=== PATIENT | male | born 1945 ===

== ENCOUNTER 2020-06-30 11:56 | Emergency (ER) | payer MEDICARE, OTHER, SELFPAY ==
--- NOTE | ~2020-06-30 | XR_ITS ---
EXAMINATION: XR CHEST CLINICAL INFORMATION: SOB and chest pain. COMPARISON: None TECHNIQUE: 2 views of the chest were obtained. FINDINGS: The lungs are hyperinflated but clear of acute process. The heart size and pulmonary vascularity is normal. There is mild spondylosis dorsal spine. No lytic process. XR/XR chest 2V IMPRESSION: Hyperinflated lungs without acute process.
--- NOTE | 2020-06-30 10:37 | CA_ITS ---
Transthoracic Echocardiogram Patient (Last, First, Middle): Lou Kruse, Gender: Male Date of : 1945 Age: 75 Procedure Date: 06/30/2020 Procedure Type: Transthoracic Echocardiogram Location: OP Height: 175.26 cm Weight: 70.31 kg BSA: 1.85 m2 Heart Rate: bpm BP: 150 / 72 mmHg Senior Net Software Developer: [place] MD: Jeffrey Johansen MD Certified Dietary Manager: Jimy Willson MD Symptoms: SOB Study Quality: Good ECG Rhythm: Atrial Fibrillation Conclusions: - 1. Normal LV systolic function 2. Moderate biatrial enlargement 3. Moderately enlarged right ventricle with low normal RV systolic pressure next 4. Mild aortic and mitral regurgitation 5. Normal RV systolic pressure 6. No pericardial effusion Findings Left Ventricle Normal left ventricular size, thickness, and systolic function. The visually estimated ejection fraction is between 55-60%. Diastolic function is indeterminate on the basis of available data. Right Ventricle Moderately increased right ventricular cavity size. There is low normal right ventricular systolic function. Atria Moderate biatrial enlargement. Interatrial shunt cannot be excluded. Aortic Valve Normal aortic valve structure and function. There is no aortic valve stenosis. There is mild aortic valve regurgitation. Mitral Valve There is mild anterior and posterior mitral leaflet thickening. There is mild mitral valve regurgitation. There is no mitral valve stenosis. Pulmonic Valve The pulmonic valve is likely normal. There is trace pulmonic valve regurgitation. Tricuspid Valve Likely normal tricuspid valve structure and function. There is mild tricuspid valve regurgitation. The right ventricular systolic pressure is normal. The right ventricular systolic pressure is 29 mmHg. Normal right atrial pressure. There is no evidence of pulmonary hypertension. Great Vessels All visible segments of the aorta are normal in size. The pulmonary artery was not well visualized. Venous The inferior vena cava is normal in size and collapses greater than 50% with inspiration. Pericardium/Pleural There is no evidence of pericardial effusion. Prior Study Comparison No prior study available for comparison. Measurements 2D Linear Measurements RVIDd: 2.82 RVIDd Index: 1.52 IVSd: 0.99 0.6-0.9/0.6-1.0 cm LVIDd: 4.34 3.9-5.3/4.2-5.9 cm LVIDd Index: 2.35 2.4-3.2/2.2-3.1 cm/m2 LVIDs: 3.17 2.0-3.6 cm LVPWd: 1.17 0.7-1.1 cm Ao Root: 3.40 2.1-3.5 cm LA Diam: 4.40 2.7-3.8/3.0-4.0 cm LAIDs Index: 2.38 1.5-2.3 cm/m2 LV Mass: 201.12 67-162/88-224 g LV Mass Index: 108.71 43-95/49-115 g/m2 LVOT Diam: 2.20 3.0+(-)1.3 cm 2D Systolic Function EF 4C: 62.80 >55% EF 2C: 54.30 >55% Aortic Valve AoV Pk Victor Manuel: 1.18 AoV Mn Victor Manuel: 0.90 AoV VTI: 0.26 AoV Pk Grad: 6.00 Aov Mn Grad: 4.00 DIAN Cont.VTI: 2.35 LVOT LVOT Pk Victor Manuel: 0.67 LVOT Mn Victor Manuel: 0.51 LVOT VTI: 0.16 LVOT Pk Grad: 2.00 LVOT Mn Grad: 1.00 LVOT Diam: 2.20 LVOT Area: 3.80 Tricuspid Valve TR Pk Victor Manuel: 2.56 TR Pk Grad: 26.00 RA Press: 3.00 RVSP: 29.00 Great Vessels Aorta Ao Root-2D: 3.40 2.0-3.7 cm Ao Asc: 3.30 2.1-3.4 cm Ao Arch: 2.90 Updated in Other Vendor System with Status of Final Jimy Willson MD electronically signed on 06/30/2020 12:20:20 PM with status of Final
--- NOTE | 2020-06-30 12:26 | PC.NURSE ---
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
[2020-06-30 12:31] VITALS: BP 163/103; PULSE 45; RESP 15; TEMP 36.1; O2SAT 99
[2020-06-30 12:40] VITALS: BP 163/103; PULSE 45; RESP 15; TEMP 36.1; O2SAT 99
--- NOTE | 2020-06-30 12:49 | ECG_ITS ---
Test Reason : CP Blood Pressure : / mmHG Vent. Rate : 056 BPM Atrial Rate : 326 BPM P-R Int : 000 ms QRS Dur : 092 ms QT Int : 454 ms P-R-T Axes : 000 -18 020 degrees QTc Int : 438 ms Atrial fibrillation with slow ventricular response Abnormal ECG No previous ECGs available Referred By: Isadora Pate Electronically Signed By:JANNET STROUD MD
--- NOTE | 2020-06-30 13:12 | ED_ITS ---
HPI - Arrhythmia/Palpitations General Chief Complaint: Arrhythmia/Palpitations Stated Complaint: Abnormal EKG Time Seen by Provider: 06/30/20 12:33 Source: patient and family Mode of arrival: ambulatory Limitations: no limitations History of Present Illness HPI narrative: 75-year-old male with a past medical history of hypertension and hyperlipidemia here with complaints of abnormal EKG and echocardiogram. The pa edgard tells me that he has had shortness of breath, chest discomfort, dizziness with going up the stairs for approximately 2-3 months. When he is at rest he feels well. No associated leg pain, leg swelling, cough, fevers or chills. Patient was seen by his primary care doctor yesterday and an outpatient echo, EKG and chest x-ray were ordered. Patient had a echocardiogram today which showed normal LV systolic function with EF 55-60%, moderate biatrial enlargement, moderately enlarged right ventricle with low-normal RV systolic pressure, mild aortic and mitral regurgitation, normal RV systolic pressure, no pericardial effusion. Noted to be in AFib with no history so sent over to the emergency department. Related Data Allergies Allergy/AdvReac Type Severity Reaction Status Date / Time aspirin Allergy Unknown nausea and Verified 03/24/18 00:00 vomiting Review of Systems 2 Review of Systems: Yes all other systems are reviewed and are negative Constitutional: Constitutional: Reports no additional constitutional complaints, Denies body ache(s), Denies chills, Denies fever(s), Denies headache(s) and Denies weakness Eyes: Eyes: Reports no additional eye complaints and Denies change in vision ENT: Reports system reviewed and no additional complaints, except as doc umented, Reports dizziness, Denies headache(s), Denies nasal congestion, Denies nasal discharge and Denies neck pain Cardiovascular: Cardiovascular: Reports no additional cardiovascular complaints, Reports chest pain with activity, Denies leg edema and Reports dyspnea Respiratory: Respiratory: Reports no additional respiratory complaints, Denies cough and Reports dyspnea Gastrointestinal: Gastrointestinal: Reports no additional gastrointestinal complaints, Denies abdominal pain, Denies diarrhea, Denies nausea and Denies vomiting Genitourinary: Genitourinary: Denies urinary incontinence Musculoskeletal: Musculoskeletal: Reports no additional musculoskeletal complaints, Denies back pain, Denies arthralgias, Denies joint swelling, Denies neck pain, Denies numbness and Denies tingling Integumentary/Breasts: Skin/Breast: Reports system reviewed and no additional complaints, except as docu and Denies rash Neurologic: Reports system reviewed and no additional complaints, except as documented, Denies Abnormal speech present, Reports dizziness, Denies headache(s), Denies numbness, Denies tingling and Denies weakness PMFSH Past Medical History Attestation statement: The following information was validated with the patient. Source: old records reviewed and nursing notes reviewed Medical History High cholesterol HTN (hypertension) Social History Social History (Updated 06/30/20 @ 13:16 by Isadora Pate NP) Alcohol intake: current Alcohol intake frequency: 0-2 drinks per day Alcohol type: wine and hard liquor Smoking Status: Never smoker Use of substances other than those prescribed or required for medical reasons: No Physical Exam Vital Signs: Vital Signs: Last Vital Signs Temp 97 F 06/30/20 12:40 Pulse 58 06/30/20 14:54 Resp 15 06/30/20 12:40 BP 149/87 H 06/30/20 14:54 Pulse Ox 99 06/30/20 12:40 Body Mass Index 8.1 Const: General: cooperative, healthy appearing, comfortable and no acute distress Orientation/consciousness: patient oriented x3 Limitations: no limitations HENMT: Head: Yes normal to inspection Ears: hearing grossly normal bilaterally General nose exam: Normal external nose present Face and sinus: Yes normal facial exam Mouth: Normal oral and palatal mucosa present Throat: Yes posterior oropharynx normal Eyes: General: appearance normal, both eyes and all related structures Pupils: Equal, round and reactive pupils present Neck: Neck: Yes normal visual inspection Chest: Chest palpation & inspection: normal inspection of the chest Resp: Effort & Inspection: normal respiratory effort Auscultation: clear to auscultation bilaterally Cardio: Rate: regular rate Rhythm: abnormal rhythm (Irregularly irregular) Peripheral pulses: Peripheral pulses 2+ throughout GI: Inspection: Yes normal to inspection Palpation (GI): Soft to palpation and nontender Auscultation: normal bowel sounds Back/Spine/Pelvis: Thoracic/Lumbar Spine: thoracic and lumbar spine normal to inspection Skin: General skin exam: no rashes or lesions noted Neuro: General: patient oriented x3, no focal motor deficits and normal sensation to monofilament Cranial nerves: Yes Equal, round and reactive pupils present Cognition (Neuro): normal cognition Speech: No Abnormal speech present Gait exam (Neuro): Normal gait present Motor exam (neuro): 5/5 motor strength present throughout Extrem: General: Yes normal to inspection, Yes no pedal edema and Yes no calf tenderness Course Course Course Narrative: 75-year-old male with a past medical history of hypertension, hyperlipidemia sent over from the echo department for an echo which showed moderate biatrial enlargement, moderately enlarged right ventricle with low normal RV systolic pressure next, and mild aortic and mitral regurgitation. Also noted to be in AFib with a rate of 50 with no history of same. Patient has a history of shortness of breath with associated dizziness and chest pain with exertion ONLY for 2-3 months. No symptoms at rest. Will need EKG here, CXR, labs. 1420-EKG shows AFib with rate of 56. Patient is AFib on the quality assurance monitor final with rates from 32 to 50s. Chest x-ray shows no acute finding. Labs are unremarkable with mild elevation of potassium at 5.2. BNP 268 but no clinical findings for fluid overload. CHADS score 1. Call out to Cardiology did discuss. 1440-spoke to Dr. Willson from Cardiology. He feels the patient can be discharged home and follow up with Cardiology outpatient. Repeat blood pressure on discharge 149/87. Reviewed the findings with the patient and his son. Recommended f/u with cardiology. Return for dizziness, SOB, CP, near syncope or any other progressive symptoms. MDM - Arrhythmia/Palpitations MDM Narrative Medical decision making narrative: ACS, afib, PE Less likely ACS with negative troponin and EKG which shows no ischemic changes. Less likely PE with negative D-dimer and no clinical signs or symptoms of DVT. Medical Records Attestation: I reviewed the patient's medical records. Lab Data Attestation: I reviewed the patient's lab results. Result diagrams: 06/30/20 13:13 06/30/20 13:13 Labs: Lab Results 06/30/20 06/30/20 06/30/20 Range/Units 13:13 13:13 13:13 WBC 5.7 (4.8-10.8) X10*3/uL RBC 4.57 L (4.60-5.80) X10*6/uL Hgb 13.9 L (14.0-18.0) g/dl Hct 41.8 L (42-52) % MCV 91.5 (80-98) fL MCH 30.4 (27.0-33.0) pg MCHC 33.3 (31.0-36.0) g/dl RDW 12.6 (11.0-16.0) % Plt Count 198 (160-400) X10*3/uL MPV 10.1 (9.4-12.4) fL Immature Gran % (Auto) 0.2 (0.0-0.4) % Neut % (Auto) 54.6 (45-73) % Lymph % (Auto) 34.4 (20-40) % [place] % (Auto) 8.9 (2-11) % Eos % (Auto) 1.2 (0-4) % Baso % (Auto) 0.7 (0-2) % Lymph # (Auto) 2.0 (1.2-4.9) X10*3/uL [place] # (Auto) 0.5 (0.1-1.2) X10*3/uL Eos # (Auto) 0.1 (0.0-0.4) X10*3/uL Baso # (Auto) 0.0 (0.0-0.2) X10*3/uL Abs Immat Gran (auto) 0.01 (0.00-0.03) X10*3/uL Absolute Neuts (auto) 3.1 (2.0-8.3) X10*3/uL Absolute Nucleated RBC 0.000 (0.0-0.012) X10*3/uL Nucleated RBC % (auto) 0.0 (0.0-0.2) /100WBC PT (10.8-13.0) SEC INR (0.9-1.1) D-Dimer NG/ML Sodium 140 (135-145) mmol/L Potassium 5.2 H (3.3-5.1) mmol/L Chloride 106 (96-108) mmol/L Carbon Dioxide 23 (22-29) mmol/L Anion Gap 16 (12-20) BUN 20 H (9-16) mg/dL Creatinine 0.78 (0.5-1.4) mg/dL Estim Creat Clear Calc 29.3 Estimated GFR > 60 Random Glucose 98 (60-115) mg/dL Calcium 9.5 (8.4-10.2) mg/dL Magnesium 2.2 (1.6-2.6) mg/dL Total Bilirubin 1.8 H (0.0-1.0) mg/dL Direct Bilirubin 0.5 (0.0-0.5) mg/dL AST 27 (5-37) U/L ALT 18 (0-40) U/L Alkaline Phosphatase 74 (39-117) U/L Troponin I High Sens < 3.5 (<3.5-35.0) ng/L B-Natriuretic Peptide 268 H (<100) pg/mL Total Protein 7.4 (6.5-8.0) g/dL Albumin 4.3 (3.5-5.0) g/dL 06/30/20 Range/Units 13:13 WBC (4.8-10.8) X10*3/uL RBC (4.60-5.80) X10*6/uL Hgb (14.0-18.0) g/dl Hct (42-52) % MCV (80-98) fL MCH (27.0-33.0) pg MCHC (31.0-36.0) g/dl RDW (11.0-16.0) % Plt Count (160-400) X10*3/uL MPV (9.4-12.4) fL Immature Gran % (Auto) (0.0-0.4) % Neut % (Auto) (45-73) % Lymph % (Auto) (20-40) % [place] % (Auto) (2-11) % Eos % (Auto) (0-4) % Baso % (Auto) (0-2) % Lymph # (Auto) (1.2-4.9) X10*3/uL [place] # (Auto) (0.1-1.2) X10*3/uL Eos # (Auto) (0.0-0.4) X10*3/uL Baso # (Auto) (0.0-0.2) X10*3/uL Abs Immat Gran (auto) (0.00-0.03) X10*3/uL Absolute Neuts (auto) (2.0-8.3) X10*3/uL Absolute Nucleated RBC (0.0-0.012) X10*3/uL Nucleated RBC % (auto) (0.0-0.2) /100WBC PT 13.1 H (10.8-13.0) SEC INR 1.1 (0.9-1.1) D-Dimer 206 NG/ML Sodium (135-145) mmol/L Potassium (3.3-5.1) mmol/L Chloride (96-108) mmol/L Carbon Dioxide (22-29) mmol/L Anion Gap (12-20) BUN (9-16) mg/dL Creatinine (0.5-1.4) mg/dL Estim Creat Clear Calc Estimated GFR Random Glucose (60-115) mg/dL Calcium (8.4-10.2) mg/dL Magnesium (1.6-2.6) mg/dL Total Bilirubin (0.0-1.0) mg/dL Direct Bilirubin (0.0-0.5) mg/dL AST (5-37) U/L ALT (0-40) U/L Alkaline Phosphatase (39-117) U/L Troponin I High Sens (<3.5-35.0) ng/L B-Natriuretic Peptide (<100) pg/mL Total Protein (6.5-8.0) g/dL Albumin (3.5-5.0) g/dL Imaging Data Chest x-ray: Attestation: I personally reviewed and interpreted this imaging study as follows: Radiologist's impression: EXAMINATION: XR CHEST CLINICAL INFORMATION: SOB and chest pain. COMPARISON: None TECHNIQUE: 2 views of the chest were obtained. FINDINGS: The lungs are hyperinflated but clear of acute process. The heart size and pulmonary vascularity is normal. There is mild spondylosis dorsal spine. No lytic process. XR/XR chest 2V IMPRESSION: Hyperinflated lungs without acute process. ECG Data Attestation: I personally reviewed and interpreted this ECG as follows: ECG interpretation date: 06/30/20 ECG interpretation time: 12:12 Interpretation: AFib with a rate of 56, normal QRS, QTC 438 Discharge Plan Discharge Clinical Impression: Atrial fibrillation Qualifiers: Atrial fibrillation type: unspecified Qualified Code(s): I48.91 - Unspecified atrial fibrillation Patient Disposition: Home, Self-Care Instructions: A-fib (Atrial Fibrillation) (ED) Additional Instructions: Check your blood pressure and pulse every morning and write it down Return for worsening lightheadedness, dizziness, feeling like her going to pass out, severe chest pain Tomorrow call the director of retail marketing for a follow-up appointment Referrals: Jimy Willson MD [Physician] - 2 days Interventions: ED Discharge Assessment Last Done: 06/30/20 15:05 Discharge Date/Time: 06/30/20 15:06
[2020-06-30 13:18] LABS: MANUAL DIFF FLAG NO
[2020-06-30 13:20] LABS: Basophils Percent Auto 0.7 % (0-2); Eosinophils Absolute Auto 0.1 X10*3/uL (0.0-0.4); Eosinophils Percent Auto 1.2 % (0-4); Hematocrit 41.8 % (42-52); Hemoglobin 13.9 g/dl (14.0-18.0); Imm Gran Abs Auto 0.01 X10*3/uL (0.00-0.03); Imm Gran Pct Auto 0.2 % (0.0-0.4); Lymphocytes Percent Auto 34.4 % (20-40); Mean Corpuscular HGB Conc 33.3 g/dl (31.0-36.0); Mean Corpuscular Hemoglobin 30.4 pg (27.0-33.0); Mean Corpuscular Volume 91.5 fL (80-98); Mean Platelet Volume 10.1 fL (9.4-12.4); Monocytes Absolute Auto 0.5 X10*3/uL (0.1-1.2); Monocytes Percent Auto 8.9 % (2-11); Neutrophils Absolute Auto 3.1 X10*3/uL (2.0-8.3); Neutrophils Percent Auto 54.6 % (45-73); Platelet Count 198 X10*3/uL (160-400); Red Blood Count 4.57 X10*6/uL (4.60-5.80); Red Cell Distribution Width 12.6 % (11.0-16.0); White Blood Count 5.7 X10*3/uL (4.8-10.8)
[2020-06-30 13:26] LABS: INTERNATIONAL NORM RATIO 1.1 (0.9-1.1); Prothrombin Time 13.1 SEC (10.8-13.0)
[2020-06-30 13:29] LABS: D Dimer 206 NG/ML
[2020-06-30 13:57] LABS: Alanine Aminotransferase 18 U/L (0-40); Albumin Level 4.3 g/dL (3.5-5.0); Alkaline Phosphatase 74 U/L (39-117); Anion Gap 16 (12-20); Aspartate Amino Transferase 27 U/L (5-37); Bilirubin Direct 0.5 mg/dL (0.0-0.5); Bilirubin Total 1.8 mg/dL (0.0-1.0); Blood Urea Nitrogen 20 mg/dL (9-16); Calcium 9.5 mg/dL (8.4-10.2); Carbon Dioxide 23 mmol/L (22-29); Chloride 106 mmol/L (96-108); Creatinine Clr Calc Pharmacy 29.3; Estimated Glomerular Filt Rate > 60; Glucose Random 98 mg/dL (60-115); Magnesium 2.2 mg/dL (1.6-2.6); Potassium 5.2 mmol/L (3.3-5.1); Sodium 140 mmol/L (135-145); Total Protein 7.4 g/dL (6.5-8.0)
[2020-06-30 13:58] LABS: Troponin-I High Sensitivity < 3.5 ng/L (<3.5-35.0)
[2020-06-30 14:23] LABS: B Type Natriuretic Peptide 268 pg/mL (<100)
[2020-06-30 14:54] VITALS: BP 149/87; PULSE 58
== END 2020-06-30 15:06 | disposition home or self-care (01) ==
LOC: HO.ED 11:56
PROVIDERS: Nurse Practitioner Family; Emergency Provider Emergency Medicine Emergency Medical Services; PCP Internal Medicine; Visit Provider Internal Medicine
DX: I48.91 Unspecified atrial fibrillation (principal); I10 Essential (primary) hypertension; E78.5 Hyperlipidemia, unspecified
CPT/HCPCS: 36415; 71046; 80048; 80076; 83735; 83880; 84484; 85025; 85379; 85610; 93005; 93306; 99285

== ENCOUNTER → 2020-07-14 14:54 | Outpatient (BNVA) | payer MEDICARE, OTHER, SELFPAY | PROVIDERS: PCP Internal Medicine; Visit Provider Internal Medicine Cardiovascular Disease | DX: I48.19 Other persistent atrial fibrillation (principal); R79.89 Other specified abnormal findings of blood chemistry; I10 Essential (primary) hypertension; R06.02 Shortness of breath; R53.83 Other fatigue; E78.00 Pure hypercholesterolemia, unspecified; I08.0 Rheumatic disorders of both mitral and aortic valves; Z88.6 Allergy status to analgesic agent; Z79.899 Other long term (current) drug therapy | CPT/HCPCS: 99202 ==

== ENCOUNTER → 2020-08-08 12:54 | Outpatient (REF) | payer MEDICARE, OTHER, SELFPAY ==
--- NOTE | 2020-08-08 13:05 | ECG_ITS ---
Hook-up date: 2020-08-08 13:11:00 Duration: 25:33:00 Test Indications: PERSISTENT AFIB Medications: 68326 QRS complexes 18 Ventricular ectopics which represent <1 % of total QRS comp. * Supraventricular ectopics which represent % of total QRS comp. * Paced QRS complexs which represent % of total QRS comp. VENTRICULAR ECTOPY 16 Isolated 0 Bigeminal Cycles 1 Couplets 0 Runs 0 Beats in Runs * Beats LONGEST at * BPM at :: -- * Beats FASTEST at * BPM at :: -- SUPRAVENTRICULAR ECTOPY * Isolated * Couplets * Runs * Beats in Runs * Beats LONGEST at * BPM at :: -- * Beats FASTEST at * BPM at :: -- HEART RATES 33 MIN at 05:31:49 2020-08-09 61 AVG 126 MAX at 20:09:58 2020-08-08 LONGEST RR 3.2400 secs at 05:00:25 2020-08-09 S-T LEVELS Channel 1 - 128 mm at 13:11:00 2020-08-08 - 128 mm at 13:11:00 2020-08-08 Channel 2 - 128 mm at 13:11:00 2020-08-08 - 128 mm at 13:11:00 2020-08-08 Channel 3 - 128 mm at 03:23:01 -- - 128 mm at 03:23:01 Basic rhythm Atrial fibrillation No significant pauses Frequent slow VR to AF with average HR of 61 bpm, 47% of time HR < 60 bpm Rare Premature ventricular complexes Patient did not report any symptoms in the diary Referred By: Jimy Willson Overread By: JIMY WILLSON MD
== END ==
LOC: HO.CARD 12:54
PROVIDERS: Visit Provider Internal Medicine Cardiovascular Disease
DX: I48.19 Other persistent atrial fibrillation (principal)
CPT/HCPCS: 93225; 93226

== ENCOUNTER 2020-08-10 09:01 | Day surgery (SDC) | payer MEDICARE, OTHER, SELFPAY ==
[2020-08-05 14:44] VITALS: BMI 23.1
--- NOTE | 2020-08-09 12:33 | P.CONAN_ITS ---
Documented by User: Marilu Levine 08/09/20 12:36 HPI - Anesthesia Eval Consult details Narrative: 75yo M for Cardioversion Xarelto for afib PMFSH Active Problems Active Problems: All Active Problems (Updated 07/14/20 @ 16:15 by Jimy Willson MD) Hypersomnolence (Acute) HTN (hypertension) (Acute) SOB (shortness of breath) on exertion (Acute) Elevated brain natriuretic peptide (BNP) level (Acute) Persistent atrial fibrillation (Acute) Past Medical History Medical History High cholesterol HTN (hypertension) Persistent atrial fibrillation Family History Family History Father Stroke Mother No problems noted. Surgical History Surgical History Hx of colonoscopy Social History Social History Alcohol intake: current Alcohol intake frequency: 0-2 drinks per day Alcohol type: wine and hard liquor Patient Tobacco Use Status: Tobacco use Unknown Use of substances other than those prescribed or required for medical reasons: No Are you DNR?: No Advance Directives: No Advance Directives Information Provided: No Advance Directives on File: No Meds Allergies Allergy/AdvReac Type Severity Reaction Status Date / Time aspirin Allergy Unknown nausea and Verified 08/10/20 09:11 vomiting, GI upset Home Medications Medication Instructions Recorded Confirmed Last Taken Type atorvastatin 40 mg tablet 40 mg PO DAILY 07/14/20 08/05/20 Unknown History lisinopril 30 mg tablet 30 mg PO DAILY 07/14/20 08/05/20 Unknown History terbinafine HCl 250 mg tablet 250 mg PO DAILY 07/14/20 08/05/20 Unknown History Exam Exam Date and Time: August 09, 2020 1233 Height,Weight and Vital Signs: Height 5 ft 9 in Weight 71.214 kg Narrative Narrative: ECHO 06/2020 Conclusions: 1. Normal LV systolic function 2. Moderate biatrial enlargement 3. Moderately enlarged right ventricle with low normal RV systolic pressure next 4. Mild aortic and mitral regurgitation 5. Normal RV systolic pressure 6. No pericardial effusion EKG 06/2020 Vent. Rate : 056 BPM Atrial Rate : 326 BPM P-R Int : 000 ms QRS Dur : 092 ms QT Int : 454 ms P-R-T Axes : 000 -18 020 degrees QTc Int : 438 ms Atrial fibrillation with slow ventricular response Abnormal ECG No previous ECGs available Assessment and Plan Assessment Anesthesia Assessment: Chart Reviewed Documented by User: Aracelis Starks 08/10/20 10:09 [facility] Past Medical History Medical History High cholesterol HTN (hypertension) Persistent atrial fibrillation Family History Family History Father Stroke Mother No problems noted. Surgical History Surgical History Hx of colonoscopy Social History Social History Alcohol intake: current Alcohol intake frequency: 0-2 drinks per day Alcohol type: wine and hard liquor Patient Tobacco Use Status: Tobacco use Unknown Use of substances other than those prescribed or required for medical reasons: No Are you DNR?: No Advance Directives: No Advance Directives Information Provided: No Advance Directives on File: No Meds Allergies Allergy/AdvReac Type Severity Reaction Status Date / Time aspirin Allergy Unknown nausea and Verified 08/10/20 09:11 vomiting, GI upset Home Medications Medication Instructions Recorded Confirmed Last Taken Type atorvastatin 40 mg tablet 40 mg PO DAILY 07/14/20 08/05/20 Unknown History lisinopril 30 mg tablet 30 mg PO DAILY 07/14/20 08/05/20 Unknown History terbinafine HCl 250 mg tablet 250 mg PO DAILY 07/14/20 08/05/20 Unknown History Exam Airway Mallampati Class: II TM Dist: >3cm Neck ROM: Full Assessment and Plan Assessment Anesthesia Assessment: Anesthesia Plan Discussed and Chart Reviewed Final Anesthetic Review NPO: Yes Final Preanesthetic Review: No Changes in Pt Med Stat, Meds/Allgs Chart Reviewed, Consent Obtained/Reviewed and Anes Risks/Benef Reviewed Patient Risk: Intermediate Procedure Risk: Low Assessment/Block/Sedation in SS: Assess/Block/Sedation-SS Anesthetic Plan Anesthetic Plan: GA Disposition: Standard PACU
--- NOTE | 2020-08-10 08:43 | MHC.SHP ---
Pre-Procedural Eval Section A Date of Service: 08/10/20 The patient is an INPATIENT: No Changes since office visit: Yes Changes in Medication and Yes Patient answered all questions; No Cold of Flu in the past 2 weeks and No New Medical Problems Section B Chief Complaint: afib Allergies: Allergies Allergy/AdvReac Type Severity Reaction Status Date / Time aspirin Allergy Unknown nausea and Verified 08/05/20 14:43 vomiting, GI upset Plan I have reviewed the history and physical and performed a pertinent physical examination on my patient. No changes have occurred unless specified.
[2020-08-10 09:22] VITALS: BP 137/83; PULSE 67; RESP 16; TEMP 36.5; O2SAT 98
[2020-08-10] MEDS: Lactated Ringers 1,000 ML 50 ML IVCONT (10:03)
[2020-08-10 10:55] VITALS: BP 134/83; PULSE 52; RESP 16; TEMP 36.6; O2SAT 97
[2020-08-10 11:00] VITALS: BP 120/57; PULSE 50; RESP 15; O2SAT 97
--- NOTE | 2020-08-10 11:00 | P.PNCAR_ITS ---
Cardioversion Procedure Note Cardioversion Date of Procedure: today Ordering Provider: myself Performing Provider: myself Indication for Procedure: symptomatic persistent atrial fibrillation Pre-Op Diagnosis: same Post-Op Diagnosis: sinus rhythm with PACs Performed with Transesophageal Echo: No History: see history and physical for details Consent: Verbal and Written consent was obtained from the patient with the help of a certified cemetery vault installer over the phonebefore starting the procedure and confirming that he was taking his Multaq and Xarelto.. The patient was made aware of the risk of The procedures including benefits, alternatives and 2nd opinion. Procedure: After consent obtained, - - cardioversion pads were attached in anteroposterior configurationand the patient was sedated by the anesthesia team. Once adequate sedation achieved, patient was delivered 200 joules of biphasic synchronized energy in anteroposterior configuration Complications: none Impression: converted to sinus rhythm with intermittent burst of PACs and short runs of AFib. Recommendations: 1. continue Multaq 400 mg b.i.d.. 2. Twelve lead EKG 3. Continue Xarelto uninterrupted 4. Holter monitor in 1 weeks time and follow up in the clinic in 2 weeks time.
--- NOTE | 2020-08-10 11:00 | ECG_ITS ---
Test Reason : S/P CARDIOVERSION Blood Pressure : / mmHG Vent. Rate : 047 BPM Atrial Rate : 047 BPM P-R Int : 256 ms QRS Dur : 110 ms QT Int : 484 ms P-R-T Axes : 069 -25 021 degrees QTc Int : 428 ms Sinus bradycardia with 1st degree A-V block with Premature atrial complexes Otherwise normal ECG When compared with ECG of 30-JUN-2020 12:12, Sinus rhythm has replaced Atrial fibrillation Referred By: Jimy Willson Electronically Signed By:JIMY WILLSON MD
[2020-08-10 11:06] VITALS: BP 112/64; PULSE 49; RESP 15; O2SAT 97
[2020-08-10 11:11] VITALS: BP 103/62; PULSE 48; RESP 17; O2SAT 97
[2020-08-10 11:25] VITALS: BP 119/75; PULSE 50; RESP 14; O2SAT 97
== END 2020-08-10 11:55 ==
LOC: HO.SSS 09:02
PROVIDERS: PCP Internal Medicine; Visit Provider Internal Medicine Cardiovascular Disease
PROC: 5A2204Z Restoration of Cardiac Rhythm, Single (ICD-10-PCS; principal; 2020-08-10 10:30)
DX: I48.19 Other persistent atrial fibrillation (principal); Z79.01 Long term (current) use of anticoagulants; I10 Essential (primary) hypertension; R79.89 Other specified abnormal findings of blood chemistry; E78.00 Pure hypercholesterolemia, unspecified; Z79.899 Other long term (current) drug therapy
CPT/HCPCS: 92960; 93005

== ENCOUNTER 2020-08-16 13:39 | Outpatient (REF) | payer MEDICARE, OTHER, SELFPAY ==
[2020-08-16 14:43] LABS: Anion Gap 13 (12-20); Blood Urea Nitrogen 21 mg/dL (9-16); Calcium 10.1 mg/dL (8.4-10.2); Carbon Dioxide 27 mmol/L (22-29); Chloride 104 mmol/L (96-108); Estimated Glomerular Filt Rate > 60; Glucose Random 88 mg/dL (60-115); Potassium 5.1 mmol/L (3.3-5.1); Sodium 139 mmol/L (135-145)
[2020-08-16 14:55] LABS: B Type Natriuretic Peptide 230 pg/mL (<100)
== END 2020-08-16 13:40 | disposition home or self-care (01) ==
LOC: HO.LAB 13:39
PROVIDERS: PCP Internal Medicine; Visit Provider Internal Medicine Cardiovascular Disease
DX: R79.89 Other specified abnormal findings of blood chemistry (principal)
CPT/HCPCS: 36415; 80048; 83880

== ENCOUNTER → 2020-08-18 09:36 | Outpatient (REF) | payer MEDICARE, OTHER, SELFPAY ==
--- NOTE | 2020-08-18 14:30 | ECG_ITS ---
Hook-up date: 2020-08-18 09:43:00 Duration: 27:45:00 Test Indications: I48.19 - Other persistent atria Medications: 07410 QRS complexes 11 Ventricular ectopics which represent <1 % of total QRS comp. 36 Supraventricular ectopics which represent <1 % of total QRS comp. * Paced QRS complexs which represent % of total QRS comp. VENTRICULAR ECTOPY 11 Isolated 0 Bigeminal Cycles 0 Couplets 0 Runs 0 Beats in Runs * Beats LONGEST at * BPM at :: -- * Beats FASTEST at * BPM at :: -- SUPRAVENTRICULAR ECTOPY 32 Isolated 2 Couplets 0 Runs 0 Beats in Runs * Beats LONGEST at * BPM at :: -- * Beats FASTEST at * BPM at :: -- HEART RATES 36 MIN at 07:27:53 2020-08-19 56 AVG 94 MAX at 13:14:24 2020-08-18 LONGEST RR 2.7360 secs at 03:46:34 2020-08-19 S-T LEVELS Channel 1 - 128 mm at 09:43:00 2020-08-18 - 128 mm at 09:43:00 2020-08-18 Channel 2 - 128 mm at 09:43:00 2020-08-18 - 128 mm at 09:43:00 2020-08-18 Channel 3 - 128 mm at 02:90:21 -- - 128 mm at 02:90:21 Underlying rhythm is sinus bradycardia; Average rate 56/min; range 36-94/min; About 70% of the time, rate <60/min; Longest pause 2.7sec during sleep hours; other shorter pauses during sleep hours; some blocked PACs; Rare PACs/PVCs, isolated; Patient did not report any symptoms in the diary Referred By: Jimy Willson Overread By: JOHNY HO
== END ==
LOC: HO.CARD 09:36
PROVIDERS: PCP Internal Medicine; Referring Provider Internal Medicine; Visit Provider Internal Medicine Cardiovascular Disease
DX: I48.19 Other persistent atrial fibrillation (principal)
CPT/HCPCS: 93226

== ENCOUNTER → 2020-08-30 14:02 | Outpatient (BNVA) | payer MEDICARE, OTHER, SELFPAY | PROVIDERS: PCP Internal Medicine; Referring Provider Internal Medicine; Visit Provider Internal Medicine Cardiovascular Disease | DX: I48.19 Other persistent atrial fibrillation (principal); R79.89 Other specified abnormal findings of blood chemistry | CPT/HCPCS: 93005; 99212 ==

== ENCOUNTER 2020-09-09 17:03 | Outpatient (REF) | payer MEDICARE, OTHER, SELFPAY ==
--- NOTE | ~2020-09-09 | XR_ITS ---
EXAMINATION: XR KNEE, RIGHT CLINICAL INFORMATION: Pain COMPARISON: None TECHNIQUE: Four views of the right knee. FINDINGS: Bone alignment is normal. No fracture or dislocation is seen. There are degenerative changes at the patellofemoral joint. There is an osteophyte at the quadriceps tendon insertion to the patella. There is a large joint effusion. XR/XR knee RT 4V IMPRESSION: Degenerative changes. Joint effusion.
[2020-09-09 18:24] LABS: Anion Gap 15 (12-20); Blood Urea Nitrogen 24 mg/dL (9-16); Calcium 10.4 mg/dL (8.4-10.2); Carbon Dioxide 30 mmol/L (22-29); Chloride 106 mmol/L (96-108); Estimated Glomerular Filt Rate > 60; Glucose Random 98 mg/dL (60-115); Potassium 4.6 mmol/L (3.3-5.1); Sodium 146 mmol/L (135-145)
[2020-09-09 18:32] LABS: B Type Natriuretic Peptide 360 pg/mL (<100)
== END 2020-09-09 17:04 | disposition home or self-care (01) ==
LOC: HO.XRAY 17:03
PROVIDERS: PCP Internal Medicine; Referring Provider Internal Medicine; Visit Provider Internal Medicine Cardiovascular Disease
DX: M25.561 Pain in right knee (principal); R06.02 Shortness of breath
CPT/HCPCS: 36415; 73564; 80048; 83880

== ENCOUNTER → 2020-10-05 11:00 | Day surgery (SDC) | payer MEDICARE, OTHER, SELFPAY ==
[2020-09-28 14:58] VITALS: BMI 21.5
--- NOTE | 2020-10-04 10:40 | HO.ANESPROP2 ---
HPI - Anesthesia Eval Consult details Narrative: 75yo M for Cardioversion Xarelto for afib s/p Cardioversion 07/2020 with TIVA PMFSH Active Problems Active Problems: All Active Problems (Updated 09/28/20 @ 14:51 by Candace Ramirez, RN) Elevated brain natriuretic peptide (BNP) level (Acute) SOB (shortness of breath) on exertion (Acute) Hypersomnolence (Acute) HTN (hypertension) (Acute) Persistent atrial fibrillation (Acute) Past Medical History Medical History (Updated 09/28/20 @ 14:51 by Candace Ramirez, RN) High cholesterol History of cardioversion HTN (hypertension) Persistent atrial fibrillation Family History Family History Father Stroke Mother No problems noted. Surgical History Surgical History Hx of colonoscopy Social History Social History Are you a primary student career development specialist to a significant other at home: No Do you presently have visiting nurse or other home services: No Alcohol intake: current Alcohol intake frequency: 0-2 drinks per day Alcohol type: wine and hard liquor Patient Tobacco Use Status: Former Tobacco user Quit Date: 36 yrs ago Tobacco use type: Cigarette Meds Allergies Allergy/AdvReac Type Severity Reaction Status Date / Time aspirin Allergy Unknown nausea and Verified 09/28/20 14:45 vomiting, GI upset furosemide [From Lasix] Allergy rash Verified 09/28/20 14:45 dronedarone [From Multaq] AdvReac leg Verified 09/28/20 14:45 swelling Home Medications Medication Instructions Recorded Confirmed Last Taken Type atorvastatin 40 mg tablet 40 mg PO DAILY 07/14/20 09/28/20 Unknown History lisinopril 30 mg tablet 30 mg PO DAILY 07/14/20 09/28/20 Unknown History terbinafine HCl 250 mg tablet 250 mg PO DAILY 07/14/20 09/28/20 Unknown History Exam Exam Date and Time: October 04, 2020 1040 Height,Weight and Vital Signs: Height 5 ft 9 in Weight 66.224 kg Narrative Narrative: ECHO 06/2020 Conclusions: 1. Normal LV systolic function? 2. Moderate biatrial enlargement? 3. Moderately enlarged right ventricle with low normal RV ? ? ? systolic pressure next 4. Mild aortic and mitral regurgitation? 5. Normal RV systolic pressure? 6. No pericardial effusion? ? EKG 06/2020 Vent. Rate : 056 BPM ? ? Atrial Rate : 326 BPM ?? P-R Int : 000 ms? QRS Dur : 092 ms ? ? QT Int : 454 ms ? ? ? P-R-T Axes : 000 -18 020 degrees ?? QTc Int : 438 ms ? Atrial fibrillation with slow ventricular response Abnormal ECG No previous ECGs available Assessment and Plan Assessment Anesthesia Assessment: Chart Reviewed
--- NOTE | 2020-10-05 11:19 | ECG_ITS ---
Test Reason : RHYTHM CHECK Blood Pressure : / mmHG Vent. Rate : 049 BPM Atrial Rate : 049 BPM P-R Int : 236 ms QRS Dur : 096 ms QT Int : 478 ms P-R-T Axes : 059 -22 029 degrees QTc Int : 431 ms Sinus bradycardia with 1st degree A-V block Otherwise normal ECG When compared with ECG of 10-AUG-2020 11:10, Premature atrial complexes are no longer Present Referred By: Jimy Willson Electronically Signed By:RENAE PATEL
--- NOTE | 2020-10-05 11:42 | PC.NURSE ---
Patient presented to [facility]. Sinus tong on monitor. Dr. Willson notified. 12 Lead EKG obtained, picture sent to Dr. Willson. Dr. Dr. Willson at bedside to speak with patient. patient in normal sinus rhythm, procedure is no longer needed at this time.
[2020-10-05 13:22] LABS: B Type Natriuretic Peptide 152 pg/mL (<100)
[2020-10-05 13:28] LABS: Anion Gap 13 (12-20); Blood Urea Nitrogen 16 mg/dL (9-16); Calcium 10.1 mg/dL (8.4-10.2); Carbon Dioxide 30 mmol/L (22-29); Chloride 102 mmol/L (96-108); Creatinine Clr Calc Pharmacy 65.9; Estimated Glomerular Filt Rate > 60; Glucose Random 102 mg/dL (60-115); Potassium 4.9 mmol/L (3.3-5.1); Sodium 140 mmol/L (135-145)
== END ==
PROVIDERS: PCP Internal Medicine; Visit Provider Internal Medicine Cardiovascular Disease
DX: I48.19 Other persistent atrial fibrillation (principal); Z53.8 Procedure and treatment not carried out for other reasons
CPT/HCPCS: 36415; 80048; 83880; 93005

== ENCOUNTER → 2020-10-24 10:46 | Outpatient (REF) | payer MEDICARE, OTHER, SELFPAY ==
--- NOTE | 2020-10-24 10:51 | HM_ITS ---
Total monitoring time 2 days and 23 hours. Underlying rhythm is sinus. Average heart rate of 52/min. Minimum 34/Min. Maximum 121/Min. No evidence of atrial fibrillation or flutter. Pauses noted; longest 2.6 seconds at 08:24am. Rare supraventricular ectopy. Very rare premature ventricular ectopy. No patient events. MTDD
== END ==
LOC: HO.CARD 10:46
PROVIDERS: PCP Internal Medicine; Visit Provider Internal Medicine Cardiovascular Disease
DX: I48.19 Other persistent atrial fibrillation (principal)
CPT/HCPCS: 93242

== ENCOUNTER → 2020-11-01 13:06 | Outpatient (BNVA) | payer MEDICARE, OTHER, SELFPAY | PROVIDERS: PCP Internal Medicine; Referring Provider Internal Medicine; Visit Provider Nurse Practitioner Family | DX: I48.19 Other persistent atrial fibrillation (principal); I10 Essential (primary) hypertension; R00.1 Bradycardia, unspecified | CPT/HCPCS: 93005; 99212 ==

== ENCOUNTER → 2020-11-10 09:31 | Outpatient (BNVA) | payer MEDICARE, OTHER, SELFPAY | PROVIDERS: PCP Internal Medicine; Referring Provider Internal Medicine; Visit Provider Internal Medicine Cardiovascular Disease | DX: Z01.810 Encounter for preprocedural cardiovascular examination (principal); I48.0 Paroxysmal atrial fibrillation; I10 Essential (primary) hypertension; R00.1 Bradycardia, unspecified; R79.89 Other specified abnormal findings of blood chemistry | CPT/HCPCS: 93005; 99212 ==

== ENCOUNTER → 2021-01-12 07:17 | Outpatient (REF) | payer MEDICARE, OTHER, SELFPAY ==
--- NOTE | 2021-01-12 08:00 | HM_ITS ---
Conclusion: 1. Patient was monitored for total period of 4 days and 2 hours 2. Baseline was normal sinus rhythm with average heart rate of 51 beats per minute 3. Frequent sinus bradycardia with no pauses greater than 3 seconds noted 4. No sustained atrial fibrillation noted 5. Total of 388 PACs accounting for 0.13% of total burden accounting for occasional PACs 6. No patient reported events MTDD
== END ==
LOC: HO.CARD 07:17
PROVIDERS: PCP Internal Medicine; Visit Provider Nurse Practitioner Family
DX: I48.0 Paroxysmal atrial fibrillation (principal)
CPT/HCPCS: 93242

== ENCOUNTER → 2021-01-18 10:01 | Outpatient (BNVA) | payer MEDICARE, OTHER, SELFPAY | PROVIDERS: PCP Internal Medicine; Referring Provider Internal Medicine; Visit Provider Internal Medicine Cardiovascular Disease | DX: Z79.82 Long term (current) use of aspirin (principal); Z79.899 Other long term (current) drug therapy | CPT/HCPCS: 93005 ==

== ENCOUNTER → 2021-02-22 15:10 | Outpatient (BNVA) | payer MEDICARE, OTHER, SELFPAY | PROVIDERS: PCP Internal Medicine; Referring Provider Internal Medicine; Visit Provider Internal Medicine Cardiovascular Disease | DX: I48.0 Paroxysmal atrial fibrillation (principal); R06.02 Shortness of breath; R79.89 Other specified abnormal findings of blood chemistry | CPT/HCPCS: 93005; 99212 ==

== ENCOUNTER → 2021-05-03 07:34 | Outpatient (REF) | payer MEDICARE, OTHER, SELFPAY ==
--- NOTE | 2021-05-03 08:25 | HM_ITS ---
* Total monitoring time 5 days and 5 hours. * Underlying rhythm is sinus. Average rate 57/Min. Range 39 to 99/Min. * No atrial fibrillation or flutter or AV blocks or pauses. * Rare supraventricular ectopy with minimal burden. * Rate ventricular ectopy with minimal burden. * No patient events. MTDD
== END ==
LOC: HO.CARD 07:34
PROVIDERS: PCP Internal Medicine; Visit Provider Internal Medicine Cardiovascular Disease
DX: I48.0 Paroxysmal atrial fibrillation (principal)
CPT/HCPCS: 93242

== ENCOUNTER → 2021-06-12 10:15 | Outpatient (REF) | payer MEDICARE, OTHER, SELFPAY ==
--- NOTE | 2021-06-12 10:20 | CA_ITS ---
Transthoracic Echocardiogram Patient (Last, First, Middle): Lou Kruse, Gender: Male Date of : 1945 Age: 76 Procedure Date: 06/12/2021 Procedure Type: Transthoracic Echocardiogram Location: OP Height: 177.8 cm Weight: 65.32 kg BSA: 1.82 m2 Heart Rate: bpm BP: 134 / 86 mmHg Arm Maker: FATIMAH Referring MD: Jimy Willson MD Symptoms: R79.89 - Other specified abnormal findings of blood chemi... Study Quality: Fair ECG Rhythm: Sinus Conclusions: - The left ventricular systolic function is normal. The calculated ejection fraction is 57% by biplane method. - Evidence suggests grade II (moderate) diastolic dysfunction. - Moderately increased right ventricular cavity size. - The left atrium is moderately dilated. - There is mild mitral valve regurgitation. - There is mild tricuspid valve regurgitation. - Mild pulmonary hypertension is present. Findings Left Ventricle Normal left ventricular cavity size. The left ventricular systolic function is normal. The calculated ejection fraction is 57% by biplane method. There is no evidence of regional wall motion abnormalities. E/E prime ratio is between 8 and 15 consistent with indeterminate filling pressures. Evidence suggests grade II (moderate) diastolic dysfunction. There is mild septal and mild basal asymmetric hypertrophy. Right Ventricle Moderately increased right ventricular cavity size. There is normal right ventricular systolic function. Atria The left atrium is moderately dilated. The right atrium is normal in size. Aortic Valve There is a normal trileaflet aortic valve. There is no aortic valve stenosis. There is trace (trivial) aortic valve regurgitation. Mitral Valve The mitral valve appears normal. There is mild mitral valve regurgitation. There is no mitral valve stenosis. Pulmonic Valve The pulmonic valve was not well visualized. There is trace pulmonic valve regurgitation. Tricuspid Valve Normal tricuspid valve structure. There is mild tricuspid valve regurgitation. The right ventricular systolic pressure is 38 mmHg. Mild pulmonary hypertension is present. Great Vessels The aortic annulus, sinuses of valsalva, and asc aorta are normal in size. Venous The inferior vena cava is normal in size and collapses greater than 50% with inspiration. Pericardium/Pleural There is no evidence of pericardial effusion. Prior Study Comparison Changes noted compared to prior study dated: 06/30/2020. RVSP increased. Measurements 2D Linear Measurements IVSd: 1.05 0.6-0.9/0.6-1.0 cm LVIDd: 4.69 3.9-5.3/4.2-5.9 cm LVIDd Index: 2.58 2.4-3.2/2.2-3.1 cm/m2 LVIDs: 2.50 2.0-3.6 cm LVPWd: 1.09 0.7-1.1 cm LA Diam: 4.40 2.7-3.8/3.0-4.0 cm LAIDs Index: 2.42 1.5-2.3 cm/m2 LV Mass: 224.07 67-162/88-224 g LV Mass Index: 123.11 43-95/49-115 g/m2 LVOT Diam: 2.40 3.0+(-)1.3 cm 2D Systolic Function EF 4C: 55.50 >55% EF 2C: 59.40 >55% EF BiP: 56.70 >55% Mitral Valve MV Pk E: 0.91 MV PK A: 0.53 MV Decel Time: 278.00 E/A: 1.70 E'Lateral: 10.30 E'Medial: 6.20 E/E' Med: 14.70 E/E' Lat: 8.90 PHT: 81.00 MVA PHT: 2.72 Decel [place]: 3.28 Aortic Valve AoV Pk Victor Manuel: 1.58 AoV Mn Victor Manuel: 1.01 AoV VTI: 0.36 AoV Pk Grad: 10.00 Aov Mn Grad: 5.00 DIAN Cont.VTI: 2.51 AI Pk Victor Manuel: 4.10 AI [place]: 1.55 LVOT LVOT Pk Victor Manuel: 0.83 LVOT Mn Victor Manuel: 0.54 LVOT VTI: 0.20 LVOT Pk Grad: 3.00 LVOT Mn Grad: 1.00 LVOT Diam: 2.40 LVOT Area: 4.52 Diastolic Function MV Pk E: 0.91 MV Pk A: 0.53 E/A: 1.70 E'Medial: 6.20 E/E' Med: 14.70 E' Laterial: 10.30 E/E' Lat: 8.90 Right Ventricle TAPSE (mm): 23.20 TVS' Victor Manuel: 11.60 Tricuspid Valve TR Pk Victor Manuel: 2.95 TR Pk Grad: 35.00 RA Press: 3.00 RVSP: 38.00 Great Vessels Aorta Sinus of Valsalva: 3.68 2.0-3.[address] [place]: 3.02 1.7-3.4 cm Ao Asc: 3.50 2.1-3.4 cm Ao Arch: 2.40 Updated in Other Vendor System with Status of Final Chaitanya Giraldo MD electronically signed on 06/13/2021 12:11:39 PM with status of Final
== END ==
LOC: HO.CARD 10:15
PROVIDERS: PCP Internal Medicine; Visit Provider Internal Medicine Cardiovascular Disease
DX: I48.0 Paroxysmal atrial fibrillation (principal); R00.1 Bradycardia, unspecified; R79.89 Other specified abnormal findings of blood chemistry
CPT/HCPCS: 93306

== ENCOUNTER 2021-08-07 09:43 | Outpatient (REF) | payer MEDICARE, OTHER, SELFPAY ==
--- NOTE | ~2021-08-07 | XR_ITS ---
EXAMINATION: XR CHEST CLINICAL INFORMATION: Paroxysmal atrial fibrillation COMPARISON: Previous chest x-ray June [address] August 2015 TECHNIQUE: 2 views of the chest were obtained. FINDINGS: The cardiac and mediastinal contours are stable. The lungs are clear. There is right lateral pleural thickening that is unchanged. There is no pleural effusion or pneumothorax. There are degenerative changes of the spine. XR/XR chest 2V IMPRESSION: No evidence for acute disease in the chest. Right lateral pleural thickening similar to previous exams.
[2021-08-07 11:06] LABS: Hematocrit 40.6 % (42.0-52.0); Hemoglobin 13.2 g/dl (14.0-18.0); Mean Corpuscular HGB Conc 32.5 g/dl (31.0-36.0); Mean Corpuscular Hemoglobin 29.9 pg (27.0-33.0); Mean Corpuscular Volume 91.9 fL (80.0-98.0); Mean Platelet Volume 10.7 fL (9.4-12.4); Platelet Count 220 X10*3/uL (160-400); Red Blood Count 4.42 X10*6/uL (4.60-5.80); Red Cell Distribution Width 12.8 % (11.0-16.0)
[2021-08-07 11:23] LABS: B Type Natriuretic Peptide 119 pg/mL (<100)
[2021-08-07 11:43] LABS: TSH reflex Free T4 1.34 uIU/mL (0.32-4.0)
[2021-08-07 12:04] LABS: Alanine Aminotransferase 21 U/L (0-40); Albumin Level 4.2 g/dL (3.5-5.0); Alkaline Phosphatase 95 U/L (39-117); Anion Gap 12 (12-20); Aspartate Amino Transferase 23 U/L (5-37); Bilirubin Direct 0.5 mg/dL (0.0-0.5); Bilirubin Total 1.3 mg/dL (0.0-1.0); Blood Urea Nitrogen 18 mg/dL (9-16); Calcium 9.1 mg/dL (8.4-10.2); Carbon Dioxide 29 mmol/L (22-29); Chloride 104 mmol/L (96-108); Estimated Glomerular Filt Rate > 60; Glucose Random 90 mg/dL (60-115); Potassium 4.9 mmol/L (3.3-5.1); Sodium 140 mmol/L (135-145); Total Protein 6.6 g/dL (6.5-8.0)
== END 2021-08-07 09:44 | disposition home or self-care (01) ==
LOC: HO.LAB 09:43
PROVIDERS: PCP Internal Medicine; Visit Provider Internal Medicine Cardiovascular Disease
DX: I48.0 Paroxysmal atrial fibrillation (principal); R00.1 Bradycardia, unspecified; R79.89 Other specified abnormal findings of blood chemistry; I50.9 Heart failure, unspecified
CPT/HCPCS: 36415; 71046; 80048; 80076; 83880; 84443; 85027; 93005; 99212

== ENCOUNTER → 2021-12-06 11:15 | Outpatient (REF) | payer MEDICARE, OTHER, SELFPAY ==
--- NOTE | 2021-12-06 11:19 | HM_ITS ---
Conclusion: 1. Patient was monitored for total period of 3 days 2. Baseline was normal sinus rhythm with average heart of 56 beats per minute with lower start of 38 beats per minute during sleep hours 3. Frequent sinus bradycardia with 68% of time heart rate below 60 beats per minute 4. No significant pauses noted 5. 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 Occasional PACs noted 7. No sustained atrial fibrillation noted 8. Patient reported 1 event which correlated with sinus bradycardia MTDD
== END ==
LOC: HO.CARD 11:15
PROVIDERS: PCP Internal Medicine; Visit Provider Internal Medicine Cardiovascular Disease
DX: R00.1 Bradycardia, unspecified (principal); I48.0 Paroxysmal atrial fibrillation
CPT/HCPCS: 93242

== ENCOUNTER → 2022-02-02 10:39 | Outpatient (BNVA) | payer MEDICARE, SELFPAY | PROVIDERS: PCP Internal Medicine; Visit Provider Internal Medicine Cardiovascular Disease | DX: R07.9 Chest pain, unspecified (principal); I48.0 Paroxysmal atrial fibrillation; R00.1 Bradycardia, unspecified; I44.0 Atrioventricular block, first degree; I10 Essential (primary) hypertension; E78.00 Pure hypercholesterolemia, unspecified; Z98.890 Other specified postprocedural states | CPT/HCPCS: 93005; 99212 ==

== ENCOUNTER → 2022-02-27 08:36 | Outpatient (REF) | payer MEDICARE, OTHER, SELFPAY ==
--- NOTE | 2022-02-27 08:46 | CA_ITS ---
Acquisition Time: 2022-02-27 08:58:55 Total Exercise Time: 00:06:00 Test Indications: CHEST PAIN Medications: AMIODARONE AMLODIPINE ATORVASTATIN Protocol: ANIL Max HR: 133 BPM 91% of Pred: 145 BPM Max BP: 160/080 mmHG Max Work Load: 7.0 METS Exercise stress test with exercise 6 min of Anil protocol, achieving 92% MPHR, wih mild sob, no CP, with isolated PACs and PVCs, with normal chronotropic and normotensive response to exercise, without EKG changes meeting criteria for ischemia. Test reviewed with Dr Willson Note: test originally ordered as an exercise nuclear stress test. Pt reports singificant claustraphobia and will not be able to go under camera for nuclear images. He states even with premedication, would not be able to do. Dr Willson notified and test changed to an exercise stress test. Referred By: Jimy Willson Overread By: LILLIAM GRAHAM
== END ==
LOC: HO.CARD 08:36
PROVIDERS: PCP Internal Medicine; Visit Provider Internal Medicine Cardiovascular Disease
DX: R07.9 Chest pain, unspecified (principal)
CPT/HCPCS: 93017

== ENCOUNTER → 2022-03-16 09:30 | Outpatient (BNVA) | payer MEDICARE, SELFPAY | PROVIDERS: PCP Internal Medicine; Referring Provider Internal Medicine; Visit Provider Internal Medicine Cardiovascular Disease | DX: R07.9 Chest pain, unspecified (principal); I48.0 Paroxysmal atrial fibrillation; R00.1 Bradycardia, unspecified; R79.89 Other specified abnormal findings of blood chemistry; Z79.01 Long term (current) use of anticoagulants | CPT/HCPCS: 99212 ==

== ENCOUNTER → 2022-05-10 08:45 | Outpatient (BNVA) | payer MEDICARE, SELFPAY | PROVIDERS: PCP Internal Medicine; Visit Provider Internal Medicine Rheumatology | DX: M25.511 Pain in right shoulder (principal); M25.512 Pain in left shoulder; M54.50 Low back pain, unspecified; M25.551 Pain in right hip; M79.641 Pain in right hand; M79.642 Pain in left hand; R20.0 Anesthesia of skin; G89.29 Other chronic pain | CPT/HCPCS: 99202 ==

== ENCOUNTER 2022-05-11 08:03 | Outpatient (REF) | payer MEDICARE, OTHER, SELFPAY ==
--- NOTE | ~2022-05-11 | XR_ITS ---
EXAMINATION: XR hand LT min 3V, XR hand RT min 3V CLINICAL INFORMATION: Pain everywhere COMPARISON: None. TECHNIQUE: 3 views, 4 images of the right hand. 3 views of the left hand. FINDINGS: Right hand: No fracture or dislocation. Alignment is anatomic. Joint spaces are narrowed throughout, most prominently at the third metacarpophalangeal joint. There are diffuse osteophytes throughout the metacarpophalangeal joints and interphalangeal joints. No osseous erosions. Mild soft tissue swelling throughout the hand. Left hand: No fracture or dislocation. Prominent osteophytes throughout the interphalangeal joints, greatest at the third digit proximal interphalangeal joint. Mild joint space narrowing along the metacarpophalangeal joints. Mild degenerative change of the first carpal metacarpal joint with osteophytes. The soft tissues are unremarkable. No osseous erosions. XR/XR hand LT min 3V IMPRESSION: Moderate arthritic changes throughout both hands. No osseous erosions. Mild soft tissue swelling.
--- NOTE | ~2022-05-11 | XR_ITS ---
EXAMINATION: XR HIP, RIGHT CLINICAL INFORMATION: Pain COMPARISON: None available. TECHNIQUE: Two views of the right hip. FINDINGS: Bone alignment is normal. No fracture or dislocation. There is severe osteoarthritis with large osteophytes and joint space narrowing. Soft tissues are unremarkable. XR/XR hip RT min 2V IMPRESSION: Severe right hip osteoarthritis.
--- NOTE | ~2022-05-11 | XR_ITS ---
EXAMINATION: XR hand LT min 3V, XR hand RT min 3V CLINICAL INFORMATION: Pain everywhere COMPARISON: None. TECHNIQUE: 3 views, 4 images of the right hand. 3 views of the left hand. FINDINGS: Right hand: No fracture or dislocation. Alignment is anatomic. Joint spaces are narrowed throughout, most prominently at the third metacarpophalangeal joint. There are diffuse osteophytes throughout the metacarpophalangeal joints and interphalangeal joints. No osseous erosions. Mild soft tissue swelling throughout the hand. Left hand: No fracture or dislocation. Prominent osteophytes throughout the interphalangeal joints, greatest at the third digit proximal interphalangeal joint. Mild joint space narrowing along the metacarpophalangeal joints. Mild degenerative change of the first carpal metacarpal joint with osteophytes. The soft tissues are unremarkable. No osseous erosions. XR/XR hand RT min 3V IMPRESSION: Moderate arthritic changes throughout both hands. No osseous erosions. Mild soft tissue swelling.
--- NOTE | ~2022-05-11 | XR_ITS ---
EXAMINATION: XR SHOULDER, LEFT CLINICAL INFORMATION: Left shoulder pain COMPARISON: None available. TECHNIQUE: 5 views of the left shoulder. FINDINGS: No fracture or dislocation. The glenohumeral joint is well aligned. Small osteophytes are present. The acromioclavicular joint is intact with mild hypertrophic degenerative change. The visualized lung is clear. The visualized ribs are intact. XR/XR shoulder LT min 2V IMPRESSION: Mild degenerative changes at the left shoulder.
== END 2022-05-11 08:04 | disposition home or self-care (01) ==
LOC: HO.XRAY 08:03
PROVIDERS: PCP Internal Medicine; Visit Provider Internal Medicine Rheumatology
DX: M79.641 Pain in right hand (principal); M79.642 Pain in left hand; M25.512 Pain in left shoulder; M25.551 Pain in right hip
CPT/HCPCS: 73030; 73130; 73502

== ENCOUNTER 2022-09-17 10:19 | Outpatient (AMB) | payer MEDICARE, SELFPAY ==
--- NOTE | 2022-09-17 10:26 | A.OFFVIS_ITS ---
Intake Vital Signs 09/17/22 10:28 Height 5 ft 9 in Weight 143 lb 4.807 oz BMI 21.2 BP 120/80 Blood Pressure Location Lt brachial Position Sitting Pulse 49 L Intake Visit Reasons: 6 mth follow up Intake Note: 6 month follow-up with ekg feeling good Freight Brake Operator Required: Yes Freight Brake Operator Name: cyracom Allergies aspirin Allergy (Unknown, Verified 05/10/22 08:55) nausea and vomiting, GI upset furosemide [From Lasix] Allergy (Verified 05/10/22 08:55) rash dronedarone [From Multaq] Adverse Reaction (Verified 05/10/22 08:55) leg swelling Medication List - Last Reconciled 09/17/22 by Jimy Willson MD acetaminophen (Tylenol Extra Strength) 1,000 mg orally two times a day. PRN; amiodarone 100 mg (1/2 x 200 mg) PO DAILY 90 days amlodipine 2.5 mg PO DAILY atorvastatin 40 mg PO DAILY capsaicin 0.075% 1 appl topical TID lisinopril 30 mg PO DAILY rivaroxaban (Xarelto) 20 mg PO DAILY HPI HPI Comments History of Present Illness Details Lou comes for follow-up. He is accompanied by son. He said last night around 02:00 or so he had retrosternal chest discomfort is described as squeezing sensation. Lasted for few minutes. He had subsided on its own. He has not had any recurrent discomfort since then. He has not had exertional chest discomfort in the recent time. However complains of exertional shortness of breath fatigue. Comes for follow-up and noted to be in atrial fibrillation with slow ventricular response. He is taking all his medications including his oral anticoagulation therapy. He has not had any bleeding issues or neurologic events. He gets lightheaded when he gets up from a stooping posture. [facility] Medical History Adenomatous colon polyp History of cardioversion HTN (hypertension) Hyperplastic polyp of large intestine Internal hemorrhoid Paroxysmal atrial fibrillation Persistent atrial fibrillation Surgical History Hx of colonoscopy Family History Father Stroke Mother No problems noted. Social History Are you a primary progressive care manager to a significant other at home: No Do you presently have visiting nurse or other home services: No Alcohol intake: current Alcohol intake frequency: 0-2 drinks per day Alcohol type: wine and hard liquor Patient Tobacco Use Status: Former Tobacco user Quit Date: 36 yrs ago Tobacco use type: Cigarette Review of Systems Const Denies chills, Denies fatigue, Denies fever(s), Denies frequent falls, Denies weakness, Denies weight gain and Denies weight loss ENT Denies dizziness Card Denies chest pain, Denies leg edema, Denies lightheadedness, Denies palpitations, Denies dyspnea, Denies dyspnea on exertion, Denies orthopnea and Denies other (loss of consciousness) Resp Denies cough, Denies dyspnea and Denies dyspnea on exertion GI Denies hematochezia and Denies change in stool character Musc Denies abnormal gait, Denies muscle weakness, Denies numbness, Denies radiating pain into limb and Denies tingling Neuro Denies abnormal gait, Denies dizziness, Denies frequent falls, Denies numbness, Denies tingling and Denies weakness Endo Denies fatigue and Denies palpitations Physical Exam Vital Signs: Last Vital Signs Pulse 49 L 09/17/22 10:28 BP 120/80 09/17/22 10:28 BMI result Body Mass Index 21.2 Const General: cooperative, comfortable and no acute distress Orientation/consciousness: patient oriented x3 HEENT Head: Yes normal to inspection Neck Neck: Yes normal visual inspection and Yes no JVD Carotids: normal carotid upstroke Resp Effort & Inspection: normal respiratory effort Auscultation: clear to auscultation bilaterally, no crackles, no rales, no rhonchi and no wheezes Cardio Jugular venous distension: no JVD Rate: regular rate and bradycardic Rhythm: regular rhythm Heart sounds: S1 normal heart sound present, S2 normal heart sound present, no gallops, no murmurs and no rubs Peripheral pulses: Peripheral pulses 2+ throughout GI Inspection: Yes normal to inspection Neuro General: patient oriented x3 Extrem General: Yes normal to inspection, No no pedal edema and No calf tenderness Office Procedures EKG Details: EKG shows atrial fibrillation slow ventricular response with no acute ST T wave changes [id number], Complete Assessment & Plan Assessment & Plan (1) Atypical chest pain: Code(s): R07.89 - Other chest pain Plan: Patient episode of chest discomfort last night while resting. No recent exertional symptoms. Myocardial ischemia needs to be ruled out. Will suggest a vasodilating myocardial perfusion imaging given his atrial fibrillation as well as slow ventricular response in near future. If this is negative consider workup from GI perspective. (2) Persistent atrial fibrillation: Comment: Status post cardioversion with amiodarone. Had failed Multaq therapy. Code(s): I48.19 - Other persistent atrial fibrillation Plan: Recurrent and persistent atrial fibrillation slow ventricular response. This is possible due to reduction is amiodarone therapy and need for higher amiodarone therapy. He does have symptoms of recent onset exertional fatigue. May have happened over the last few months. His heart rate has remained controlled. It could also represent resistant atrial fibrillation not am unable to rhythm control approach. However will at this point time pursue rhythm control approach again as he has done well in the past with the same. He has slow ventricular response the past could not tolerate higher dose of amiodarone or other rate lowering medication due to slow ventricular response. At this point time will load him again with 400 mg b.i.d. of amiodarone for 2 weeks followed by synchronized cardioversion to see if he will maintain rhythm and improved symptoms. Possibilities include significant sinus bradycardia which will require pacing therapy. All of these possibilities were discussed with him. Long-term maintenance to 200 mg daily after the loading is completed. Need for synchronized cardioversion including risk, benefits, alternatives were discussed with him. Continue full oral anticoagulation with Xarelto. Continue current blood pressure control which is well optimized. Orthostatic lightheadedness most likely due to poor fluid intake. Advised to increase fluid intake. Follow up in the clinic in 4 weeks time, sooner p.r.n.. Thank you for allowing me to partake in his care Orders: Orders CA lexiscan stress w lyly Today R07.89 - Other chest pain Cardioversion 2 Weeks I48.19 - Other persistent atrial fibrillation Medications: New amiodarone 400 mg PO BID 30 tabs 0RF Discontinued amiodarone Discontinued Reason: Doctor's Order 100 mg (1/2 x 200 mg) PO DAILY 90 days 45 tabs 3RF Coding Level of Care Code Est Pt Level 4 (15472) Diagnoses Atypical chest pain R07.89 Persistent atrial fibrillation I48.19 CPT Codes EKG - CPT: 16506-[id number], Complete ([id number])
[2022-09-17 10:28] VITALS: BP 120/80; PULSE 49; BMI 21.2
== END 2022-09-17 11:07 | disposition home or self-care (01) ==
PROVIDERS: Visit Provider Internal Medicine Cardiovascular Disease
DX: R07.89 Other chest pain (principal); I48.19 Other persistent atrial fibrillation
CPT/HCPCS: 93010; 99214

== ENCOUNTER → 2022-09-17 10:19 | Outpatient (BNVA) | payer MEDICARE, SELFPAY | PROVIDERS: Visit Provider Internal Medicine Cardiovascular Disease | DX: R07.89 Other chest pain (principal); I48.19 Other persistent atrial fibrillation; Z98.890 Other specified postprocedural states | CPT/HCPCS: 93005; 99212 ==

== ENCOUNTER → 2022-09-28 07:56 | Outpatient (REF) | payer MEDICARE, OTHER, SELFPAY ==
--- NOTE | ~2022-09-28 | NM_ITS ---
Myocardial perfusion study Indication: Chest pain to evaluate for myocardial ischemia Technique: The patient was brought in for a Lexiscan perfusion study on 09/28/2022. Patient performed low-level exercise and was injected 0.4 mg of Lexiscan intravenously. Within a minute of injection, 25 mCi of sestamibi was given intravenously. Images were obtained using the SPECT gamma camera interlaced with the gating device. Images were obtained in supine position. Resting perfusion study was performed on 10/01/2022. Patient was administered 25 mCi of sestamibi intravenously at rest. Images were then obtained in supine position. Images obtained with and without CT attenuation. Total DLP 72 mGy-cm. Images were processed with the software and compared side to side in short axis, horizontal long axis and vertical long axis views. Findings: The stress perfusion study showed non attenuated images show mildly to moderately reduced uptake in the inferior inferoseptal wall of the LV myocardium. Remainder of the LV myocardium is normally perfused. Attenuation corrected images show mildly reduced uptake in the apex of the LV myocardium. The gated study shows normal LV systolic function with calculated LVEF of 71%. LV cavity is normal in size. The gated study shows normal systolic wall thickening and contraction of segments. Resting study shows no significant change in perfusion pattern compared to stress perfusion study. Gating at rest reveals normal systolic wall motion with ejection fraction at 62%. The findings are consistent with normal myocardial perfusion. NM/NM cardiolite stress test Impression: 1. Myocardial perfusion imaging study shows normal myocardial perfusion 2. Gated LVEF is 71% 3. Transient ischemic dilatation not present EKG is nondiagnostic for ischemia
--- NOTE | 2022-09-28 08:00 | CA_ITS ---
Acquisition Time: 2022-09-28 08:06:32 Total Exercise Time: 00:02:00 Test Indications: Chest Pain Medications: AMIODORONE AMLODIPINE ATORVASTATIN LISINOPRIL XARELTO Protocol: LEXISCAN Max HR: 090 BPM 62% of Pred: 144 BPM Max BP: 162/070 mmHG Max Work Load: 1.6 METS Pharmacolgocial stress test with Lexiscan injection while walking slowly on the treadmill due to bradycardia, without anginal symptoms, with isolated PVCs, with normtoensive response to injection, with nondiagnostic EKGs. Nuclear images pending. Test reviewed with Dr. Willson Referred By: Jimy Willson Overread By: JIMY WILLSON MD
== END ==
LOC: HO.CARD 07:56
PROVIDERS: PCP Internal Medicine; Visit Provider Internal Medicine Cardiovascular Disease
DX: R07.89 Other chest pain (principal)
CPT/HCPCS: 78452; 93017; A9500; J0280; J2785

== ENCOUNTER → 2022-09-28 08:00 | Outpatient (BNV) | payer MEDICARE, SELFPAY | PROVIDERS: PCP Internal Medicine; Visit Provider Internal Medicine Cardiovascular Disease | DX: R07.9 Chest pain, unspecified (principal) | CPT/HCPCS: 78452; 93016; 93018 ==

== ENCOUNTER 2022-10-03 11:08 | Day surgery (SDC) | payer MEDICARE, OTHER, SELFPAY ==
[2022-10-01 14:21] VITALS: BMI 21.1
--- NOTE | 2022-10-02 08:43 | HO.ANESPROP2 ---
Documented by User: Marilu Levine NP 10/02/22 08:44 HPI - Anesthesia Eval Consult details Narrative: 77yo M for Cardioversion Xarelto for afib s/p Cardioversion with TIVA 2020 [facility] Active Problems Active Problems: All Active Problems (Updated 09/17/22 @ 11:01 by Jimy Willson MD) Atypical chest pain (Acute) Persistent atrial fibrillation (Acute) Shoulder pain, left (Acute) Shoulder pain, right (Acute) Bilateral hand pain (Acute) Hip pain, right (Acute) Right leg numbness (Acute) Chronic lower back pain (Acute) Shoulder pain, bilateral (Acute) JOSE positive (Acute) Persistent insomnia (Acute) Chronic gastritis (Acute) Chronic headache disorder (Acute) Peyronie disease (Acute) High cholesterol (Acute) GERD (gastroesophageal reflux disease) (Acute) Paroxysmal atrial fibrillation (Acute) Sinus bradycardia (Acute) Elevated brain natriuretic peptide (BNP) level (Acute) SOB (shortness of breath) on exertion (Acute) Hypersomnolence (Acute) HTN (hypertension) (Acute) Past Medical History Medical History Adenomatous colon polyp History of cardioversion HTN (hypertension) Hyperplastic polyp of large intestine Internal hemorrhoid Paroxysmal atrial fibrillation Persistent atrial fibrillation Family History Family History Father Stroke Mother No problems noted. Surgical History Surgical History Hx of colonoscopy Social History Social History Are you a primary child care counselor to a significant other at home: No Do you presently have visiting nurse or other home services: No Alcohol intake: current Alcohol intake frequency: 0-2 drinks per day Alcohol type: wine and hard liquor Patient Tobacco Use Status: Former Tobacco user Quit Date: 36 yrs ago Tobacco use type: Cigarette Advance Directives: No Advance Directives Information Provided: Yes Meds Allergies Allergy/AdvReac Type Severity Reaction Status Date / Time aspirin Allergy Unknown nausea and Verified 05/10/22 08:55 vomiting, GI upset furosemide [From Lasix] Allergy rash Verified 05/10/22 08:55 dronedarone [From Multaq] AdvReac leg Verified 05/10/22 08:55 swelling Home Medications Medication Instructions Recorded Confirmed Last Taken Type acetaminophen 500 mg tablet 1,000 mg PO .COMPLEX PRN 05/04/22 09/17/22 Unknown History (Tylenol Extra Strength) atorvastatin 40 mg tablet 40 mg PO DAILY 05/04/22 09/17/22 Unknown History capsaicin 0.075 % topical cream 1 appl topical TID 05/04/22 09/17/22 Unknown History lisinopril 30 mg tablet 30 mg PO DAILY 05/04/22 09/17/22 Unknown History rivaroxaban 20 mg tablet (Xarelto) 20 mg PO DAILY 05/04/22 09/17/22 Unknown History amlodipine 2.5 mg tablet 2.5 mg PO DAILY 09/17/22 09/17/22 Unknown History Exam Exam Date and Time: October 02, 2022 0843 Height,Weight and Vital Signs: Height 5 ft 9 in Weight 64.864 kg Narrative Narrative: [place] cardiolite stress test 09/2022 Impression: ? 1.? Myocardial perfusion imaging study shows normal myocardial perfusion 2.? Gated LVEF is 71% 3. Transient ischemic dilatation not present ? EKG is nondiagnostic for ischemia Assessment and Plan Assessment Anesthesia Assessment: Chart Reviewed Documented by User: Gisela Berry MD 10/03/22 12:07 [facility] Past Medical History Medical History Adenomatous colon polyp History of cardioversion HTN (hypertension) Hyperplastic polyp of large intestine Internal hemorrhoid Paroxysmal atrial fibrillation Persistent atrial fibrillation Family History Family History Father Stroke Mother No problems noted. Family history of problems with anesthesia: No Surgical History Surgical History Hx of colonoscopy History of Problems with Anesthesia: No Social History Social History Are you a primary child care counselor to a significant other at home: No Do you presently have visiting nurse or other home services: No Alcohol intake: current Alcohol intake frequency: 0-2 drinks per day Alcohol type: wine and hard liquor Patient Tobacco Use Status: Former Tobacco user Quit Date: 36 yrs ago Tobacco use type: Cigarette Advance Directives: No Advance Directives Information Provided: Yes Meds Allergies Allergy/AdvReac Type Severity Reaction Status Date / Time aspirin Allergy Unknown nausea and Verified 05/10/22 08:55 vomiting, GI upset furosemide [From Lasix] Allergy rash Verified 05/10/22 08:55 dronedarone [From Multaq] AdvReac leg Verified 05/10/22 08:55 swelling Home Medications Medication Instructions Recorded Confirmed Last Taken Type acetaminophen 500 mg tablet 1,000 mg PO .COMPLEX PRN 05/04/22 09/17/22 Unknown History (Tylenol Extra Strength) atorvastatin 40 mg tablet 40 mg PO DAILY 05/04/22 09/17/22 Unknown History capsaicin 0.075 % topical cream 1 appl topical TID 05/04/22 09/17/22 Unknown History lisinopril 30 mg tablet 30 mg PO DAILY 05/04/22 09/17/22 Unknown History rivaroxaban 20 mg tablet (Xarelto) 20 mg PO DAILY 05/04/22 09/17/22 Unknown History amlodipine 2.5 mg tablet 2.5 mg PO DAILY 09/17/22 09/17/22 Unknown History Exam Airway Mallampati Class: II (crown laterally) TM Dist: >3cm Neck ROM: Full Heart: rrr Lungs: cta Assessment and Plan Assessment Anesthesia Assessment: Anesthesia Plan Discussed Final Anesthetic Review Family History of Problems with Anesthesia: No History of Problems with Anesthesia: No NPO: Yes ASA Class: III Final Preanesthetic Review: No Changes in Pt Med Stat, Meds/Allgs Chart Reviewed and Consent Obtained/Reviewed Patient Risk: Intermediate Procedure Risk: Intermediate Anesthetic Plan Anesthetic Plan: GA Disposition: Standard PACU
[2022-10-03] VITALS (8 sets, daily range): BP systolic 131–166; BP diastolic 61–78; PULSE 41–58; RESP 16–18; TEMP 36.6–36.9; O2SAT 97–98; BMI 21.3
--- NOTE | 2022-10-03 11:57 | MHC.SHP ---
Pre-Procedural Eval Section A Date of Service: 10/03/22 The patient is an INPATIENT: No Changes since office visit: Yes Patient answered all questions; No Cold of Flu in the past 2 weeks, No New Medical Problems and No Changes in Medication The History & Physical has been completed within 30 days and I have reviewed it.: Yes Section B Chief Complaint: afib Allergies: Allergies Allergy/AdvReac Type Severity Reaction Status Date / Time aspirin Allergy Unknown nausea and Verified 05/10/22 08:55 vomiting, GI upset furosemide [From Lasix] Allergy rash Verified 05/10/22 08:55 dronedarone [From Multaq] AdvReac leg Verified 05/10/22 08:55 swelling Plan I have reviewed the history and physical and performed a pertinent physical examination on my patient. No changes have occurred unless specified. Time Spent With Patient Time: Total time managing care of this patient today ____ minutes.
[2022-10-03] MEDS: Lactated Ringers 1,000 ML 50 ML IVCONT (12:04)
--- NOTE | 2022-10-03 12:48 | HO.CARDIVERS ---
Cardioversion Procedure Note Cardioversion Date of Procedure: Today Ordering Provider: Myself Performing Provider: Myself Indication for Procedure: Persistent atrial fibrillation with symptoms Pre-Op Diagnosis: Same Post-Op Diagnosis: Sinus rhythm Performed with Transesophageal Echo: No History: See my office note Consent: Verbal and Written consent was obtained from the patient before starting and after confirming oral anticoagulation and amiodarone use. The patient was made aware of the risk of synchronized cardioversion including benefits and alternatives Procedure: After consent obtained, cardioversion pads were attached in anteroposterior configuration and the patient was sedated by the anesthesia team. Once adequate sedation achieved, patient was delivered 200 joules of biphasic synchronized energy in anteroposterior configuration Complications: None Impression: Successful conversion to sinus rhythm Recommendations: 1. 12 lead EKG 2. Switch to 200 mg of amiodarone 3. Continue full oral anticoagulation 4. Follow up in the office after Holter monitor in 4 weeks
--- NOTE | 2022-10-03 13:22 | ECG_ITS ---
Test Reason : Post Cardioversion Blood Pressure : / mmHG Vent. Rate : 041 BPM Atrial Rate : 041 BPM P-R Int : 272 ms QRS Dur : 104 ms QT Int : 522 ms P-R-T Axes : 070 -25 016 degrees QTc Int : 430 ms Marked sinus bradycardia with 1st degree A-V block Minimal voltage criteria for LVH, may be normal variant ( Steve product ) Abnormal ECG When compared with ECG of 05-OCT-2020 11:27, No significant change was found Referred By: Jimy Willson Electronically Signed By:RENAE PATEL
== END 2022-10-03 14:07 | disposition home or self-care (01) ==
PROVIDERS: PCP Internal Medicine; Visit Provider Internal Medicine Cardiovascular Disease
PROC: 5A2204Z Restoration of Cardiac Rhythm, Single (ICD-10-PCS; principal; 2022-10-03 12:00)
DX: I48.19 Other persistent atrial fibrillation (principal); I10 Essential (primary) hypertension; Z79.01 Long term (current) use of anticoagulants; Z79.899 Other long term (current) drug therapy; Z88.8 Allergy status to other drugs, medicaments and biological substances
CPT/HCPCS: 92960; 93005

== ENCOUNTER → 2022-10-03 11:08 | Outpatient (BNV) | payer MEDICARE, SELFPAY | PROVIDERS: PCP Internal Medicine; Visit Provider Internal Medicine Cardiovascular Disease | DX: I48.19 Other persistent atrial fibrillation (principal) | CPT/HCPCS: 92960 ==

== ENCOUNTER 2022-10-23 08:30 | Outpatient (AMB) | payer MEDICARE, SELFPAY ==
[2022-10-23 08:42] VITALS: BP 160/72; PULSE 47; BMI 21.0
--- NOTE | 2022-10-23 08:42 | A.OFFVIS_ITS ---
Intake Vital Signs 10/23/22 08:42 Height 5 ft 9 in Weight 141 lb 15.643 oz BMI 21.0 BP 160/72 H Blood Pressure Location Rt brachial Position Sitting Pulse 47 L Intake Visit Reasons: 6 wk fu after cardioversion and ray mibi Intake Note: 6 wk f/u cardioversion and ray mibi Crop Nutrition Scientist Required: No Electromedical Equipment Technician: Electromedical Equipment Technician Present Accompanied by: Son Allergies aspirin Allergy (Unknown, Verified 10/23/22 08:53) nausea and vomiting, GI upset furosemide [From Lasix] Allergy (Verified 10/23/22 08:53) rash dronedarone [From Multaq] Adverse Reaction (Verified 10/23/22 08:53) leg swelling Medication List - Last Reconciled 10/23/22 by JOSE RAUL RomeroC acetaminophen (Tylenol Extra Strength) 1,000 mg orally two times a day. PRN; amiodarone 200 mg PO .daily amlodipine 2.5 mg PO DAILY atorvastatin 40 mg PO DAILY capsaicin 0.075% 1 appl topical TID lisinopril 30 mg PO DAILY rivaroxaban (Xarelto) 20 mg PO DAILY HPI 6 wk fu after cardioversion and ray mibi HPI Details Jg is a 77-year-old male past medical history of hypertension, hyperlipidemia, atrial fibrillation status post cardioversion on 10/03/22 who presents for follow-up. Today he reports he has been doing well since his cardioversion. He has not felt any heart palpitations that are concerning for atrial fibrillation. He denies any concerning chest discomfort at rest or with activity. His prior discomfort has not occurred recently. No shortness of breath, dizziness, presyncope, syncope, PND, orthopnea or edema. 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 He does not do heavy lifting. No bleeding issues reported with his Xarelto use. Son is present and assists with Panamanian translation at their request. Permit signed. [facility] Medical History Hyperplastic polyp of large intestine Adenomatous colon polyp Internal hemorrhoid Paroxysmal atrial fibrillation History of cardioversion Persistent atrial fibrillation HTN (hypertension) Surgical History Hx of colonoscopy Family History Father Stroke Mother No problems noted. Social History Are you a primary child care assistant to a significant other at home: No Do you presently have visiting nurse or other home services: No Alcohol intake: current Alcohol intake frequency: 0-2 drinks per day Alcohol type: wine and hard liquor Patient Tobacco Use Status: Former Tobacco user Quit Date: quit 40 yr ago Tobacco use type: Cigarette Review of Systems Const Details: Headaches All systems reviewed & are unremarkable except as noted in HPI and below ENT Denies dizziness Card Denies chest pain, Denies chest pain at rest, Denies chest pain with activity, Denies rapid heart rate, Denies pedal edema, Denies edema, Denies leg edema, Denies lightheadedness, Denies palpitations, Denies dyspnea, Denies dyspnea on exertion and Denies orthopnea Resp Denies cough, Denies dyspnea and Denies dyspnea on exertion GI Denies hematochezia and Denies change in stool character Musc Denies abnormal gait, Denies limited range of motion, Denies muscle cramps, Denies muscle weakness, Denies numbness, Denies radiating pain into limb, Denies stiffness and Denies tingling Neuro Denies abnormal gait, Denies dizziness, Denies numbness and Denies tingling Endo Denies palpitations Physical Exam Vital Signs: Last Vital Signs Pulse 47 L 10/23/22 08:42 BP 160/72 H 10/23/22 08:42 BMI result Body Mass Index 21.0 Const General: cooperative, healthy appearing, comfortable and no acute distress Orientation/consciousness: patient oriented x3 Neck Neck: Yes normal visual inspection Resp Effort & Inspection: normal respiratory effort Auscultation: clear to auscultation bilaterally, no crackles, no rales, no rhonchi and no wheezes Cardio Jugular venous distension: no JVD Rate: bradycardic Rhythm: regular rhythm Heart sounds: S1 normal heart sound present, S2 normal heart sound present, no murmurs and no rubs Neuro General: patient oriented x3 Extrem General: Yes normal to inspection and No no pedal edema Psych Appearance: grossly normal Mental Status: mental status grossly normal Speech and movement: Normal speech and movement present Office Procedures EKG Details: Today, read by me, sinus bradycardia, first-degree AV block, rate 47, QTC 428 milliseconds [id number], Complete Assessment & Plan Assessment & Plan (1) Persistent atrial fibrillation: Comment: Status post cardioversion with amiodarone. Had failed Multaq therapy. Code(s): I48.19 - Other persistent atrial fibrillation Plan: History of atrial fibrillation with cardioversion in 2020. He had been on amiodarone low dose 100 mg daily. More recently found to have recurrent atrial fibrillation. He was re-loaded with amiodarone then put on the maintenance dose of 200 mg daily. He underwent a cardioversion on 10/03/2022. His EKG done today is showing sinus bradycardia with first-degree AV block, rate 47. He is not on any other rate slowing agents. He denies any concerning symptoms at this time. Holter monitor previously ordered however not completed as of yet. Will make arrangements for Holter monitor to assess for significant bradycardia, pauses. Plan to call him with results. He is on Xarelto for anticoagulation. No blee ding issues reported. Continue current treatment. Will check labs prior to next visit including CMP and TSH. Cardiology office visit in about 4 months, sooner if needed. Instructed to call if he notices any recurrent AFib. Emergency care if needed for symptoms. (2) Sinus bradycardia: Code(s): R00.1 - Bradycardia, unspecified Plan: Asymptomatic sinus bradycardia as above. Continue on amiodarone 200 mg daily. Obtaining Holter monitor (3) Atypical chest pain: Code(s): R07.89 - Other chest pain Plan: Prior reported chest discomfort. It may have been related to his AFib. Nuclear stress test done 10/01/2022 showing normal myocardial perfusion imaging. Last echocardiogram done 06/12/2021 showing EF 57%, grade 2 diastolic dysfunction, moderate increase in the RV size, left atrium moderately dilated, mild MR, mild TR, mild pulmonary hypertension. At present denies anginal sounding symptoms. (4) HTN (hypertension): Code(s): I10 - Essential (primary) hypertension Qualifiers: Hypertension type: primary hypertension Qualified Code(s): I10 - Essential (primary) hypertension Plan: Blood pressure elevated initially, some improvement on recheck at 148/68. Prior blood pressures reviewed and seem variable with systolic ranging 120-160. He is currently on amlodipine, lisinopril for blood pressure control. Amlodipine can be further titrated if needed. Will forward this note to his PCP Orders: Orders Comprehensive Met. Panel 2 Months I48.19 - Other persistent atrial fibrillation TSH reflex Free T4 2 Months I48.19 - Other persistent atrial fibrillation Coding Level of Care Code Est Pt Level 4 (77017) Diagnoses Persistent atrial fibrillation I48.19 Sinus bradycardia R00.1 Atypical chest pain R07.89 Primary hypertension I10 Hypertension type: primary hypertension CPT Codes EKG - CPT: [id number], Complete ([id number]) Time Spent (min) 28
== END 2022-10-23 09:13 | disposition home or self-care (01) ==
PROVIDERS: PCP Internal Medicine; Referring Provider Internal Medicine; Visit Provider Nurse Practitioner Family
DX: I48.19 Other persistent atrial fibrillation (principal); R00.1 Bradycardia, unspecified; R07.89 Other chest pain; I10 Essential (primary) hypertension
CPT/HCPCS: 93010; 99214

== ENCOUNTER → 2022-10-23 08:30 | Outpatient (BNVA) | payer MEDICARE, SELFPAY | PROVIDERS: PCP Internal Medicine; Referring Provider Internal Medicine; Visit Provider Nurse Practitioner Family | DX: I48.19 Other persistent atrial fibrillation (principal); R00.1 Bradycardia, unspecified; R07.89 Other chest pain; I10 Essential (primary) hypertension; Z79.01 Long term (current) use of anticoagulants; Z79.899 Other long term (current) drug therapy | CPT/HCPCS: 93005; 99212 ==

== ENCOUNTER → 2022-10-26 09:26 | Outpatient (REF) | payer MEDICARE, SELFPAY ==
--- NOTE | 2022-10-26 09:31 | HM_ITS ---
* Total monitoring time 3 days. * Underlying rhythm is sinus. Average ventricular rate 51/Min. Range 35- 94/Min. * Rare supraventricular and ventricular ectopy. * No definitive atrial fibrillation. * No significant pauses or AV blocks. * No patient markers or events in diary. MTDD
== END ==
LOC: HO.CARD 09:26
PROVIDERS: Visit Provider Internal Medicine Cardiovascular Disease
DX: I48.0 Paroxysmal atrial fibrillation (principal)
CPT/HCPCS: 93242

== ENCOUNTER → 2022-10-26 09:31 | Outpatient (BNV) | payer MEDICARE, SELFPAY | PROVIDERS: Visit Provider Internal Medicine | DX: I47.1 Supraventricular tachycardia (principal) | CPT/HCPCS: 93244 ==

== ENCOUNTER 2023-02-28 09:49 | Outpatient (REF) | payer MEDICARE, SELFPAY ==
[2023-02-28 11:01] LABS: Hematocrit 42.3 % (42.0-52.0); Mean Corpuscular HGB Conc 33.1 g/dl (31.0-36.0); Mean Corpuscular Hemoglobin 30.3 pg (27.0-33.0); Mean Corpuscular Volume 91.6 fL (80.0-98.0); Mean Platelet Volume 10.3 fL (9.4-12.4); Platelet Count 247 X10*3/uL (160-400); Red Blood Count 4.62 X10*6/uL (4.60-5.80); Red Cell Distribution Width 13.2 % (11.0-16.0); White Blood Count 6.8 X10*3/uL (4.8-10.8)
[2023-02-28 11:27] LABS: B Type Natriuretic Peptide 78 pg/mL (<100)
[2023-02-28 11:28] LABS: Anion Gap 10 (12-20); Blood Urea Nitrogen 21 mg/dL (9-16); Calcium 9.7 mg/dL (8.4-10.2); Carbon Dioxide 30 mmol/L (22-29); Chloride 104 mmol/L (96-108); Estimated Glomerular Filt Rate > 60; Glucose Random 97 mg/dL (60-115); Potassium 4.3 mmol/L (3.3-5.1); Sodium 140 mmol/L (135-145)
== END 2023-02-28 09:50 | disposition home or self-care (01) ==
LOC: HO.LAB 09:49
PROVIDERS: PCP Internal Medicine; Visit Provider Internal Medicine Cardiovascular Disease
DX: I48.0 Paroxysmal atrial fibrillation (principal); R00.1 Bradycardia, unspecified; I10 Essential (primary) hypertension; R79.89 Other specified abnormal findings of blood chemistry; Z79.899 Other long term (current) drug therapy
CPT/HCPCS: 36415; 80048; 83880; 85027; 93005; 99212

== ENCOUNTER 2023-02-28 09:49 | Outpatient (AMB) | payer MEDICARE, SELFPAY ==
[2023-02-28 10:02] VITALS: BP 124/70; PULSE 49; BMI 21.2
--- NOTE | 2023-02-28 10:02 | A.OFFVIS_ITS ---
Intake Vital Signs 02/28/23 10:02 Height 5 ft 9 in Weight 143 lb 4.807 oz BMI 21.2 BP 124/70 Blood Pressure Location Lt brachial Position Sitting Pulse 49 L Intake Visit Reasons: 4 mth f/up Intake Note: 4 month follow-up with ekg feeling good Allergies aspirin Allergy (Unknown, Verified 10/23/22 08:53) nausea and vomiting, GI upset furosemide [From Lasix] Allergy (Verified 10/23/22 08:53) rash dronedarone [From Multaq] Adverse Reaction (Verified 10/23/22 08:53) leg swelling Medication List - Last Reviewed 02/28/23 by KENROY Lamar acetaminophen (Tylenol Extra Strength) 1,000 mg orally two times a day. PRN; amiodarone 200 mg PO .daily amlodipine 2.5 mg PO DAILY atorvastatin 20 mg PO DAILY capsaicin 0.075% 1 appl topical TID lisinopril 30 mg PO DAILY rivaroxaban (Xarelto) 20 mg PO DAILY HPI HPI Comments History of Present Illness Details Lou comes for follow-up. He is accompanied by son who acted as group tester. Declined a certified group tester. Overall he has been doing well. Participating in strenuous exertional activity without any symptoms. Denies any orthopnea, PND, leg edema. Blood pressures been generally well control in the 130 range systolic. Denies any exertional chest pain. He complains of point chest pain which last for couple of seconds without any clear exertional pattern. No bleeding issues or neurologic events. No prolonged palpitation irregular heartbeat. [facility] Medical History (Updated 02/28/23 @ 10:48 by Jimy Willson MD) Persistent atrial fibrillation Hyperplastic polyp of large intestine Adenomatous colon polyp Internal hemorrhoid Paroxysmal atrial fibrillation History of cardioversion HTN (hypertension) Surgical History Hx of colonoscopy Family History Father Stroke Mother No problems noted. Social History Are you a primary child day care teacher to a significant other at home: No Do you presently have visiting nurse or other home services: No Alcohol intake: current Alcohol intake frequency: 0-2 drinks per day Alcohol type: wine and hard liquor Patient Tobacco Use Status: Former Tobacco user Quit Date: quit 40 yr ago Tobacco use type: Cigarette Review of Systems Const Denies chills, Denies fatigue, Denies fever(s), Denies frequent falls, Denies weakness, Denies weight gain and Denies weight loss ENT Denies dizziness Card Denies chest pain, Denies leg edema, Denies lightheadedness, Denies palpitations, Denies dyspnea, Denies dyspnea on exertion, Denies orthopnea and Denies other (loss of consciousness) Resp Denies cough, Denies dyspnea and Denies dyspnea on exertion GI Denies hematochezia and Denies change in stool character Musc Denies abnormal gait, Denies muscle weakness, Denies numbness, Denies radiating pain into limb and Denies tingling Neuro Denies abnormal gait, Denies dizziness, Denies frequent falls, Denies numbness, Denies tingling and Denies weakness Endo Denies fatigue and Denies palpitations Physical Exam Vital Signs: Last Vital Signs Pulse 49 L 02/28/23 10:02 BP 124/70 02/28/23 10:02 BMI result Body Mass Index 21.2 Const General: cooperative, healthy appearing, comfortable and no acute distress Orientation/consciousness: patient oriented x3 Neck Neck: Yes normal visual inspection Resp Effort & Inspection: normal respiratory effort Auscultation: clear to auscultation bilaterally, no crackles, no rales, no rhonchi and no wheezes Cardio Jugular venous distension: no JVD Rate: bradycardic Rhythm: regular rhythm Heart sounds: S1 normal heart sound present, S2 normal heart sound present, no murmurs and no rubs Neuro General: patient oriented x3 Extrem General: Yes normal to inspection and No no pedal edema Psych Appearance: grossly normal Mental Status: mental status grossly normal Speech and movement: Normal speech and movement present Office Procedures EKG Details: EKG shows sinus bradycardia with first-degree AV block at 49 beats per minute with mildly prolonged QT interval at 482 milliseconds [id number], Complete Assessment & Plan Assessment & Plan (1) Paroxysmal atrial fibrillation: Code(s): I48.0 - Paroxysmal atrial fibrillation Plan: Paroxysmal atrial fibrillation, difficult control. However has done very well with rhythm control approach with normal functional capacity while in normal rhythm. Continue pursue rhythm control approach. Has tolerated amiodarone therapy. Need to check for amiodarone toxicity annually. Continue full oral anticoagulation, currently on Xarelto 20 mg daily. Semi annual renal function test should be pursued. Avoidance of stimulants was discussed. Advised to call me with new symptoms. Continue aggressive blood pressure control. Will check BMP and BNP today. Echocardiogram in 6 months time. He does complain of poor sleep pattern and daytime hypersomnolence, likelihood of underlying sleep apnea. Will order home sleep study (2) Sinus bradycardia: Code(s): R00.1 - Bradycardia, unspecified Plan: Sinus bradycardia which is chronic in suggestive sinoatrial uriel dysfunction. Exacerbated by medical therapy. However he is done well with medical therapy. No indication for pacing. Avoidance of other rate lowering medication was discussed. (3) Elevated brain natriuretic peptide (BNP) level: Code(s): R79.89 - Other specified abnormal findings of blood chemistry Plan: Elevated BNP especially in the setting of persistent atrial fibrillation. Clinically no signs or symptoms of congestive heart failure. No indication for diuretic therapy at this point time. He is at high risk for development future heart failure. This was discussed with him. Follow-up echocardiogram in 6 months and follow-up BNP today. (4) HTN (hypertension): Code(s): I10 - Essential (primary) hypertension Qualifiers: Hypertension type: primary hypertension Qualified Code(s): I10 - Essential (primary) hypertension Plan: Hypertension which is currently well optimized advised to monitor blood pressure at home maintain a log. Goal blood pressure less than 130/84. Advised low-salt diet. Workup for sleep apnea as above. Continue maintain activity level as tolerated. Follow up in the clinic in 6 months time, sooner p.r.n.. Thank you for allowing me to partake in his care Orders: Orders Basic Metabolic Panel Today I48.0 - Paroxysmal atrial fibrillation CA echo transthoracic complete 6 Months I48.0 - Paroxysmal atrial fibrillation RT home sleep study Today I48.0 - Paroxysmal atrial fibrillation, R40.0 - Somnolence Complete Blood Count no Diff Today I48.0 - Paroxysmal atrial fibrillation B Type Natriuretic Peptide Today I48.0 - Paroxysmal atrial fibrillation Coding Level of Care Code Est Pt Level 4 (53055) Diagnoses Paroxysmal atrial fibrillation I48.0 Sinus bradycardia R00.1 Elevated brain natriuretic peptide (BNP) level R79.89 Primary hypertension I10 Hypertension type: primary hypertension CPT Codes EKG - CPT: 89478-[id number], Complete ([id number])
== END 2023-02-28 10:32 | disposition home or self-care (01) ==
PROVIDERS: PCP Internal Medicine; Visit Provider Internal Medicine Cardiovascular Disease
DX: I48.0 Paroxysmal atrial fibrillation (principal); R00.1 Bradycardia, unspecified; R79.89 Other specified abnormal findings of blood chemistry; I10 Essential (primary) hypertension
CPT/HCPCS: 93010; 99214

== ENCOUNTER → 2023-08-14 13:25 | Outpatient (REF) | payer MEDICARE, SELFPAY ==
--- NOTE | 2023-08-14 13:30 | HM_ITS ---
Conclusion: 1. Patient was monitored for total period of 2 days and 23 hours 2. Baseline was normal sinus rhythm with average heart of 52 beats per minute 3. 1 pause of 2.71 seconds noted at 06:30 with frequent sinus bradycardia, 84% of time heart rate below 60 beats per minute 4. No episodes of atrial fibrillation 5. No patient reported events MTDD
== END ==
LOC: HO.CARD 13:25
PROVIDERS: PCP Internal Medicine; Visit Provider Internal Medicine Cardiovascular Disease
DX: R07.89 Other chest pain (principal); I48.0 Paroxysmal atrial fibrillation
CPT/HCPCS: 93242

== ENCOUNTER → 2023-08-14 13:30 | Outpatient (BNV) | payer MEDICARE, SELFPAY | PROVIDERS: PCP Internal Medicine; Visit Provider Internal Medicine Cardiovascular Disease | DX: R00.1 Bradycardia, unspecified (principal) | CPT/HCPCS: 93244 ==

== ENCOUNTER → 2023-08-21 13:49 | Outpatient (REF) | payer MEDICARE, SELFPAY ==
--- NOTE | 2023-08-21 13:51 | CA_ITS ---
Transthoracic Echocardiogram Patient (Last, First, Middle): Lou Kruse, Gender: Male Date of : 1945 Age: 78 Procedure Date: 08/21/2023 Procedure Type: Transthoracic Echocardiogram Location: OP Height: 175.26 cm Weight: 64.86 kg BSA: 1.79 m2 Heart Rate: 49 bpm BP: 124 / 70 mmHg Tooth Cutter Spur: COLT Referring MD: Jimy Willson MD Heating Element Builder: Jimy Willson MD Symptoms: I48.0 - Paroxysmal atrial fibrillation Study Quality: Adequate ECG Rhythm: Bradycardia Conclusions: - 1. Normal LV ejection fraction 55-60% with pseudonormal filling pattern 2. Mildly dilated right ventricle with normal systolic function 3. Moderate biatrial enlargement 4. Mild aortic regurgitation 5. Normal RV systolic pressure 6. Upper limits of normal ascending aortic size 7. No gross pericardial effusion Findings Left Ventricle Normal left ventricular size, thickness, and systolic function. The visually estimated ejection fraction is between 55-60%. Spectral Doppler is indicative of a pseudonormal filling pattern. E/E prime ratio is between 8 and 15 consistent with indeterminate filling pressures. Right Ventricle Mildly increased right ventricular cavity size. There is normal right ventricular systolic function. Atria Moderate biatrial enlargement. There is no evidence of interatrial shunt. Aortic Valve There is mild calcification of the aortic valve. There is mild thickening of the aortic valve. There is no aortic valve stenosis. There is mild aortic valve regurgitation. Mitral Valve There is mild anterior and posterior mitral leaflet thickening. There is trace mitral valve regurgitation. There is no mitral valve stenosis. Pulmonic Valve The pulmonic valve is likely normal. Tricuspid Valve Normal tricuspid valve structure. There is mild tricuspid valve regurgitation. The right ventricular systolic pressure is normal. The right ventricular systolic pressure is 30 mmHg. Normal right atrial pressure. There is no evidence of pulmonary hypertension. Great Vessels The pulmonary artery was not well visualized. Small plaque is seen in the sino tubular ridge. Venous The inferior vena cava is normal in size and collapses greater than 50% with inspiration. The hepatic vein does not collapse with inspiration. Pericardium/Pleural There is no evidence of pericardial effusion. Prior Study Comparison Changes noted compared to prior study dated: 06/12/2021. RV systolic pressure is normal Measurements 2D Linear Measurements IVSd: 0.92 0.6-0.9/0.6-1.0 cm LVIDd: 4.88 3.9-5.3/4.2-5.9 cm LVIDd Index: 2.73 2.4-3.2/2.2-3.1 cm/m2 LVIDs: 3.28 2.0-3.6 cm LVPWd: 0.65 0.7-1.1 cm LA Diam: 4.10 2.7-3.8/3.0-4.0 cm LAIDs Index: 2.29 1.5-2.3 cm/m2 LV Mass: 158.73 67-162/88-224 g LV Mass Index: 88.67 43-95/49-115 g/m2 LVOT Diam: 2.30 3.0+(-)1.3 cm 2D Systolic Function EF 4C: 56.10 >55% EF 2C: 63.60 >55% EF BiP: 59.30 >55% Mitral Valve MV Pk E: 0.73 MV PK A: 0.57 MV Decel Time: 269.00 E/A: 1.30 E'Lateral: 7.80 E'Medial: 4.88 E/E' Med: 15.00 E/E' Lat: 9.40 PHT: 79.00 MVA PHT: 2.78 Decel Henry: 2.72 Aortic Valve AoV Pk Victor Manuel: 1.53 AoV Mn Victor Manuel: 1.08 AoV VTI: 0.36 AoV Pk Grad: 9.00 Aov Mn Grad: 6.00 DIAN Cont.VTI: 2.36 AI Pk Victor Manuel: 4.14 AI Henry: 1.66 LVOT LVOT Pk Victor Manuel: 0.80 LVOT Mn Victor Manuel: 0.55 LVOT VTI: 0.20 LVOT Pk Grad: 3.00 LVOT Mn Grad: 1.00 LVOT Diam: 2.30 LVOT Area: 4.15 Diastolic Function MV Pk E: 0.73 MV Pk A: 0.57 E/A: 1.30 E'Medial: 4.88 E/E' Med: 15.00 E' Laterial: 7.80 E/E' Lat: 9.40 Right Ventricle TAPSE (mm): 29.10 TVS' Victor Manuel: 14.70 Tricuspid Valve TR Pk Victor Manuel: 2.59 TR Pk Grad: 27.00 RA Press: 3.00 RVSP: 30.00 Great Vessels Aorta Sinus of Valsalva: 3.60 2.0-3.5 cm Ao Asc: 3.50 2.1-3.4 cm Pulmonary Veins Pulm Vein S/D 1.00 Pulmonary Valve PV Pk Victor Manuel: 1.04 Peak PV Grad: 4.00 LA Pk Victor Manuel: 1.71 Updated in Other Vendor System with Status of Final Jimy Willson MD electronically signed on 08/21/2023 3:20:42 PM with status of Final
== END ==
LOC: HO.CARD 13:49
PROVIDERS: PCP Internal Medicine; Visit Provider Internal Medicine Cardiovascular Disease
DX: R07.89 Other chest pain (principal); I48.0 Paroxysmal atrial fibrillation
CPT/HCPCS: 93306

== ENCOUNTER → 2023-08-21 13:51 | Outpatient (BNV) | payer MEDICARE, SELFPAY | PROVIDERS: PCP Internal Medicine; Visit Provider Internal Medicine Cardiovascular Disease | DX: I35.1 Nonrheumatic aortic (valve) insufficiency (principal); I36.1 Nonrheumatic tricuspid (valve) insufficiency | CPT/HCPCS: 93306 ==

== ENCOUNTER 2023-08-22 14:47 | Outpatient (AMB) | payer MEDICARE, SELFPAY ==
--- NOTE | 2023-08-22 14:48 | MHC.OFFVIS ---
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 PRN; amiodarone 100 mg PO DAILY amlodipine 2.5 mg PO DAILY atorvastatin 20 mg PO DAILY capsaicin 0.075% 1 appl topical TID lisinopril 30 mg PO DAILY rivaroxaban (Xarelto) 20 mg PO DAILY HPI Comments Details: Cleopatra comes for follow-up. He is accompanied by son who acts as automatic coil machine operator. They declined a certified automatic coil machine operator. Patient twice to the hospital with feeling dizzy and tired. No arrhythmias detected. No orthostatic blood pressure changes detected. He was noted to have sinus bradycardia. He comes here says continues to have exertional fatigue and tiredness. Also complains of lightheadedness when he 1st gets up and tries to walk but has had no syncopal episodes. He denies any irregular heartbeat. Takes all his medications. Orthostatic vitals done today shows no change in his blood pressure. He denies any heart failure symptoms. No bleeding issues or neurologic events. Recent Holter monitor preliminary shows frequent sinus bradycardia 83% of time with heart rate as low as 34 beats per minute. One sinus pause in tank house operator helper hours during most likely sleep hours. [facility] Medical History Persistent atrial fibrillation Hyperplastic polyp of large intestine Adenomatous colon polyp Internal hemorrhoid Paroxysmal atrial fibrillation History of cardioversion HTN (hypertension) Surgical History Hx of colonoscopy Family History Father Stroke Mother No problems noted. Social History Are you a primary lead caregiver to a significant other at home: No Do you presently have visiting nurse or other home services: No Alcohol intake: current Alcohol intake frequency: 0-2 drinks per day Alcohol type: wine and hard liquor Patient Tobacco Use Status: Former Tobacco user Tobacco use type: Cigarette Review of Systems Const Denies chills, Denies fatigue, Denies fever(s), Denies frequent falls, Denies weakness, Denies weight gain and Denies weight loss ENT Denies dizziness Card Denies chest pain, Denies leg edema, Denies lightheadedness, Denies palpitations, Denies dyspnea, Denies dyspnea on exertion, Denies orthopnea and Denies other (loss of consciousness) Resp Denies cough, Denies dyspnea and Denies dyspnea on exertion GI Denies hematochezia and Denies change in stool character Musc Denies abnormal gait, Denies muscle weakness, Denies numbness, Denies radiating pain into limb and Denies tingling Neuro Denies abnormal gait, Denies dizziness, Denies frequent falls, Denies numbness, Denies tingling and Denies weakness Endo Denies fatigue and Denies palpitations Physical Exam Vital Signs: Last Vital Signs Pulse 48 L 08/22/23 14:49 BP 116/74 08/22/23 14:49 BMI result Body Mass Index 20.8 Const General: cooperative, healthy appearing, comfortable and no acute distress Orientation/consciousness: patient oriented x3 Neck Neck: Yes normal visual inspection Resp Effort & Inspection: normal respiratory effort Auscultation: clear to auscultation bilaterally, no crackles, no rales, no rhonchi and no wheezes Cardio Jugular venous distension: no JVD Rate: bradycardic Rhythm: regular rhythm Heart sounds: S1 normal heart sound present, S2 normal heart sound present, no murmurs and no rubs Neuro General: patient oriented x3 Extrem General: Yes normal to inspection and No no pedal edema Psych Appearance: grossly normal Mental Status: mental status grossly normal Speech and movement: Normal speech and movement present Office Procedures EKG Details: EKG shows sinus bradycardia with first-degree AV block at 48 beats per minute [id number], Complete Assessment & Plan Assessment & Plan (1) Sick sinus syndrome: Code(s): I49.5 - Sick sinus syndrome Category: Medical Plan: Patient with symptomatic sinus bradycardia suggestive sinoatrial uriel dysfunction exacerbated by medical therapy which she needs to maintain rhythm which has helped him significantly clinically. At this point time we discussed about potential use of pacemaker to improve his symptoms. Some of his symptoms of orthostatic lightheadedness I am not sure will improve with pacing although symptoms of fatigue and tiredness and exertional shortness of breath should improve. We discussed the risks, benefits, alternatives to dual-chamber pacemaker placement. Motor functioning was discussed. Will schedule that for in near future with Dr. Hubbard as outpatient. Potential risks were discussed with him. (2) Paroxysmal atrial fibrillation: Code(s): I48.0 - Paroxysmal atrial fibrillation Category: Medical Plan: Paroxysmal atrial fibrillation which is suppressed on low-dose amiodarone therapy. Has derived significant clinical benefit in terms of symptoms with management of rhythm. Continue amiodarone therapy. Continue full oral anticoagulation, currently on Xarelto 20 mg daily. Semi annual renal function test should be pursued. Continue aggressive blood pressure control which appears to be well optimized at this point in time. (3) Elevated brain natriuretic peptide (BNP) level: Code(s): R79.89 - Other specified abnormal findings of blood chemistry Category: Medical Plan: Prior history of elevated BNP with heart failure symptoms but BNP is normalized since maintaining normal sinus rhythm in the long run. LV systolic function is still normal with pseudonormal filling pattern with moderate biatrial enlargement. No signs or symptoms of heart failure. Continue aggressive blood pressure control continue pursue rhythm control approach. Signs and symptoms of heart failure were discussed. Will follow up in the clinic in 2 weeks for wound check and 6 weeks after pacer placement for pacer check. Medications: Changed From amiodarone 200 mg PO DAILY 30 tabs 8RF To amiodarone 100 mg PO DAILY Coding Level of Care Code Est Pt Level 4 (40392) Diagnoses Sick sinus syndrome I49.5 Paroxysmal atrial fibrillation I48.0 Elevated brain natriuretic peptide (BNP) level R79.89 CPT Codes EKG - CPT: [id number], Complete ([id number])
[2023-08-22 14:49] VITALS: BP 116/74; PULSE 48; BMI 20.8
== END 2023-08-22 15:36 | disposition home or self-care (01) ==
PROVIDERS: PCP Internal Medicine; Visit Provider Internal Medicine Cardiovascular Disease
DX: I49.5 Sick sinus syndrome (principal); I48.0 Paroxysmal atrial fibrillation; R79.89 Other specified abnormal findings of blood chemistry
CPT/HCPCS: 93010; 99214

== ENCOUNTER → 2023-08-22 14:47 | Outpatient (BNVA) | payer MEDICARE, SELFPAY | PROVIDERS: PCP Internal Medicine; Visit Provider Internal Medicine Cardiovascular Disease | DX: I49.5 Sick sinus syndrome (principal); I48.0 Paroxysmal atrial fibrillation; R79.89 Other specified abnormal findings of blood chemistry | CPT/HCPCS: 93005; 99212 ==

== ENCOUNTER 2023-09-11 06:50 | Day surgery (SDC) | payer MEDICARE, SELFPAY ==
--- NOTE | 2023-09-10 09:19 | HO.ANESPROP2 ---
Documented by User: Marilu Levine NP 09/10/23 09:25 HPI - Anesthesia Eval Consult details Narrative: 78yo M for Pacemaker Insertion, Dual Xarelto for afib [place] [facility] [place] sinus bradycardia suggestive sinoatrial uriel dysfunction exacerbated by medical therapy [facility] Active Problems Active Problems: All Active Problems Sick sinus syndrome (Acute) Atypical chest pain (Acute) Shoulder pain, left (Acute) Shoulder pain, right (Acute) Bilateral hand pain (Acute) Hip pain, right (Acute) Right leg numbness (Acute) Chronic lower back pain (Acute) Shoulder pain, bilateral (Acute) JOSE positive (Acute) Persistent insomnia (Acute) Chronic gastritis (Acute) Chronic headache disorder (Acute) Peyronie disease (Acute) High cholesterol (Acute) GERD (gastroesophageal reflux disease) (Acute) Paroxysmal atrial fibrillation (Acute) Sinus bradycardia (Acute) Elevated brain natriuretic peptide (BNP) level (Acute) SOB (shortness of breath) on exertion (Acute) Hypersomnolence (Acute) HTN (hypertension) (Acute) Past Medical History Medical History Persistent atrial fibrillation Hyperplastic polyp of large intestine Adenomatous colon polyp Internal hemorrhoid Paroxysmal atrial fibrillation History of cardioversion HTN (hypertension) Family History Family History Father Stroke Mother No problems noted. Family history of problems with anesthesia: No Surgical History Surgical History Hx of colonoscopy History of Problems with Anesthesia: No Social History Social History Are you a primary rn complex care to a significant other at home: No Do you presently have visiting nurse or other home services: No Alcohol intake: current Alcohol intake frequency: 0-2 drinks per day Alcohol type: wine and hard liquor Patient Tobacco Use Status: Former Tobacco user Tobacco use type: Cigarette Use of substances other than those prescribed or required for medical reasons: No Are you DNR?: No Advance Directives: No Advance Directives Information Provided: Yes Meds Allergies Allergy/AdvReac Type Severity Reaction Status Date / Time aspirin Allergy Unknown nausea and Verified 09/11/23 07:15 vomiting, GI upset furosemide [From Lasix] Allergy rash Verified 09/11/23 07:15 dronedarone [From Multaq] AdvReac leg Verified 09/11/23 07:15 swelling Home Medications ?Medication ?Instructions ?Recorded ?Confirmed ?Last Taken ?Type acetaminophen 500 mg tablet 1,000 mg PO .COMPLEX PRN 05/04/22 08/22/23 Unknown History (Tylenol Extra Strength) capsaicin 0.075 % topical cream 1 appl topical TID 05/04/22 09/11/23 Unknown History lisinopril 30 mg tablet 30 mg PO DAILY 05/04/22 09/11/23 09/11/23 History rivaroxaban 20 mg tablet (Xarelto) 20 mg PO DAILY 05/04/22 09/11/23 09/10/23 History atorvastatin 40 mg tablet 20 mg PO DAILY 02/28/23 09/11/23 09/11/23 History amiodarone 200 mg tablet 100 mg PO DAILY 08/22/23 09/11/23 09/11/23 History Exam Pertinent Lab Results Pertinent Lab Results: Laboratory Tests 02/28/23 10:41 WBC 6.8 Hgb 14.0 Hct 42.3 Plt Count 247 Sodium 140 Potassium 4.3 Chloride 104 Carbon Dioxide 30 H BUN 21 H Creatinine 1.06 Narrative Narrative: EKG 08/2023 sinus bradycardia with first-degree AV block at 48 beats per minute ECHO 08/2023 Conclusions: - 1. Normal LV ejection fraction 55-60% with pseudonormal filling pattern 2. Mildly dilated right ventricle with normal systolic function 3. Moderate biatrial enlargement 4. Mild aortic regurgitation 5. Normal RV systolic pressure 6. Upper limits of normal ascending aortic size 7. No gross pericardial effusion Holter 08/2023 1. Patient was monitored for total period of 2 days and 23 hours 2. Baseline was normal sinus rhythm with average heart of 52 beats per minute 3. 1 pause of 2.71 seconds noted at 06:30 with frequent sinus bradycardia, 84% of time heart rate below 60 beats per minute 4. No episodes of atrial fibrillation 5. No patient reported events Assessment and Plan Assessment Anesthesia Assessment: Chart Reviewed Final Anesthetic Review Family History of Problems with Anesthesia: No History of Problems with Anesthesia: No Documented by User: Paul Rodriguez MD 09/11/23 10:26 [facility] Past Medical History Medical History Persistent atrial fibrillation Hyperplastic polyp of large intestine Adenomatous colon polyp Internal hemorrhoid Paroxysmal atrial fibrillation History of cardioversion HTN (hypertension) Family History Family History Father Stroke Mother No problems noted. Surgical History Surgical History (Reviewed 08/23/23 @ 09: by Jimy Willson MD) Hx of colonoscopy Social History Social History (Reviewed 08/23/23 @ 09: by Jimy Willson MD) Are you a primary rn complex care to a significant other at home: No Do you presently have visiting nurse or other home services: No Alcohol intake: current Alcohol intake frequency: 0-2 drinks per day Alcohol type: wine and hard liquor Patient Tobacco Use Status: Former Tobacco user Tobacco use type: Cigarette Use of substances other than those prescribed or required for medical reasons: No Are you DNR?: No Advance Directives: No Advance Directives Information Provided: Yes Meds Allergies Allergy/AdvReac Type Severity Reaction Status Date / Time aspirin Allergy Unknown nausea and Verified 09/11/23 07:15 vomiting, GI upset furosemide [From Lasix] Allergy rash Verified 09/11/23 07:15 dronedarone [From Multaq] AdvReac leg Verified 09/11/23 07:15 swelling Home Medications ?Medication ?Instructions ?Recorded ?Confirmed ?Last Taken ?Type acetaminophen 500 mg tablet 1,000 mg PO .COMPLEX PRN 05/04/22 08/22/23 Unknown History (Tylenol Extra Strength) capsaicin 0.075 % topical cream 1 appl topical TID 05/04/22 09/11/23 Unknown History lisinopril 30 mg tablet 30 mg PO DAILY 05/04/22 09/11/23 09/11/23 History rivaroxaban 20 mg tablet (Xarelto) 20 mg PO DAILY 05/04/22 09/11/23 09/10/23 History atorvastatin 40 mg tablet 20 mg PO DAILY 02/28/23 09/11/23 09/11/23 History amiodarone 200 mg tablet 100 mg PO DAILY 08/22/23 09/11/23 09/11/23 History Exam Airway Mallampati Class: I TM Dist: >3cm Neck ROM: Full Loose/Missing/Broken Teeth: No Heart: ok. see above. Lungs: ok Assessment and Plan Assessment Anesthesia Assessment: Anesthesia Plan Discussed Final Anesthetic Review NPO: Yes ASA Class: IV Final Preanesthetic Review: No Changes in Pt Med Stat, Meds/Allgs Chart Reviewed, Consent Obtained/Reviewed and Anes Risks/Benef Reviewed Patient Risk: Intermediate Procedure Risk: Intermediate Anesthetic Plan Anesthetic Plan: MAC: and Agree w/ Assess. and Plan Disposition: Standard PACU
[2023-09-11] VITALS (14 sets, daily range): BP systolic 154–182; BP diastolic 70–98; PULSE 41–63; RESP 16–18; TEMP 36.3–36.9; O2SAT 96–99; BMI 21.1
--- NOTE | ~2023-09-11 | XR_ITS ---
EXAMINATION: XR CHEST CLINICAL INFORMATION: Pacemaker. COMPARISON: 09/11/2023 fluoroscopic guidance in OR, 08/07/2021 and 06/30/2020 x-ray chest. TECHNIQUE: Frontal view of the chest was obtained. FINDINGS: There is no gross pneumothorax. Left subclavian approach pacer with leads overlying expected locations right atrium and right ventricle. Enlarged cardiac silhouette. Levoscoliosis of the thoracic spine with multilevel degenerative changes. No gross pleural effusion. Low lung volumes. Mild bibasilar streaky opacities may represent atelectasis, although an infectious/inflammatory process should also be considered in the appropriate clinical setting. Redemonstration of opacity along the lateral aspect of the right hemithorax previously felt to represent lateral pleural thickening. XR/XR chest 1V IMPRESSION: 1. Left subclavian approach pacer with leads overlying expected locations of right atrium and right ventricle. 2. Enlarged cardiac silhouette. 3. Mild bibasilar streaky opacities, left greater than right, may represent atelectasis, although an infectious/inflammatory process should also be considered in the appropriate clinical setting. No significant pleural effusion.
--- NOTE | ~2023-09-11 | FL_ITS ---
EXAMINATION: XR FLUOROSCOPY WITH IMAGES CLINICAL INFORMATION: Dual lead pacemaker placement COMPARISON: None available. TECHNIQUE: Fluoroscopy provided to: Dr. Hubbard Fluoroscopy time: 5.4 minutes DAP: 12.6 Gycm2 Images: 1 FINDINGS: Solitary coned-down image of the heart demonstrates pacemaker leads within the right atrium and right ventricular region. FL/FL guidance in OR IMPRESSION: Fluoroscopic guidance. Please refer to the full operative report for details. Electronically signed by: Vinicius Sin MD 11/07/2023 09:11 AM EDT
[2023-09-11] MEDS: Lactated Ringers 1,000 ML 100 ML IVCONT (07:35)
--- NOTE | 2023-09-11 11:08 | P.OP_ITS ---
Operative Note Operative Note Date of Service: 09/11/23 Narrative: NAME OF PROCEDURE: ? 1.???Dual chamber?pacemaker?with Seymour 2.???Left upper extremity venogram ? INDICATION FOR PROCEDURE:??Sick sinus syndrome Description of Procedure:?Patient was identified brought to the electrophys iology laboratory in a postabsorptive state.??The left pectoral region was prepped and draped in usual sterile fashion. Incision was made over the left pectoral region and pectoral subcutaneous pocket was made. Afterwards left axillary venous access was obtained using micropuncture needle and fluoroscopic guidance, a 6-Gambian sheath was placed.??Right ventricular lead was placed in the right ventricular septum ?with good sensing and pacing thresholds.??The sheath was split and the lead was then anchored to the pectoral fascia with Ethibond suture.?? ? Afterwards left axillary venous access was obtained using micropuncture needle and fluoroscopic guidance, a 6-Gambian sheath was placed.??Right atrial pacing lead was advanced and placed in the base of the right atrial appendage with good sensing and pacing thresholds.??The sheath was split and the lead was then anchored to the pectoral fascia with Ethibond suture.?? ? The subcutaneous pocket was made and the wound was irrigated with antibiotic solution.??The??leads were then connected to a?pacemaker?generator and placed in the pocket.??The wound was closed with 3 layers of absorbable sutures.?? Patient tolerated procedure well.??There were no complications. ? IMPRESSION:?? Successful?implantation?of Dual chamber?pacemaker? ? PLAN: ? 1.?Routine postprocedure monitoring. 2.?CXR today? 3.?Post operative Abx? 4. ???EKG today? 5. ???Interrogation of device Post-op instructions. Do not shower 3 days Keep bandage on 5 days Please do not remove steristrips. Let them fall by themselves. Restriction of left arm for 4-6 weeks.?
[2023-09-11] MEDS: Acetaminophen 325 MG TABLET 650 MG PO (12:00)
[2023-09-11] MEDS: ceFAZolin Sodium/Dextrose,Iso 2 GM/50 ML PIGGYBACK IV (14:58)
== END 2023-09-11 16:10 | disposition home or self-care (01) ==
PROVIDERS: PCP Internal Medicine; Visit Provider Internal Medicine Cardiovascular Disease
DX: I49.5 Sick sinus syndrome (principal); I48.0 Paroxysmal atrial fibrillation; I48.19 Other persistent atrial fibrillation; I44.0 Atrioventricular block, first degree; R00.1 Bradycardia, unspecified; I10 Essential (primary) hypertension; R79.89 Other specified abnormal findings of blood chemistry; R53.83 Other fatigue; R42 Dizziness and giddiness; Z79.01 Long term (current) use of anticoagulants; Z79.899 Other long term (current) drug therapy; Z88.6 Allergy status to analgesic agent; Z88.8 Allergy status to other drugs, medicaments and biological substances; Z87.891 Personal history of nicotine dependence
CPT/HCPCS: 33208; 71045; A4364; C1785; C1892; C1894; C1898; J0690; J2250; J2704; J2795; J3010; J3370

== ENCOUNTER 2023-09-26 14:20 | Outpatient (AMB) | payer MEDICARE, SELFPAY ==
--- NOTE | 2023-09-26 14:27 | MHC.OFFVIS ---
Vital Signs 09/26/23 14:28 Height 5 ft 9 in Weight 141 lb 1.533 oz BMI 20.8 BP 122/60 Blood Pressure Location Lt brachial Position Sitting Pulse 60 Pulse Source Monitor Intake Visit Reasons: f/u wound ck Associate Professor Of Theology Required: Yes Associate Professor Of Theology Name: Son Allergies aspirin Allergy (Unknown, Verified 09/11/23 07:15) nausea and vomiting, GI upset furosemide [From Lasix] Allergy (Verified 09/11/23 07:15) rash dronedarone [From Multaq] Adverse Reaction (Verified 09/11/23 07:15) leg swelling Medication List - Last Reconciled 09/26/23 by Ekaterina Sin NP acetaminophen (Tylenol Extra Strength) 1,000 mg orally two times a day. PRN; amiodarone 100 mg PO DAILY amlodipine 2.5 mg PO DAILY atorvastatin 20 mg PO DAILY capsaicin 0.075% 1 appl topical TID lisinopril 30 mg PO DAILY rivaroxaban (Xarelto) 20 mg PO DAILY HPI Comments Details: 78-year-old male presents today for a follow-up after dual-chamber pacemaker placed. He had a dual-chamber Saint Del pacemaker placed on 09/11/[address] Hubbard. He reports he has been feeling much better since placement. No issues with the surgical site. Denies any fever, chills, pain, odor, or drainage. He states his balance has improved, headaches have improved but not completely resolved, and his fatigue has improved. He presents with his son who is translating for him. Appropriate form signed. [facility] Medical History (Updated 09/30/23 @ 13:53 by Ekaterina Sin NP) Pacemaker Persistent atrial fibrillation Hyperplastic polyp of large intestine Adenomatous colon polyp Internal hemorrhoid Paroxysmal atrial fibrillation History of cardioversion HTN (hypertension) Surgical History Hx of colonoscopy Family History Father Stroke Mother No problems noted. Social History Are you a primary career guidance counselor to a significant other at home: No Do you presently have visiting nurse or other home services: No Alcohol intake: current Alcohol intake frequency: 0-2 drinks per day Alcohol type: wine and hard liquor Patient Tobacco Use Status: Former Tobacco user Tobacco use type: Cigarette Review of Systems Const Denies weakness ENT Denies dizziness Card Denies chest pain, Denies chest pain with activity, Denies syncope, Denies rapid heart rate, Denies pedal edema, Denies edema, Denies leg edema, Denies lightheadedness, Denies palpitations, Denies dyspnea, Denies dyspnea on exertion and Denies orthopnea Resp Denies cough, Denies dyspnea and Denies dyspnea on exertion GI Denies hematochezia and Denies change in stool character Musc Denies abnormal gait, Denies muscle cramps, Denies muscle weakness, Denies numbness, Denies radiating pain into limb and Denies tingling Neuro Denies abnormal gait, Denies dizziness, Denies syncope, Denies numbness, Denies tingling and Denies weakness Endo Denies palpitations Physical Exam Vital Signs: Last Vital Signs Pulse 60 09/26/23 14:28 BP 122/60 09/26/23 14:28 BMI result Body Mass Index 20.8 Const General: healthy appearing and no acute distress Orientation/consciousness: patient oriented x3 HEENT Head: Yes normal to inspection Eyes General: appearance normal, both eyes and all related structures Neck Neck: Yes normal visual inspection Chest Other: Left pectoral region: Surgical site dry and intact. Surgical glue intact. No erythema, swelling, tenderness, odor, or drainage noted. Well approximated. Chest palpation & inspection: normal inspection of the chest Resp Effort & Inspection: normal respiratory effort Auscultation: clear to auscultation bilaterally Cardio Jugular venous distension: no JVD Palpation: normal PMI Rate: regular rate Rhythm: regular rhythm Heart sounds: S1 normal heart sound present, S2 normal heart sound present, no click, no gallops, no murmurs and no rubs GI Inspection: Yes normal to inspection Palpation (GI): Soft to palpation Skin General skin exam: no rashes or lesions noted Neuro General: patient oriented x3 Extrem General: Yes normal to inspection Psych Appearance: grossly normal Office Procedures EKG Details: EKG today. AV dual paced rhythm. Rate 60 beats per minute. QRS 172 MS. QTC 490 MS. MO 192 [place]. [id number], Complete Assessment & Plan Assessment & Plan (1) Pacemaker: Comment: Dual-chamber Saint Del pacemaker placed 09/11/[address] Hubbard. Code(s): Z95.0 - Presence of cardiac pacemaker Category: Medical Plan Site is healing appropriately. Connected to remote. We will follow remotely every 3 months. Continue to be gentle with the site. Discussed how remote monitoring works. In-office interrogation next. Coding Level of Care Code Est Pt Level 3 (16007) Diagnoses Pacemaker Z95.0 CPT Codes EKG - CPT: 98317-[id number], Complete ([id number])
[2023-09-26 14:28] VITALS: BP 122/60; PULSE 60; BMI 20.8
== END 2023-09-26 16:05 | disposition home or self-care (01) ==
PROVIDERS: PCP Internal Medicine; Visit Provider Nurse Practitioner
DX: I48.91 Unspecified atrial fibrillation (principal); R94.31 Abnormal electrocardiogram [ECG] [EKG]; Z95.0 Presence of cardiac pacemaker
CPT/HCPCS: 93010; 99213

== ENCOUNTER → 2023-09-26 14:20 | Outpatient (BNVA) | payer MEDICARE, SELFPAY | PROVIDERS: PCP Internal Medicine; Visit Provider Nurse Practitioner | DX: Z95.0 Presence of cardiac pacemaker (principal) | CPT/HCPCS: 93005; 99212 ==

== ENCOUNTER → 2023-10-12 23:59 | Outpatient (BNV) | payer MEDICARE, SELFPAY ==
--- NOTE | 2023-10-21 17:21 | A.OFFVIS_ITS ---
Intake Visit Reasons: Remote device check- St Del Allergies aspirin Allergy (Unknown, Verified 10/15/23 14:14) nausea and vomiting, GI upset furosemide [From Lasix] Allergy (Verified 10/15/23 14:14) rash dronedarone [From Multaq] Adverse Reaction (Verified 10/15/23 14:14) leg swelling PFSH Medical History Pacemaker Persistent atrial fibrillation Hyperplastic polyp of large intestine Adenomatous colon polyp Internal hemorrhoid Paroxysmal atrial fibrillation History of cardioversion HTN (hypertension) Surgical History Hx of colonoscopy Family History Father Stroke Mother No problems noted. Social History Are you a primary residential care facility manager to a significant other at home: No Do you presently have visiting nurse or other home services: No Alcohol intake: current Alcohol intake frequency: 0-2 drinks per day Alcohol type: wine and hard liquor Patient Tobacco Use Status: Former Tobacco user Tobacco use type: Cigarette Office Procedures Cardiac Device Check Cardiac Device Check Details: Remote pacemaker report generated 10/12/2023. Total burden of atrial fibrillation at about 30%. Atrial pacing remaining % of the time. Pacemaker function is otherwise adequate [id number] Cardiac Device Interrogation, pacemaker Procedure code (CPT) selection complete Assessment & Plan Assessment & Plan (1) Pacemaker: Comment: Dual-chamber Saint Del pacemaker placed 09/11/[address] Hubbard. Code(s): Z95.0 - Presence of cardiac pacemaker Category: Medical Plan: See above Coding Level of Care Code Procedure Only Diagnoses Pacemaker Z95.0 CPT Codes Cardiac Device Check - Cardiac Device 12: [id number] Cardiac Device Interrogation, pacemaker ([id number])
== END ==
PROVIDERS: PCP Internal Medicine; Visit Provider Internal Medicine Cardiovascular Disease
DX: I48.91 Unspecified atrial fibrillation (principal); Z95.0 Presence of cardiac pacemaker
CPT/HCPCS: 93294

== ENCOUNTER 2023-10-15 13:49 | Outpatient (AMB) | payer MEDICARE, SELFPAY ==
[2023-10-15 14:12] VITALS: BP 124/62; PULSE 60
--- NOTE | 2023-10-15 14:12 | MHC.OFFVIS ---
Vital Signs 10/15/23 14:12 Weight 143 lb 4.807 oz BP 124/62 Blood Pressure Location Lt brachial Position Sitting Pulse 60 Pulse Source Monitor Intake Visit Reasons: 6wk follow up w device ck Internal Communications Intern Required: Yes Internal Communications Intern Name: amanda [id number] Allergies aspirin Allergy (Unknown, Verified 10/15/23 14:14) nausea and vomiting, GI upset furosemide [From Lasix] Allergy (Verified 10/15/23 14:14) rash dronedarone [From Multaq] Adverse Reaction (Verified 10/15/23 14:14) leg swelling Medication List - Last Reconciled 10/15/23 by Italia Abbasi NP-C acetaminophen (Tylenol Extra Strength) 1,000 mg orally two times a day. PRN; amiodarone 100 mg PO DAILY amlodipine 2.5 mg PO DAILY atorvastatin 20 mg PO DAILY lisinopril 30 mg PO DAILY rivaroxaban (Xarelto) 20 mg PO DAILY HPI HPI 6wk follow up w device ck: Details: Lou is a 78-year-old male with past medical history of hypertension, hyperlipidemia, paroxysmal atrial fibrillation, sick sinus syndrome status post dual-chamber pacemaker placement who presents for follow-up. Today he reports he has been feeling better since the pacemaker was placed. He has been more steady on his feet and not having dizziness like previously described. He has very minor soreness at the pacemaker site at times. No other chest discomfort at rest or with activity. No shortness of breath, PND, orthopnea or edema. No presyncope, syncope, falls. Taking meds as directed. Significant other present. Certified [place] head of partner development used. [facility] Medical History Pacemaker Persistent atrial fibrillation Hyperplastic polyp of large intestine Adenomatous colon polyp Internal hemorrhoid Paroxysmal atrial fibrillation History of cardioversion HTN (hypertension) Surgical History Hx of colonoscopy Family History Father Stroke Mother No problems noted. Social History Are you a primary regular senior care provider to a significant other at home: No Do you presently have visiting nurse or other home services: No Alcohol intake: current Alcohol intake frequency: 0-2 drinks per day Alcohol type: wine and hard liquor Patient Tobacco Use Status: Former Tobacco user Tobacco use type: Cigarette Review of Systems Const All systems reviewed & are unremarkable except as noted in HPI and below ENT Denies dizziness Card Denies chest pain, Denies chest pain at rest, Denies chest pain with activity, Denies rapid heart rate, Denies pedal edema, Denies edema, Denies leg edema, Denies lightheadedness, Denies palpitations, Denies dyspnea, Denies dyspnea on exertion and Denies orthopnea Resp Denies cough, Denies dyspnea and Denies dyspnea on exertion GI Denies hematochezia and Denies change in stool character Musc Denies abnormal gait, Denies limited range of motion, Denies muscle cramps, Denies muscle weakness, Denies numbness, Denies radiating pain into limb, Denies stiffness and Denies tingling Neuro Denies abnormal gait, Denies dizziness, Denies numbness and Denies tingling Endo Denies palpitations Physical Exam Vital Signs: Last Vital Signs Pulse 60 10/15/23 14:12 BP 124/62 10/15/23 14:12 Const General: cooperative, healthy appearing, comfortable and no acute distress Orientation/consciousness: patient oriented x3 Neck Neck: Yes normal visual inspection and Yes no JVD Resp Effort & Inspection: normal respiratory effort Auscultation: clear to auscultation bilaterally, no crackles, no rales, no rhonchi and no wheezes Cardio Jugular venous distension: no JVD Rate: regular rate Rhythm: regular rhythm Heart sounds: S1 normal heart sound present, S2 normal heart sound present, no murmurs and no rubs Neuro General: patient oriented x3 Extrem General: Yes normal to inspection and No no pedal edema Psych Appearance: grossly normal Mental Status: mental status grossly normal Speech and movement: Normal speech and movement present Office Procedures Cardiac Device Check Cardiac Device Check Details: [employer] Del dual-chamber pacemaker interrogation today, DDDR mode, battery 9.5-10.2 years, right atrial threshold 0.875 volts at 0.5 milliseconds, RV threshold 0.75 volts at 0.5 milliseconds, auto capture turned on, shortened PVARP due to inappropriate mode switching 80 AF 1.4%, V paced greater than 99% [id number] Cardiac Device Check, pacemaker dual lead Procedure code (CPT) selection complete EKG Details: today, read by me, A/ V paced rhythm, rate 60, left axis, QTc 500ms [id number], Complete Assessment & Plan Assessment & Plan (1) Sick sinus syndrome: Code(s): I49.5 - Sick sinus syndrome Category: Medical Plan: Recent reports of dizziness and fatigue. A Holter monitor was done on 08/14/2023 for 3 days showing sinus rhythm with average heart rates 52 beats per minute, one 2.71 2nd pause noted, frequent sinus bradycardia, 84% of the time heart rate less than 60. He then underwent a dual-chamber pacemaker placement on 09/11/2023. Today he reports improvement in his dizziness, balance and energy levels. Overall he tells me he is feeling well. Pacemaker site is well healed. Interrogation today shows it is functioning normally. Remote monitoring in use. Next office interrogation due in 6 months. Cardiology follow-up 6 months, sooner if needed. (2) Pacemaker: Comment: Dual-chamber Saint Del pacemaker placed 09/11/[address] Hubbard. Code(s): Z95.0 - Presence of cardiac pacemaker Category: Medical Plan: As above (3) Paroxysmal atrial fibrillation: Code(s): I48.0 - Paroxysmal atrial fibrillation Category: Medical Plan: History of paroxysmal atrial fibrillation. He is on low dose amiodarone. Device interrogation today shows he is having episodes of paroxysmal atrial fibrillation. According to [employer] Del rep he is having inappropriate mode switching as well. It is unclear to me at present what his actual AF burden is. Will continue to follow on remote monitoring. He denies any heart palpitations. He continues on amiodarone for rhythm control, Xarelto for anticoagulation. No bleeding issues reported. If he is having increased AFib as suspected then may need to increase his amiodarone dose. (4) HTN (hypertension): Code(s): I10 - Essential (primary) hypertension Category: Medical Qualifiers: Hypertension type: primary hypertension Qualified Code(s): I10 - Essential (primary) hypertension Plan: Well controlled at this time. Continue amlodipine, lisinopril for blood pressure control. Plan Time spent on chart review, documentation, interview and assessment Coding Level of Care Code Est Pt Level 4 (19107) Diagnoses Sick sinus syndrome I49.5 Pacemaker Z95.0 Paroxysmal atrial fibrillation I48.0 Primary hypertension I10 Hypertension type: primary hypertension CPT Codes Cardiac Device Check - Cardiac Device 2: [id number] Cardiac Device Check, pacemaker dual lead ([id number]) EKG - CPT: 84229-[id number], Complete ([id number]) Time Spent (min) 30
== END 2023-10-15 14:41 | disposition home or self-care (01) ==
PROVIDERS: PCP Internal Medicine; Visit Provider Nurse Practitioner Family
DX: I49.5 Sick sinus syndrome (principal); Z95.0 Presence of cardiac pacemaker; I48.0 Paroxysmal atrial fibrillation; I10 Essential (primary) hypertension
CPT/HCPCS: 93010; 93280; 99214

== ENCOUNTER → 2023-10-15 13:49 | Outpatient (BNVA) | payer MEDICARE, SELFPAY | PROVIDERS: PCP Internal Medicine; Visit Provider Nurse Practitioner Family | DX: Z45.018 Encounter for adjustment and management of other part of cardiac pacemaker (principal); I49.5 Sick sinus syndrome; I48.0 Paroxysmal atrial fibrillation; I10 Essential (primary) hypertension | CPT/HCPCS: 93005; 93280; 99212 ==

== ENCOUNTER 2024-02-07 12:51 | Outpatient (AMB) | payer MEDICARE, SELFPAY ==
[2024-02-07 13:07] VITALS: BP 140/72; PULSE 60; BMI 21.9
--- NOTE | 2024-02-07 13:07 | MHC.OFFVIS ---
Vital Signs 02/07/24 13:07 Height 5 ft 9 in Weight 148 lb 2.41 oz BMI 21.9 BP 140/72 H Blood Pressure Location Lt brachial Position Sitting Pulse 60 Pulse Source Monitor Intake Visit Reasons: f/up-afib Resident Service Coordinator Required: No Resident Service Coordinator Services: Resident Service Coordinator Present Resident Service Coordinator Name: elizabeth Long Automatic I Threading Machine Feeder: Automatic I Threading Machine Feeder Present Allergies aspirin Allergy (Unknown, Verified 02/07/24 13:10) nausea and vomiting, GI upset furosemide [From Lasix] Allergy (Verified 02/07/24 13:10) rash dronedarone [From Multaq] Adverse Reaction (Verified 02/07/24 13:10) leg swelling Medication List - Last Reconciled 02/07/24 by Italia Abbasi NP-C acetaminophen (Tylenol Extra Strength) 1,000 mg orally two times a day. PRN; amiodarone 200 mg PO DAILY amlodipine 2.5 mg PO DAILY atorvastatin 20 mg PO DAILY lisinopril 30 mg PO DAILY rivaroxaban (Xarelto) 20 mg PO DAILY HPI HPI f/up-afib: Details: Lou is a 78-year-old male with past medical history of hypertension, hyperlipidemia, paroxysmal atrial fibrillation, sick sinus syndrome status post dual-chamber pacemaker placement who has recently had episodes of PAF on remote monitoring and his amiodarone dose was increased last week. He now presents for follow-up. Today he reports he has been doing well since his last visit in October. He did experience a in his family and had to travel to [place] in November/December. This created a very high amount of stress. He did notice some heart palpitations in that time period. He has not had any issues with fatigue, lightheadedness, unsteadiness. He has an occasional twinge of pain around his pacemaker site. No other chest discomfort at rest or with activity. No shortness of breath, PND, orthopnea or edema. No presyncope, syncope, falls. 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 Taking meds as directed. No bleeding issues reported. Son is present and assisting with Sami translation. [facility] Medical History Pacemaker Persistent atrial fibrillation Hyperplastic polyp of large intestine Adenomatous colon polyp Internal hemorrhoid Paroxysmal atrial fibrillation History of cardioversion HTN (hypertension) Surgical History Hx of colonoscopy Family History Father Stroke Mother No problems noted. Social History Are you a primary manager respiratory care to a significant other at home: No Do you presently have visiting nurse or other home services: No Alcohol intake: current Alcohol intake frequency: 0-2 drinks per day Alcohol type: wine and hard liquor Patient Tobacco Use Status: Former Tobacco user Tobacco use type: Cigarette Review of Systems Const All systems reviewed & are unremarkable except as noted in HPI and below ENT Denies dizziness Card Denies chest pain, Denies chest pain at rest, Denies chest pain with activity, Denies rapid heart rate, Denies pedal edema, Denies edema, Denies leg edema, Denies lightheadedness, Denies palpitations, Denies dyspnea, Denies dyspnea on exertion and Denies orthopnea Resp Denies cough, Denies dyspnea and Denies dyspnea on exertion GI Denies hematochezia and Denies change in stool character Musc Denies abnormal gait, Denies limited range of motion, Denies muscle cramps, Denies muscle weakness, Denies numbness, Denies radiating pain into limb, Denies stiffness and Denies tingling Neuro Denies abnormal gait, Denies dizziness, Denies numbness and Denies tingling Endo Denies palpitations Physical Exam Vital Signs: Last Vital Signs Pulse 60 02/07/24 13:07 BP 140/72 H 02/07/24 13:07 BMI result Body Mass Index 21.9 Const General: cooperative, healthy appearing, comfortable and no acute distress Orientation/consciousness: patient oriented x3 Neck Neck: Yes normal visual inspection and Yes no JVD Resp Effort & Inspection: normal respiratory effort Auscultation: clear to auscultation bilaterally, no crackles, no rales, no rhonchi and no wheezes Cardio Jugular venous distension: no JVD Rate: regular rate Rhythm: regular rhythm Heart sounds: S1 normal heart sound present, S2 normal heart sound present, no murmurs and no rubs Neuro General: patient oriented x3 Extrem General: Yes normal to inspection and No no pedal edema Psych Appearance: grossly normal Mental Status: mental status grossly normal Speech and movement: Normal speech and movement present Office Procedures EKG Details: Today, read by me, atrial paced, ventricular paced rhythm, QTC 500 milliseconds, rate 60, JT index 98.8 [id number], Complete Assessment & Plan Assessment & Plan (1) Paroxysmal atrial fibrillation: Code(s): I48.0 - Paroxysmal atrial fibrillation Category: Medical Plan: History of paroxysmal atrial fibrillation. His condition was stable on amiodarone and several months ago he was reduced to 100 mg daily to reduce the risk of toxicity. Since then he has had episodes of paroxysmal AFib, longest close to 9 hours occurring on 01/20/2024. He does report that he was having very high stress levels in November and December which he feels may have contributed. His last episode occurred on 01/25/2024 which lasted 9 minutes. Last week he was instructed to increase his amiodarone back to 200 mg daily. An EKG done today is showing atrial and ventricular paced rhythm, rate 60. He is on Xarelto for anticoagulation. No bleeding issues reported. Last labs done 08/19/2023 showed hematocrit 44, creatinine 0.9, AST 22, TSH 3.81. Will check a chest x-ray and lab work prior to his next visit. Cardiology follow-up in 3 months, sooner if needed. (2) Sick sinus syndrome: Code(s): I49.5 - Sick sinus syndrome Category: Medical Plan: History of symptomatic bradycardia with dizziness and fatigue. He underwent a dual-chamber pacemaker placement on 09/11/2023. On follow-up visits he reported improvement in his dizziness, balance and energy levels. Device interrogation last visit showed it was functioning normally. Office interrogation due next visit. Remote monitoring in use. (3) Pacemaker: Comment: Dual-chamber [employer] pacemaker placed 09/11/[address] Hubbard. Code(s): Z95.0 - Presence of cardiac pacemaker Category: Medical Plan: As above (4) HTN (hypertension): Code(s): I10 - Essential (primary) hypertension Category: Medical Qualifiers: Hypertension type: primary hypertension Qualified Code(s): I10 - Essential (primary) hypertension Plan: Mild elevation today. Will plan recheck at next visit. Continue amlodipine, lisinopril for blood pressure control. (5) On amiodarone therapy: Code(s): Z79.899 - Other residential (current) drug therapy Category: Medical Plan Time spent on chart review, documentation, interview and assessment Orders: Orders XR chest 2V 6 Weeks Z79.899 - Other residential (current) drug therapy Comprehensive Met. Panel 6 Weeks I48.0 - Paroxysmal atrial fibrillation TSH reflex Free T4 6 Weeks I48.0 - Paroxysmal atrial fibrillation Coding Level of Care Code Est Pt Level 4 (66939) Complex EM visit Add On G2211 Diagnoses Paroxysmal atrial fibrillation I48.0 Sick sinus syndrome I49.5 Pacemaker Z95.0 Primary hypertension I10 Hypertension type: primary hypertension On amiodarone therapy Z79.899 CPT Codes EKG - CPT: 73301-[id number], Complete ([id number]) Time Spent (min) 30
== END 2024-02-07 13:50 | disposition home or self-care (01) ==
PROVIDERS: PCP Internal Medicine; Visit Provider Nurse Practitioner Family
DX: I48.0 Paroxysmal atrial fibrillation (principal); I49.5 Sick sinus syndrome; Z95.0 Presence of cardiac pacemaker; I10 Essential (primary) hypertension; Z79.899 Other long term (current) drug therapy
CPT/HCPCS: 93010; 99214; G2211

== ENCOUNTER → 2024-02-07 12:51 | Outpatient (BNVA) | payer MEDICARE, SELFPAY | PROVIDERS: PCP Internal Medicine; Visit Provider Nurse Practitioner Family | DX: I48.0 Paroxysmal atrial fibrillation (principal); I10 Essential (primary) hypertension; I49.5 Sick sinus syndrome; E78.5 Hyperlipidemia, unspecified; Z95.0 Presence of cardiac pacemaker; Z79.899 Other long term (current) drug therapy | CPT/HCPCS: 93005; 99212 ==

== ENCOUNTER 2024-04-06 10:22 | Outpatient (REF) | payer MEDICAID, SELFPAY ==
--- NOTE | ~2024-04-06 | XR_ITS ---
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 TECHNIQUE: 2 views of the chest were obtained. FINDINGS: Pulmonary reticular pattern. Haziness in the periphery of the right hemithorax probable secondary to superimposition/summation of the soft tissues and the right scapula. No gross consolidation, pleural effusion or pneumothorax. Cardia mediastinal silhouette size is normal. 2 intact electrode leads in the right heart chambers and a metallic reservoir in the left upper hemithorax. Multilevel thoracolumbar spondylosis. S-shaped curvature of the thoracolumbar spine. XR/XR chest 2V IMPRESSION: Chronic interstitial lung disease. No acute airspace disease. 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 Scoliosis, thoracolumbar spine. Electronically signed by: Salbador Ryan MD 04/07/2024 12:22 PM MARY BETH
--- OUTSIDE RECORDS SUMMARY | 2024-04-06 11:39 | XMS_ITS | Encounter Summary ---
Author Organization [employer] Address [address] [facility] [address] [place] [address] Care Team Providers Care Seam Press Operator Name Role Phone Jeffrey Johansen MD Primary Care Provider [phone]- [phone] Encounter Details Date Type Department Care Team (Late Contact Info) Description 10/12/2022 Orders Only [facility] [address] [place], [place] [phone] Jeffrey Johansen MD [address] [place], [place] [phone] Social History Tobacco Use Types Packs/Day Years Used Date Smoking Tobacco: Never Smokeless Tobacco: Never Sex and Gender Information Value Date Recorded Sex Assigned at Male 12/11/2021 10:27 AM EDT Legal Sex Male 10:27 AM EDT Gender Identity Male 12/11/2021 10:27 AM EDT Sexual Orientation Straight 12/11/2021 10 :27 AM EDT documented as of this encounter Plan of Treatment Upcoming Encounters Date Type Department Care Team (Late st Contact Info) Description 04/09/2024 2:30 PM EST Office Visit [facility] ADULT [facility] [address] [place] [address] Melida Shah, DDS [address] [place], [place] [phone] documented as of this encounter Procedures Procedure Name Priority Date/Time Associated Diagnosis Comments CBC Routine 02/28/2023 10:41 AM EST B TYPE NATRIURETIC PEPTIDE (BNP) Routine 02/28/2023 10:41 AM EST BASIC METABOLIC PANEL Routine 02/28/2023 10:41 AM EST documented in this encounter Results * (ABNORMAL) Basic Metabolic Panel (02/28/2023 10:41 AM EST) Sodium 140 135 - 145 mmol/L [facility] Potassium 4.3 3.3 - 5.1 mmol/L [facility] Chloride 104 96 - 108 mmol/L [facility] Carbon Dioxide 30(H) 22 - 29 mmol/L [facility] Anion Gap 10(L) 12 - 20 [facility] Urea Nitrogen (BUN) 21(H) 9 - 16 mg/dL [facility] Creatinine, Serum 1.06 0.5 - 1.4 mg/dL [facility] Estimated Glomerular Filt Rate >60 [facility] Comment:NOTE: For -Am erican individuals, multiply the result by 1.210.Chronic Kidney Disease: Estimated GFR < 60 mL/min/1.68r3Oocdce Kidney Disease: Estimated GFR < 15 mL/min/1.73m2 Glucose 97 60 - 115 mg/dL [facility] Calcium 9.7 8.4 - 10.2 mg/dL [facility] 02/28/2023 10:4 1 AM EST 02/28/2023 10:41 AM EST us Generic External Data Provider LAB BLOOD ORDERAB LES Final Result [facility] [address] [place] [phone] * B Type Natriuretic Peptide (BNP) (02/28/2023 10:41 AM EST) B Type Natriuretic Peptide 78 <100 pg/mL [facility] Comment:For those patients w ho are being treated with Natrecor(nesiritide, recombinant BNP), BNP testing should beperformed at least two hours post treatment in order toensure that only endogenous levels of BNP are detected. 02/28/2023 10:4 1 AM EST 02/28/2023 10:41 AM EST us Generic External Data Provider LAB BLOOD ORDERAB LES Final Result Performing Organization Address [facility]/ZIP Co de Phone Number [facility] [address] [place] [address] [phone] * CBC (02/28/2023 10:41 AM EST) White Blood Count 6.8 4.8 - 10.8 X10*3/uL [facility] Red Blood Count 4.62 4.60 - 5.80 X10*6/uL [facility] Hemoglobin 14.0 14.0 - 18.0 g/dl [facility] Hematocrit 42.3 42.0 - 52.0 % [facility] Mean Corpuscular Volume 91.6 80.0 - 98.0 fL [facility] Mean Corpuscular Hemoglobin 30.3 27.0 - 33.0 pg [facility] Mean Corpuscular HGB Conc 33.1 31.0 - 36.0 g/dl [facility] Red Cell Distribution Width 13.2 11.0 - 16.0 % [facility] Platelet Count 247 160 - 400 X10*3/uL [facility] Mean Platelet Volume 10.3 9.4 - 12.4 fL [facility] NRBC Pct Auto 0.0 0.0 - 0.2 /100WBC [facility] NRBC Abs Auto 0.000 0.0 - 0.012 X10*3/uL [facility] 02/28/2023 10:4 1 AM EST 02/28/2023 10:41 AM EST us Generic External Data Provider LAB BLOOD ORDERAB LES Final Result Performing Organization Address [facility] Co de Phone Number [facility] [address] [place] [phone] [phone] documented in this encounter Visit Diagnoses Not on filedocumented in this encounter Care Teams Seam Press Operator Relationship Specialty Start Date End Date Jeffrey Johansen MD [address] [place] [phone] PCP - General Internal Medicine 03/26/17 documented as of this encounter
--- OUTSIDE RECORDS SUMMARY | 2024-04-06 11:39 | XMS_ITS | Encounter Summary ---
Author Organization [employer] Address [address] [facility] [address] [place] [address] Care Team Providers Care Mental Health Director Name Role Phone Jeffrey Johansen MD Primary Care Provider [phone]- [phone] Encounter Details Date Type Department Care Team (Latest Contact Info) Description 10/27/2018 Abstract [facility] CON[facility]S Dental, Provider, DDS Social History Tobacco Use Types Packs/Day Years Used Date Smoking Tobacco: Never Assessed Sex and Gender Information Value Date Recorded Sex Assigned at Male 12/11/2021 10:27 AM EDT Legal Sex Male 10:27 AM EDT Gender Identity Male 12/11/2021 10:27 AM EDT Sexual Orientation Straight 12/11/2021 10 :27 AM EDT documented as of this encounter Plan of Treatment Upcoming Encounters Date Type Department Care Team (Late st Contact Info) Description 04/09/2024 2:30 PM EST Office Visit [facility] [address] [place], [place] [phone] Melida Shah, DDS [address] [place] [address] documented as of this encounter Visit Diagnoses Not on filedocumented in this encounter Care Teams Mental Health Director Relationship Specialty Start Date End Date Jeffrey Johansen MD [address] [place], [place] [phone] PCP - General Internal Medicine 03/26/17 documented as of this encounter
--- OUTSIDE RECORDS SUMMARY | 2024-04-06 11:39 | XMS_ITS | Encounter Summary ---
Author Organization [employer] Address [address] [facility] 7[address] [place] [address] Care Team Providers Care Physical Therapy Manager Name Role Phone Jeffrey Johansen MD Primary Care Provider [phone]- [phone] Reason for Visit * Reason Onset Date Comments HDF appt 03/11/2024 Encounter Details Date Type Department Care Team (Late Contact Info) Description 03/11/2024 Telephone [facility] [address] [place] [address] Jeffrey Johansen MD [address] [place] [phone] HDF appt Social History Tobacco Use Types Packs/Day Years Used Date Smoking Tobacco: Never Passive Smoke Exposure: Never Smokeless Tobacco: Never Alcohol Use Standard Drinks/Week Comments Defer 0 (1 standard drink = 0.6 oz pur e alcohol) Sex and Gender Information Value Date Recorded Sex Assigned at Male 12/11/2021 10:27 AM EDT Legal Sex Male 10:27 AM EDT Gender Identity Male 12/11/2021 10:27 AM EDT Sexual Orientation Straight 12/11/2021 10 :27 AM EDT documented as of this encounter Miscellaneous Notes * Telephone Encounter - Sheridan Tripp RN - 03/11/2024 9:13 AM EST TC to boith numbers on file, no answer at either number, ,messages left requesting call back. documented in this encounter Plan of Treatment Upcoming Encounters Date Type Department Care Team (Late Contact Info) Description 04/09/2024 2:30 PM EST Office Visit [facility] ADULT D[facility]AL [address] [place] [address] Melida Shah, JAREKS [address] [place] [address] documented as of this encounter Visit Diagnoses Not on filedocumented in this encounter Care Teams Physical Therapy Manager Relationship Specialty Start Date End Date Jeffrey Johansen MD [address] [place] [phone] PCP - General Internal Medicine 03/26/17 documented as of this encounter
--- OUTSIDE RECORDS SUMMARY | 2024-04-06 11:39 | XMS_ITS | Encounter Summary ---
Author Organization [employer] Address [address] [facility] [address] [place] [address] Care Team Providers Care Wine Maker Name Role Phone Jeffrey Johansen MD Primary Care Provider [phone]- [phone] Encounter Details Date Type Department Care Team ([facility] Contact Info) Description 02/19/2024 Orders Only [facility] [address] [place], [place] [phone] Jeffrey Johansen MD [address] [place] [address] Social History Tobacco Use Types Packs/Day Years [...] Description 04/09/2024 2:30 PM EST Office Visit [facility] ADULT D[facility] [address] [place] [address] Melida Shah DDS [address] [place] [address] documented as of this encounter Visit Diagnoses Not on filedocumented in this encounter Care Teams Wine Maker Relationship Specialty Start Date End Date Jeffrey Johansen MD [address] [place], [place] [address] [address] PCP - General Internal Medicine 03/26/17 documented as of this encounter
--- OUTSIDE RECORDS SUMMARY | 2024-04-06 11:39 | XMS_ITS | Clinical Summary ---
Author Organization [employer] Address [address] [facility] 7t [place] [address] Care Team Providers Care Security Strategist Name Role Phone Jeffrey Johansen MD Primary Care Provider [phone]- [phone] Allergies Active Allergy Reactions Criticality Noted Date Comments Aspirin Diarrhea,Headache 06/29/2014 Dronedarone 02/02/2022 Furosemide Hives 07/18/2022 Meloxicam 02/02/2022 Medications amLODIPine (Norvasc) 2.5 MG tablet Take 2.5 mg by mouth at bedtime. 2 Active amiodarone (Pacerone) 200 MG tablet Take 1 tablet by mouth at bed time. 2 Active Ketotifen Fumarate (Zaditor) 0.035 % solutionIndicat ions:Itchy eyes Administer 1 drop into affected eye(s) 2 times daily. 5 mL 4 Active Additional Information Patient not taking.Reported on 02/11/2024 Xarelto 20 MG tablet TAKE ONE TABLET EVERY EVENING WITH A MEAL 90 tablet 2 4 Active atorvastatin (Lipitor) 40 MG tablet TAKE ONE TABLET AT BEDTIME 30 tablet 6 4 Active lisinopril 30 MG tablet TAKE ONE TABLET EVERY MORNING 30 tablet 3 4 Active amoxicillin (Amoxil) 500 MG capsule Take 1 capsule (500 mg) by mouth every 8 (eight) hours for 7 days. 21 capsule 5 04/01/19 25 acetaminophen (Tylenol) 500 MG tablet Take 1 tablet (500 mg) by mouth every 6 (six) hours if needed for mild pain for up to 10 days. 30 tablet 5 04/04/19 25 Active Problems Problem Noted Date Diagnosed Date Adenomatous polyp of colon 07/26/2023 JOSE positive 07/26/2023 Atypical chest pain 07/26/2023 Bilateral hand pain 07/26/2023 Chronic lower back pain 07/26/2023 Chronic headache disorder 07/26/2023 Depression 07/26/2023 Elevated brain natriuretic peptide (BNP) level 0 07/26/2023 H. pylori infection 07/26/2023 Gastritis due to Helicobacter species 07/26/2023 Hip pain, right 07/26/2023 Hyperplastic polyp of large intestine 07/26/2023 Hypersomnolence 07/26/2023 Induratio penis plastica 07/26/2023 Peyronie disease 07/26/2023 PTSD (post-traumatic stress disorder) 07/26/2023 Pulmonary nodule 07/26/2023 Overview (07/26/2023): 5mm with multiple densities seen by Pulmonology Right leg numbness 07/26/2023 Shoulder pain, left 07/26/2023 Shoulder pain, right 07/26/2023 Sinus bradycardia 07/26/2023 SOB (shortness of breath) on exertion 07/26/2023 High cholesterol 07/26/2023 Persistent atrial fibrillation 07/26/2023 Hyperlipemia 09/17/2022 Paroxysmal atrial fibrillation 09/17/2022 GERD (gastroesophageal reflux disease) 2 Persistent insomnia 04/04/2020 Hypercholesterolemia 03/28/2017 Sessile colonic polyp 01/01/2014 Overview (07/26/2023): Multiple sessile polyps of benign appearance ranging in size from 3-8mm on 12/24/13 colonoscopy along with small non-bleeding internal hemorrhoids. Internal hemorrhoid 01/01/2014 Overview (07/26/2023): Multiple sessile polyps of benign appearance ranging in size from 3-8mm on 12/24/13 colonoscopy along with small non-bleeding internal hemorrhoids. Chronic gastritis 11/13/2013 Overview (09/17/2022): Chronic gastritis h.pylor posi on 01/21/13 upper endoscopy with intestinal metaplasia on bx. Heart palpitations 11/13/2013 BPH (benign prostatic hyperplasia) 10/23/2013 HTN (hypertension) 10/23/2013 Encounters Date Type Department Care Team Description 03/25/2024 1:00 PM EST Office Visit [facility] ADULT [facility] [address] [place] [address] Melida Shah DDS 03/11/2024 Telephone [facility] [address] [place], [place] [phone] Jeffrey Johansen MD HDF appt 02/19/2024 Orders Only [facility] [address] [place] [address] Jeffrey Johansen MD 02/11/2024 12:00 PM EST Office Visit [facility] ADULT [facility] [address] [place] [address] Davina Duenas Dental calculus (Primary Dx) 01/07/2024 Refill [facility] [address] [place] [address] Jeffrey Johansen MD from Last 3 Months Immunizations Name Administration Dates Next Due Influenza High-dose Quadriva lent Preservative Free 12/13/2022,12/18/2021,11/13/2019 Influenza Injectable Quadriv alant Preservative Free IIV4 MDCK 02/23/2021 Influenza injectable quadriv alent IIV4 with preservative 12/29/2018,11/04/2017 Influenza injectable quadriv alent preservative free 12/12/2016 Influenza, IIV3, injectable 12/31/2014 Influenza, trivalent, adjuvanted 12/31/2014 Pneumococcal Conjugate PCV 13 12/29/2018, 017 Pneumococcal Polysaccharide PPSV23 05/21/2016 Tdap 05/21/2016 Social History Tobacco Use Types Packs/Day Years Used Date Smoking Tobacco: Never Passive Smoke Exposure: Never Smokeless Tobacco: Never Tobacco Cessation:Counseling Given: Not Answered Alcohol Use Standard Drinks/Week Comments Defer 0 (1 standard drink = 0.6 oz pur e alcohol) Sex and Gender Information Value Date Recorded Sex Assigned at Male 12/11/2021 10:27 AM EDT Legal Sex Male 10:27 AM EDT Gender Identity Male 12/11/2021 10:27 AM EDT Sexual Orientation Straight 12/11/2021 10 :27 AM EDT Last Filed Vital Signs Vital Sign Reading Time Taken Comments Blood Pressure 132/78 03/25/2024 1:04 PM EST Pulse 50 08/05/2023 10:17 AM EDT Temperature 36.2 ??C (97.2 ??F) 08/05/2023 10:17 AM E DT Respiratory Rate 16 08/05/2023 10:17 AM EDT Oxygen Saturation 99% 08/05/2023 10:17 AM EDT Inhaled Oxygen Concentration - - Weight 64.9 kg (143 lb) 08/05/2023 10:17 AM EDT Height 170.2 cm (5' 7 ) 08/05/2023 10:17 AM EDT Body Mass Index 22.4 08/05/2023 10:17 AM EDT Plan of Treatment Upcoming Encounters Date Type Department Care Team (Late st Contact Info) Description 04/09/2024 2:30 PM EST Office Visit [facility] [address] [place] [address] Melida Shah, DDS [address] [place] [address] Health Maintenance Due Date Last Done Comments CT Colonography 1945 Depression Screening 1945 FIT DNA/Cologuard 1945 FIT 1945 FOBT 1945 SDOH Screening 1945 Sigmoidoscopy 1945 Alcohol/Substance Use Screening 1958 Hepatitis C Screening 1964 Zoster Vaccines (1 of 2) 1996 RSV Patients and Patients Aged 60 years or older (1 - 1-dose 75+ series) 2021 COVID-19 Vaccine ( season) 2023 12/18/2021, 05/14/2020, 04/23/2020 Dental Oral Exam 08/11/2024 02/11/2024, 03/07/2023 Dental Prophylaxis 08/11/2024 02/11/2024, 03/07/2023 Dental X-Ray: Bitewings 02/11/2025 02/11/20 24, 03/07/2023, 07/20/2022, Additional history exists Tobacco Screening 03/25/2025 03/25/2024 Lipid Panel 06/09/2025 06/09/2020 Dental X-Ray: Full Mouth 03/08/2026 03/07/2023 Colonoscopy 05/07/2026 05/08/2023 Colorectal Cancer Screening 05/07/2026 DTaP/Tdap/Td Vaccines (2 - Td or Tdap) 05/21/2026 05/21/2016 Pneumococcal Vaccine: 50+ Years Completed 12/29/2018, 05/21/2016, 05/21/2016 Influenza Vaccine Completed 03/01/2024, , 12/13/2022, Additional history exists HIB Vaccines Aged Out No longer eligi ble based on patient's age to complete this topic HPV Vaccines Aged Out No longer eligi ble based on patient's age to complete this topic Hepatitis A Vaccines Aged Out No long er eligible based on patient's age to complete this topic Hepatitis B Vaccines Aged Out No long er eligible based on patient's age to complete this topic IPV Vaccines Aged Out No longer eligi ble based on patient's age to complete this topic Meningococcal Vaccine Aged Out No jolie karissa eligible based on patient's age to complete this topic RSV under 20 months Aged Out No longe r eligible based on patient's age to complete this topic Rotavirus Vaccines Aged Out No longer eligible based on patient's age to complete this topic Procedures Procedure Name Priority Date/Time Associated Diagnosis Comments 19 EXTRACTION, ERUPTED TOOTH OR EXPOSED ROOT (ELEVATION/FORCEPS REMOVAL) Routine 03/25/2024 1:00 PM EST COMPREHENSIVE PERIODONTAL EVALUATION - NEW OR ESTABLISHED PATIENT Routine 02/11/2024 12:00 PM EST PERIODIC ORAL EVALUATION - ESTABLISHED PATIENT Routine 02/11/2024 12:00 PM EST ORAL HYGIENE INSTRUCTIONS Routine 02/11/2024 12:00 PM EST INTRAORAL - PERIAPICAL EACH ADDITIONAL RADIOGRAPHIC IMAGE Routine 02/11/2024 12:00 PM EST INTRAORAL - PERIAPICAL FIRST RADIOGRAPHIC IMAGE Routine 02/11/2024 12:00 PM EST BITEWINGS - 4 RADIOGRAPHIC IMAGES Routine 02/11/2024 12:00 PM EST PROPHYLAXIS - ADULT Routine 02/11/2024 1 2:00 PM EST HM COLONOSCOPY Routine 05/08/2023 4:09 PM EDT INTRAORAL - COMPLETE SERIES OF RADIOGRAPHIC IMAGES Routine 03/07/2023 3:00 PM EST LIPID PANEL, STANDARD Routine 06/09/2020 9:08 AM EDT from Last 3 Months or Most Recently Relevant to Health Maintenance Results * (ABNORMAL) LIPID PANEL, STANDARD (06/09/2020 9:08 AM EDT) Chol/HDLC Ratio 4.1 <5.0 (calc) [facility] Cholesterol, Total 230(H) <200 mg/dL [facility] HDL Cholesterol 56 > OR = 40 mg/dL [facility] LDL Cholesterol 151(H) mg/dL (calc) [facility] Comment: Reference range: <100 ?? Desirable range <100 mg/dL for primary prevention; ?? <70 mg/dL for patients with CHD or diabetic patients ?? with > or = 2 CHD risk factors. ?? LDL-C is now calculated using the Vijaya ?? calculation, which is a validated novel method providing ?? better accuracy than the Friedewald equation in the ?? estimation of LDL-C. ?? Branden MCINTOSH et al. ARNULFO. 2013;310(19): 6419-5793 ?? (http://education.[employer]/faq/RRL089) Non-HDL Cholesterol 174(H) <130 mg/dL (calc) [facility] Comment: For patients with diabetes plus 1 major ASCVD risk ?? factor, treating to a non-HDL-C goal of <100 mg/dL ?? (LDL-C of <70 mg/dL) is considered a therapeutic ?? option. Triglycerides 109 <150 mg/dL [facility] 06/09/2020 9:08 AM EDT us Jeffrey Johansen MD LAB BLOOD ORDERABLES Final Result [facility] [address] [place] [address], from Last 3 Months or Most Recently Relevant to Health Maintenance Insurance [facility] MEDICARE ADVANTAGE HMO DENTAL [facility] DENTAL - HSN FULL (MEDICAID) Care Teams Security Strategist Relationship Specialty Start Date End Date Jeffrey Johansen MD [address] [place] [id number] PCP - General Internal Medicine 03/26/17
--- OUTSIDE RECORDS SUMMARY | 2024-04-06 11:39 | XMS_ITS | Encounter Summary ---
Author Organization [employer] Address [address] [facility] 7t [place] [address] Care Team Providers Care Rn Cvor Name Role Phone Jeffrey Johansen MD Primary Care Provider +1 [phone] Reason for Visit * Reason Comments Extraction Encounter Details Date Type Department Care Team ([facility] st Contact Info) Description 03/25/2024 1:00 PM EST Office Visit [facility] AD[facility] [address] [place], [place] [phone] Melida Shah DDS [address] [place] [address] Social History Tobacco Use Types Packs/Day Years [...] AM EDT documented as of this encounter Last Filed Vital Signs Vital Sign Reading Time Taken Comments Blood Pressure 132/78 03/25/2024 1:04 PM EST Pulse - - Temperature - - Respiratory Rate - - Oxygen Saturation - - Inhaled Oxygen Concentration - - Weight - - Height - - Body Mass Index - - documented in this encounter Progress Notes * Melida Shah DDS - 03/25/2024 1:00 PM EST Dental procedures in this visit [id number] - EXTRACTION, ERUPTED TOOTH OR EXPOSED ROOT (ELEVATION AND/OR FORCEPS REMOVAL) 19 (Completed) Service provider: Melida Shah DDS Billing provider: Abner Chaney DMD Patient ID: Lou Kruse is a 79 y.o. male. Time Out: Date: 03/25/2024 Location: [facility] Tooth: #19 Procedure: Extraction Verified the above with patient, economist research assistant, and provider. Confirmed via patient's chart, intraorally and by radiographs. Script Developer: not applicable Simple Extraction of # [address] done [address] [place] by Dr. Melida Shah DDS Risk, benefits, and alternatives discussed with the patient. CONSENT FORM INITIALED & SIGNED BY THE PATIENT AND COUNTERSIGNED BY Dr. Melida Shah DDS Medical history: Reviewed in EHR Vitals: Blood pressure 132/78. Allergies: Reviewed in EHR Medications: Reviewed in EHR - LA: 20% topical benzocaine; MATT block with 1/2 carpule 4% septocaine/articaine 1:100,000 epinephrine / local infiltration with 1 carpule 4% septocaine/articaine 1:100,000 epinephrine - Gingival fibers using periosteal elevator. - Tooth luxated using straight elevator. - Tooth extracted using: cow horn - Curettage done. - Area checked for sharp bony edges / filing of sharp bony edges done. - Irrigation done using Periogard. - Gel foam placed - Hemostasis achieved before dismissal. Patient comfortable to walk. - Gauze pack placed. - post op instructions (written + verbal), extra pack of gauze given. Sage #18 fell off during visit; PT was informed; crown was temporary cemented with temp jalloh. Pt was informed to come back to permanently cement crown #18. PT agreed & understood. - Rx: Tylenol 500mg x10day Amoxicillin 500mg x7day TID Patient satisfied, left in stable condition NV: follow up Provider: Dr. Melida Shah DDS Cpr Ambulance Driver: Garrett Weiss Supervising Dentist: Dr. Chaney * Abner Chaney DMD - 03/25/2024 1:00 PM EST I saw and evaluated the patient, participating in the antony portions of the service. I reviewed the resident???s note. I agree with the resident???s findings and plan. Abner Chaney DMD documented in this encounter Plan of Treatment Upcoming Encounters Date Type Department Care Team (Late st Contact Info) Description 04/09/2024 2:30 PM EST Office Visit [facility] AD[facility] [address] [place], [place] [phone] Melida hSah DDS [address] [place] [address] Scheduled Orders Name Type Priority Associated Diagnoses Orde r Schedule DIAGNOSTIC - CLINICAL ORAL EVALUATIONS - RE-EVALUATION - POST-OPERATIVE OFFICE VISIT Dental Routine [address] arting 03/25/2024 DENTURE IMPRESSION Dental Routine 1 Occu rrences starting 03/25/2024 DENTURE IMPRESSION Dental Routine 1 Occu rrences starting 03/25/2024 BITE REGISTRATION Dental Routine 1 Occur rences starting 03/25/2024 WAX TRY IN Dental Routine 1 Occurrences starting 03/25/2024 DENTURE FOLLOWUP Dental Routine 1 Occurr ences starting 03/25/2024 documented as of this encounter Procedures Procedure Name Priority Date/Time Associated Diagnosis Comments 19 EXTRACTION, ERUPTED TOOTH OR EXPOSED ROOT (ELEVATION/FORCEPS REMOVAL) Routine 03/25/2024 1:00 PM EST documented in this encounter Visit Diagnoses Not on filedocumented in this encounter Care Teams Rn Cvor Relationship Specialty Start Date End Date Jeffrey Johansen MD [address] [place] [address] PCP - General Internal Medicine 03/26/17 documented as of this encounter
--- OUTSIDE RECORDS SUMMARY | 2024-04-06 11:39 | XMS_ITS | Encounter Summary ---
Author Organization [employer] Address [address] [facility] 7t [place] [address] Care Team Providers Care Sterile Proc Tech Name Role Phone Jeffrey Johansen MD Primary Care Provider [phone]- [phone] Encounter Details Date Type Department Care Team (Late st Contact Info) Description 08/16/2022 Telephone [facility] [address] [place] [address] Chaitanya Correia DDS [address] [place] [address] Social History Tobacco Use Types Packs/Day Years Used Date Smoking Tobacco: Never Smokeless Tobacco: Never Sex and Gender Information Value Date Recorded Sex Assigned at Male 12/11/2021 10:27 AM EDT Legal Sex Male 10:27 AM EDT Gender Identity Male 12/11/2021 10:27 AM EDT Sexual Orientation Straight 12/11/2021 10 :27 AM EDT COVID-19 Exposure Response Date Recorded In the last 10 days, have yo u been in contact with someone who was confirmed or suspected to have Coronavirus/COVID-19? No / Unsure 08/10/2022 8:54 AM EDT documented as of this encounter Miscellaneous Notes * Telephone Encounter - Sabina Avila - 08/28/2022 9:48 AM EDT Martha Kruse 1945 lab wanted to confirm shade color please advise * Telephone Encounter - Sabina Avila - 08/16/2022 8:21 AM EDT Martha Kruse 1945 lab wanted to confirm shade color please advise documented in this encounter Plan of Treatment Upcoming Encounters Date Type Department Care Team (Late st Contact Info) Description 04/09/2024 2:30 PM EST Office Visit [facility] AD[facility] [address] [place], [place] [phone] Melida Shah, JAREKS [address] [place] [address] documented as of this encounter Visit Diagnoses Not on filedocumented in this encounter Care Teams Sterile Proc Tech Relationship Specialty Start Date End Date Jeffrey Johansen MD [address] [place], [place] [phone] PCP - General Internal Medicine 03/26/17 documented as of this encounter
--- OUTSIDE RECORDS SUMMARY | 2024-04-06 11:39 | XMS_ITS | Encounter Summary ---
Author Organization [employer] Address 75 [facility] 7t [place] [address] Care Team Providers Care Deli Cutter Slicer Name Role Phone Jeffrey Johansen MD Primary Care Provider [phone]- [phone] Encounter Details Date Type Department Care Team (Late st Contact Info) Description 06/06/2023 Orders Only [facility] [address] [place] [address] Provider, Historical, Social History Tobacco Use Types Packs/Day Years [...] Description 04/09/2024 2:30 PM EST Office Visit [facility] ADULT [facility] [address] [place] [address] Melida Shah, DDS [address] [place] [address] documented as of this encounter Procedures Procedure Name Priority Date/Time Associated Diagnosis Comments SURGICAL PATHOLOGY Routine 05/08/2023 9:52 AM EDT documented in this encounter Results * (ABNORMAL) Surgical Pathology (05/08/2023 9:52 AM EDT) us Historical Provider LAB PATHOLOGY ORDERABLES Edited Result - Final documented in this encounter Visit Diagnoses Not on filedocumented in this encounter Care Teams Deli Cutter Slicer Relationship Specialty Start Date End Date Jeffrey Johansen MD [address] [place] [id number] PCP - General Internal Medicine 03/26/17 documented as of this encounter
--- OUTSIDE RECORDS SUMMARY | 2024-04-06 11:39 | XMS_ITS | Encounter Summary ---
Author Organization [employer] Address 75 [facility] [address] [place] [address] Care Team Providers Care Medical Transcriptionist Name Role Phone Jeffrey Johansen MD Primary Care Provider [phone]- [phone] Reason for Visit * Reason Onset Date Comments ER Follow-up 07/18/2023 Encounter Details Date Type Department Care Team ([facility] st Contact Info) Description 07/18/2023 Telephone [facility] [address] [place], [place] [phone] Jeffrey Johansen MD [address] [place] [address] ER Follow-up Social History Tobacco Use Types Packs/Day Years Used Date Smoking Tobacco: Never Smokeless Tobacco: Never Sex and Gender Information Value Date Recorded Sex Assigned at Male 12/11/2021 10:27 AM EDT Legal Sex Male 10:27 AM EDT Gender Identity Male 12/11/2021 10:27 AM EDT Sexual Orientation Straight 12/11/2021 10 :27 AM EDT documented as of this encounter Miscellaneous Notes * Telephone Encounter - Gertrudis Story RN - 07/23/2023 2:57 PM EDT Returned call to pt son regarding message below. Son states pt discharged from [facility] on 07/18/23 for dizziness and JAMISON. Pt had a full workup including imaging and was told everything returned WNL. Pt's pulse kept dipping into the 40's and at one point went down into the 30's. Pt son states [facility] informed him that it may be the amiodarone that is causing his pulse to dip and causing the pt's dizziness. [facility] informed son to contact clinical nurse specialist for f/u. Son states he is still waiting on a return call from their office. HDF scheduled with PCP on 08/05/23. Informed son that if pt symptoms return or worsen, to return to the hospital and if son does not hear back from Cardio, to let us know to reach out to them as well. Notes scanned into chart. Son agrees with plan. * Telephone Encounter - Nicol Dove - 07/18/2023 12:01 PM EDT Tc from Patient Son calling to report ED visit on : Date: 07/17/23 Discharged 07/18/23 Hospital: [facility] Seen for: dizziness and headache Patient advised will forward to team nurse for follow up documented in this encounter Plan of Treatment Upcoming Encounters Date Type Department Care Team (Late st Contact Info) Description 04/09/2024 2:30 PM EST Office Visit [facility] [address] [place], [place] [phone] Melida Shah, TENZIN [address] [place] [address] documented as of this encounter Visit Diagnoses Not on filedocumented in this encounter Care Teams Medical Transcriptionist Relationship Specialty Start Date End Date Jeffrey Johansen MD [address] [place], [place] [phone] PCP - General Internal Medicine 03/26/17 documented as of this encounter
--- OUTSIDE RECORDS SUMMARY | 2024-04-06 11:39 | XMS_ITS | Encounter Summary ---
Author Organization [employer] Address 75 [facility] 7t [place] [address] Care Team Providers Care Policy Checker Name Role Phone Jeffrey Johansen MD Primary Care Provider [phone]- [phone] Encounter Details Date Type Department Care Team (Latest Contact Info) Description 07/15/2020 Abstract [facility] CONVERSIONS Dental, Provider, DDS Social History Tobacco [...] Description 04/09/2024 2:30 PM EST Office Visit [facility]ULT [facility] [address] [place], [place] [phone] Melida Shah, DDS [address] [place] [address] documented as of this encounter Visit Diagnoses Not on filedocumented in this encounter Care Teams Policy Checker Relationship Specialty Start Date End Date Jeffrey Johansen MD [address] [place], [place] [phone] PCP - General Internal Medicine 03/26/17 documented as of this encounter
--- OUTSIDE RECORDS SUMMARY | 2024-04-06 11:39 | XMS_ITS | Clinical Summary ---
Author Organization [facility] Address [address] [place] [address] Care Team Providers Care Manager Social Responsibility Name Role Phone Gonzalez Wilkerson Primary Care Provider [phone] Source Comments PLEASE NOTE, if this patient is a minor, it may be UNLAWFUL to discuss sensitive information that is contained in these records (such as FAMILY PLANNING, MENTAL HEALTH or SUBSTANCE ABUSE) with the minor patient's parent or other person without the patient's specific authorization.[facility] Allergies Active Allergy Reactions Criticality Noted Date Comments Aspirin, Buffered Other (See Comments) High 10/24/19 14 He get Headaches Medications saliva substitute combo no.9 (BIOTENE PBF) mwshIndications:Dr elaine mouth 1 Dose by mucous membrane route 1 to 2 (one to two) times daily. 1 Bottle 2 01/01/20 15 Active carboxymethylcellu lose (REFRESH TEARS) 0.5 % ophthalmic solutionIndication s:Dry eyes, bilateral Place 1 Drop into both eyes 4 (four) times daily. 15 mL 3 02/22/19 16 Active triamcinolone (NASACORT AQ) 55 mcg nasal inhalerIndications :Nasal congestion Place 2 Sprays into the nostril(s) once daily. 16 g 2 04/04/19 16 Active diclofenac (VOLTAREN) 1 % gelIndications:Lef t medial knee pain Apply topically 2 (two) times daily. Apply to most painful area. 100 g 2 07/13/19 16 Active pantoprazole (PROTONIX) 40 mg EC tabletIndications: Chronic gastritis without bleeding, unspecified gastritis type Take 1 Tab by mouth once daily. 90 Tab 1 08/12/19 16 Active cetirizine (ZYRTEC) 10 mg tabletIndications: Environmental and seasonal allergies Take 1 Tab by mouth once daily. 30 Tab 2 11/29/19 16 Active amLODIPine (NORVASC) 10 mg tabletIndications: Essential hypertension Take 1 Tab by mouth once daily 90 Tab 0 02/01/20 16 Active Miscellaneous Medical Supply miscIndications:Es sential hypertension by miscellaneous route once daily Dx: HTN. Digital portable blood pressure monitor machine, disp#1, no refills. 1 Each 0 02/01/20 16 Active triamcinolone (KENALOG) 0.5 % ointmentIndication s:Other eczema Apply topically 2 (two) times daily as needed for rash 15 g 2 07/06/19 17 Active lisinopril (PRINIVIL,ZESTRIL) 10 mg tabletIndications: Essential hypertension TAKE (1) TABLET DAILY. 90 Tab 1 12/25/19 17 Active metoprolol succinate (TOPROL-XL) 25 mg 24 hr tabletIndications: Essential hypertension Take 1 Tab by mouth 2 (two) times daily 180 Tab 1 02/26/19 18 Active naproxen sodium (ANAPROX) 550 mg tabletIndications: Left hip pain Take 1 Tab by mouth 2 (two) times daily with a meal 60 Tab 2 02/26/19 18 Active atorvastatin (LIPITOR) 40 mg tabletIndications: Mixed hyperlipidemia Take 1 Tab by mouth once daily 90 Tab 1 02/26/19 18 Active tamsulosin (FLOMAX) 0.4 mg 24 hr capsuleIndications :Benign prostatic hyperplasia with lower urinary tract symptoms, symptom details unspecified Take 1 Cap by mouth once daily Take 30 minutes following the same meal each day. Swallow whole. Do not open, crush, or chew. 30 Cap 5 06/28/19 18 Active metoprolol succinate (TOPROL-XL) 25 mg 24 hr tabletIndications: Essential hypertension TAKE ONE TABLET BY MOUTH TWICE DAILY 90 Tab 03/27/19 19 Active Active Problems Problem Noted Date Diagnosed Date Sessile colonic polyp 01/01/2014 Overview (01/01/2014): Multiple sessile polyps of benign appearance ranging in size from 3-8mm on 12/24/13 colonoscopy along with small non-bleeding internal hemorrhoids. Internal hemorrhoid 01/01/2014 Overview (01/01/2014): Multiple sessile polyps of benign appearance ranging in size from 3-8mm on 12/24/13 colonoscopy along with small non-bleeding internal hemorrhoids. H/O colonoscopy 01/01/2014 Overview (04/04/2015): Multiple sessile polyps of benign appearance ranging in size from 3-8mm on 12/24/13 colonoscopy along with small non-bleeding internal hemorrhoids on 2013 colonoscopy. Advised repeat in 3 years. Multiple adenomatous & hyperplastic polyps on 2010 colonoscopy. Heart palpitations 11/13/2013 Chronic gastritis 11/13/2013 Overview (11/13/2013): Chronic gastritis h.pylor posi on 01/21/13 upper endoscopy with intestinal metaplasia on bx. BPH (benign prostatic hyperplasia) 10/23/2013 HTN (hypertension) 10/23/2013 Chronic headaches Pulmonary nodule Overview (11/16/2013): 5mm with multiple densities seen by Pulmonology H. pylori infection Hyperlipemia PTSD (post-traumatic stress disorder) Past use of tobacco Depression Resolved Problems Problem Noted Date Diagnosed Date Resolved Date HLD (hyperlipidemia) 10/23/2013 015 History of colon polyps 10/23/201307/13 Knee pain 08/05/2014 Immunizations Name Administration Dates Next Due Flu, Preservative Free 12/12/2016 INFLUENZA, SEASONAL, INJECTABLE 12/31/2014 PNEUMOCOCCAL CONJUGATE PCV 13 05/21/2016 TDAP 05/21/2016 Family History Medical History Relation Name Comments Heart Problems Brother Arthritis Father VIOLET KRUSE Depression Father VIOLET KRUSE HTN High Cholesterol Father VIOLET KRUSE Hypertension Father VIOLET KRUSE Kidney disease Father IVOLET KRUSE Stroke Father VIOLET KRUSE DISEASE Vision Problems Father VIOLET KRUSE due to diab etes Cancer Mother SALVADOR PUENTE Instenial can cer disease AT 67 YR Diabetes Mother SALVADOR PUENTE DISEASE Alcohol/Drug Abuse Neg Allergies Neg Asthma Neg Bleeding/Blood Disorder Neg COPD Neg Gastrointestinal Problems Neg Genetic Diseases/ Defects Neg Genitourinary Problems Neg Headache Neg Mental illness Neg Musculoskeletal Disorders Neg Nervous System Disorders Neg Obesity Neg Osteoporosis Neg Sickle Cell Anemia Neg Thyroid Disease Neg Tuberculosis Neg Relation Name Status Comments Brother Alive Daughter Alive Father VIOLET KRUSE Mother SALVADOR PUENTE Son 1 Alive Son 2 Alive Social History Tobacco Use Types Packs/Day Years Used Date Smoking Tobacco: Former Smokeless Tobacco: Never Alcohol Use Standard Drinks/Week Comments Yes 0 (1 standard drink = 0.6 oz pure alcohol) 2 glass of wine per day/when eating his food. Social Connections Answer Date Recorded Social Connections and Isolation 0 10/05/2018 Financial Resource Strain Answer Date R ecorded Financial Resource Strain 0 2018 Stress Answer Date Recorded Stress 0 10/05/2018 Physical Activity Answer Date Recorded Physical Activity 0 10/05/2018 Food Insecurity Answer Date Recorded Food 0 10/05/2018 Transportation Needs Answer Date Record ed Transportation 0 10/05/2018 Housing Stability Answer Date Recorded Housing 0 10/05/2018 Safety and Environment Answer Date Julián rded Safety 0 10/05/2018 Utilities Answer Date Recorded Utilities 0 10/05/2018 Employment Answer Date Recorded Employment 0 10/05/2018 Sex and Gender Information Value Date Recorded Sex Assigned at Male 12/16/2016 5:20 PM PST Legal Sex Male 11:03 AM PDT Gender Identity Male 12/16/2016 5:20 PM PST Sexual Orientation Straight 12/16/2016 5: 20 PM PST Last Filed Vital Signs Vital Sign Reading Time Taken Comments Blood Pressure 160/90 12/24/2016 8:45 AM EST Pulse 76 12/24/2016 8:45 AM EST Temperature 36 ??C (96.8 ??F) 12/24/2016 8:45 AM EST Respiratory Rate 18 12/24/2016 8:45 AM EST Oxygen Saturation 96% 12/19/2016 8:49 AM EST Inhaled Oxygen Concentration - - Weight 71.7 kg (158 lb) 12/24/2016 8:45 AM EST Height 175.3 cm (5' 9 ) 12/24/2016 8:45 AM EST Body Mass Index 23.33 12/24/2016 8:45 AM EST Plan of Treatment Health Maintenance Due Date Last Done Comments Depression Monitoring 1945 Hepatitis C Screening [address] Colonography 1991 FIT/gFOBT 1991 Fecal DNA 1991 Flexible Sigmoidoscopy 1991 Imm-Zoster, Recombinant (1 of 2) 1996 Falls Prevention 2011 Imm-Pneumococcal 65+ (2 of 2 - PPSV23) 05/21/2017 05/21/2016 Medicare Annual Wellness Visit 05/21/2017 05/21/2016 [id number] ( season) 2023 Imm-Influenza (#1) 2023 12/12/2016, 12/31/2014 Colonoscopy 12/25/2023 12/24/2013 (Brisa ged by Outside Provider) Colorectal Cancer Screening 12/25/2023 Alcohol and Drug Screen 02/12/2024 05/22/19 17, 05/21/2016, 02/22/2015 Imm-DTaP/Tdap/Td (2 - Td or Tdap) 05/21/2026 017 Insurance MEDICARE - [place] [facility] SAF[facility] NET Care Teams Manager Social Responsibility Relationship Specialty Start Date End Date Gonzalez Wilkerson PA [address] [place] [id number] PCP - General Internal Medicine 08/06/16
[2024-04-06 12:09] LABS: TSH reflex Free T4 4.67 uIU/mL (0.32-4.0)
[2024-04-06 12:28] LABS: Anion Gap 11 (12-20)
[2024-04-06 12:32] LABS: Alanine Aminotransferase 40 U/L (0-40); Albumin Level 4.1 g/dL (3.5-5.0); Alkaline Phosphatase 101 U/L (39-117); Aspartate Amino Transferase 33 U/L (5-37); Bilirubin Total 1.3 mg/dL (0.0-1.0); Blood Urea Nitrogen 14 mg/dL (9-16); Calcium 9.5 mg/dL (8.4-10.2); Carbon Dioxide 30 mmol/L (22-29); Chloride 107 mmol/L (96-108); Estimated Glomerular Filt Rate > 60; Glucose Random 108 mg/dL (60-115); Potassium 4.5 mmol/L (3.3-5.1); Sodium 143 mmol/L (135-145); Total Protein 7.3 g/dL (6.5-8.0)
[2024-04-06 12:41] LABS: Free T4 (Free Thyroxine) 0.94 ng/dL (0.71-1.85)
== END 2024-04-06 10:23 | disposition home or self-care (01) ==
LOC: HO.XRAY 10:22
PROVIDERS: PCP Internal Medicine; Visit Provider Nurse Practitioner Family
DX: I48.0 Paroxysmal atrial fibrillation (principal); Z79.899 Other long term (current) drug therapy
CPT/HCPCS: 36415; 71046; 80053; 84439; 84443

== ENCOUNTER → 2024-04-06 10:48 | Outpatient (BNV) | payer MEDICAID, SELFPAY | PROVIDERS: PCP Internal Medicine; Visit Provider Radiology Diagnostic Radiology | DX: J84.9 Interstitial pulmonary disease, unspecified (principal) | CPT/HCPCS: 71046 ==

== ENCOUNTER → 2024-04-11 23:59 | Outpatient (BNV) | payer MEDICARE, SELFPAY ==
--- NOTE | 2024-04-15 17:47 | A.OFFVIS_ITS ---
Intake Visit Reasons: Remote device check- St Del Allergies aspirin Allergy (Unknown, Verified 02/07/24 13:10) nausea and vomiting, GI upset furosemide [From Lasix] Allergy (Verified 02/07/24 13:10) rash dronedarone [From Multaq] Adverse Reaction (Verified 02/07/24 13:10) leg swelling PFSH Medical History Pacemaker Persistent atrial fibrillation Hyperplastic polyp of large intestine Adenomatous colon polyp Internal hemorrhoid Paroxysmal atrial fibrillation History of cardioversion HTN (hypertension) Surgical History Hx of colonoscopy Family History Father Stroke Mother No problems noted. Social History Are you a primary resident care spec to a significant other at home: No Do you presently have visiting nurse or other home services: No Alcohol intake: current Alcohol intake frequency: 0-2 drinks per day Alcohol type: wine and hard liquor Patient Tobacco Use Status: Former Tobacco user Tobacco use type: Cigarette Office Procedures Cardiac Device Check Cardiac Device Check Details: Remote pacemaker report generated 04/14/2024. Pacemaker function is adequate. Patient pacer dependent both in atrium and ventricle. Episodes of atrial fibrillation noted but small burden [id number] Cardiac Device Interrogation, pacemaker Procedure code (CPT) selection complete Assessment & Plan Assessment & Plan (1) Pacemaker: Comment: Dual-chamber [place] pacemaker placed 09/11/[address] Hubbard. Code(s): Z95.0 - Presence of cardiac pacemaker Category: Medical Plan: See above Coding Level of Care Code Procedure Only Diagnoses Pacemaker Z95.0 CPT Codes Cardiac Device Check - Cardiac Device 12: [id number] Cardiac Device Interrogation, pacemaker ([id number])
== END ==
PROVIDERS: PCP Internal Medicine; Visit Provider Internal Medicine Cardiovascular Disease
DX: I48.91 Unspecified atrial fibrillation (principal); Z95.0 Presence of cardiac pacemaker
CPT/HCPCS: 93294

== ENCOUNTER 2024-04-13 13:32 | Outpatient (AMB) | payer MEDICARE, SELFPAY ==
[2024-04-13 14:28] VITALS: BP 148/62; BMI 21.3
--- NOTE | 2024-04-13 14:28 | MHC.OFFVIS ---
Vital Signs 04/13/24 14:28 Height 5 ft 9 in Weight 144 lb 2.917 oz BMI 21.3 BP 148/62 H Blood Pressure Location Rt brachial Position Sitting Intake Visit Reasons: 3m follow up w/device ck Contact Lens Blocker And Cutter Required: Yes Contact Lens Blocker And Cutter Services: Contact Lens Blocker And Cutter Offered & Declined Contact Lens Blocker And Cutter Name: Son will interpret Accompanied by: Son Allergies aspirin Allergy (Unknown, Verified 02/07/24 13:10) nausea and vomiting, GI upset furosemide [From Lasix] Allergy (Verified 02/07/24 13:10) rash dronedarone [From Multaq] Adverse Reaction (Verified 02/07/24 13:10) leg swelling Medication List - Last Reconciled 04/13/24 by Italia Abbasi NP-C acetaminophen (Tylenol Extra Strength) 1,000 mg orally two times a day. PRN; amiodarone 200 mg PO DAILY amlodipine 2.5 mg PO DAILY atorvastatin 20 mg PO DAILY lisinopril 30 mg PO DAILY rivaroxaban (Xarelto) 20 mg PO DAILY HPI HPI 3m follow up w/device ck: Details: Lou is a 79-year-old male with past medical history of hypertension, hyperlipidemia, paroxysmal atrial fibrillation, sick sinus syndrome status post dual-chamber pacemaker placement who has recently had episodes of PAF on remote monitoring and his amiodarone dose was increased. He was referred to electrophysiology and now presents for follow-up. Today he reports he has been doing well since his last visit in January. He has not had any heart palpitations. No chest discomfort at rest or with activity. No shortness of breath, PND, orthopnea or edema. No presyncope, syncope, falls. 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 Taking meds as directed. No bleeding issues reported. Son is present and assisting with Guamanian translation. They saw the crib pad maker Dr. Jackson on 03/30/2024 and are awaiting a date for an AFib ablation. [facility] Medical History Pacemaker Persistent atrial fibrillation Hyperplastic polyp of large intestine Adenomatous colon polyp Internal hemorrhoid Paroxysmal atrial fibrillation History of cardioversion HTN (hypertension) Surgical History Hx of colonoscopy Family History Father Stroke Mother No problems noted. Social History Are you a primary ambulatory care coordinator to a significant other at home: No Do you presently have visiting nurse or other home services: No Alcohol intake: current Alcohol intake frequency: 0-2 drinks per day Alcohol type: wine and hard liquor Patient Tobacco Use Status: Former Tobacco user Tobacco use type: Cigarette Review of Systems Const Denies chills, Denies fatigue, Denies fever(s), Denies weight gain and Denies weight loss ENT Denies dizziness Card Denies chest pain, Denies leg edema, Denies lightheadedness, Denies palpitations, Denies dyspnea on exertion, Denies orthopnea and Denies other Resp Denies cough and Denies dyspnea on exertion GI Denies hematochezia and Denies change in stool character Musc Denies abnormal gait, Denies muscle weakness, Denies numbness, Denies radiating pain into limb and Denies tingling Neuro Denies abnormal gait, Denies dizziness, Denies numbness and Denies tingling Endo Denies fatigue and Denies palpitations Physical Exam Vital Signs: Last Vital Signs BP 148/62 H 04/13/24 14:28 BMI result Body Mass Index 21.3 Const General: cooperative, healthy appearing, comfortable and no acute distress Orientation/consciousness: patient oriented x3 Neck Neck: Yes normal visual inspection Resp Effort & Inspection: normal respiratory effort Auscultation: clear to auscultation bilaterally, no rales, no rhonchi and no wheezes Cardio Rate: regular rate Rhythm: regular rhythm Heart sounds: S1 normal heart sound present, S2 normal heart sound present, no gallops, no murmurs and no rubs Neuro General: patient oriented x3 Extrem General: Yes normal to inspection, No no pedal edema and No calf tenderness Psych Appearance: grossly normal Mental Status: mental status grossly normal Speech and movement: Normal speech and movement present Office Procedures Cardiac Device Check Cardiac Device Check Details: [employer] dual-chamber pacemaker interrogation today, battery 8.5-9.4 years, DDD R mode, low rate 60, atrial threshold 1 volt at 0.5 milliseconds, ventricular threshold 0.625 volts at 0.5 milliseconds a paced 95%, V paced greater than 99%, 0% 80 AF since 04/11/2024 [id number] Cardiac Device Check, pacemaker dual lead Procedure code (CPT) selection complete EKG Details: Today, read by me, atrial paced, ventricular paced rhythm, rate 60, QTC 488 millisecond [id number], Complete Assessment & Plan Assessment & Plan (1) Paroxysmal atrial fibrillation: Code(s): I48.0 - Paroxysmal atrial fibrillation Category: Medical Plan: History of paroxysmal atrial fibrillation. His condition was stable on amiodarone and several months ago he was reduced to 100 mg daily to reduce the risk of toxicity. He then had recurrent PAF, with longest episode 9 hours. His amiodarone dose was increased to 200 mg daily following brief load. Device interrogation today is showing no recent atrial fibrillation. He was referred to the crib pad maker and saw Dr. Jackson on 03/30/2024. Plan is for an atrial fibrillation ablation. They are waiting for a call phone call with the date. He says he was instructed to stop amiodarone 1 week prior to his ablation. Labs done 04/06/2024 showed AST 33, TSH 4.67. CXR done on 04/06/24 is reported to show chronic interstitial lung disease. CXR from last year does not state this. Will check a CT scan of chest to further evaluate - plan to call him with results. At present, continue Amiodarone. Continue xarelto. Cardiology follow-up in 3 months, sooner if needed. (2) Sick sinus syndrome: Code(s): I49.5 - Sick sinus syndrome Category: Medical Plan: History of symptomatic bradycardia with dizziness and fatigue. He underwent a dual-chamber pacemaker placement on 09/11/2023 and symptoms improved. Device interrogation today shows it is functioning normally. Next office interrogation in 6 mo. Remote monitoring in use. (3) Pacemaker: Comment: Dual-chamber [employer] pacemaker placed 09/11/[address] Hubbard. Code(s): Z95.0 - Presence of cardiac pacemaker Category: Medical Plan: As above (4) HTN (hypertension): Code(s): I10 - Essential (primary) hypertension Category: Medical Qualifiers: Hypertension type: primary hypertension Qualified Code(s): I10 - Essential (primary) hypertension Plan: Mild elevation today. Will plan recheck at next visit. Continue amlodipine, lisinopril for blood pressure control. 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
--- OUTSIDE RECORDS SUMMARY | 2024-04-13 15:57 | XMS_ITS | Clinical Summary ---
Author Organization [employer] Address [address] [facility] 7t [place] [address] Care Team Providers Care Security Screener Name Role Phone Jeffrey Johansen MD Primary Care Provider +1- [phone] Allergies Active Allergy Reactions Criticality Noted Date [...] Encounters Date Type Department Care Team Description 04/09/2024 2:30 PM EST Office Visit [facility] ADULT DENTAL [address] [place] [address] Melida Shah DDMame 04/06/2024 Orders Only GENERIC EXTERNAL DATA DEPARTMENT Provider, Generic External Data 03/25/2024 1:00 PM EST Office Visit [facility] ADULT DENTAL [address] [place] [address] Melida Shah DDS 03/11/2024 Telephone [facility] [address] [place], [place] [phone] Jeffrey Johansen MD HDF appt 02/19/2024 Orders Only [facility] [address] [place] [address] Jeffrey Johansen MD 02/11/2024 12:00 PM EST Office Visit [facility] ADULT DENTAL [address] [place] [address] Davina Duenas Dental calculus (Primary Dx) from Last 3 Months Immunizations Name Administration [...] Care Team (Late st Contact Info) Description 04/30/2024 1:30 PM EDT Office Visit [facility] [address] [place] [address] Melida Shah, DDS [address] [place] [address] Health Maintenance Due Date Last Done Comments [...] 03/07/2023, 07/20/2022, Additional history exists Tobacco Screening 04/09/2025 04/09/2024 Lipid Panel 06/09/2025 06/09/2020 Dental X-Ray: Full [...] Procedure Name Priority Date/Time Associated Diagnosis Comments INTRAORAL - PERIAPICAL FIRST RADIOGRAPHIC IMAGE Routine 04/09/2024 2:30 PM EST CASE PRESENTATION, DETAILED AND EXTENSIVE TREATMENT PLANNING Routine 04/09/2024 2:30 PM EST LIMITED ORAL EVALUATION - PROBLEM FOCUSED Routine 04/09/2024 2:30 PM EST XR CHEST 2 VIEWS Routine 04/06/2024 10:5 5 AM EST T4, FREE Routine 04/06/2024 10:43 AM EST COMPREHENSIVE METABOLIC PANEL Routine 04/06/2024 10:43 AM EST TSH W/REFLEX TO FT4 Routine 04/06/2024 1 0:43 AM EST 19 EXTRACTION, ERUPTED TOOTH OR EXPOSED ROOT [...] Recently Relevant to Health Maintenance Results * XR Chest 2 Views (04/06/2024 10:55 AM EST) Anatomical Region Laterality Modality Chest Radiographic Alissa ging 04/06/2024 10:5 5 AM EST Narrative 04/07/2024 12:25 PM EST ? [facility] ?[address] ?[place] [address] ?XRay Report ? Signed ? Patient: Uriah,Ilidio ?MR#: [id number] ?? 3 ? : 1945 ?Acct:[id number] ? Age/Sex: 79 / M ?ADM Date: 02/24/25 ? Loc: HO.XRAY ? Attending Dr: Italia MCCORMICK ? Ordering Physician: Italia Abbasi ?? Date of Service: 04/06/24 ?? Procedure(s): XR chest 2V ?? Accession Number(s): [id number] ? cc: Jeffrey Johansen MD; Italia Abbasi ? EXAMINATION: ?? XR CHEST ? CLINICAL INFORMATION: ?? Z79.899 - Other long term care phlebotomist (current) drug therapy ? COMPARISON: ?? September 11, 2023. ? TECHNIQUE: ?? 2 views of the chest were obtained. ? FINDINGS: ?? Pulmonary reticular pattern. ?? Haziness in the periphery of the right hemithorax probable secondary to ?? superimposition/summation of the soft tissues and the right scapula. ?? No gross consolidation, pleural effusion or pneumothorax. ?? Cardia mediastinal silhouette size is normal. 2 intact electrode leads ?? in the right heart chambers and a metallic reservoir in the left upper ?? hemithorax. ?? Multilevel thoracolumbar spondylosis. S-shaped curvature of the ?? thoracolumbar spine. ? XR/XR chest 2V ?? IMPRESSION: ?? Chronic interstitial lung disease. ?? No acute airspace disease. ?? 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 ?? Scoliosis, thoracolumbar spine. ? Electronically signed by: ??Salbador Ryan MD ??04/07/2024 12:22 PM ?? EST ? Dictated By: ?Salbador Osborne MD ? Signed By: ?<Electronically signed by Salbador Dominguez MD in OV> ? 04/07/24 1222 ? DD/ 1055 ? TD/TT: 04/06/24 1055 ? Social Problems Specialist: ? Procedure Note Gerry, Image - 04/07/[address] [address] Ciera Report Signed Patient: Radhika Kruse#: [id number] 3 : 7Acct:[id number] Age/Sex: 79 / MADM Date: 04/06/24 Loc: LOAN Attending Dr: Italia Abbasi DOOR CAPTAIN-C Ordering Physician: Elroy,Italia M DOOR CAPTAIN-C Date of Service: 04/06/24 Procedure(s): XR chest 2V Accession Number(s): [id number] cc: Jeffrey Johansen MD; Italia Abbasi EXAMINATION: XR CHEST CLINICAL INFORMATION: Z79.899 - Other long term care phlebotomist (current) drug therapy COMPARISON: September 11, 2023. TECHNIQUE: 2 views of the chest were obtained. FINDINGS: Pulmonary reticular pattern. Haziness in the periphery of the right hemithorax probable secondary to superimposition/summation of the soft tissues and the right scapula. No gross consolidation, pleural effusion or pneumothorax. Cardia mediastinal silhouette size is normal. 2 intact electrode leads in the right heart chambers and a metallic reservoir in the left upper hemithorax. Multilevel thoracolumbar spondylosis. S-shaped curvature of the thoracolumbar spine. XR/XR chest 2V IMPRESSION: Chronic interstitial lung disease. No acute airspace disease. 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 Scoliosis, thoracolumbar spine. Electronically signed by: Salbador Ryan MD 04/07/2024 12:22 PM EST Dictated By: Salbador Osborne MD Signed By: <Electronically signed by Salbador Dominguez MDin OV> 04/07/24 1222 DD/ 1055 TD/TT: 04/06/24 1055 Social Problems Specialist: us [facility] External Provider IMG XR PROCEDURES Final Result * (ABNORMAL) TSH with Reflex to Free T4 (04/06/2024 10:43 AM EST) TSH reflex Free T4 4.67(H) 0.32 - 4.0 uIU/mL [facility] 04/06/2024 10:4 3 AM EST 04/06/2024 10:43 AM EST Generic External Data Provider LAB BLOOD ORDERAB LES Final Result [facility] [address] [place] [phone] * T4, Free (04/06/2024 10:43 AM EST) Free T4 (Free Thyroxine) 0.94 0.71 - 1.85 ng/dL [facility] 04/06/2024 10:4 3 AM EST 04/06/2024 10:43 AM EST us Generic External Data Provider LAB BLOOD ORDERAB LES Final Result [facility] [address] [place] [address] [phone] * (ABNORMAL) Comprehensive Metabolic Panel (04/06/2024 10:43 AM EST) Sodium 143 135 - 145 mmol/L [facility] Potassium 4.5 3.3 - 5.1 mmol/L [facility] Chloride 107 96 - 108 mmol/L [facility] Carbon Dioxide 30(H) 22 - 29 mmol/L [facility] Anion Gap 11(L) 12 - 20 [facility] Urea Nitrogen (BUN) 14 9 - 16 mg/dL [facility] Creatinine, Serum 0.93 0.5 - 1.4 mg/dL [facility] Estimated Glomerular Filt Rate >60 [facility] Comment:Chronic Kidney Disea se: Estimated GFR < 60 mL/min/1.36a2Lknsly Kidney Disease: Estimated GFR < 15 mL/min/1.73m2 Glucose 108 60 - 115 mg/dL [facility] Calcium 9.5 8.4 - 10.2 mg/dL [facility] Bilirubin, Total 1.3(H) 0.0 - 1.0 mg/dL [facility] Aspartate Amino Transferase 33 5 - 37 U/L [facility] Alanine Aminotransferase 40 0 - 40 U/L [facility] Total Protein 7.3 6.5 - 8.0 g/dL [facility] Albumin Level 4.1 3.5 - 5.0 g/dL [facility] Alkaline Phosphatase 101 39 - 117 U/L [facility] 04/06/2024 10:4 3 AM EST 04/06/2024 10:43 AM EST us Generic External Data Provider LAB BLOOD ORDERAB LES Final Result [facility] [address] [place] [address] [phone] * (ABNORMAL) LIPID PANEL, STANDARD (06/09/2020 9:08 [...] ?? Branden MCINTOSH et al. ARNULFO. 2013;310(19): 3432-3312 ?? (http://education.Zang.Cloudstaff/faq/KFE924) Non-HDL Cholesterol 174(H) <130 mg/dL (calc) [facility] Comment: For patients with diabetes plus 1 major ASCVD risk ?? factor, treating to a non-HDL-C goal of <100 mg/dL ?? (LDL-C of <70 mg/dL) is considered a therapeutic ?? option. Triglycerides 109 <150 mg/dL [facility] 06/09/2020 9:08 AM EDT us Jeffrey Johansen MD LAB BLOOD ORDERABLES Final Result [facility] [address] from Last 3 Months or Most Recently Relevant to Health Maintenance Insurance [facility] MEDICARE ADVANTAGE HMO DENTAL - HSN FULL (MEDICAID) Care Teams Security Screener Relationship Specialty Start Date End Date Jeffrey Johansen MD [address] [place] [phone] PCP - General Internal Medicine 03/26/17
--- OUTSIDE RECORDS SUMMARY | 2024-04-13 15:57 | XMS_ITS | Encounter Summary ---
Author Organization [employer] Address [address] [facility] 7t [place] [address] Care Team Providers Care Powder Shoveler Name Role Phone Jeffrey Johansen MD Primary Care Provider +1 [phone] Reason for Visit * Reason Comments Extraction Encounter Details Date Type Department Care Team ([facility] st Contact Info) Description 03/25/2024 1:00 PM EST Office Visit [facility] ADULT DENTAL [address] [place], [place] [phone] Mleida Shah DDS [address] [place] [address] Social History Tobacco Use Types Packs/Day Years [...] y.o. male. Time Out: Date: 03/25/2024 Location: [facility] Tooth: #19 Procedure: Extraction Verified the above with patient, public aid eligibility assistant, and provider. Confirmed via patient's chart, intraorally and by radiographs. Transportation Sales Consultant: not applicable Simple Extraction of # 19 [...] + verbal), extra pack of gauze given. Napavine #18 fell off during visit; PT was informed; crown was temporary cemented with temp jalloh. Pt was informed to come back to permanently cement crown #18. PT agreed & understood. - Rx: Tylenol 500mg x10day Amoxicillin 500mg x7day TID Patient satisfied, left in stable condition NV: follow up Provider: Dr. Melida Shah DDS Operations Support Manager: Garrett Weiss Supervising Dentist: Dr. Chaney * [...] Description 04/30/2024 1:30 PM EDT Office Visit [facility] ADULT DENTAL [address] [place], [place] [phone] Melida Shah DDS [address] [place] [address] Scheduled Orders Name Type Priority Associated Diagnoses Orde r Schedule DENTURE IMPRESSION Dental Routine 1 Occu rrences [...] on filedocumented in this encounter Care Teams Powder Shoveler Relationship Specialty Start Date End Date Jeffrey Johansen MD [address] [place] [address] PCP - General Internal Medicine 03/26/17 documented as of this encounter
--- OUTSIDE RECORDS SUMMARY | 2024-04-13 15:57 | XMS_ITS | Encounter Summary ---
Author Organization [employer] Address 75 [facility] 7t [place] [address] Care Team Providers Care Janitorial Assistant Name Role Phone Jeffrey Johansen MD Primary Care Provider +1- [phone] Reason for Visit * Reason Comments Post op Encounter Details Date Type Department Care Team (Late st Contact Info) Description 04/09/2024 2:30 PM EST Office Visit [facility] ADULT DENTAL [address] [place] [address] Melida Shah DDS [address] [place] [address] Social History Tobacco Use Types Packs/Day Years [...] AM EDT documented as of this encounter Progress Notes * Melida Shah DDS - 04/09/2024 2:30 PM EST Dental procedures in this visit D0140 - LIMITED ORAL EVALUATION - PROBLEM FOCUSED (Completed) Service provider: Melida Shah DDS Billing provider: Chaitanya Correia DDS [id number] - CASE PRESENTATION, DETAILED AND EXTENSIVE TREATMENT PLANNING (Completed) Service provider: Melida Shah DDS Billing provider: Chaitanya Correia DDS [id number] - INTRAORAL - PERIAPICAL FIRST RADIOGRAPHIC IMAGE (Completed) Service provider: Melida Shah DDS Billing provider: Chaitanya Correia DDS Patient ID: Lou Kruse is a 79 y.o. male. Time Out: Date: 04/09/2024 Location: [facility] Tooth: #18 Procedure: Exam Verified the above with patient, starch treating assistant, and provider. Confirmed via patient's chart, intraorally and by radiographs. Business Controller: not applicable 79 y.o. y/o male presents for limited exam with Dr. Melida Shah DDS Medical history: Reviewed in EHR Vitals: There were no vitals taken for this visit. Allergies: Reviewed in EHR Medications: Reviewed in EHR Radiographs taken: PA CHIEF COMPLAINT: My lower left tooth the one the that crown came off during the extraction its hurting me everytime I chew on it Discussion: During visit clinical & radiograph examination was done. Upon evaluation it was noted tooth #18 crown temporary cemented with a ashley occlusal contact present. During visit Occlusion was adjusted and crown was permanently cemented with rely-x. PT was informed that since tooth #19 was extracted, his occlusion its not stable and all the occlusion forces has been redirected to tooth #18; therefore Lower partial will be advised to stabilized the occlusion & avoid future teeth supra erupting. Pt agreed & understood. NV: follow up Provider: Dr. Melida Shah DDS Dental Bale Coverer: Garrett Weiss Attending: Dr. Correia documented in this encounter Plan of Treatment Upcoming Encounters Date Type Department Care Team (Late st Contact Info) Description 04/30/2024 1:30 PM EDT Office Visit [facility] ADULT DENTAL [address] [place] [address] Melida Shah DDS [address] [place] [address] documented as of this encounter Procedures Procedure Name Priority Date/Time Associated Diagnosis Comments LIMITED ORAL EVALUATION - PROBLEM FOCUSED Routine 04/09/2024 2:30 PM EST INTRAORAL - PERIAPICAL FIRST RADIOGRAPHIC IMAGE Routine 04/09/2024 2:30 PM EST CASE PRESENTATION, DETAILED AND EXTENSIVE TREATMENT PLANNING Routine 04/09/2024 2:30 PM EST documented in this encounter Visit Diagnoses Not on filedocumented in this encounter Care Teams Janitorial Assistant Relationship Specialty Start Date End Date Jeffrey Johansen MD [address] [place] [phone] PCP - General Internal Medicine 03/26/17 documented as of this encounter
--- OUTSIDE RECORDS SUMMARY | 2024-04-13 15:57 | XMS_ITS | Encounter Summary ---
Author Organization [employer] Address 75 [facility] 7t [place] [address] Care Team Providers Care Quality Process Auditor Name Role Phone Jeffrey Johansen MD Primary Care Provider +1- [phone] Encounter Details Date Type Department Care Team (Latest Contact Info) Description 10/27/2018 Abstract [facility] CONVERSIONS Dental, Provider, DDS Social History [...] Description 04/30/2024 1:30 PM EDT Office Visit [facility] ADULT DENTAL [address] [place], [place] [phone] Melida Shah, DDS [address] [place] [address] documented as of this encounter Visit Diagnoses Not on filedocumented in this encounter Care Teams Quality Process Auditor Relationship Specialty Start Date End Date Jeffrey Johansen MD [address] [place], [place] [phone] PCP - General Internal Medicine 03/26/17 documented as of this encounter
--- OUTSIDE RECORDS SUMMARY | 2024-04-13 15:57 | XMS_ITS | Encounter Summary ---
Author Organization [employer] [facility] [employer] Address 75 [facility] 7t [place] [address] Care Team Providers Care Repairer Kiln Car Name Role Phone Jeffrey Johansen MD Primary Care Provider +1- [phone] Encounter Details Date Type Department Care Team (Late st Contact Info) Description 06/06/[address] [facility] [address] [place], [place] [phone] Provider, Historical, Social History Tobacco Use Types [...] Description 04/30/2024 1:30 PM EDT Office Visit [facility] ADULT DENTAL [address] [place] [address] Melida Shah, DDS [address] [facility] [place] [address] documented as of this encounter Procedures Procedure Name Priority Date/Time Associated Diagnosis Comments SURGICAL PATHOLOGY Routine 05/08/2023 9:52 AM EDT documented in this encounter Results * (ABNORMAL) Surgical Pathology (05/08/2023 9:52 AM EDT) us Historical Provider LAB PATHOLOGY ORDERABLES Edited Result - Final documented in this encounter Visit Diagnoses Not on filedocumented in this encounter Care Teams Repairer Kiln Car Relationship Specialty Start Date End Date Jeffrey Johansen MD [address] [place] [phone] PCP - General Internal Medicine 03/26/17 documented as of this encounter
--- OUTSIDE RECORDS SUMMARY | 2024-04-13 15:57 | XMS_ITS | Encounter Summary ---
Author Organization [employer] Address 75 [facility] 7t [place] [address] Care Team Providers Care Pension Fund Manager Name Role Phone Jeffrey Johansen MD Primary Care Provider +1- [phone] Encounter Details Date Type Department Care Team (Latest Contact Info) Description 07/15/2020 Abstract [facility] CONVERSIONS Dental, Provider, DDS Social [...] Description 04/30/2024 1:30 PM EDT Office Visit [facility] ADULT DENTAL [address] [place], [place] [phone] Melida Shah, DDS [address] [place] [address] documented as of this encounter Visit Diagnoses Not on filedocumented in this encounter Care Teams Pension Fund Manager Relationship Specialty Start Date End Date Jeffrey Johansen MD [address] [place], [place] [phone] PCP - General Internal Medicine 03/26/17 documented as of this encounter
--- OUTSIDE RECORDS SUMMARY | 2024-04-13 15:57 | XMS_ITS | Encounter Summary ---
Author Organization [employer] Address [address] [facility] 7t [place] [address] Care Team Providers Care Typesetters Printer Name Role Phone Jeffrey Johansen MD Primary Care Provider +1- [phone] Encounter Details Date Type Department Care Team (Late Contact Info) Description 10/12/2022 Orders Only [facility] MED & PEDS [address] [place], [place] [phone] Jeffrey Johansen MD [address] [place], [place] [phone] Social History Tobacco Use Types Packs/Day Years [...] Description 04/30/2024 1:30 PM EDT Office Visit [facility] ADULT DENTAL [address] [place] [address] Melida Shah, DDS [address] [place], [place] [phone] documented as of this encounter Procedures Procedure Name Priority Date/Time Associated Diagnosis Comments CBC Routine 02/28/2023 10:41 AM EST B TYPE NATRIURETIC PEPTIDE (BNP) Routine 02/28/2023 10:41 AM EST BASIC METABOLIC PANEL Routine 02/28/2023 10:41 AM EST documented in this encounter Results * (ABNORMAL) Basic Metabolic Panel (02/28/2023 10:41 AM EST) Sodium 140 135 - 145 mmol/L [facility] Potassium 4.3 3.3 - 5.1 mmol/L [facility] Chloride 104 96 - 108 mmol/L [facility] Carbon Dioxide 30(H) 22 - 29 mmol/L [facility] Anion Gap 10(L) 12 - 20 [facility] Urea Nitrogen (BUN) 21(H) 9 - 16 mg/dL [facility] Creatinine, Serum 1.06 0.5 - 1.4 mg/dL [facility] Estimated Glomerular Filt Rate >60 [facility] Comment:NOTE: For -Am erican individuals, multiply the result by 1.210.Chronic Kidney Disease: Estimated GFR < 60 mL/min/1.59a6Zyeclq Kidney Disease: Estimated GFR < 15 mL/min/1.73m2 Glucose 97 60 - 115 mg/dL [facility] Calcium 9.7 8.4 - 10.2 mg/dL [facility] 02/28/2023 10:4 1 AM EST 02/28/2023 10:41 AM EST us Generic External Data Provider LAB BLOOD ORDERAB LES Final Result [facility] [address] [place] [phone] * B Type Natriuretic Peptide (BNP) (02/28/2023 10:41 AM EST) B Type Natriuretic Peptide 78 <100 pg/mL [facility] Comment:For those patients w ho are being treated with Natrecor(nesiritide, recombinant BNP), BNP testing should beperformed at least two hours post treatment in order toensure that only endogenous levels of BNP are detected. 02/28/2023 10:4 1 AM EST 02/28/2023 10:41 AM EST us Generic External Data Provider LAB BLOOD ORDERAB LES Final Result Performing Organization Address [facility]/ZIP Co de Phone Number [facility] [address] [place] [phone] [phone] * CBC (02/28/2023 10:41 AM EST) White Blood Count 6.8 4.8 - 10.8 X10*3/uL [facility] Red Blood Count 4.62 4.60 - 5.80 X10*6/uL [facility] Hemoglobin 14.0 14.0 - 18.0 g/dl [facility] Hematocrit 42.3 42.0 - 52.0 % [facility] Mean Corpuscular Volume 91.6 80.0 - 98.0 fL [facility] Mean Corpuscular Hemoglobin 30.3 27.0 - 33.0 pg [facility] Mean Corpuscular HGB Conc 33.1 31.0 - 36.0 g/dl [facility] Red Cell Distribution Width 13.2 11.0 - 16.0 % [facility] Platelet Count 247 160 - 400 X10*3/uL [facility] Mean Platelet Volume 10.3 9.4 - 12.4 fL [facility] NRBC Pct Auto 0.0 0.0 - 0.2 /100WBC [facility] NRBC Abs Auto 0.000 0.0 - 0.012 X10*3/uL [facility] 02/28/2023 10:4 1 AM EST 02/28/2023 10:41 AM EST us Generic External Data Provider LAB BLOOD ORDERAB LES Final Result Performing Organization Address [facility] Co de Phone Number [facility] [address] [place] [address] [phone] documented in this encounter Visit Diagnoses Not on filedocumented in this encounter Care Teams Typesetters Printer Relationship Specialty Start Date End Date Jeffrey Johansen MD [address] [place] [phone] PCP - General Internal Medicine 03/26/17 documented as of this encounter
--- OUTSIDE RECORDS SUMMARY | 2024-04-13 15:57 | XMS_ITS | Encounter Summary ---
Author Organization [employer] Address [address] [facility] 7t [place] [address] Care Team Providers Care Supermarket Manager Name Role Phone Jeffrey Johansen MD Primary Care Provider +1- [phone] Encounter Details Date Type Department Care Team ([facility] Contact Info) Description 02/19/2024 Orders Only [facility] MED & PEDS [address] [place], [place] [phone] Jeffrey Johansen MD [address] [place] [address] Social History Tobacco Use Types Packs/Day Years [...] Description 04/30/2024 1:30 PM EDT Office Visit [facility] ADULT DENTAL [address] [place] [address] Melida Shah DDS [address] [place] [address] documented as of this encounter Visit Diagnoses Not on filedocumented in this encounter Care Teams Supermarket Manager Relationship Specialty Start Date End Date Jeffrey Johansen MD [address] [place] [phone] PCP - General Internal Medicine 03/26/17 documented as of this encounter
--- OUTSIDE RECORDS SUMMARY | 2024-04-13 15:57 | XMS_ITS | Encounter Summary ---
Author Organization [employer] Address 75 [facility] 7 [place] [address] Care Team Providers Care Ballistics Teacher Name Role Phone Jeffrey Johansen MD Primary Care Provider [phone]- [phone] Reason for Visit * Reason Onset Date Comments ER Follow-up 07/18/2023 Encounter Details Date Type Department Care Team ([facility] st Contact Info) Description 07/18/2023 Telephone [facility] CHC MED & PEDS [address] [place], [place] [phone] Jeffrey Johansen MD [address] [place] [address] ER Follow-up Social History Tobacco Use Types [...] message below. Son states pt discharged from [facility] on 07/18/23 for dizziness and JAMISON. Pt had a full workup including imaging and was told everything returned WNL. Pt's pulse kept dipping into the 40's and at one point went down into the 30's. Pt son states [facility] informed him that it may be the amiodarone that is causing his pulse to dip and causing the pt's dizziness. [facility] informed son to contact stamp machine servicer for f/u. Son states he is still [...] on : Date: 07/17/23 Discharged 07/18/23 Hospital: [facility] Seen for: dizziness and headache Patient advised will forward to team nurse for follow up documented in this encounter Plan of Treatment Upcoming Encounters Date Type Department Care Team (Late st Contact Info) Description 04/30/2024 1:30 PM EDT Office Visit [facility] ADULT DENTAL [address] [place], [place] [phone] Melida Shah DDS [address] [place] [address] documented as of this encounter Visit Diagnoses Not on filedocumented in this encounter Care Teams Ballistics Teacher Relationship Specialty Start Date End Date Jeffrey Johansen MD [address] [place], [place] [phone] PCP - General Internal Medicine 03/26/17 documented as of this encounter
--- OUTSIDE RECORDS SUMMARY | 2024-04-13 15:57 | XMS_ITS | Encounter Summary ---
Author Organization [employer] Address [address] [facility] [address] 7t [place] [address] Care Team Providers Care Tank Builder Name Role Phone Jeffrey Johansen MD Primary Care Provider [phone]- [phone] Encounter Details Date Type Department Care Team (Late st Contact Info) Description 08/16/2022 Telephone [facility] ADULT DENTAL [address] [place] [address] Chaitanya Correia DDS [address] [place] [address] Social History Tobacco Use Types Packs/Day Years [...] Description 04/30/2024 1:30 PM EDT Office Visit [facility] ADULT DENTAL [address] [place], [place] [phone] Melida Shah, JAREKS [address] [facility] [place] [address] documented as of this encounter Visit Diagnoses Not on filedocumented in this encounter Care Teams Tank Builder Relationship Specialty Start Date End Date Jeffrey Johansen MD [address] [place] [address] PCP - General Internal Medicine 03/26/17 documented as of this encounter
--- OUTSIDE RECORDS SUMMARY | 2024-04-13 15:57 | XMS_ITS | Encounter Summary ---
Author Organization [employer] Address [address] [facility] 7t [place] [address] Care Team Providers Care It Technician Name Role Phone Jeffrey Johansen MD Primary Care Provider [phone]- [phone] Encounter Details Date Type Department Care Team (Late Contact Info) Description 04/06/2024 Orders Only GENERIC EXTERNAL DATA DEPARTMENT Provider, Generic External Data Social History Tobacco Use Types Packs/Day Years [...] Description 04/30/2024 1:30 PM EDT Office Visit [facility] ADULT DENTAL [address] [place] [address] Melida Shah, DDS [address] [place] [address] documented as of this encounter Procedures Procedure Name Priority Date/Time Associated Diagnosis Comments XR CHEST 2 VIEWS Routine 04/06/2024 10:5 5 AM EST TSH W/REFLEX TO FT4 Routine 04/06/2024 1 0:43 AM EST T4, FREE Routine 04/06/2024 10:43 AM EST COMPREHENSIVE METABOLIC PANEL Routine 04/06/2024 10:43 AM EST documented in this encounter Results * XR Chest 2 Views (04/06/2024 10:55 AM EST) Anatomical Region Laterality Modality Chest Radiographic Alissa ging 04/06/2024 10:5 5 AM EST Narrative 04/07/2024 12:25 PM EST ? [facility] ?[address] ?[place] [address] ?XRay Report ? Signed ? Patient: Uriah,Ilicrystalo ?MR#: [id number] ?? 3 ? : 1945 ?Acct:[id number] ? Age/Sex: 79 / M ?ADM Date: 04/06/24 ? Loc: HO.XRAY ? Attending Dr: Italia MCCORMICK ? Ordering Physician: Italia Abbasi ?? Date of Service: 04/06/24 ?? Procedure(s): XR chest 2V ?? Accession Number(s): [id number] ? cc: Jeffrey Johansen MD; Italia Abbasi ? EXAMINATION: ?? XR CHEST ? CLINICAL INFORMATION: ?? Z79.899 - Other jail (current) drug therapy ? COMPARISON: ?? September [...] Ryan MD ??04/07/2024 12:22 PM ?? EST RP ? Dictated By: ?Salbador Osborne MD ? Signed By: ?<Electronically signed by Salbador Dominguez MD in OV> ? 04/07/24 1222 ? DD/ 1055 ? TD/TT: 04/06/24 1055 ? Help Desk Supervisor: ? 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 [...] by: Salbador Ryan MD 04/07/2024 12:22 PM [facility] [place] [place] Dictated By: Salbador Osborne MD Signed By: <Electronically signed by Salbador Dominguez MDin OV> 04/07/24 1222 DD/ 1055 TD/TT: 04/06/24 1055 Help Desk Supervisor: us [facility] External Provider IMG XR PROCEDURES Final Result * T4, Free (04/06/2024 10:43 AM EST) Free T4 (Free Thyroxine) 0.94 0.71 - 1.85 ng/dL [facility] 04/06/2024 10:4 3 AM EST 04/06/2024 10:43 AM EST Generic External Data Provider LAB BLOOD ORDERAB LES Final Result Performing Organization Address City/State/[facility] Co de Phone Number [facility] [address] [place] [phone] * (ABNORMAL) Comprehensive Metabolic Panel (04/06/2024 10:43 AM EST) Pathologist [facility] [place] Sodium 143 135 - 145 mmol/L [facility] Potassium 4.5 3.3 - 5.1 mmol/L [facility] Chloride 107 96 - 108 mmol/L [facility] Carbon Dioxide 30(H) 22 - 29 mmol/L [facility] Anion Gap 11(L) 12 - 20 [facility] Urea Nitrogen (BUN) 14 9 - 16 mg/dL [facility] Creatinine, Serum 0.93 0.5 - 1.4 mg/dL [facility] Estimated Glomerular Filt Rate >60 [facility] Comment:Chronic Kidney Disea se: Estimated GFR < 60 mL/min/[id number] Kidney Disease: Estimated GFR < 15 mL/min/1.73m2 Glucose 108 60 - 115 mg/dL [facility] Calcium 9.5 8.4 - 10.2 mg/dL [facility] Bilirubin, Total 1.3(H) 0.0 - 1.0 mg/dL [facility] Aspartate Amino Transferase 33 5 - 37 U/L [facility] Alanine Aminotransferase 40 0 - 40 U/L [facility] Total Protein 7.3 6.5 - 8.0 g/dL [facility] Albumin Level 4.1 3.5 - 5.0 g/dL [facility] Alkaline Phosphatase 101 39 - 117 U/L [facility] 04/06/2024 10:4 3 AM EST 04/06/2024 10:43 AM EST us Generic External Data Provider LAB BLOOD ORDERAB LES Final Result Performing Organization Address City/[facility]/ZIP Co de Phone Number [facility] [address] [place] [address] [phone] * (ABNORMAL) TSH with Reflex to Free T4 (04/06/2024 10:43 AM EST) TSH reflex Free T4 4.67(H) 0.32 - 4.0 uIU/mL [facility] 04/06/2024 10:4 3 AM EST 04/06/2024 10:43 AM EST us Generic External Data Provider LAB BLOOD ORDERAB LES Final Result Performing Organization Address [facility] Co de Phone Number [facility] [address] [place] [address] [phone] documented in this encounter Visit Diagnoses Not on filedocumented in this encounter Care Teams It Technician Relationship Specialty Start Date End Date Jeffrey Johansen MD [address] [place] [address] PCP - General Internal Medicine 03/26/17 documented as of this encounter
== END 2024-04-13 15:07 | disposition home or self-care (01) ==
PROVIDERS: PCP Internal Medicine; Visit Provider Nurse Practitioner Family
DX: I48.0 Paroxysmal atrial fibrillation (principal); I49.5 Sick sinus syndrome; Z95.0 Presence of cardiac pacemaker; I10 Essential (primary) hypertension; Z79.899 Other long term (current) drug therapy; R93.89 Abnormal findings on diagnostic imaging of other specified body structures
CPT/HCPCS: 93010; 93280; 99214; G2211

== ENCOUNTER → 2024-04-13 13:32 | Outpatient (BNVA) | payer MEDICAID, SELFPAY | PROVIDERS: PCP Internal Medicine; Visit Provider Nurse Practitioner Family | DX: I49.8 Other specified cardiac arrhythmias (principal); I48.0 Paroxysmal atrial fibrillation; I49.5 Sick sinus syndrome; I10 Essential (primary) hypertension; R93.89 Abnormal findings on diagnostic imaging of other specified body structures; Z87.891 Personal history of nicotine dependence; Z45.018 Encounter for adjustment and management of other part of cardiac pacemaker; Z79.899 Other long term (current) drug therapy | CPT/HCPCS: 93005; 93280; 99212 ==

== ENCOUNTER 2024-07-02 12:03 | Outpatient (REF) | payer MEDICARE, SELFPAY ==
--- OUTSIDE RECORDS SUMMARY | 2024-07-02 12:26 | XMS_ITS | Encounter Summary ---
Author Organization [employer] Address 75 [facility] 7 [place] [address] Care Team Providers Care Cafeteria Cook Name Role Phone Jeffrey Johansen MD Primary Care Provider [phone]- [phone] Encounter Details Date Type Department Care Team ([facility] st Contact Info) Description 02/19/2024 Orders Only [facility] CHC MED & PEDS [address] [place] [address] Jeffrey Johansen MD [address] [place] [address] Social History Tobacco Use Types Packs/Day Years [...] as of this encounter Plan of Treatment Not on file documented as of this encounter Visit Diagnoses Not on filedocumented in this encounter Care Teams Cafeteria Cook Relationship Specialty Start Date End Date Jeffrey Johansen MD [address] [place] [address] PCP - General Internal Medicine 03/26/17 documented as of this encounter
--- OUTSIDE RECORDS SUMMARY | 2024-07-02 12:26 | XMS_ITS | Encounter Summary ---
Author Organization [employer] Address 75 [facility] 7 [place] [address] Care Team Providers Care Regulatory And Compliance Technician Name Role Phone Jeffrey Johansen MD Primary Care Provider [phone] Reason for Visit * Reason Comments Annual Exam Encounter Details Date Type Department Care Team ([facility] st Contact Info) Description 07/02/2024 10:45 AM EDT Office Visit [facility] MED & PEDS [address] [place], [place] [phone] Jeffrey Johansen MD [address] [place] [address] Vitamin D deficiency (Primary Dx); Anxiety; Mixed hyperlipidemia; Primary hypertension Social History Tobacco Use Types Packs/Day Years Used Date Smoking Tobacco: Never Passive Smoke Exposure: Never Smokeless Tobacco: Never Alcohol Use Standard Drinks/Week Comments Defer 0 (1 standard drink = 0.6 oz pur e alcohol) Housing Stability Answer Date Recorded What is your housing situation today? Not on nel e 07/02/[address] you li ve. Do you have problems with any of the following? None of the above 07/02/2024 Food Insecurity Answer Date Recorded Within the past 12 months, y ou worried that your food would run out before you got money to buy more: Never True 07/02/2024 Within the past 12 months,th e food you bought just didn't last and you didn't have enough money to get more: Never True Transportation Answer Date Recorded In the past 12 months, has l ack of transportation kept you from medical appts, meetings, work or from getting things needed for daily living? No 07/02/2024 Utilities Answer Date Recorded In the past 12 months, has t he electric, gas, oil or water company threatened to shut off services in your home? No 07/02/2024 Internet Access Answer Date Recorded Internet Access Q1 Yes 07/02/2024 Internet Access Q2 Not on file 07/02/2024 Sex and Gender Information Value Date Recorded Sex Assigned at Male 12/11/2021 10:27 AM EDT Legal Sex Male 10:27 AM EDT Gender Identity Male 12/11/2021 10:27 AM EDT Sexual Orientation Straight 12/11/2021 10 :27 AM EDT documented as of this encounter Last Filed Vital Signs Vital Sign Reading Time Taken Comments Blood Pressure 152/75 07/02/2024 11:02 AM EDT Pulse 60 07/02/2024 11:02 AM EDT Temperature 36.7 ??C (98.1 ??F) 07/02/2024 11:02 AM E DT Respiratory Rate 20 07/02/2024 11:02 AM EDT Oxygen Saturation 96% 07/02/2024 11:02 AM EDT Inhaled Oxygen Concentration - - Weight 64.4 kg (142 lb) 07/02/2024 11:02 AM EDT Height 170.2 cm (5' 7 ) 07/02/2024 11:02 AM EDT Body Mass Index 22.24 07/02/2024 11:02 AM EDT documented in this encounter Plan of Treatment Scheduled Orders Name Type Priority Associated Diagnoses Orde r Schedule CBC auto differential Lab Routine Vitamin D deficiency Expected: 07/02/2024 (Approximate), Expires: 07/02/2025 Magnesium Lab Routine Vitamin D deficiency Expected: 07/02/2024, Expires: 07/02/2025 TSH W/Reflex to FT4 Lab Routine Vitamin D deficiency Expected: 07/02/2024 (Approximate), Expires: 07/02/2025 Lipid Panel, Standard Lab Routine Vitamin D deficiency Expected: 07/02/2024 (Approximate), Expires: 07/02/2025 Vitamin D, 25-Hydroxy, Total, Immunoassay Lab Routine Vitamin D deficiency Expected: 07/02/2024 (Approximate), Expires: 07/02/2025 documented as of this encounter Visit Diagnoses Diagnosis Vitamin D deficiency- Primary Anxiety Anxiety state, unspecified Mixed hyperlipidemia Primary hypertension Unspecified essential hypertension documented in this encounter Care Teams Regulatory And Compliance Technician Relationship Specialty Start Date End Date Jeffrey Johansen MD [address] [place] [address] PCP - General Internal Medicine 03/26/17 documented as of this encounter
--- OUTSIDE RECORDS SUMMARY | 2024-07-02 12:26 | XMS_ITS | Encounter Summary ---
Author Organization [employer] Address 75 [facility] 7t [place] [address] Care Team Providers Care Crimper Operator Name Role Phone Jeffrey Johansen MD Primary Care Provider [phone] Encounter Details Date Type Department Care Team (Latest Contact Info) Description 07/02/2024 Travel Social History Tobacco Use Types Packs/Day Years [...] on filedocumented in this encounter Care Teams Crimper Operator Relationship Specialty Start Date End Date Jeffrey Johansen MD [address] [place] [address] PCP - General Internal Medicine 03/26/17 documented as of this encounter
--- OUTSIDE RECORDS SUMMARY | 2024-07-02 12:26 | XMS_ITS | Encounter Summary ---
Author Organization [employer] Address 75 [facility] 7t [place] [address] Care Team Providers Care Merchandise Adjustment Clerk Name Role Phone Jeffrey Johansen MD Primary Care Provider [phone]- [phone] Reason for Visit * Reason Onset Date Comments Dr. Shah referral faxed out 05/22/2024 Encounter Details Date Type Department Care Team ([facility] st Contact Info) Description 05/22/2024 Telephone [facility] ADULT DENTAL [address] [place] [address] Melida Shah DDS [address] [place], [place] [phone] Dr. Shah referral faxed out Social History Tobacco Use Types Packs/Day Years [...] encounter Miscellaneous Notes * Telephone Encounter - Blanca Krauses - 05/22/2024 10:04 AM EDT Message for Dr. Shah and front desk coordinator Son of patient called in looking for the phone number for [facility]. Patient was referred back in april, and he didn't have referral on file to reach out to the office. Phone number provided to the patients son for both [facility] offices, fax has also been faxed out to [place] office. However, fax number for [place] was not available. Patient son has been informed that the fax has been sent out. documented in this encounter Plan of Treatment Not on file documented as of this encounter Visit Diagnoses Not on filedocumented in this encounter Care Teams Merchandise Adjustment Clerk Relationship Specialty Start Date End Date Jeffrey Johansen MD [address] [place] [address] PCP - General Internal Medicine 03/26/17 documented as of this encounter
--- OUTSIDE RECORDS SUMMARY | 2024-07-02 12:26 | XMS_ITS | Clinical Summary ---
Author Organization [facility] Address [address] [place] [address] Care Team Providers Care Shrimp Peeler Name Role Phone Gonzalez Wilkerson Primary Care Provider [phone] Source Comments PLEASE NOTE, if this patient [...] colon polyps 10/23/201307/13 Knee pain 08/05/2014 Immunizations Immunization Administration Dates Next Due Flu, Preservative Free 12/12/2016 INFLUENZA, SEASONAL, INJECTABLE 12/31/2014 PNEUMOCOCCAL CONJUGATE PCV 13 05/21/2016 TDAP 05/21/2016 Family History Medical History Relation Name Comments Heart Problems Brother Arthritis Father VIOLET KRUSE Depression Father VIOLET KRUSE HTN High Cholesterol Father VIOLET KRUSE Hypertension Father VIOLET KRUSE Kidney disease Father VIOLET KRUSE Stroke Father VIOLET KRUSE DISEASE Vision [...] Hepatitis C Screening 1945 Tobacco Screening 1945 Medicare Annual Wellness Visit 1964 CT Colonography 1991 FIT/gFOBT 1991 Fecal DNA 1991 Flexible Sigmoidoscopy 1991 Imm-Zoster, Recombinant (1 of 2) 1996 Falls Prevention 2011 Imm-Pneumococcal 65+ (2 of 2 - PPSV23) 05/21/2017 05/21/2016 [id number] ( season) 2023 Imm-Influenza (#1) 2023 12/12/2016, 12/31/2014 Colonoscopy 12/25/2023 12/24/2013 (Brisa ged by Outside Provider) Colorectal Cancer Screening 12/25/2023 Alcohol and Drug Screen 02/12/2024 05/22/19 17, 05/21/2016, 02/22/2015 Imm-DTaP/Tdap/Td (2 - Td or Tdap) 05/21/2026 017 Insurance MEDICARE - [place] [facility] Care Teams Shrimp Peeler Relationship Specialty Start Date End Date Gonzalez Wilkerson PA [address] [place] [address] PCP - General Internal Medicine 08/06/16
--- OUTSIDE RECORDS SUMMARY | 2024-07-02 12:27 | XMS_ITS | Encounter Summary ---
Author Organization [email or web address] Address [address] [facility] [address] [place] [address] Care Team Providers Care Wire Fence Erector Name Role Phone Jeffrey Johansen MD Primary Care Provider [phone]- [phone] Encounter Details Date Type Department Care Team (Late st Contact Info) Description 08/16/2022 Telephone [facility] CHC ADULT DENTAL [address] [place] [address] Chaitanya Correia DDS [address] [place] [address] Social History Tobacco Use Types Packs/Day Years [...] on filedocumented in this encounter Care Teams Wire Fence Erector Relationship Specialty Start Date End Date Jeffrey Johansen MD [address] [place] [address] PCP - General Internal Medicine 03/26/17 documented as of this encounter
--- OUTSIDE RECORDS SUMMARY | 2024-07-02 12:27 | XMS_ITS | Encounter Summary ---
Author Organization [employer] Address 75 [facility] 7 [place] [address] Care Team Providers Care Tree Puller Name Role Phone Jeffrey Johansen MD Primary Care Provider [phone] Encounter Details Date Type Department Care Team (Latest Contact Info) Description 10/27/2018 Abstract [facility] CONVERSIONS Dental, Provider, DDS Social History [...] on filedocumented in this encounter Care Teams Tree Puller Relationship Specialty Start Date End Date Jeffrey Johansen MD [address] [place] [address] PCP - General Internal Medicine 03/26/17 documented as of this encounter
--- OUTSIDE RECORDS SUMMARY | 2024-07-02 12:27 | XMS_ITS | Encounter Summary ---
Author Organization [employer] Address 75 [facility] 7 [place] [address] Care Team Providers Care Horse Farm Manager Name Role Phone Jeffrey Johansen MD Primary Care Provider [phone] Reason for Visit * Reason Onset Date Comments ER Follow-up 07/18/2023 Encounter Details Date Type Department Care Team ([facility] st Contact Info) Description 07/18/2023 Telephone [facility] CHC MED & PEDS [address] [place], [place] [phone] Jeffrey Johansen MD [address] [place] [address] ER Follow-up Social History Tobacco Use Types [...] message below. Son states pt discharged from [facility] on 07/18/23 for dizziness and JAMISON. Pt had a full workup including imaging and was told everything returned WNL. Pt's pulse kept dipping into the 40's and at one point went down into the 30's. Pt son states [facility] informed him that it may be the amiodarone that is causing his pulse to dip and causing the pt's dizziness. [facility] informed son to contact credit control officer for f/u. Son states he is still [...] on : Date: 07/17/23 Discharged 07/18/23 Hospital: [facility] Seen for: dizziness and headache Patient advised will forward to team nurse for follow up documented in this encounter Plan of Treatment Not on file documented as of this encounter Visit Diagnoses Not on filedocumented in this encounter Care Teams Horse Farm Manager Relationship Specialty Start Date End Date Jeffrey Johansen MD [address] [place] [address] PCP - General Internal Medicine 03/26/17 documented as of this encounter
--- OUTSIDE RECORDS SUMMARY | 2024-07-02 12:27 | XMS_ITS | Encounter Summary ---
Author Organization [employer] Address 75 [facility] 7 [place] [address] Care Team Providers Care Returned Goods Repairer Name Role Phone Jeffrey Johansen MD Primary Care Provider [phone] Encounter Details Date Type Department Care Team ([facility] st Contact Info) Description 06/06/2023 Orders Only [facility] CHC MED & PEDS [address] [place], [place] [phone] Provider, MD Jeff Social History Tobacco Use Types Packs/Day Years [...] on file documented as of this encounter Procedures Procedure Name Priority Date/Time Associated Diagnosis Comments SURGICAL PATHOLOGY Routine 05/08/2023 9:52 AM EDT documented in this encounter Results * (ABNORMAL) Surgical Pathology (05/08/2023 9:52 AM EDT) us Historical Provider LAB PATHOLOGY ORDERABLES Edited Result - Final documented in this encounter Visit Diagnoses Not on filedocumented in this encounter Care Teams Returned Goods Repairer Relationship Specialty Start Date End Date Jeffrey Johansen MD [address] [place] [address] PCP - General Internal Medicine 03/26/17 documented as of this encounter
--- OUTSIDE RECORDS SUMMARY | 2024-07-02 12:27 | XMS_ITS | Encounter Summary ---
Author Organization [employer] Address [address] [facility] 7 [place] [address] Care Team Providers Care Hand Stitcher Name Role Phone Jeffrey Johansen MD Primary Care Provider [phone] Encounter Details Date Type Department Care Team (Latest Contact Info) Description 07/15/2020 Abstract [facility] CONVERSIONS Dental, Provider, DDS Social History Tobacco [...] on filedocumented in this encounter Care Teams Hand Stitcher Relationship Specialty Start Date End Date Jeffrey Johansen MD [address] [place] [address] PCP - General Internal Medicine 03/26/17 documented as of this encounter
--- OUTSIDE RECORDS SUMMARY | 2024-07-02 12:27 | XMS_ITS | Clinical Summary ---
Author Organization [employer] Address [address] [facility] 7t [place] [address] Care Team Providers Care Terrazzo Finisher Helper Name Role Phone Jeffrey Johansen MD Primary Care Provider [phone]- [phone] Allergies Active Allergy Reactions Criticality Noted Date [...] 2 times daily. 5 mL 4 Active Xarelto 20 MG tablet TAKE ONE TABLET EVERY EVENING WITH A MEAL 90 tablet 2 4 Active atorvastatin (Lipitor) 40 MG tablet TAKE ONE TABLET AT BEDTIME 30 tablet 6 4 Active lisinopril 30 MG tablet Take 1 tablet (30 mg) by mouth in the morning. 30 tablet 3 5 Active escitalopram (Lexapro) 5 MG tabletIndicatio ns:Anxiety Take 1 tablet (5 mg) by mouth Once per day. 30 tablet 2 5 10/01/19 25 Active Active Problems Problem Noted Date Diagnosed [...] atrial fibrillation 09/17/2022 GERD (gastroesophageal reflux disease) Persistent insomnia 04/04/2020 Hypercholesterolemia 03/28/2017 Sessile colonic [...] Overview (09/17/2022): Chronic gastritis h.pylor posi on 12/11/13 upper endoscopy with intestinal metaplasia on bx. Heart palpitations 11/13/2013 BPH (benign prostatic hyperplasia) 10/23/2013 HTN (hypertension) 10/23/2013 Encounters Date Type Department Care Team Description 07/02/2024 10:45 AM EDT Office Visit [facility] [address] [place] [address] Jeffrey Johansen MD Vitamin D deficiency (Primary Dx); Anxiety; Mixed hyperlipidemia; Primary hypertension 07/02/2024 Travel 06/23/2024 Patient Outreach [facility] [address] [place] [phone] Jeffrey Johansen MD Pre-visit Planning (Pre visit planning LVM ) 05/22/[address] [facility] ADULT DENTAL [address] [place] [address] Reynoso referral faxed out 05/21/2024 Refill [facility] [address] [place] [address] Jeffrey Johansen MD 05/04/[address] [facility] [address] [place] [address] Jeffrey Johansen MD 04/30/2024 1:30 PM EDT Office Visit [facility] [address] [place] [address] Melida Shah DDS 04/09/2024 2:30 PM EST Office Visit [facility] [address] [place] [address] Melida Shah DDS 04/06/2024 Orders Only GENERIC EXTERNAL DATA DEPARTMENT Provider, Generic External Data from Last 3 Months Immunizations Immunization Administration Dates Next Due Influenza High-dose Quadriva [...] Mass Index 22.24 07/02/2024 11:02 AM EDT Plan of Treatment Health Maintenance Due Date [...] patient's age to complete this topic Meningococcal B Vaccine Aged Out No l onger eligible based on patient's age to complete [...] Procedure Name Priority Date/Time Associated Diagnosis Comments NO CHARGE PROCEDURE Routine 04/30/2024 1 :30 PM EDT 18 RE-CEMENT OR RE-CASTILLO CROWN Routine 04/09/2024 2:30 PM EST INTRAORAL - [...] FT4 Routine 04/06/2024 1 0:43 AM EST PROPHYLAXIS - ADULT Routine 02/11/2024 1 2:00 PM EST BITEWINGS - 4 RADIOGRAPHIC IMAGES Routine 02/11/2024 12:00 PM EST PERIODIC ORAL EVALUATION - ESTABLISHED PATIENT Routine 02/11/2024 12:00 PM EST HM COLONOSCOPY Routine 05/08/2023 4:09 [...] EST Narrative 04/07/2024 12:25 PM EST ? [facility] ?[address] ?[place] [address] ?XRay Report ? Signed ? Patient: Uriah,Ilidio ?MR#: [id number] ?? 3 ? : 1945 ?Acct:[id number] ? Age/Sex: 79 / M ?ADM Date: 04/06/24 ? Loc: HO.XRAY ? Attending Dr: Italia MCCORMICK ? Ordering Physician: Italia Abbasi ?? Date of Service: 04/06/24 ?? Procedure(s): XR chest 2V ?? Accession Number(s): [id number] ? cc: Jeffrey Johansen MD; Italia Abbasi ? EXAMINATION: ?? XR CHEST ? CLINICAL INFORMATION: ?? Z79.899 - Other mcfp (current) drug therapy ? COMPARISON: ?? September [...] DD/ 1055 ? TD/TT: 04/06/24 1055 ? Fruit And Vegetable Classer: ? Procedure Note Donotuseinterpreter, Image - 04/07/[address] [address] XRay Report Signed Patient: Radhika Kruse#: [id number] 3 : 1945cct:[id number] Age/Sex: 79 / MADM Date: 04/06/24 Loc: HO.XRAY Attending Dr: Italia Abbasi CHEMICAL APPLICATOR-C Ordering Physician: Italia Abbasi Date of Service: 04/06/24 Procedure(s): XR chest 2V Accession Number(s): [id number] cc: Jeffrey Johansen MD; Italia AbbasiC EXAMINATION: XR CHEST CLINICAL INFORMATION: Z79.899 - Other salvage determiner (current) drug therapy COMPARISON: September 11, 2023. [...] by: Salbador Ryan MD 04/07/2024 12:22 PM [facility] Dictated By: Salbador Osborne MD Signed By: <Electronically signed by Salbador Dominguez MDin OV> 04/07/24 1222 DD/ 1055 TD/TT: 04/06/24 1055 Fruit And Vegetable Classer: us [facility] External Provider IMG XR PROCEDURES Final Result * (ABNORMAL) TSH with Reflex to Free T4 (04/06/2024 10:43 AM EST) TSH reflex Free T4 4.67(H) 0.32 - 4.0 uIU/mL [facility] 04/06/2024 10:4 3 AM EST 04/06/2024 10:43 AM EST Generic External Data Provider LAB BLOOD ORDERAB LES Final Result Performing Organization Address City/[facility]/ZIP Co de Phone Number [facility] [address] [place] [phone] * T4, Free (04/06/2024 10:43 AM EST) Pathologist [facility] Free T4 (Free Thyroxine) 0.94 0.71 - 1.85 ng/dL [facility] 04/06/2024 10:4 3 AM EST 04/06/2024 10:43 AM EST Generic External Data Provider LAB BLOOD ORDERAB LES Final Result Performing Organization Address [facility]/ZIP Co de Phone Number [facility] [address] [place] [phone] * (ABNORMAL) Comprehensive Metabolic Panel (04/06/2024 10:43 AM EST) Pathologist [facility] Sodium 143 135 - 145 mmol/L [facility] Potassium 4.5 3.3 - 5.1 mmol/L [facility] Chloride 107 96 - 108 mmol/L [facility] Carbon Dioxide 30(H) 22 - 29 mmol/L [facility] Anion Gap 11(L) 12 - 20 [facility] Urea Nitrogen (BUN) 14 9 - 16 mg/dL [facility] Creatinine, Serum 0.93 0.5 - 1.4 mg/dL [facility] Estimated Glomerular Filt Rate >60 [facility] Comment:Chronic Kidney Disea se: Estimated GFR < 60 mL/min/1.74j3Nddeyw Kidney Disease: Estimated GFR < 15 mL/min/1.73m2 Glucose 108 60 - 115 mg/dL [facility] Calcium 9.5 8.4 - 10.2 mg/dL [facility] Bilirubin, Total 1.3(H) 0.0 - 1.0 mg/dL [facility] Aspartate Amino Transferase 33 5 - 37 U/L [facility] Alanine Aminotransferase 40 0 - 40 U/L [facility] Total Protein 7.3 6.5 - 8.0 g/dL [facility] Albumin Level 4.1 3.5 - 5.0 g/dL [facility] Alkaline Phosphatase 101 39 - 117 U/L [facility] 04/06/2024 10:4 3 AM EST 04/06/2024 10:43 AM EST us Generic External Data Provider LAB BLOOD ORDERAB LES Final Result [facility] [address] [place] [phone] * (ABNORMAL) LIPID PANEL, STANDARD (06/09/2020 9:08 AM EDT) Chol/HDLC Ratio 4.1 <5.0 (calc) [facility] Cholesterol, Total 230(H) <200 mg/dL [...] ?? Branden MCINTOSH et al. ARNULFO. 2013;310(19): 5917-5178 ?? (http://education.Infobionics/faq/WBE396) Non-HDL Cholesterol 174(H) <130 mg/dL (calc) [facility] Comment: For patients with diabetes plus 1 major ASCVD risk ?? factor, treating to a non-HDL-C goal of <100 mg/dL ?? (LDL-C of <70 mg/dL) is considered a therapeutic ?? option. Triglycerides 109 <150 mg/dL [facility] 06/09/2020 9:08 AM EDT us Jeffrey Johansen MD LAB BLOOD ORDERABLES Final Result [facility] [address] [place] [address], from Last 3 Months or Most Recently Relevant to Health Maintenance Insurance [facility] DUAL COMPLETE HMO HSN FULL DENTAL - HSN FULL (MEDICAID) * Guarantor: Lou Kruse Account Type Relation to Patient Date of Phone Billing Address Personal/Family Self [address] [id number] Care Teams Terrazzo Finisher Helper Relationship Specialty Start Date End Date Jeffrey Johansen MD [address] [place] [phone] PCP - General Internal Medicine 03/26/17
--- OUTSIDE RECORDS SUMMARY | 2024-07-02 12:27 | XMS_ITS | Encounter Summary ---
Author Organization [employer] Address [address] [facility] 7t [place] [address] Care Team Providers Care Journalism Instructor Name Role Phone Jeffrey Johansen MD Primary Care Provider [phone]- [phone] Encounter Details Date Type Department Care Team ([facility] st Contact Info) Description 10/12/2022 Orders Only [facility] [address] [place], [place] [phone] Jeffrye Johansen MD [address] [place], [place] [phone] Social History Tobacco Use Types Packs/Day Years [...] EST) Sodium 140 135 - 145 mmol/L [facility] Potassium 4.3 3.3 - 5.1 mmol/L [facility] Chloride 104 96 - 108 mmol/L [facility] Carbon Dioxide 30(H) 22 - 29 mmol/L [facility] Anion Gap 10(L) 12 - 20 [facility] Urea Nitrogen (BUN) 21(H) 9 - 16 mg/dL [facility] Creatinine, Serum 1.06 0.5 - 1.4 mg/dL [facility] Estimated Glomerular Filt Rate >60 [facility] Comment:NOTE: For -Am erican individuals, multiply the result by 1.210.Chronic Kidney Disease: Estimated GFR < 60 mL/min/1.66r8Keapim Kidney Disease: Estimated GFR < 15 mL/min/1.73m2 Glucose 97 60 - 115 mg/dL [facility] Calcium 9.7 8.4 - 10.2 mg/dL [facility] 02/28/2023 10:4 1 AM EST 02/28/2023 10:41 AM EST us Generic External Data Provider LAB BLOOD ORDERAB LES Final Result Performing Organization Address City/[facility]/ZIP Co de Phone Number [facility] [address] [place] [phone] * B Type Natriuretic Peptide (BNP) (02/28/2023 10:41 AM EST) B Type Natriuretic Peptide 78 <100 pg/mL [facility] Comment:For those patients w ho are being treated with Natrecor(nesiritide, recombinant BNP), BNP testing should beperformed at least two hours post treatment in order toensure that only endogenous levels of BNP are detected. 02/28/2023 10:4 1 AM EST 02/28/2023 10:41 AM EST us Generic External Data Provider LAB BLOOD ORDERAB LES Final Result Performing Organization Address [facility]/ZIP Co de Phone Number [facility] [address] [place] [phone] * CBC (02/28/2023 10:41 AM EST) White Blood Count 6.8 4.8 - 10.8 X10*3/uL [facility] Red Blood Count 4.62 4.60 - 5.80 X10*6/uL [facility] Hemoglobin 14.0 14.0 - 18.0 g/dl [facility] Hematocrit 42.3 42.0 - 52.0 % [facility] Mean Corpuscular Volume 91.6 80.0 - 98.0 fL [facility] Mean Corpuscular Hemoglobin 30.3 27.0 - 33.0 pg [facility] Mean Corpuscular HGB Conc 33.1 31.0 - 36.0 g/dl [facility] Red Cell Distribution Width 13.2 11.0 - 16.0 % [facility] Platelet Count 247 160 - 400 X10*3/uL [facility] Mean Platelet Volume 10.3 9.4 - 12.4 [facility] NRBC Pct Auto 0.0 0.0 - 0.2 /100WBC [facility] NRBC Abs Auto 0.000 0.0 - 0.012 X10*3/uL [facility] 02/28/2023 10:4 1 AM EST 02/28/2023 10:41 AM EST us Generic External Data Provider LAB BLOOD ORDERAB LES Final Result Performing Organization Address City/State/[facility] [[email or web address]] Co de Phone Number [facility] [address] [place] [address] [phone] documented in this encounter Visit Diagnoses Not on filedocumented in this encounter Care Teams Journalism Instructor Relationship Specialty Start Date End Date Jeffrey Johansen MD [address] [place] [phone] PCP - General Internal Medicine 03/26/17 documented as of this encounter
[2024-07-02 14:10] LABS: MANUAL DIFF FLAG NO
[2024-07-02 14:11] LABS: Basophils Percent Auto 0.5 % (0-2); Eosinophils Absolute Auto 0.1 X10*3/uL (0.0-0.4); Eosinophils Percent Auto 1.7 % (0-4); Hematocrit 41.4 % (42.0-52.0); Imm Gran Abs Auto 0.02 X10*3/uL (0.00-0.03); Imm Gran Pct Auto 0.3 % (0.0-0.4); Lymphocytes Absolute Auto 1.7 X10*3/uL (1.2-4.9); Lymphocytes Percent Auto 26.4 % (20-40); Mean Corpuscular HGB Conc 33.8 g/dl (31.0-36.0); Mean Corpuscular Hemoglobin 30.4 pg (27.0-33.0); Mean Corpuscular Volume 89.8 fL (80.0-98.0); Mean Platelet Volume 10.5 fL (9.4-12.4); Monocytes Absolute Auto 0.6 X10*3/uL (0.1-1.2); Neutrophils Percent Auto 62.1 % (45-73); Platelet Count 250 X10*3/uL (160-400); Red Blood Count 4.61 X10*6/uL (4.60-5.80); Red Cell Distribution Width 13.7 % (11.0-16.0); White Blood Count 6.4 X10*3/uL (4.8-10.8)
[2024-07-02 14:33] LABS: Cholesterol 194 mg/dL (<200); HDL Cholesterol 69 mg/dL (>40); LDL Cholesterol Calculated 113 mg/dL (<100); Magnesium 2.3 mg/dL (1.6-2.6); Triglycerides 62 mg/dL (<150)
[2024-07-02 14:43] LABS: TSH reflex Free T4 4.59 uIU/mL (0.32-4.0)
== END 2024-07-02 12:04 | disposition home or self-care (01) ==
LOC: HO.CHCLDS 12:03
PROVIDERS: Visit Provider Internal Medicine
DX: E55.9 Vitamin D deficiency, unspecified (principal); Z13.6 Encounter for screening for cardiovascular disorders
CPT/HCPCS: 36415; 80061; 82306; 83735; 84439; 84443; 85025

== ENCOUNTER → 2024-07-11 23:59 | Outpatient (BNV) | payer MEDICARE, SELFPAY ==
--- NOTE | 2024-07-14 13:18 | MHC.OFFVIS ---
Intake Visit Reasons: Remote device check- [facility] Del Allergies aspirin Allergy (Unknown, Verified 02/07/24 13:10) nausea and vomiting, GI upset furosemide [From Lasix] Allergy (Verified 02/07/24 13:10) rash dronedarone [From Multaq] Adverse Reaction (Verified 02/07/24 13:10) leg swelling PFSH Medical History Pacemaker Persistent atrial fibrillation Hyperplastic polyp of large intestine Adenomatous colon polyp Internal hemorrhoid Paroxysmal atrial fibrillation History of cardioversion HTN (hypertension) Surgical History Hx of colonoscopy Family History Father Stroke Mother No problems noted. Social History Are you a primary career and transition teacher to a significant other at home: No Do you presently have visiting nurse or other home services: No Alcohol intake: current Alcohol intake frequency: 0-2 drinks per day Alcohol type: wine and hard liquor Patient Tobacco Use Status: Former Tobacco user Tobacco use type: Cigarette Office Procedures Cardiac Device Check Cardiac Device Check Details: Remote pacemaker report generated 07/11/2024. Pacemaker function is adequate. No episodes of atrial fibrillation noted [id number] Cardiac Device Interrogation, pacemaker Procedure code (CPT) selection complete Assessment & Plan Assessment & Plan (1) Pacemaker: Comment: Dual-chamber [place] pacemaker placed 09/11/[address] Hubbard. Code(s): Z95.0 - Presence of cardiac pacemaker Category: Medical Plan: See above Coding Level of Care Code Procedure Only Diagnoses Pacemaker Z95.0 CPT Codes Cardiac Device Check - Cardiac Device 12: [id number] Cardiac Device Interrogation, pacemaker ([id number])
== END ==
PROVIDERS: PCP Internal Medicine; Visit Provider Internal Medicine Cardiovascular Disease
DX: Z45.018 Encounter for adjustment and management of other part of cardiac pacemaker (principal)
CPT/HCPCS: 93294

== ENCOUNTER 2024-07-20 10:41 | Outpatient (REF) | payer MEDICARE, SELFPAY ==
[2024-07-20 13:30] LABS: Hematocrit 40.2 % (42.0-52.0); Hemoglobin 13.1 g/dl (14.0-18.0); Mean Corpuscular HGB Conc 32.6 g/dl (31.0-36.0); Mean Corpuscular Hemoglobin 29.7 pg (27.0-33.0); Mean Corpuscular Volume 91.2 fL (80.0-98.0); Mean Platelet Volume 10.7 fL (9.4-12.4); Platelet Count 223 X10*3/uL (160-400); Red Blood Count 4.41 X10*6/uL (4.60-5.80); Red Cell Distribution Width 13.9 % (11.0-16.0); White Blood Count 6.5 X10*3/uL (4.8-10.8)
[2024-07-20 13:40] LABS: Anion Gap 11 (12-20); Blood Urea Nitrogen 13 mg/dL (9-16); Calcium 9.4 mg/dL (8.4-10.2); Carbon Dioxide 29 mmol/L (22-29); Chloride 105 mmol/L (96-108); Estimated Glomerular Filt Rate > 60; Glucose Random 88 mg/dL (60-115); Potassium 4.2 mmol/L (3.3-5.1); Sodium 141 mmol/L (135-145)
[2024-07-20 13:47] LABS: B Type Natriuretic Peptide 111 pg/mL (<100)
== END 2024-07-20 10:42 | disposition home or self-care (01) ==
LOC: HO.HMGCLDS 10:41
PROVIDERS: PCP Internal Medicine; Visit Provider Internal Medicine Cardiovascular Disease
DX: R79.89 Other specified abnormal findings of blood chemistry (principal); I48.0 Paroxysmal atrial fibrillation
CPT/HCPCS: 36415; 80048; 83880; 85027

== ENCOUNTER 2024-07-27 10:45 | Outpatient (REF) | payer MEDICARE, SELFPAY ==
--- NOTE | ~2024-07-27 | CT_ITS ---
EXAMINATION: CT CHEST WITHOUT CONTRAST CLINICAL INFORMATION: Follow-up abnormality on other diagnostic imaging study DLP: 245 mGY*cm COMPARISON: Chest x-ray April 06, 2024, September 11, 2023, August 07, 2021, Jun 30 2020 TECHNIQUE: Multidetector volumetric CT imaging of the chest was done. Axial MIP volume rendering provided. Sagittal and coronal reformatted images were obtained. This CT examination was performed using dose optimization techniques as appropriate, variously including the following: *Automated exposure control *Adjustment of mA and/or kV according to patient size (this includes techniques or standardized protocols for targeted exams where dose is matched to indication/reason for exam; i.e. extremities or head) *Use of iterative reconstruction technique FINDINGS: LUNGS: Coarse septal lines are present in the lateral lung base, right greater than left. There is also linear density in the posterior medial basal right lower lobe. MEDIASTINUM: Calcified left hilar lymph node is present. There is a 2-lead pacemaker. Generator is in the left anterior medial chest. There are 2 leads and the extent to the right atrium and to the right ventricle. CORONARY ARTERY CALCIFICATION: Present PLEURA: There is pleural thickening with calcification that has been visible since x-ray on June 30, 2020 . Pleural plaques measure up to 12 mm thick. Pleural plaque is thickest in the posterior medial chest wall along the mid to lower thoracic spine. There is no left pleural thickening. There are no pleural effusions. AXILLA: No lymphadenopathy. UPPER ABDOMEN: Unremarkable. OSSEOUS STRUCTURES: There are bridging osteophytes and syndesmophytes visible along the anterior spine, and also in the posterior upper thoracic spine. There is also osseous bridging of the tips of multiple thoracic spinous processes. There is also ankylosis of facet joints in the mid to lower thoracic spine. CT/CT chest wo IV con IMPRESSION: There are partially calcified pleural plaques in the right chest wall measuring up to 12 mm in thickness. The thickest pleural plaque is in the posterior medial right chest. There is also a calcified left hilar lymph node. There is also evidence of mild scarring in the lung bases. Changes are probably related to chronic granulomatous disease. Pleural plaques could be posttraumatic in nature. Pleural plaques have been visible since chest x-ray on June 30, 2020. However, the posterior medial pleural plaque is not well demonstrated on x-ray. Since the thickness of this plaque exceeds 10 mm, a more aggressive process such as mesothelioma is not entirely ruled out but is felt to be of low likelihood given the presence of chronic pleural plaques and lack of pleural effusion. Consider an additional follow-up CT chest in 4-6 months to reevaluate. Ankylosis spondylitis. Fleischner guidelines were followed. Electronically signed by: Tien Sutherland MD 07/27/2024 12:29 PM EDT
--- OUTSIDE RECORDS SUMMARY | 2024-07-27 12:06 | XMS_ITS | Encounter Summary ---
Author Organization [employer] Address [address] [facility] 7t [place] [address] Care Team Providers Care Defence Force Senior Officer Name Role Phone Jeffrey Johansen MD Primary Care Provider [phone]- [phone] Reason for Visit * Reason Onset Date Comments Dr. Shah referral faxed out 05/22/2024 Encounter Details Date Type Department Care Team ([facility] st Contact Info) Description 05/22/2024 Telephone [facility] ADULT D[facility] [address] [place] [address] Melida Shah DDS [address] [place], [place] [phone] Dr. Shah referral faxed out Social History [...] Message for Dr. Shah and front desk attendant Son of patient called in looking for the phone number for [facility]. Patient was referred back in april, and he didn't have referral on file to reach out to the office. Phone number provided to the patients son for both [facility] offices, fax has also been faxed out to [place] office. However, fax number for [place] was not available. Patient son has been informed that the fax has been sent out. documented in this encounter Plan of Treatment Not on file documented as of this encounter Visit Diagnoses Not on filedocumented in this encounter Care Teams Defence Force Senior Officer Relationship Specialty Start Date End Date Jeffrey Johansen MD [address] [place] [phone] PCP - General Internal Medicine 03/26/17 documented as of this encounter
== END 2024-07-27 10:46 | disposition home or self-care (01) ==
LOC: HO.CT 10:45
PROVIDERS: PCP Internal Medicine; Visit Provider Nurse Practitioner Family
DX: R93.89 Abnormal findings on diagnostic imaging of other specified body structures (principal); Z79.899 Other long term (current) drug therapy; Z95.0 Presence of cardiac pacemaker
CPT/HCPCS: 71250

== ENCOUNTER → 2024-07-27 10:49 | Outpatient (BNV) | payer MEDICARE, SELFPAY | PROVIDERS: PCP Internal Medicine; Visit Provider Radiology Diagnostic Radiology | DX: J92.9 Pleural plaque without asbestos (principal); I89.8 Other specified noninfective disorders of lymphatic vessels and lymph nodes | CPT/HCPCS: 71250 ==

== ENCOUNTER 2024-07-30 10:12 | Outpatient (AMB) | payer MEDICARE, SELFPAY ==
[2024-07-30 10:41] VITALS: BP 120/64; PULSE 51; BMI 21.0
--- NOTE | 2024-07-30 10:41 | A.OFFVIS_ITS ---
Vital Signs 07/30/24 10:41 Height 5 ft 9 in Weight 141 lb 15.643 oz BMI 21.0 BP 120/64 Blood Pressure Location Lt brachial Position Sitting Pulse 51 Pulse Source Monitor Intake Visit Reasons: 3 month f/u after testing Marketing Performance Analyst Required: No Marketing Performance Analyst Services: Marketing Performance Analyst Offered & Declined Marketing Performance Analyst Name: daughter Accompanied by: Daughter Allergies aspirin Allergy (Unknown, Verified 02/07/24 13:10) nausea and vomiting, GI upset furosemide (From Lasix) Allergy (Verified 02/07/24 13:10) rash dronedarone (From Multaq) Adverse Reaction (Verified 02/07/24 13:10) leg swelling Medication List - Last Reconciled 07/30/24 by Italia Abbasi NP-C acetaminophen (Tylenol Extra Strength) 1,000 mg orally two times a day. PRN; amlodipine 2.5 mg PO DAILY atorvastatin 20 mg PO DAILY diphenhydramine HCl (Benadryl) 25 mg PO ONCE flecainide 150 mg PO Q12H lisinopril 30 mg PO DAILY rivaroxaban (Xarelto) 20 mg PO DAILY HPI HPI 3 month f/u after testing: Details: Lou is a 79-year-old male with past medical history of hypertension, hyperlipidemia, sick sinus syndrome status post dual-chamber pacemaker, paroxysmal atrial fibrillation treated with rhythm control using metoprolol. He underwent an AFib ablation on 07/10/2024. He recently had a CT scan of the chest to evaluate abnormal chest x-ray and presents here for follow-up. Today he reports he has been doing well since his last visit in April. He has not had any recent heart palpitations. No chest discomfort at rest or with activity. No shortness of breath, PND, orthopnea or edema. No presyncope, syncope, falls. 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 Taking meds as directed. No bleeding issues reported. Daughter is present and assisting with Sudanese translation. He has not had follow-up with Dr. Jackson since ablation. [facility] Medical History Pacemaker Persistent atrial fibrillation Hyperplastic polyp of large intestine Adenomatous colon polyp Internal hemorrhoid Paroxysmal atrial fibrillation History of cardioversion HTN (hypertension) Surgical History Hx of colonoscopy Family History Father Stroke Mother No problems noted. Social History Are you a primary home care specialist to a significant other at home: No Do you presently have visiting nurse or other home services: No Alcohol intake: current Alcohol intake frequency: 0-2 drinks per day Alcohol type: wine and hard liquor Patient Tobacco Use Status: Former Tobacco user Tobacco use type: Cigarette Review of Systems Const All systems reviewed & are unremarkable except as noted in HPI and below Denies chills, Denies fatigue, Denies fever(s), Denies frequent falls, Denies weakness, Denies weight gain and Denies weight loss ENT Denies dizziness Card Denies chest pain, Denies leg edema, Denies lightheadedness, Denies palpitations, Reports dyspnea and Reports dyspnea on exertion Resp Denies cough, Reports dyspnea and Reports dyspnea on exertion GI Denies hematochezia Musc Denies abnormal gait, Denies muscle weakness, Denies numbness, Denies radiating pain into limb and Denies tingling Neuro Denies abnormal gait, Denies dizziness, Denies frequent falls, Denies numbness, Denies tingling and Denies weakness Endo Denies fatigue and Denies palpitations Physical Exam Vital Signs: Last Vital Signs Pulse 51 07/30/24 10:41 BP 120/64 07/30/24 10:41 BMI result Body Mass Index 21.0 Const General: cooperative, healthy appearing, comfortable and no acute distress Orientation/consciousness: patient oriented x3 Neck Neck: Yes normal visual inspection Resp Effort & Inspection: normal respiratory effort Auscultation: clear to auscultation bilaterally, no rales, no rhonchi and no wheezes Cardio Rate: regular rate Rhythm: regular rhythm Heart sounds: S1 normal heart sound present, S2 normal heart sound present, no gallops, no murmurs and no rubs Neuro General: patient oriented x3 Extrem Other: bilateral groin sites, post ablation, well healed, easily palpable radial pulses General: Yes normal to inspection, No no pedal edema and No calf tenderness Psych Appearance: grossly normal Mental Status: mental status grossly normal Speech and movement: Normal speech and movement present Office Procedures EKG Details: Today, read by me, sinus bradycardia with first-degree AV block, nonspecific ST and T-wave abnormality, rate 51, QTC 427 millisecond [id number], Complete Assessment & Plan Assessment & Plan (1) Paroxysmal atrial fibrillation: Code(s): I48.0 - Paroxysmal atrial fibrillation Category: Medical Plan: History of paroxysmal atrial fibrillation, treated with rhythm control using amiodarone. He had been on low-dose amiodarone and had recurrent PAF and his dose was increased back to 200 mg daily. He was then referred to electrophysiology, Dr. Jackson, and underwent AFib ablation on 07/10/2024. EKG done today showing sinus bradycardia with first-degree AV block, rate 51. He does have abnormal CT scan of the chest, indicating findings of chronic plaques and scarring, which may be related to his frequent exposure to fiberglass in his working years. Will refer him to pulmonology. Will have him stop amiodarone and 48 hours later start on flecainide 150 mg b.i.d.. Continue Xarelto for anticoagulation. Instructed to follow-up with electrophysiology for post ablation follow-up. Office EKG in 1 week. Cardiology follow-up this office 3 months, sooner if needed. (2) Sick sinus syndrome: Code(s): I49.5 - Sick sinus syndrome Category: Medical Plan: History of symptomatic bradycardia with dizziness and fatigue. He underwent a dual-chamber pacemaker placement on 09/11/2023 and symptoms improved. Device interrogation last visit shows it is functioning normally. Next office interrogation in 3 mo. Remote monitoring in use. (3) Pacemaker: Comment: Dual-chamber Saint Del pacemaker placed 09/11/[address] Hubbard. Code(s): Z95.0 - Presence of cardiac pacemaker Category: Medical Plan: As above (4) HTN (hypertension): Code(s): I10 - Essential (primary) hypertension Category: Medical Qualifiers: Hypertension type: primary hypertension Qualified Code(s): I10 - Essential (primary) hypertension Plan: Blood pressure goal less than 130/80. Well controlled today. Continue amlodipine, lisinopril for blood pressure control. (5) On amiodarone therapy: Code(s): Z79.899 - Other usp (current) drug therapy Category: Medical Plan: Stopping today, and changing over to flecainide. (6) Abnormal chest x-ray: Code(s): R93.89 - Abnormal findings on diagnostic imaging of other specified body structures Category: Medical Plan: Chest x-ray 04/06/2024 chronic interstitial lung disease (7) Abnormal CT scan, chest: Code(s): R93.89 - Abnormal findings on diagnostic imaging of other specified body structures Category: Medical Plan: Chest CT 07/27/2024 before includes calcified pleural plaques in the right chest wall, calcified left hilar lymph node, evidence of mild scarring in the lung bases, changes probably related to chronic granulomatous disease. Pleural plaques have been visible on chest x-ray since 06/30/2020. - referring him to pulmonology for further evaluation and follow-up. Plan I discussed the transition from amiodarone to flecainide with the patient, explaining the need for a follow-up EKG to monitor cardiac rhythm. We also reviewed the CAT scan findings of lung scarring and possible chronic granulomatous disease, and I recommended a pulmonology referral. We discussed follow up with Dr Jackson following the ablation procedure and that medications may be adjusted by him as well. Orders: Referrals Pulmonology Referral R93.89 - Abnormal findings on diagnostic imaging of other specified body structures Medications: New flecainide Stop amiodarone - start Flecainide 2 days later 150 mg PO Q12H 60 tabs 5RF Discontinued amiodarone Discontinued Reason: Doctor's Order 200 mg PO DAILY 90 tabs 1RF Patient Instructions: - Stop amiodarone and start flecainide after two days. - Schedule a follow-up EKG in seven to nine days. - Follow up with a cattle knocker for lung evaluation. - Follow up with electophysiologist - Stay hydrated and sit before standing to prevent dizziness. Patient was informed and verbally consented to the use of an ambient scribe for clinic note documentation during this visit. Visit time spent on chart review, interview, assessment, orders, documentation. Coding Level of Care Code Est Pt Level 4 (37237) Complex EM visit Add On G2211 Diagnoses Paroxysmal atrial fibrillation I48.0 Sick sinus syndrome I49.5 Pacemaker Z95.0 Primary hypertension I10 Hypertension type: primary hypertension On amiodarone therapy Z79.899 Abnormal chest x-ray R93.[address] scan, chest R93.89 CPT Codes EKG - CPT: [id number]-[id number], Complete ([id number]) Time Spent (min) 34
--- OUTSIDE RECORDS SUMMARY | 2024-07-30 11:33 | XMS_ITS | Encounter Summary ---
Author Organization [employer] Address [address] [facility] [address] [place] [address] Care Team Providers Care Hammerer Name Role Phone Jeffrey Johansen MD Primary Care Provider [phone] Reason for Visit * Reason Onset Date Comments Dr. Shah referral faxed out 05/22/2024 Encounter Details Date Type Department Care Team ([facility] st Contact Info) Description 05/22/2024 Telephone [facility] ADULT DENTAL [address] [place] [address] Melida Shah DDS [address] [place], [place] [phone] Dr. Shah referral faxed out Social History [...] EDT Message for Dr. Shah and front office supervisor Son of patient called in looking for the phone number for [facility] Dental. Patient was referred back in april, and he didn't have referral on file to reach out to the office. Phone number provided to the patients son for both [facility] offices, fax has also been faxed out to [place] office. However, fax number for [place] was not available. Patient son has been informed that the fax has been sent out. documented in this encounter Plan of Treatment Not on file documented as of this encounter Visit Diagnoses Not on filedocumented in this encounter Care Teams Hammerer Relationship Specialty Start Date End Date Jeffrey Johansen MD [address] [place] [id number] PCP - General Internal Medicine 03/26/17 documented as of this encounter
== END 2024-07-30 11:33 | disposition home or self-care (01) ==
LOC: HO.HCS 10:13
PROVIDERS: PCP Internal Medicine; Visit Provider Nurse Practitioner Family
DX: I48.0 Paroxysmal atrial fibrillation (principal); I49.5 Sick sinus syndrome; Z95.0 Presence of cardiac pacemaker; I10 Essential (primary) hypertension; Z79.899 Other long term (current) drug therapy; R93.89 Abnormal findings on diagnostic imaging of other specified body structures
CPT/HCPCS: 93010; 99214; G2211

== ENCOUNTER → 2024-07-30 10:12 | Outpatient (BNVA) | payer MEDICARE, SELFPAY | PROVIDERS: PCP Internal Medicine; Visit Provider Nurse Practitioner Family | DX: I48.0 Paroxysmal atrial fibrillation (principal); I49.5 Sick sinus syndrome; I10 Essential (primary) hypertension; R93.89 Abnormal findings on diagnostic imaging of other specified body structures; Z79.899 Other long term (current) drug therapy; Z95.0 Presence of cardiac pacemaker | CPT/HCPCS: 93005; 99212 ==

== ENCOUNTER 2024-08-11 10:08 | Outpatient (AMB) | payer MEDICARE, SELFPAY ==
--- NOTE | 2024-08-11 10:55 | AM.OFFVISNUR ---
Intake Visit Reasons: EKG Allergies aspirin Allergy (Unknown, Verified 02/07/24 13:10) nausea and vomiting, GI upset furosemide (From Lasix) Allergy (Verified 02/07/24 13:10) rash dronedarone (From Multaq) Adverse Reaction (Verified 02/07/24 13:10) leg swelling Nursing Note Patient presented today for EKG after stopping amiodarone and starting flecainide. Patient states his BP have been running in the normal range. BP today in office 136/58. EKG showed HR at 50. Dr. Willson adjusted patient's St. Del pacemaker, discontinued flecainide, and added Multaq 400mg bid starting tomorrow. Assessment & Plan Assessment & Plan Medications: Discontinued flecainide Stop amiodarone - start Flecainide 2 days later Discontinued Reason: Doctor's Order 150 mg PO Q12H 60 tabs 5RF flecainide dose reduced Discontinued Reason: Doctor's Order 100 mg PO Q12H 60 tabs 2RF Coding
--- OUTSIDE RECORDS SUMMARY | 2024-08-11 11:13 | XMS_ITS | Encounter Summary ---
Author Organization [employer] Address [address] [facility] [address] [place] [address] Care Team Providers Care Dining Room Supervisor Name Role Phone Jeffrey Johansen MD Primary Care Provider [phone] Reason for Visit * Reason Onset Date Comments Dr. Shah referral faxed out 05/22/2024 Encounter Details Date Type Department Care Team ([facility] st Contact Info) Description 05/22/2024 Telephone [facility] ADULT DENTAL [address] [place] [address] Melida Shah DDS [address] [place], [place] [phone] Dr. Shah referral faxed out Social History [...] Message for Dr. Shah and front desk representative Son of patient called in looking for the phone number for [facility] Dental. Patient was referred back in april, and he didn't have referral on file to reach out to the office. Phone number provided to the patients son for both [facility] offices, fax has also been faxed out to [place] office. However, fax number for [place] was not available. Patient son has been informed that the fax has been sent out. documented in this encounter Plan of Treatment Not on file documented as of this encounter Visit Diagnoses Not on filedocumented in this encounter Care Teams Dining Room Supervisor Relationship Specialty Start Date End Date Jeffrey Johansen MD [address] [place] [id number] PCP - General Internal Medicine 03/26/17 documented as of this encounter
--- OUTSIDE RECORDS SUMMARY | 2024-08-11 11:13 | XMS_ITS | Clinical Summary ---
Author Organization [facility] Address [address] [place] [address] Care Team Providers Care Labor Relations Representative Name Role Phone Gonzalez Wilkerson Primary Care Provider [phone] Source Comments PLEASE NOTE, if this patient [...] 76 12/24/2016 8:45 AM EST Temperature 36 C (96.8 F) 12/24/2016 8:45 AM EST Respiratory Rate 18 [...] of 2) 1996 Falls Prevention 2011 Imm-Pneumococcal 50+ (2 of 2 - PCV20 or PCV21) 05/21/2017 05/21/2016 [id number] ( season) 2023 Colonoscopy 12/25/2023 12/24/2013 (Brisa otero by Outside Provider) Colorectal Cancer Screening 12/25/2023 Alcohol and Drug Screen 02/12/2024 05/22/19, 05/21/2016, 02/22/2015 Imm-Influenza (Season Ended) 2024 12/12/2016, 12/31/2014 Imm-DTaP/Tdap/Td (2 - Td or Tdap) 05/21/2026 017 Insurance MEDICARE - [place] [facility] SAFETY NET Care Teams Labor Relations Representative Relationship Specialty Start Date End Date Gonzalez Wilkerson PA [address] [place] [address] PCP - General Internal Medicine 08/06/16
== END 2024-08-11 10:54 | disposition home or self-care (01) ==
LOC: HO.HCS 10:08
PROVIDERS: PCP Internal Medicine; Visit Provider Internal Medicine Cardiovascular Disease
DX: Z45.018 Encounter for adjustment and management of other part of cardiac pacemaker (principal)
CPT/HCPCS: 93280

== ENCOUNTER → 2024-08-11 10:08 | Outpatient (BNVA) | payer MEDICARE, SELFPAY | PROVIDERS: PCP Internal Medicine; Visit Provider Internal Medicine Cardiovascular Disease | DX: Z45.018 Encounter for adjustment and management of other part of cardiac pacemaker (principal) | CPT/HCPCS: 93280 ==

== ENCOUNTER 2024-09-15 13:53 | Outpatient (AMB) | payer MEDICARE, SELFPAY ==
[2024-09-15 14:03] VITALS: BP 124/72; PULSE 70; BMI 21.0
--- NOTE | 2024-09-15 14:03 | MHC.OFFVIS ---
Vital Signs 09/15/24 14:03 Height 5 ft 9 in Weight 141 lb 15.643 oz BMI 21.0 BP 124/72 Blood Pressure Location Lt brachial Position Sitting Pulse 70 Pulse Source Monitor Intake Visit Reasons: f/u per Dr Willson c/o sob and fatigue with ekg Integration Developer Required: No Assistant Reading Teacher: Assistant Reading Teacher Present Allergies aspirin Allergy (Unknown, Verified 02/07/24 13:10) nausea and vomiting, GI upset furosemide (From Lasix) Allergy (Verified 02/07/24 13:10) rash meloxicam Allergy (Verified 09/15/24 14:08) Abdominal Pain dronedarone (From Multaq) Adverse Reaction (Verified 02/07/24 13:10) leg swelling Medication List - Last Reconciled 09/15/24 by ANNY Romero acetaminophen (Tylenol Extra Strength) 1,000 mg orally two times a day. PRN; amlodipine 2.5 mg PO DAILY atorvastatin 20 mg PO DAILY diphenhydramine HCl (Benadryl) 25 mg PO ONCE lisinopril 30 mg PO DAILY rivaroxaban (Xarelto) 20 mg PO DAILY HPI HPI f/u per Dr Willson c/o sob and fatigue with ekg: Details: Lou is a 79-year-old male with past medical history of hypertension, hyperlipidemia, sick sinus syndrome status post dual-chamber pacemaker, paroxysmal atrial fibrillation treated with rhythm control who underwent an AFib ablation on 07/10/2024. He had been on amiodarone which was stopped due to abnormal findings on chest CT. He was briefly on flecainide then changed to Multaq in August. At the same time his pacemaker low rate was changed from 50 to 70. He now presents for follow-up. Today he reports he has not been feeling well at all. He is noticing that he has to take deep breaths in several times per day and this is unusual for him. He does not report concerning shortness of breath with physical activity. No PND, orthopnea or edema. He has been having headaches which is new for him. He also has some new lightheadedness with position changes. He believes all these symptoms are related to Multaq. He has no chest discomfort at rest or with activity. No heart palpitations, presyncope, syncope, falls. Taking meds as directed. Son is present. He has a follow-up with on 09/28/24. His son helps with Dominican translation. [facility] Medical History Pacemaker Persistent atrial fibrillation Hyperplastic polyp of large intestine Adenomatous colon polyp Internal hemorrhoid Paroxysmal atrial fibrillation History of cardioversion HTN (hypertension) Surgical History Hx of colonoscopy Family History Father Stroke Mother No problems noted. Social History Are you a primary field care coordinator to a significant other at home: No Do you presently have visiting nurse or other home services: No Alcohol intake: current Alcohol intake frequency: 0-2 drinks per day Alcohol type: wine and hard liquor Patient Tobacco Use Status: Former Tobacco user Tobacco use type: Cigarette Review of Systems Const Details: headaches All systems reviewed & are unremarkable except as noted in HPI and below ENT Reports dizziness Card Denies chest pain, Denies chest pain at rest, Denies chest pain with activity, Denies rapid heart rate, Denies pedal edema, Denies edema, Denies leg edema, Denies lightheadedness, Denies palpitations, Reports dyspnea, Denies dyspnea on exertion and Denies orthopnea Resp Denies cough, Reports dyspnea and Denies dyspnea on exertion GI Denies hematochezia and Denies change in stool character Musc Denies abnormal gait, Denies limited range of motion, Denies muscle cramps, Denies muscle weakness, Denies numbness, Denies radiating pain into limb, Denies stiffness and Denies tingling Neuro Denies abnormal gait, Reports dizziness, Denies numbness and Denies tingling Endo Denies palpitations Physical Exam Vital Signs: Last Vital Signs Pulse 70 09/15/24 14:03 BP 124/72 09/15/24 14:03 BMI result Body Mass Index 21.0 Const General: cooperative, healthy appearing, comfortable and no acute distress Orientation/consciousness: patient oriented x3 Neck Neck: Yes normal visual inspection Resp Effort & Inspection: normal respiratory effort Auscultation: clear to auscultation bilaterally, no rales, no rhonchi and no wheezes Cardio Rate: regular rate Rhythm: regular rhythm Heart sounds: S1 normal heart sound present, S2 normal heart sound present, no gallops, no murmurs and no rubs Neuro General: patient oriented x3 Extrem General: Yes normal to inspection, No no pedal edema and No calf tenderness Psych Appearance: grossly normal Mental Status: mental status grossly normal Speech and movement: Normal speech and movement present Office Procedures Cardiac Device Check Cardiac Device Check Details: Saint Del dual-chamber pacemaker interrogation today, battery 7.1 years, threshold testing not performed lead impedances stable, DDDR mode, low rate 70, a paced 88%, V pace 73%, [place] [id number] Cardiac Device Check, pacemaker dual lead Procedure code (CPT) selection complete EKG Details: Today, read by me A/V paced rhythm with prolonged AV conduction, rate 70, JT Index 101.7 [id number], Complete Assessment & Plan Assessment & Plan (1) Paroxysmal atrial fibrillation: Code(s): I48.0 - Paroxysmal atrial fibrillation Category: Medical Plan: History of paroxysmal atrial fibrillation, treated with rhythm control and AFib ablation on 07/10/2024. He was taken off amiodarone in July for abnormal CT scan of the chest, indicating findings of chronic plaques and scarring, which may be related to his frequent exposure to fiberglass in his working years. He was briefly on flecainide then changed over to Multaq. Since being on Multaq he is reporting concerning symptoms, changes to his breathing, headaches and lightheadedness. EKG done today showing a/V paced rhythm, rate 70. Reviewed with Dr. Willson. Will have him stop Multaq. Will update echocardiogram. Instructed to call this office if his symptoms do not resolve. EP follow-up as planned on 09/28/2024. Will continue to follow his pacemaker remotely to see if he has recurrent atrial fibrillation. Continue Xarelto for anticoagulation. Cardiology follow-up this office 3 months, sooner if needed. (2) Sick sinus syndrome: Code(s): I49.5 - Sick sinus syndrome Category: Medical Plan: History of symptomatic bradycardia with dizziness and fatigue. He underwent a dual-chamber pacemaker placement on 09/11/2023 and symptoms improved. (3) Pacemaker: Comment: Dual-chamber Saint Del pacemaker placed 09/11/[address] Hubbard. Code(s): Z95.0 - Presence of cardiac pacemaker Category: Medical Plan: Functioning normally on interrogation today. We will continue with remote monitoring. Office interrogation due 6 months. (4) HTN (hypertension): Code(s): I10 - Essential (primary) hypertension Category: Medical Qualifiers: Hypertension type: primary hypertension Qualified Code(s): I10 - Essential (primary) hypertension Plan: Blood pressure goal less than 130/80. Well controlled today. Continue amlodipine, lisinopril for blood pressure control. (5) Abnormal CT scan, chest: Code(s): R93.89 - Abnormal findings on diagnostic imaging of other specified body structures Category: Medical Plan: Chest CT 07/27/2024 before includes calcified pleural plaques in the right chest wall, calcified left hilar lymph node, evidence of mild scarring in the lung bases, changes probably related to chronic granulomatous disease. Pleural plaques have been visible on chest x-ray since 06/30/2020. - Likely related to pulmonary exposures from years ago. Taken off amiodarone as a precaution. Referred to pulmonology at prior visit. (6) Medication adverse effect: Code(s): T50.905A - Adverse effect of unspecified drugs, medicaments and biological substances, initial encounter Category: Medical Plan: He is reporting side effects that he believes is from Multaq: Lightheadedness, need to take deep breaths, headaches. Will be stopping Multaq at this time. Orders: Orders CA echo transthoracic complete Today I48.0 - Paroxysmal atrial fibrillation, R06.02 - Shortness of breath Medications: Discontinued diphenhydramine HCl (Benadryl) Take [address] hour prior to scheduled CT scan Discontinued Reason: Patient Completed Course 25 mg PO ONCE 1 cap 0RF sleep dronedarone (Multaq) must administer with a meal/food Stop Flecanide - start Multaq Discontinued Reason: Doctor's Order 400 mg PO BID 30 days 60 tabs 2RF Coding Level of Care Code Est Pt Level 4 (94125) Diagnoses Paroxysmal atrial fibrillation I48.0 Sick sinus syndrome I49.5 Pacemaker Z95.0 Primary hypertension I10 Hypertension type: primary hypertension Abnormal CT scan, chest R93.89 Medication adverse effect T50.905A CPT Codes Cardiac Device Check - Cardiac Device 2: 99112-CP Cardiac Device Check, pacemaker dual lead ([id number]) EKG - CPT: 44885-[id number], Complete ([id number]) Time Spent (min) 36
--- OUTSIDE RECORDS SUMMARY | 2024-09-15 14:35 | XMS_ITS | Clinical Summary ---
Author Organization [facility] Address [address] [place] [address] Care Team Providers Care Warehouse Shift Supervisor Name Role Phone Gonzalez Wilkerson Primary Care Provider [phone] Source Comments PLEASE NOTE, if this patient [...] 2 - PCV20 or PCV21) 05/21/2017 05/21/2016 Imm-RSV (adult) (1 - 1-dose 75+ series) 2021 [id number]-29 (1 - 2023- season) 2023 Colonoscopy 12/25/2023 12/24/2013 (Brisa otero by Outside Provider) Colorectal Cancer Screening 12/25/2023 Alcohol and Drug Screen 02/12/2024 05/22/19 17, 05/21/2016, 02/22/2015 Imm-Influenza (#1) 2024 12/12/2016, 12/31/2014 Imm-DTaP/Tdap/Td (2 - Td or Tdap) 05/21/2026 017 Insurance MEDICARE - [place] [facility] SAFETY NET Care Teams Warehouse Shift Supervisor Relationship Specialty Start Date End Date Gonzalez Wilkerson PA [address] [place] [id number] PCP - General Internal Medicine 08/06/16
--- OUTSIDE RECORDS SUMMARY | 2024-09-15 14:35 | XMS_ITS | Encounter Summary ---
Author Organization [employer] Address 75 [facility] 7 [place] [address] Care Team Providers Care Fermenting Cellar Dropper Name Role Phone Jeffrey Johansen MD Primary Care Provider [phone] Reason for Visit * Reason Onset Date Comments Dr. Shah referral faxed out 05/22/2024 Encounter Details Date Type Department Care Team ([facility] st Contact Info) Description 05/22/2024 Telephone [facility] ADULT DENTAL [address] [place] [address] Reynoso referral faxed out Social History Tobacco Use [...] Miscellaneous Notes * Telephone Encounter - Blanca Agrawal - 05/22/2024 10:04 AM EDT Message for Dr. Shah and desktop architect Son of patient called in looking for the phone number for [facility] Dental. Patient was referred back in april, and he didn't have referral on file to reach out to the office. Phone number provided to the patients son for both [place] and [place] offices, fax has also been faxed out to [place] office. However, fax number for [place] was not available. Patient son has been informed that the fax has been sent out. DR documented in this encounter Plan of Treatment Not on file documented as of this encounter Visit Diagnoses Not on filedocumented in this encounter Care Teams Fermenting Cellar Dropper Relationship Specialty Start Date End Date Jeffrey Johansen MD [address] [place] [address] PCP - General Internal Medicine 03/26/17 documented as of this encounter
== END 2024-09-15 15:23 | disposition home or self-care (01) ==
LOC: HO.HCS 13:54
PROVIDERS: PCP Internal Medicine; Visit Provider Nurse Practitioner Family
DX: I48.0 Paroxysmal atrial fibrillation (principal); I49.5 Sick sinus syndrome; Z95.0 Presence of cardiac pacemaker; I10 Essential (primary) hypertension; R93.89 Abnormal findings on diagnostic imaging of other specified body structures; T50.905A Adverse effect of unspecified drugs, medicaments and biological substances, initial encounter
CPT/HCPCS: 93010; 93280; 99214

== ENCOUNTER → 2024-09-15 13:53 | Outpatient (BNVA) | payer MEDICARE, SELFPAY | PROVIDERS: PCP Internal Medicine; Visit Provider Nurse Practitioner Family | DX: Z45.018 Encounter for adjustment and management of other part of cardiac pacemaker (principal); T50.905A Adverse effect of unspecified drugs, medicaments and biological substances, initial encounter; I48.0 Paroxysmal atrial fibrillation; I49.5 Sick sinus syndrome; I10 Essential (primary) hypertension; R93.89 Abnormal findings on diagnostic imaging of other specified body structures | CPT/HCPCS: 93005; 93280; 99212 ==

== ENCOUNTER → 2024-10-11 23:59 | Outpatient (BNV) | payer MEDICARE, SELFPAY ==
--- NOTE | 2024-10-14 14:49 | MHC.OFFVIS ---
Intake Visit Reasons: Remote device check- [facility] Del Allergies aspirin Allergy (Unknown, Verified 02/07/24 13:10) nausea and vomiting, GI upset furosemide (From Lasix) Allergy (Verified 02/07/24 13:10) rash meloxicam Allergy (Verified 09/15/24 14:08) Abdominal Pain dronedarone (From Multaq) Adverse Reaction (Verified 02/07/24 13:10) leg swelling PFSH Medical History Pacemaker Persistent atrial fibrillation Hyperplastic polyp of large intestine Adenomatous colon polyp Internal hemorrhoid Paroxysmal atrial fibrillation History of cardioversion HTN (hypertension) Surgical History Hx of colonoscopy Family History Father Stroke Mother No problems noted. Social History Are you a primary career development director to a significant other at home: No Do you presently have visiting nurse or other home services: No Alcohol intake: current Alcohol intake frequency: 0-2 drinks per day Alcohol type: wine and hard liquor Patient Tobacco Use Status: Former Tobacco user Tobacco use type: Cigarette Office Procedures Cardiac Device Check Cardiac Device Check Details: Remote pacemaker report generated 10/11/2024. Pacemaker function is adequate [id number] Cardiac Device Interrogation, pacemaker Procedure code (CPT) selection complete Assessment & Plan Assessment & Plan (1) Pacemaker: Comment: Dual-chamber [place] pacemaker placed 09/11/[address] Hubbard. Code(s): Z95.0 - Presence of cardiac pacemaker Category: Medical Plan: See above Coding Level of Care Code Procedure Only Diagnoses Pacemaker Z95.0 CPT Codes Cardiac Device Check - Cardiac Device 12: [id number] Cardiac Device Interrogation, pacemaker ([id number])
== END ==
PROVIDERS: PCP Internal Medicine; Visit Provider Internal Medicine Cardiovascular Disease
DX: Z45.018 Encounter for adjustment and management of other part of cardiac pacemaker (principal)
CPT/HCPCS: 93294

== ENCOUNTER → 2024-10-23 12:33 | Outpatient (REF) | payer MEDICARE, SELFPAY ==
--- NOTE | 2024-10-23 12:36 | CA_ITS ---
Transthoracic Echocardiogram Patient (Last, First, Middle): Lou Kruse, Gender: M Date of : 1945 Age: 79 Procedure Date: 10/23/2024 Procedure Type: Transthoracic Echocardiogram Location: OP Height: 160.02 cm Weight: 64.41 kg BSA: 1.67 m2 Heart Rate: 70 bpm BP: 124 / 72 mmHg Associate Research Scientist: SB Referring MD: Italia Abbasi DIAGNOSTIC TECHNOLOGIST-C Alcohol Law Enforcement Agent: Jimy Willson MD Symptoms: R06.02 - Shortness of breath Study Quality: Adequate ECG Rhythm: Paced Conclusions: - 1. Normal LV ejection fraction 55-60% with grade 2 diastolic dysfunction 2. Severely dilated left atrium 3. Mild aortic regurgitation 4. Normal LV systolic pressure 5. Upper limits of normal ascending aortic size 6. No gross pericardial effusion Findings Left Ventricle Normal left ventricular size, thickness, and systolic function. The visually estimated ejection fraction is between 55-60%. There is paradoxical septal motion consistent with a right ventricular pacemaker. Spectral Doppler is indicative of a pseudonormal filling pattern. E/E prime ratio is >15, consistent with elevated filling pressures. Evidence suggests grade II (moderate) diastolic dysfunction. Right Ventricle Normal right ventricular cavity size and systolic function. There is a pacemaker wire seen in the right ventricle. Atria The left atrium is severely dilated. There is no evidence of interatrial shunt. The right atrium is mildly dilated. A pacemaker wire is identified in the right atrium. Aortic Valve There is mild calcification of the aortic valve. There is no aortic valve stenosis. There is mild aortic valve regurgitation. Mitral Valve There is mild anterior mitral leaflet thickening. There is trace mitral valve regurgitation. There is no mitral valve stenosis. Pulmonic Valve The pulmonic valve was not well visualized. Tricuspid Valve Normal tricuspid valve structure. There is mild to moderate tricuspid valve regurgitation. The right ventricular systolic pressure is normal. The right ventricular systolic pressure is 29 mmHg. Normal right atrial pressure. There is no evidence of pulmonary hypertension. Great Vessels All visible segments of the aorta are normal in size. The pulmonary artery was not well visualized. There is no dilatation of the ascending aorta measuring 3.60 cm. Venous The inferior vena cava is normal in size and collapses greater than 50% with inspiration. Pericardium/Pleural There is no evidence of pericardial effusion. Prior Study Comparison No significant change compared to prior study dated: 08/21/2023. Measurements 2D Linear Measurements IVSd: 1.00 0.6-0.9/0.6-1.0 cm LVIDd: 4.40 3.9-5.3/4.2-5.9 cm LVIDd Index: 2.63 2.4-3.2/2.2-3.1 cm/m2 LVIDs: 3.40 2.0-3.6 cm LVPWd: 0.79 0.7-1.1 cm LA Diam: 4.20 2.7-3.8/3.0-4.0 cm LAIDs Index: 2.51 1.5-2.3 cm/m2 LV Mass: 157.12 67-162/88-224 g LV Mass Index: 94.08 43-95/49-115 g/m2 LVOT Diam: 2.30 3.0+(-)1.3 cm 2D Systolic Function EF 4C: 55.80 >55% EF 2C: 57.60 >55% EF BiP: 55.20 >55% Mitral Valve MV VTI: 0.20 MV Pk Victor Manuel: 0.81 MV Mn Victor Manuel: 0.52 MV Pk Grad: 3.00 MV Mn Grad: 1.00 MV Pk E: 0.75 MV PK A: 0.42 MV Decel Time: 267.00 E/A: 1.80 PHT: 78.00 MVA PHT: 2.82 MVA Continuity: 3.51 Decel [place]: 2.81 Aortic Valve AoV Pk Victor Manuel: 1.53 AoV Mn Victor Manuel: 1.19 AoV VTI: 0.31 AoV Pk Grad: 9.00 Aov Mn Grad: 6.00 DIAN Cont.VTI: 2.26 LVOT LVOT Pk Victor Manuel: 0.89 LVOT Mn Victor Manuel: 0.64 LVOT VTI: 0.17 LVOT Pk Grad: 3.00 LVOT Mn Grad: 2.00 LVOT Diam: 2.30 LVOT Area: 4.15 Diastolic Function MV Pk E: 0.75 MV Pk A: 0.42 E/A: 1.80 Right Ventricle TAPSE (mm): 25.20 TVS' Victor Manuel: 13.40 Tricuspid Valve TR Pk Victor Manuel: 2.53 TR Pk Grad: 26.00 RA Press: 3.00 RVSP: 29.00 Great Vessels Aorta Sinus of Valsalva: 3.80 2.0-3.5 cm Ao Asc: 3.60 2.1-3.4 cm Pulmonary Veins Pulm Vein S/D 0.50 Pulmonary Valve PV Pk Victor Manuel: 0.94 Peak PV Grad: 4.00 SC Pk Victor Manuel: 1.91 Updated in Other Vendor System with Status of Final Jimy Willson MD electronically signed on 10/23/2024 3:38:13 PM with status of Final
--- OUTSIDE RECORDS SUMMARY | 2024-10-23 14:55 | XMS_ITS | Encounter Summary ---
Author Organization [employer] Address 75 [facility] 7t [place] [address] Care Team Providers Care Pin Inserter Regulator Name Role Phone Jeffrey Johansen MD Primary Care Provider [phone] Encounter Details Date Type Department Care Team ([facility] Contact Info) Description 07/28/2024 Orders Only [facility] [address] [place] [address] ProviderJeff MD Social History Tobacco Use Types Packs/Day Years [...] Procedure Name Priority Date/Time Associated Diagnosis Comments CT CHEST W CONTRAST Routine 07/27/2024 2:26 PM EDT documented in this encounter Results * CT Chest w/ Contrast (07/27/2024 2:26 PM EDT) Anatomical Region Laterality Modality Body, Chest Computed Tomogra phy us Historical Provider MD NUNEZ CT PROCEDURES Final R esult documented in this encounter Visit Diagnoses Not on filedocumented in this encounter Care Teams Pin Inserter Regulator Relationship Specialty Start Date End Date Jeffrey Johansen MD [address] [place] [id number] PCP - General Internal Medicine 03/26/17 documented as of this encounter
--- OUTSIDE RECORDS SUMMARY | 2024-10-23 14:55 | XMS_ITS | Encounter Summary ---
Author Organization [employer] Address 75 [facility] 7 [place] [address] Care Team Providers Care Trapper Bird Name Role Phone Jeffrey Johansen MD Primary Care Provider [phone] Encounter Details Date Type Department Care Team ([facility] st Contact Info) Description 06/06/2023 Orders Only [facility] CH[facility] MED & PEDS [address] [place], [place] [phone] Provider, MD Jeff Social History Tobacco Use [...] on filedocumented in this encounter Care Teams Trapper Bird Relationship Specialty Start Date End Date Jeffrey Johansen MD [address] [place] [address] PCP - General Internal Medicine 03/26/17 documented as of this encounter
--- OUTSIDE RECORDS SUMMARY | 2024-10-23 14:55 | XMS_ITS | Encounter Summary ---
Author Organization [employer] Address 75 [facility] 7 [place] [address] Care Team Providers Care Industrial Boilermaker Name Role Phone Jeffrey Johansen MD Primary Care Provider [phone] Encounter Details Date Type Department Care Team (Latest Contact Info) Description 10/27/2018 Abstract [facility] CONVERSIONS Dental, Provider, DDS Social History [...] on filedocumented in this encounter Care Teams Industrial Boilermaker Relationship Specialty Start Date End Date Jeffrey Johansen MD [address] [place] [address] PCP - General Internal Medicine 03/26/17 documented as of this encounter
--- OUTSIDE RECORDS SUMMARY | 2024-10-23 14:55 | XMS_ITS | Encounter Summary ---
Author Organization [employer] Address 75 [facility] 7t [place] [address] Care Team Providers Care Geophysical Laboratory Supervisor Name Role Phone Jeffrey Johansen MD Primary Care Provider [phone] Reason for Visit * Reason Onset Date Comments Dr. Shah referral faxed out 05/22/2024 Encounter Details Date Type Department Care Team ([facility] st Contact Info) Description 05/22/2024 Telephone [facility] ADULT DENTAL [address] [place] [address] Reynoso referral faxed [...] Message for Dr. Shah and front desk specialist Son of patient called in looking for the phone number for [facility] Dental. Patient was referred back in april, and he didn't have referral on file to reach out to the office. Phone number provided to the patients son for both [place] and [place] offices, fax has also been faxed out to [place] office. However, fax number for [place] was not available. Patient son has been informed that the fax has been sent out. DR documented in this encounter Plan of Treatment Not on file documented as of this encounter Visit Diagnoses Not on filedocumented in this encounter Care Teams Geophysical Laboratory Supervisor Relationship Specialty Start Date End Date Jeffrey Johansen MD [address] [place] [address] PCP - General Internal Medicine 03/26/17 documented as of this encounter
--- OUTSIDE RECORDS SUMMARY | 2024-10-23 14:55 | XMS_ITS | Encounter Summary ---
Author Organization [employer] Address 75 [facility] 7 [place] [address] Care Team Providers Care School Library Media Specialist Name Role Phone Jeffrey Johansen MD Primary Care Provider [phone] Encounter Details Date Type Department Care Team (Latest Contact Info) Description 07/15/2020 Abstract [facility] CONVERSIONS Dental, Provider, DDS Social History Tobacco [...] on filedocumented in this encounter Care Teams School Library Media Specialist Relationship Specialty Start Date End Date Jeffrey Johansen MD [address] [place] [address] PCP - General Internal Medicine 03/26/17 documented as of this encounter
--- OUTSIDE RECORDS SUMMARY | 2024-10-23 14:55 | XMS_ITS | Clinical Summary ---
Author Organization [facility] Address [address] [place] [address] Care Team Providers Care Printed Circuit Board Pcb Designer Name Role Phone Gonzalez Wilkerson Primary Care Provider [phone] Source Comments PLEASE NOTE, if this patient [...] (adult) (1 - 1-dose 75+ series) 2021 Colonoscopy 12/25/2023 12/24/2013 (Brisa otero by Outside Provider) Colorectal Cancer Screening 12/25/2023 Alcohol and Drug Screen 02/12/2024 05/22/19 17, 05/21/2016, 02/22/2015 [id number] ( - 2023- season) 2024 Imm-Influenza (#1) 2024 12/12/2016, 12/31/2014 Imm-DTaP/Tdap/Td (2 - Td or Tdap) 05/21/2026 017 Insurance MEDICARE - [place] [facility] Care Teams Printed Circuit Board Pcb Designer Relationship Specialty Start Date End Date Gonzalez Wilkerson PA [address] [place] [address] PCP - General Internal Medicine 08/06/16
--- OUTSIDE RECORDS SUMMARY | 2024-10-23 14:55 | XMS_ITS | Encounter Summary ---
Author Organization [employer] Address 75 [facility] 7t [place] [address] Care Team Providers Care Programming Director Name Role Phone Jeffrey Johansen MD Primary Care Provider [phone] Encounter Details Date Type Department Care Team ([facility] st Contact Info) Description 10/12/2022 Orders Only [facility] CHC MED & PEDS [address] [place], [place] [phone] Jeffrey Johansen MD [address] [place], [place] [phone] Social History Tobacco Use Types Packs/Day Years [...] EST) Sodium 140 135 - 145 mmol/L [facility] Potassium 4.3 3.3 - 5.1 mmol/L [facility] Chloride 104 96 - 108 mmol/L [facility] Carbon Dioxide 30(H) 22 - 29 mmol/L [facility] Anion Gap 10(L) 12 - 20 [facility] Urea Nitrogen (BUN) 21(H) 9 - 16 mg/dL [facility] Creatinine, Serum 1.06 0.5 - 1.4 mg/dL [facility] Estimated Glomerular Filt Rate >60 [facility] Comment:NOTE: For -Am erican individuals, multiply the result by 1.210.Chronic Kidney Disease: Estimated GFR < 60 mL/min/1.12t2Flfaen Kidney Disease: Estimated GFR < 15 mL/min/1.73m2 Glucose 97 60 - 115 mg/dL [facility] Calcium 9.7 8.4 - 10.2 mg/dL [facility] 02/28/2023 10:4 1 AM EST 02/28/2023 10:41 AM EST us Generic External Data Provider LAB BLOOD ORDERAB LES Final Result Performing Organization Address City/[facility]/ZIP Co de Phone Number [facility] [address] [place] [phone] * B Type Natriuretic Peptide (BNP) (02/28/2023 10:41 AM EST) B Type Natriuretic Peptide 78 <100 pg/mL [facility] Comment:For those patients w ho are being treated with Natrecor(nesiritide, recombinant BNP), BNP testing should beperformed at least two hours post treatment in order toensure that only endogenous levels of BNP are detected. 02/28/2023 10:4 1 AM EST 02/28/2023 10:41 AM EST us Generic External Data Provider LAB BLOOD ORDERAB LES Final Result Performing Organization Address [facility]/ZIP Co de Phone Number [facility] [address] [place] [phone] * CBC (02/28/2023 10:41 AM EST) White Blood Count 6.8 4.8 - 10.8 X10*3/uL [facility] Red Blood Count 4.62 4.60 - 5.80 X10*6/uL [facility] Hemoglobin 14.0 14.0 - 18.0 g/dl [facility] Hematocrit 42.3 42.0 - 52.0 % [facility] Mean Corpuscular Volume 91.6 80.0 - 98.0 fL [facility] Mean Corpuscular Hemoglobin 30.3 27.0 - 33.0 pg [facility] Mean Corpuscular HGB Conc 33.1 31.0 - 36.0 g/dl [facility] Red Cell Distribution Width 13.2 11.0 - 16.0 % [facility] Platelet Count 247 160 - 400 X10*3/uL [facility] Mean Platelet Volume 10.3 9.4 - 12.4 [facility] NRBC Pct Auto 0.0 0.0 - 0.2 /100WBC [facility] NRBC Abs Auto 0.000 0.0 - 0.012 X10*3/uL [facility] 02/28/2023 10:4 1 AM EST 02/28/2023 10:41 AM EST us Generic External Data Provider LAB BLOOD ORDERAB LES Final Result Performing Organization Address City/State/[facility] Co de Phone Number [facility] [address] [place] [address] [phone] documented in this encounter Visit Diagnoses Not on filedocumented in this encounter Care Teams Programming Director Relationship Specialty Start Date End Date Jeffrey Johansen MD [address] [place] [phone] PCP - General Internal Medicine 03/26/17 documented as of this encounter
--- OUTSIDE RECORDS SUMMARY | 2024-10-23 14:55 | XMS_ITS | Encounter Summary ---
Author Organization [employer] Address 75 [facility] 7 [place] [address] Care Team Providers Care C2 Tactical Analysis Technician Name Role Phone Jeffrey Johansen MD Primary Care Provider [phone] Reason for Visit * Reason Onset Date Comments Nurse Triage 09/11/2024 Encounter Details Date Type Department Care Team ([facility] st Contact Info) Description 09/11/[address] [facility] MEDICINE [address] [place] [address] Jeffrey Johansen MD [address] [place] [address] Nurse Triage Social History Tobacco Use Types Packs/Day Years [...] the past 12 months, has t he [employer], [employer], oil or water [employer] threatened to shut off services in your [...] encounter Miscellaneous Notes * Telephone Encounter - Maral Tipton RN - 09/11/2024 11:56 AM EDT Called pt. No answer. Unable to leave voicemail as voicemail box is full. Called back x2. Pt. Son Ethan answered, and I received verbal permission from pt. To speak with Son. Son States that pt. Had an ablation done in the Spring 2024. Pt. Has started a new medication and he states that the new medication makes him tired and has some SOB at times from a tickle cough in throat. Pt. Is unsure which medication is making him feel this way. Pt. Son Does have a call out to Color Worker, Dr. Perez at [facility] since Color Worker recently changed medications for pt. Pt. Has also been getting headaches and making him feel tired and Just not himself overall Pt. Wants to discuss concerns. Denies any chest pain, shoulder pain, jaw pain or any other cardiac sx. Pt. Wants appt. Wit h PCP but, he wants a scheduled appt. Within the next week and only with PCP. I did advise that Caren be working all day in [facility] walk in on Saturday09/14/24 but, pt. Son states that due to his work schedule he wants a scheduled appt. With PCP. Advised I will forward this message as I do not see any available appts. In PCP schedule that I am allowed to book. Will send this note to PCP and [facility] team nurses to discuss any opening and call pt. Son back with appt. Protocol Used: Headache (Adult) Protocol-Based Disposition: See in Office or Video Visit Today Video visit offer not recorded Positive Triage Questions: * Patient wants to be seen * Mild - Moderate headache present > 3 days (72 hours) * All higher-acuity triage questions were negative * Telephone Encounter - Kathleen Nav Odell - 09/11/2024 11:28 AM EDT Symptoms: Headache, Ear Congestion Without Pain Outcome: Schedule an urgent appointment (within 4 hours) or talk to a nurse or provider soon Reason: Getting worse The caller accepted this outcome. Contact pt son at [phone] No need translator/interpreter documented in this encounter Plan of Treatment Not on file documented as of this encounter Visit Diagnoses Not on filedocumented in this encounter Care Teams C2 Tactical Analysis Technician Relationship Specialty Start Date End Date Jeffrey Johansen MD [address] [place] [phone] PCP - General Internal Medicine 03/26/17 documented as of this encounter
--- OUTSIDE RECORDS SUMMARY | 2024-10-23 14:55 | XMS_ITS | Encounter Summary ---
Author Organization [employer] Address [address] [facility] [address] 7[address] [place] [address] Care Team Providers Care Fuel Cell Battery Technician Name Role Phone Jeffrey Johansen MD Primary Care Provider [phone]- [phone] Encounter Details Date Type Department Care Team (Late st Contact Info) Description 08/16/2022 Telephone [facility] ADULT DENTAL [address] [place] [address] Chaitanya Correia DDS [address] [place] [address] Social History Tobacco Use Types Packs/Day Years [...] on filedocumented in this encounter Care Teams Fuel Cell Battery Technician Relationship Specialty Start Date End Date Jeffrey Johansen MD [address] [place] [address] PCP - General Internal Medicine 03/26/17 documented as of this encounter
--- OUTSIDE RECORDS SUMMARY | 2024-10-23 14:55 | XMS_ITS | Clinical Summary ---
Author Organization [employer] Address [address] [facility] 7t [place] [address] Care Team Providers Care Intervention Specialist Name Role Phone Jeffrey Johansen MD Primary Care Provider [phone] Allergies Active Allergy Reactions Criticality Noted Date Comments Aspirin Diarrhea,Headache 06/29/2014 Dronedarone 02/02/2022 Furosemide Hives 07/18/2022 Meloxicam 02/02/2022 Medications amLODIPine (Norvasc) 2.5 MG tablet Take 2.5 mg by mouth at bedtime. 06/21/19 22 Active amiodarone (Pacerone) 200 MG tablet Take 1 tablet by mouth at bed time. 08/02/19 22 Active Ketotifen Fumarate (Zaditor) 0.035 % solutionIndica tions:Itchy eyes Administer 1 drop into affected eye(s) 2 times daily. 5 mL 08/05/19 24 Active atorvastatin (Lipitor) 40 MG tablet TAKE ONE TABLET AT BEDTIME 30 tablet 6 11/29/19 24 Active Xarelto 20 MG tablet TAKE ONE TABLET EVERY EVENING WITH A MEAL 90 tablet 2 07/18/19 25 Active flecainide (Tambocor) 150 MG tablet Take 150 mg by mouth 2 times daily. 08/01/19 25 Active lisinopril 30 MG tablet TAKE ONE TABLET EVERY MORNING 30 tablet 3 10/06/19 25 Active LORazepam (Ativan) 1 MG tabletIndicati ons:Anxiety 1 mg 30 minutes prior to the procedure, may repeat 1 mg 30 minutes later if still anxious 2 tablet 10/10/19 25 Active lisinopril 30 MG tablet Take 1 tablet (30 mg) by mouth in the morning. 30 tablet 3 05/22/19 25 025 Discontinued escitalopram (Lexapro) 5 MG tabletIndicati ons:Anxiety Take 1 tablet (5 mg) by mouth Once per day. 30 tablet 2 07/03/19 25 025 Discontinued(Th erapy completed) Active Problems Problem Noted Date Diagnosed Date [...] Encounters Date Type Department Care Team Description 10/06/2024 Telephone [facility] [address] [place] [address] Jeffrey Johansen MD 10/03/2024 Refill [facility] [address] [place] [address] Jeffrey Johansen MD 09/30/2024 Orders Only [facility] [address] [place] [address] Jeffrey Johansen MD Episodic tension-type headache, not intractable (Primary Dx); Anxiety 09/28/2024 Telephone [facility] [address] [place] [address] Jeffrey Johansen MD Referral; medical question 09/11/[address] [address] Jeffrey Johansen MD Nurse Triage 08/25/[address] [address] Jeffrey Johansen MD Medication Question; fyi 08/03/2024 Telephone [facility] [address] [place] [address] Jeffrey Johansen MD Referral 07/28/2024 Orders Only [facility] [address] [place] [address] ProviderJeff MD 07/27/2024 Orders Only [facility] External Provider, [facility] from Last 3 Months Immunizations Immunization Administration [...] 60 07/02/2024 11:02 AM EDT Temperature 36.7 C (98.1 F) 07/02/2024 11:02 AM EDT Respiratory Rate 20 07/02/2024 11:02 AM EDT [...] older (1 - 1-dose 75+ series) 2021 Dental Oral Exam 08/11/2024 02/11/2024, 03/07/2023 Dental Prophylaxis 08/11/2024 02/11/2024, 03/07/2023 COVID-19 Vaccine ( season) 2024 12/18/2021, 05/14/2020, 04/23/2020 Influenza Vaccine (#1) 2024 , 03/01/2024, 12/13/2022, Additional history exists Dental X-Ray: Bitewings 02/11/2025 02/11/20 24, 03/07/2023, 07/20/2022, Additional history exists Tobacco Screening 04/09/2025 04/09/2024 Dental X-Ray: Full Mouth 03/08/2026 03/07/2023 Colonoscopy 05/07/2026 05/08/2023 Colorectal Cancer Screening 05/07/2026 DTaP/Tdap/Td Vaccines (2 - Td or Tdap) 05/21/2026 05/21/2016 Lipid Panel 07/02/2029 07/02/2024, 06/09/2020 Pneumococcal Vaccine: 50+ Years Completed 12/29/2018, 05/21/2016, 05/21/2016 HIB Vaccines Aged Out No longer eligi [...] Comments CT CHEST W CONTRAST Routine 07/27/2024 2 :[address] CHEST WO CONTRAST Routine 07/27/2024 10:58 AM EDT LIPID PANEL, STANDARD Routine 07/02/2024 12:04 PM EDT Vitamin D deficiency PROPHYLAXIS - ADULT Routine 02/11/2024 1 2:00 PM EST BITEWINGS - 4 RADIOGRAPHIC IMAGES Routine 02/11/2024 12:00 PM EST PERIODIC ORAL EVALUATION - ESTABLISHED PATIENT Routine 02/11/2024 12:00 PM EST HM COLONOSCOPY Routine 05/08/2023 4:09 PM EDT INTRAORAL - COMPLETE SERIES OF RADIOGRAPHIC IMAGES Routine 03/07/2023 3:00 PM EST from Last 3 Months or Most Recently Relevant to Health Maintenance Results * CT Chest w/ Contrast (07/27/2024 2:26 PM EDT) Anatomical Region Laterality Modality Body, Chest Computed Tomogra phy us Historical Provider MD NUNEZ CT PROCEDURES Final R esult * CT Chest w/o Contrast (07/27/2024 10:58 AM EDT) Anatomical Region Laterality Modality Body, Chest Computed Tomogra phy 07/27/2024 10:5 8 AM EDT Narrative 07/27/2024 12:32 PM EDT [address] [address] [address] Scan Report Signed Patient: Lou Kruse MR#: [id number] 3 : 1945 Acct:[id number] Age/Sex: 79 / M ADM Date: 07/27/24 Loc: HO.CT Attending Dr: Italia MCCORMICK Ordering Physician: Italia Abbasi Date of Service: 07/27/24 Procedure(s): CT chest wo IV con Accession Number(s): [id number] cc: Jeffrey Johansen MD; Italia Abbasi Report Number: [id number]: Total DLP = 245.00 mGy-cm EXAMINATION: CT CHEST WITHOUT CONTRAST CLINICAL INFORMATION: Follow-up abnormality on other diagnostic imaging study DLP: 245 mGY*cm COMPARISON: Chest x-ray April 06, 2024, September 11, 2023, August 07, 2021, Jun 30 2020 TECHNIQUE: Multidetector volumetric CT imaging of the chest was done. Axial MIP volume rendering provided. Sagittal and coronal reformatted images were obtained. This CT examination was performed using dose optimization techniques as appropriate, variously including the following: *Automated exposure control *Adjustment of mA and/or kV according to patient size (this includes techniques or standardized protocols for targeted exams where dose is matched to indication/reason for exam; i.e. extremities or head) *Use of iterative reconstruction technique FINDINGS: LUNGS: Coarse septal lines are present in the lateral lung base, right greater than left. There is also linear density in the posterior medial basal right lower lobe. MEDIASTINUM: Calcified left hilar lymph node is present. There is a 2-lead pacemaker. Generator is in the left anterior medial chest. There are 2 leads and the extent to the right atrium and to the right ventricle. CORONARY ARTERY CALCIFICATION: Present PLEURA: There is pleural thickening with calcification that has been visible since x-ray on June 30, 2020 . Pleural plaques measure up to 12 mm thick. Pleural plaque is thickest in the posterior medial chest wall along the mid to lower thoracic spine. There is no left pleural thickening. There are no pleural effusions. AXILLA: No lymphadenopathy. UPPER ABDOMEN: Unremarkable. OSSEOUS STRUCTURES: There are bridging osteophytes and syndesmophytes visible along the anterior spine, and also in the posterior upper thoracic spine. There is also osseous bridging of the tips of multiple thoracic spinous processes. There is also ankylosis of facet joints in the mid to lower thoracic spine. CT/CT chest wo IV con IMPRESSION: There are partially calcified pleural plaques in the right chest wall measuring up to 12 mm in thickness. The thickest pleural plaque is in the posterior medial right chest. There is also a calcified left hilar lymph node. There is also evidence of mild scarring in the lung bases. Changes are probably related to chronic granulomatous disease. Pleural plaques could be posttraumatic in nature. Pleural plaques have been visible since chest x-ray on June 30, 2020. However, the posterior medial pleural plaque is not well demonstrated on x-ray. Since the thickness of this plaque exceeds 10 mm, a more aggressive process such as mesothelioma is not entirely ruled out but is felt to be of low likelihood given the presence of chronic pleural plaques and lack of pleural effusion. Consider an additional follow-up CT chest in 4-6 months to reevaluate. Ankylosis spondylitis. Fleischner guidelines were followed. Electronically signed by: Tien Sutherland MD 07/27/2024 12:29 PM EDT Dictated By: Tien Sutherland MD Signed By: <Electronically signed by Tien Sutherland MD in OV> 07/27/24 1229 DD/ 1058 TD/TT: 07/27/24 1110 Training Program Developer: Procedure Note Donotuseinterpreter, Image - 07/27/[address] [address] [address] Scan Report Signed Patient: Radhika Kruse#: [id number] 3 : 1945cct:[id number] Age/Sex: 79 / MADM Date: 07/27/24 Loc: HO.CT Attending Dr: Italia MCCORMICK Ordering Physician: Italia Abbasi Date of Service: 07/27/24 Procedure(s): CT chest wo IV con Accession Number(s): [id number] cc: Jeffrey Johansen MD; Italia Abbasi Report Number: [id number]: Total DLP = 245.00 mGy-cm EXAMINATION: CT CHEST WITHOUT CONTRAST CLINICAL INFORMATION: Follow-up abnormality on other diagnostic imaging study DLP: 245 mGY*cm COMPARISON: Chest x-ray April 06, 2024, September 11, 2023, August 07, 2021, Jun 30 2020 TECHNIQUE: Multidetector volumetric CT imaging of the chest was done. Axial MIP volume rendering provided. Sagittal and coronal reformatted images were obtained. This CT examination was performed using dose optimization techniques as appropriate, variously including the following: *Automated exposure control *Adjustment of mA and/or kV according to patient size (this includes techniques or standardized protocols for targeted exams where dose is matched to indication/reason for exam; i.e. extremities or head) *Use of iterative reconstruction technique FINDINGS: LUNGS: Coarse septal lines are present in the lateral lung base, right greater than left. There is also linear density in the posterior medial basal right lower lobe. MEDIASTINUM: Calcified left hilar lymph node is present. There is a 2-lead pacemaker. Generator is in the left anterior medial chest. There are 2 leads and the extent to the right atrium and to the right ventricle. CORONARY ARTERY CALCIFICATION: Present PLEURA: There is pleural thickening with calcification that has been visible since x-ray on June 30, 2020 . Pleural plaques measure up to 12 mm thick. Pleural plaque is thickest in the posterior medial chest wall along the mid to lower thoracic spine. There is no left pleural thickening. There are no pleural effusions. AXILLA: No lymphadenopathy. UPPER ABDOMEN: Unremarkable. OSSEOUS STRUCTURES: There are bridging osteophytes and syndesmophytes visible along the anterior spine, and also in the posterior upper thoracic spine. There is also osseous bridging of the tips of multiple thoracic spinous processes. There is also ankylosis of facet joints in the mid to lower thoracic spine. CT/CT chest wo IV con IMPRESSION: There are partially calcified pleural plaques in the right chest wall measuring up to 12 mm in thickness. The thickest pleural plaque is in the posterior medial right chest. There is also a calcified left hilar lymph node. There is also evidence of mild scarring in the lung bases. Changes are probably related to chronic granulomatous disease. Pleural plaques could be posttraumatic in nature. Pleural plaques have been visible since chest x-ray on June 30, 2020. However, the posterior medial pleural plaque is not well demonstrated on x-ray. Since the thickness of this plaque exceeds 10 mm, a more aggressive process such as mesothelioma is not entirely ruled out but is felt to be of low likelihood given the presence of chronic pleural plaques and lack of pleural effusion. Consider an additional follow-up CT chest in 4-6 months to reevaluate. Ankylosis spondylitis. Fleischner guidelines were followed. Electronically signed by: Tien Sutherland MD 07/27/2024 12:29 PM EDT Dictated By: Tien Sutherland MD Signed By: <Electronically signed by Tien Sutherland MD in OV> 07/27/24 1229 DD/ 1058 TD/TT: 07/27/24 1110 Training Program Developer: [facility] External Provider IMG CT PROCEDURES Edited Result - Final * (ABNORMAL) Lipid Panel, Standard (07/02/2024 12:04 PM EDT) Triglycerides 62 <150 mg/dL [facility] Comment:Desirable Triglyceri de: less than 150 mg/dLBorderline High Triglyceride 150-199 mg/dLHigh Triglyceride: 200-499 mg/dLVery High Triglyceride: greater than or equal to 5OO mg/dL Cholesterol 194 <200 mg/dL [facility] Comment:Desirable Cholestero l: less than 200 mg/dLBorderline High Cholesterol: 200-239 mg/dLHigh Cholesterol: greater than 239 mg/dL LDL Cholesterol Calculated 113(H) <100 mg/dL [facility] Comment:Desirable LDL: less than 100 mg/dLNear Optimal/Above Optimal LDL: 110- 129 mg/dLBorderline High LDL: 130-159 mg/dLHigh LDL: 160-189 mg/dLVery High LDL: greater than or equal to 190 mg/dL HDL Cholesterol 69 >40 mg/dL [facility] Comment:Desirable HDL: great er than 40 mg/dL Note: This HDL assay may give artificially low results in patients with liver disease. Blood Venous blood specimen / Unknown 07/02/2024 12:04 PM EDT 07/02/2024 2:06 PM EDT us Jeffrey Johansen MD LAB BLOOD ORDERABLES Final Result [facility] [address] [place] [address] [phone] from Last 3 Months or Most Recently Relevant to Health Maintenance Insurance [facility] DUAL COMPLETE HMO [facility] FULL DENTAL - HSN FULL (MEDICAID) Care Teams Intervention Specialist Relationship Specialty Start Date End Date Jeffrey Johansen MD [address] [place] [phone] PCP - General Internal Medicine 03/26/17
--- OUTSIDE RECORDS SUMMARY | 2024-10-23 14:55 | XMS_ITS | Encounter Summary ---
Author Organization [employer] Address [address] [facility] 7 [place] [address] Care Team Providers Care Retort Kiln Burner Name Role Phone Jeffrey Johansen MD Primary Care Provider [phone] Reason for Visit * Reason Onset Date Comments ER Follow-up 07/18/2023 Encounter Details Date Type Department Care Team ([facility] st Contact Info) Description 07/18/2023 Telephone [facility] [address] [place], [place] [phone] Jeffrey Johansen MD [address] [place] [address] ER Follow-up Social History Tobacco Use Types [...] message below. Son states pt discharged from [facility] on 07/18/23 for dizziness and JAMISON. Pt had a full workup including imaging and was told everything returned WNL. Pt's pulse kept dipping into the 40's and at one point went down into the 30's. Pt son states [facility] informed him that it may be the amiodarone that is causing his pulse to dip and causing the pt's dizziness. [facility] informed son to contact associate software application engineer for f/u. Son states he is still [...] on : Date: 07/17/23 Discharged 07/18/23 Hospital: [facility] Seen for: dizziness and headache Patient advised will forward to team nurse for follow up documented in this encounter Plan of Treatment Not on file documented as of this encounter Visit Diagnoses Not on filedocumented in this encounter Care Teams Retort Kiln Burner Relationship Specialty Start Date End Date Jeffrey Johansen MD [address] [place] [phone] PCP - General Internal Medicine 03/26/17 documented as of this encounter
--- OUTSIDE RECORDS SUMMARY | 2024-10-23 14:55 | XMS_ITS | Encounter Summary ---
Author Organization [employer] Address [address] [facility] 7t [place] [address] Care Team Providers Care Thread Machine Operator Name Role Phone Jeffrey Johansen MD Primary Care Provider [phone] Encounter Details Date Type Department Care Team ([facility] st Contact Info) Description 10/06/[address] [facility] [address] [place] [address] Jeffrey Johansen MD [address] [place], [place] [phone] Social History Tobacco Use Types Packs/Day Years [...] on filedocumented in this encounter Care Teams Thread Machine Operator Relationship Specialty Start Date End Date Jeffrey Johansen MD [address] [place] [address] PCP - General Internal Medicine 03/26/17 documented as of this encounter
--- OUTSIDE RECORDS SUMMARY | 2024-10-23 14:55 | XMS_ITS | Encounter Summary ---
Author Organization [employer] Address [address] [facility] 7 [place] [address] Care Team Providers Care Field Captain Name Role Phone Jeffrey Johansen MD Primary Care Provider [phone]- [phone] Encounter Details Date Type Department Care Team ([facility] st Contact Info) Description 02/19/2024 Orders Only [facility] [address] [place], [place] [phone] Jeffrey Johansen MD [address] [place] [address] Social History Tobacco Use Types Packs/Day Years [...] on filedocumented in this encounter Care Teams Field Captain Relationship Specialty Start Date End Date Jeffrey Johansen MD [address] [place] [address] PCP - General Internal Medicine 03/26/17 documented as of this encounter
== END ==
LOC: HO.CARD 12:33
PROVIDERS: PCP Internal Medicine; Visit Provider Nurse Practitioner Family
DX: R06.02 Shortness of breath (principal); I48.0 Paroxysmal atrial fibrillation
CPT/HCPCS: 93306

== ENCOUNTER → 2024-10-23 12:36 | Outpatient (BNV) | payer MEDICARE, SELFPAY | PROVIDERS: PCP Internal Medicine; Visit Provider Internal Medicine Cardiovascular Disease | DX: I51.7 Cardiomegaly (principal) | CPT/HCPCS: 93306 ==

== ENCOUNTER 2024-10-27 10:17 | Outpatient (AMB) | payer MEDICARE, SELFPAY ==
--- NOTE | 2024-10-27 10:31 | A.OFFVIS_ITS ---
Vital Signs 10/27/24 10:32 Height 5 ft 9 in Weight 145 lb 8.081 oz BMI 21.5 BP 130/62 Blood Pressure Location Lt brachial Position Sitting Pulse 71 Pulse Source Pulse Oximeter Pulse Oximetry (%) 96 Oxygen Delivery Method Room Air Intake Visit Reasons: Abnormal CT scan Accompanied by: Son Allergies aspirin Allergy (Unknown, Verified 10/27/24 10:34) nausea and vomiting, GI upset furosemide (From Lasix) Allergy (Verified 10/27/24 10:34) rash meloxicam Allergy (Verified 10/27/24 10:34) Abdominal Pain dronedarone (From Multaq) Adverse Reaction (Verified 10/27/24 10:34) leg swelling HPI Comments Details: The patient is here for pulmonary evaluation. The patient is a 79-year-old gentleman with a known history of atrial fibrillation previously on amiodarone another antiarrhythmic agents. Patient did have a chest x-ray that was abnormal and subsequently followed up with a CT scan of the chest which I personally reviewed. Lung parenchyma appears to be okay although he does have what appears to be some pleural-based nodular densities with some calcifications. This brings up the likelihood of asbestos. He did work in a [employer] and was exposed to significant asbestos throughout his life. He denies any chest discomfort this point denies any pleuritic discomfort. He denies any significant shortness of breath or cough. He does not use any inhalers. Otherwise he is a pretty healthy gentleman. Denies any weight loss or night sweats. The pleural-based nodular densities are measuring 12 mm in size. Therefore based on the size the patient needs to have serial imaging studies to make sure there is no progression specially if this is a malignant process. His last CT scan was back in July 2024. Plan to repeat a CAT scan 6 months from that which will be in 3 months. The patient will also have pulmonary function studies and will have a follow-up at that point. If he develops any discomfort or any constitutional symptoms prior to that he will call for an earlier assessment. [facility] Medical History (Updated 10/27/24 @ 20:45 by Rivas Peres MD) Pulmonary nodule 1 cm or greater in diameter Asbestos-induced pleural plaque Pacemaker Persistent atrial fibrillation Hyperplastic polyp of large intestine Adenomatous colon polyp Internal hemorrhoid Paroxysmal atrial fibrillation History of cardioversion HTN (hypertension) Surgical History Hx of colonoscopy Family History Father Stroke Mother No problems noted. Social History Are you a primary care management assistant to a significant other at home: No Do you presently have visiting nurse or other home services: No Alcohol intake: current Alcohol intake frequency: 0-2 drinks per day Alcohol type: wine and hard liquor Patient Tobacco Use Status: Former Tobacco user Tobacco use type: Cigarette Review of Systems Const Denies chills, Denies fatigue, Denies fever(s), Denies frequent falls, Denies weakness, Denies weight gain and Denies weight loss Eyes Reports no additional complaints ENT Denies dizziness Card Denies chest pain, Denies leg edema, Denies lightheadedness, Denies palpitations, Denies dyspnea, Denies dyspnea on exertion, Denies orthopnea and Denies other (loss of consciousness) Resp Denies cough, Denies dyspnea, Denies dyspnea on exertion and Denies wheezing GI Denies hematochezia and Denies change in stool character Musc Denies abnormal gait, Denies muscle weakness, Denies numbness, Denies radiating pain into limb and Denies tingling Skin/Breast Denies rash Neuro Denies abnormal gait, Denies dizziness, Denies frequent falls, Denies numbness, Denies tingling and Denies weakness Endo Denies fatigue and Denies palpitations Dannie/Lymph Reports no additional complaints Aller/Immun Denies wheezing Physical Exam Vital Signs: Last Vital Signs Pulse 71 10/27/24 10:32 BP 130/62 10/27/24 10:32 Pulse Ox 96 10/27/24 10:32 Oxygen Delivery Method Room Air 10/27/24 10:32 BMI result Body Mass Index 21.5 Const General: healthy appearing and comfortable Orientation/consciousness: patient oriented x3 HEENT Head: Yes normocephalic Neck Neck: Yes supple Chest Chest palpation & inspection: normal inspection of the chest Resp Effort & Inspection: normal respiratory effort Auscultation: clear to auscultation bilaterally, no rales, no rhonchi and no wheezes Cardio Rate: regular rate Rhythm: regular rhythm Heart sounds: S1 normal heart sound present, S2 normal heart sound present, no gallops, no murmurs and no rubs GI Palpation (GI): Soft to palpation Skin General skin exam: no rashes or lesions noted Neuro General: patient oriented x3 Extrem General: Yes no clubbing, cyanosis or edema Psych Appearance: grossly normal Mental Status: mental status grossly normal Speech and movement: Normal speech and movement present Assessment & Plan Assessment & Plan (1) Asbestos-induced pleural plaque: Code(s): J92.0 - Pleural plaque with presence of asbestos Category: Medical (2) Pulmonary nodule 1 cm or greater in diameter: Code(s): R91.1 - Solitary pulmonary nodule Category: Medical Plan CT chest 3 months PFTs F/U 3 months or sooner if any new symptoms arise Orders: Orders PFT pulmonary function test Today R91.1 - Solitary pulmonary nodule CT chest wo IV con 10 Weeks J92.0 - Pleural plaque with presence of asbestos, R91.1 - Solitary pulmonary nodule Coding Level of Care Code New Pt Level 4 (76719) Diagnoses Asbestos-induced pleural plaque J92.0 Pulmonary nodule 1 cm or greater in diameter R91.1 Time Spent (min) 45
[2024-10-27 10:32] VITALS: BP 130/62; PULSE 71; O2SAT 96; BMI 21.5
--- OUTSIDE RECORDS SUMMARY | 2024-10-27 13:27 | XMS_ITS | Clinical Summary ---
Author Organization [facility] Address [address] [place] [address] Care Team Providers Care Weight Loss Centre Manager Name Role Phone Gonzalez Wilkerson Primary Care Provider [phone] Source Comments PLEASE NOTE, if this patient [...] Drug Screen 02/12/2024 05/22/19 17, 05/21/2016, 02/22/2015 [id number] ( - 2023- season) 2024 Imm-Influenza (#1) 2024 12/12/2016, 12/31/2014 Imm-DTaP/Tdap/Td (2 - Td or Tdap) 05/21/2026 017 Insurance MEDICARE - [place] [facility] Care Teams Weight Loss Centre Manager Relationship Specialty Start Date End Date Gonzalez Wilkerson PA [address] [place] [phone] PCP - General Internal Medicine 08/06/16
== END 2024-10-27 11:17 | disposition home or self-care (01) ==
LOC: HO.HPS 10:18
PROVIDERS: PCP Internal Medicine; Referring Provider Nurse Practitioner Family; Visit Provider Hospitalist
DX: J92.0 Pleural plaque with presence of asbestos (principal); R91.1 Solitary pulmonary nodule
CPT/HCPCS: 99204

== ENCOUNTER → 2024-10-27 10:17 | Outpatient (BNVA) | payer MEDICARE, SELFPAY | PROVIDERS: PCP Internal Medicine; Referring Provider Nurse Practitioner Family; Visit Provider Hospitalist | DX: R91.1 Solitary pulmonary nodule (principal); J92.0 Pleural plaque with presence of asbestos | CPT/HCPCS: 99202 ==

== ENCOUNTER 2024-10-31 08:42 | Outpatient (REF) | payer MEDICARE, SELFPAY ==
--- NOTE | ~2024-10-31 | CT_ITS ---
CLINICAL HISTORY: Headache CT head without contrast Comparison: None Findings: No acute hemorrhage, acute major vascular distribution infarct, intracranial mass, midline shift or hydrocephalus. No extra-axial fluid collection. Visualized paranasal sinuses and mastoid air cells normal. Orbits unremarkable. The cranium appears intact. Superficial soft tissue is unremarkable. Impression: 1. No acute intracranial finding. This document has been electronically signed by: Orly Miller MD on 11/02/2024 13:03:27
--- OUTSIDE RECORDS SUMMARY | 2024-10-31 08:45 | XMS_ITS | Encounter Summary ---
Author Organization [facility] [employer] Address [address] [facility] 7 [place] [address] Care Team Providers Care Laboratory Worker Name Role Phone Jeffrey Johansen MD Primary Care Provider [phone] Encounter Details Date Type Department Care Team ([facility] st Contact Info) Description 06/06/2023 Orders Only [facility] MED & PEDS [address] [place], [place] [phone] Provider, MD Jeff Social History Tobacco Use [...] on filedocumented in this encounter Care Teams Laboratory Worker Relationship Specialty Start Date End Date Jeffrey Johansen MD [address] [place] [address] PCP - General Internal Medicine 03/26/17 documented as of this encounter
--- OUTSIDE RECORDS SUMMARY | 2024-10-31 08:45 | XMS_ITS | Encounter Summary ---
Author Organization [employer] Address [address] [facility] 7t [place] [address] Care Team Providers Care Lasting Machine Operator Name Role Phone Jeffrey Johansen MD Primary Care Provider [phone] Reason for Visit * Reason Onset Date Comments Dr. Shah referral faxed out 05/22/2024 Encounter Details Date Type Department Care Team ([facility] st Contact Info) Description 05/22/2024 Telephone [facility] ADULT DENTAL [address] [place] [address] Reynoso referral faxed [...] AM EDT Message for Dr. Shah and senior front end engineer Son of patient called in looking for the phone number for [facility] Dental. Patient was referred back in april, and he didn't have referral on file to reach out to the office. Phone number provided to the patients son for both [place] and [place] offices, fax has also been faxed out to [place] office. However, fax number for [place] was not available. Patient son has been informed that the fax has been sent out. DR documented in this encounter Plan of Treatment Not on file documented as of this encounter Visit Diagnoses Not on filedocumented in this encounter Care Teams Lasting Machine Operator Relationship Specialty Start Date End Date Jeffrey Johansen MD [address] [place] [address] PCP - General Internal Medicine 03/26/17 documented as of this encounter
--- OUTSIDE RECORDS SUMMARY | 2024-10-31 08:45 | XMS_ITS | Encounter Summary ---
Author Organization [employer] Address [address] [facility] 7 [place] [address] Care Team Providers Care Product Expert Name Role Phone Jeffrey Johansen MD Primary Care Provider [phone] Encounter Details Date Type Department Care Team (Latest Contact Info) Description 10/27/2018 Abstract [facility] CONVERSIONS Dental, Provider, DDS Social [...] on filedocumented in this encounter Care Teams Product Expert Relationship Specialty Start Date End Date Jeffrey Johansen MD [address] [place] [address] PCP - General Internal Medicine 03/26/17 documented as of this encounter
--- OUTSIDE RECORDS SUMMARY | 2024-10-31 08:45 | XMS_ITS | Clinical Summary ---
Author Organization [employer] Address [address] [facility] 7t [place] [address] Care Team Providers Care Blood Splatter Analyst Name Role Phone Jeffrey Johansen MD Primary Care Provider [phone] Allergies Active Allergy Reactions Criticality Noted Date [...] times daily. 5 mL 08/05/19 24 Active Xarelto 20 MG tablet TAKE [...] still anxious 2 tablet 10/10/19 25 Active atorvastatin (Lipitor) 40 MG tablet TAKE ONE TABLET AT BEDTIME 30 tablet 6 10/31/19 25 Active atorvastatin (Lipitor) 40 MG tablet TAKE ONE TABLET AT BEDTIME 30 tablet 6 11/29/19 24 025 Discontinued lisinopril 30 MG tablet Take 1 tablet [...] Encounters Date Type Department Care Team Description 10/30/2024 Refill [facility] MED & PEDS [address] [place] [address] Jeffrey Johansen MD 10/06/[address] [address] Jeffrey Johansen MD 10/03/2024 Refill [facility] MEDICINE [address] [place] [address] Jeffrey Stanford MD 09/30/2024 Orders Only [facility] [address] [place] [address] Jeffrey Johansen MD Episodic tension-type headache, not intractable (Primary Dx); Anxiety 09/28/2024 Telephone [facility] [address] [place] [address] Jeffrey Johansen MD Referral; medical question 09/11/2024 Telephone [facility] MED[facility] [address] [place] [phone] Jeffrey Stanford MD Nurse Triage 08/25/[address] [address] Jeffrey Stanford MD Medication Question; fyi 08/03/2024 Telephone [facility] [address] [place] [address] Jeffrey Johansen MD Referral from Last 3 Months Immunizations Immunization Administration [...] Procedure Name Priority Date/Time Associated Diagnosis Comments LIPID PANEL, STANDARD Routine 07/02/2024 12:04 PM [...] Relevant to Health Maintenance Results * (ABNORMAL) Lipid Panel, Standard (07/02/2024 12:04 PM EDT) Triglycerides 62 <150 mg/dL [facility] Comment:Desirable Triglyceri de: less than 150 mg/dLBorderline High Triglyceride 150-199 mg/dLHigh Triglyceride: 200-499 mg/dLVery High Triglyceride: greater than or equal to 5OO mg/dL Cholesterol 194 <200 mg/dL [facility] Comment:Desirable Cholestero l: less than 200 mg/dLBorderline High Cholesterol: 200-239 mg/dLHigh Cholesterol: greater than 239 mg/dL LDL Cholesterol Calculated 113(H) <100 mg/dL [facility] Comment:Desirable LDL: less than 100 mg/dLNear Optimal/Above Optimal LDL: 110- 129 mg/dLBorderline High LDL: 130-159 mg/dLHigh LDL: 160-189 mg/dLVery High LDL: greater than or equal to 190 mg/dL HDL Cholesterol 69 >40 mg/dL [facility] Comment:Desirable HDL: great er than 40 mg/dL Note: This HDL assay may give artificially low results in patients with liver disease. Blood Venous blood specimen / Unknown 07/02/2024 12:04 PM EDT 07/02/2024 2:06 PM EDT Jeffrey Johansen MD LAB BLOOD ORDERABLES Final Result Performing Organization Address City/State/[facility] Co de Phone Number [facility] [address] [place] [address] [phone] from Last 3 Months or Most Recently Relevant to Health Maintenance Insurance [facility] DUAL COMPLETE HMO [facility] FULL DENTAL - HSN FULL (MEDICAID) Care Teams Blood Splatter Analyst Relationship Specialty Start Date End Date Jeffrey Johansen MD [address] [place] [phone] PCP - General Internal Medicine 03/26/17
--- OUTSIDE RECORDS SUMMARY | 2024-10-31 08:45 | XMS_ITS | Clinical Summary ---
Author Organization [facility] Address [address] [place] [address] Care Team Providers Care Plant Manager Name Role Phone Gonzalez Wilkerson Primary Care Provider [phone] Source Comments PLEASE NOTE, if this patient [...] Drug Screen 02/12/2024 05/22/19 17, 05/21/2016, 02/22/2015 [id number] ( - 2023- season) 2024 Imm-Influenza (#1) 2024 12/12/2016, 12/31/2014 Imm-DTaP/Tdap/Td (2 - Td or Tdap) 05/21/2026 017 Insurance MEDICARE - [place] [facility] SAFETY NET Care Teams Plant Manager Relationship Specialty Start Date End Date Gonzalez Wilkerson PA [address] [place] [phone] PCP - General Internal Medicine 08/06/16
--- OUTSIDE RECORDS SUMMARY | 2024-10-31 08:45 | XMS_ITS | Encounter Summary ---
Author Organization [employer] Address 75 [facility] 7t [place] [address] Care Team Providers Care Learning Technologist Name Role Phone Jeffrey Johansen MD Primary Care Provider [phone] Encounter Details Date Type Department Care Team ([facility] Contact Info) Description 07/28/2024 Orders Only [facility] [address] [place] [address] ProviderJeff MD Social History Tobacco Use Types [...] on filedocumented in this encounter Care Teams Learning Technologist Relationship Specialty Start Date End Date Jeffrey Johansen MD [address] [place] [address] PCP - General Internal Medicine 03/26/17 documented as of this encounter
--- OUTSIDE RECORDS SUMMARY | 2024-10-31 08:45 | XMS_ITS | Encounter Summary ---
Author Organization [employer] Address 75 [facility] 7 [place] [address] Care Team Providers Care Cnc Mill Operator Name Role Phone Jeffrey Johansen MD Primary Care Provider [phone] Encounter Details Date Type Department Care Team ([facility] st Contact Info) Description 02/19/2024 Orders Only [facility] MED & PEDS [address] [place], [place] [phone] Jeffrey Johansen MD [address] [place] [address] Social History Tobacco Use Types Packs/Day Years [...] on filedocumented in this encounter Care Teams Cnc Mill Operator Relationship Specialty Start Date End Date Jeffrey Johansen MD [address] [place] [address] PCP - General Internal Medicine 03/26/17 documented as of this encounter
--- OUTSIDE RECORDS SUMMARY | 2024-10-31 08:45 | XMS_ITS | Encounter Summary ---
Author Organization [employer] Address 75 [facility] 7 [place] [address] Care Team Providers Care Armored Car Guard And Driver Name Role Phone Jeffrey Johansen MD Primary Care Provider [phone] Reason for Visit * Reason Onset Date Comments Nurse Triage 09/11/2024 Encounter Details Date Type Department Care Team ([facility] st Contact Info) Description 09/11/2024 Telephone [facility] MEDICINE [address] [place] [address] Jeffrey Johansen MD [address] [place] [address] Nurse Triage Social History Tobacco Use Types [...] the past 12 months, has t he [employer], [employer], oil or water [employer] threatened to shut off services in your [...] Son Does have a call out to [facility], Dr. Perez at [facility] since [facility] recently changed medications for pt. Pt. Has [...] that Caren be working all day in [facility] walk in on Saturday09/14/24 but, pt. Son [...] accepted this outcome. Contact pt son at [phone] No need ampoule filler documented in this encounter Plan of Treatment Not on file documented as of this encounter Visit Diagnoses Not on filedocumented in this encounter Care Teams Armored Car Guard And Driver Relationship Specialty Start Date End Date Jeffrey Johansen MD [address] [place] [phone] PCP - General Internal Medicine 03/26/17 documented as of this encounter
--- OUTSIDE RECORDS SUMMARY | 2024-10-31 08:45 | XMS_ITS | Encounter Summary ---
Author Organization [employer] Address [address] [facility] 7t [place] [address] Care Team Providers Care Chemical Analytical Sampler Name Role Phone Jeffrey Johansen MD Primary Care Provider [phone] Encounter Details Date Type Department Care Team ([facility] st Contact Info) Description 10/06/2024 Telephone [facility] MEDICINE [address] [place] [address] Jeffrey Johansen MD [address] [place], [place] [phone] Social History Tobacco Use Types Packs/Day Years Used Date Smoking Tobacco: Never Passive Smoke Exposure: Never Smokeless Tobacco: Never Alcohol Use Standard Drinks/Week Comments Defer 0 (1 standard drink = 0.6 oz pur e alcohol) Housing Stability Answer Date Recorded What is your housing situation today? Not on nle e 07/02/[address] you [...] on filedocumented in this encounter Care Teams Chemical Analytical Sampler Relationship Specialty Start Date End Date Jeffrey Johansen MD [address] [place] [address] PCP - General Internal Medicine 03/26/17 documented as of this encounter
--- OUTSIDE RECORDS SUMMARY | 2024-10-31 08:45 | XMS_ITS | Encounter Summary ---
Author Organization [employer] Address [address] [facility] [address] 7t [place] [address] Care Team Providers Care Timing Adjuster Name Role Phone Jeffrey Johansen MD Primary Care Provider [phone] Encounter Details Date Type Department Care Team (Late st Contact Info) Description 08/16/2022 Telephone [facility] CHC ADULT DENTAL [address] [place] [address] Chaitanya Correia DDS [address] [place] [address] Social History Tobacco Use Types Packs/Day Years [...] on filedocumented in this encounter Care Teams Timing Adjuster Relationship Specialty Start Date End Date Jeffrey Johansen MD [address] [place] [address] PCP - General Internal Medicine 03/26/17 documented as of this encounter
--- OUTSIDE RECORDS SUMMARY | 2024-10-31 08:45 | XMS_ITS | Encounter Summary ---
Author Organization [employer] Address 75 [facility] 7 [place] [address] Care Team Providers Care Hotel Administrative Assistant Name Role Phone Jeffrey Johansen MD Primary Care Provider [phone] Reason for Visit * Reason Comments Med Refill Encounter Details Date Type Department Care Team ([facility] st Contact Info) Description 10/30/2024 Refill [facility] CHC MED & PEDS [address] [place], [place] [phone] Jeffrey Johansen MD [address] [place] [address] Social History Tobacco Use Types Packs/Day Years [...] on filedocumented in this encounter Care Teams Hotel Administrative Assistant Relationship Specialty Start Date End Date Jeffrey Johansen MD [address] [place] [address] PCP - General Internal Medicine 03/26/17 documented as of this encounter
--- OUTSIDE RECORDS SUMMARY | 2024-10-31 08:45 | XMS_ITS | Encounter Summary ---
Author Organization [employer] Address [address] [facility] 7t [place] [address] Care Team Providers Care Wax Ball Knock Out Worker Name Role Phone Jeffrey Johansen MD Primary Care Provider [phone]- [phone] Encounter Details Date Type Department Care Team ([facility] st Contact Info) Description 10/12/2022 Orders Only [facility] CHC MED & PEDS [address] [place], [place] [phone] Jeffrey Johansen MD [address] [place], [place] [phone] Social History Tobacco Use Types Packs/Day Years [...] EST) Sodium 140 135 - 145 mmol/L [facility] Potassium 4.3 3.3 - 5.1 mmol/L [facility] Chloride 104 96 - 108 mmol/L [facility] Carbon Dioxide 30(H) 22 - 29 mmol/L [facility] Anion Gap 10(L) 12 - 20 [facility] Urea Nitrogen (BUN) 21(H) 9 - 16 mg/dL [facility] Creatinine, Serum 1.06 0.5 - 1.4 mg/dL [facility] Estimated Glomerular Filt Rate >60 [facility] Comment:NOTE: For -Am erican individuals, multiply the result by 1.210.Chronic Kidney Disease: Estimated GFR < 60 mL/min/1.85k4Xtazuf Kidney Disease: Estimated GFR < 15 mL/min/1.73m2 Glucose 97 60 - 115 mg/dL [facility] Calcium 9.7 8.4 - 10.2 mg/dL [facility] 02/28/2023 10:4 1 AM EST 02/28/2023 10:41 AM EST us Generic External Data Provider LAB BLOOD ORDERAB LES Final Result Performing Organization Address City/[facility]/ZIP Co de Phone Number [facility] [address] [place] [phone] * B Type Natriuretic Peptide (BNP) (02/28/2023 10:41 AM EST) B Type Natriuretic Peptide 78 <100 pg/mL [facility] Comment:For those patients w ho are being treated with Natrecor(nesiritide, recombinant BNP), BNP testing should beperformed at least two hours post treatment in order toensure that only endogenous levels of BNP are detected. 02/28/2023 10:4 1 AM EST 02/28/2023 10:41 AM EST us Generic External Data Provider LAB BLOOD ORDERAB LES Final Result Performing Organization Address [facility]/ZIP Co de Phone Number [facility] [address] [place] [phone] * CBC (02/28/2023 10:41 AM EST) White Blood Count 6.8 4.8 - 10.8 X10*3/uL [facility] Red Blood Count 4.62 4.60 - 5.80 X10*6/uL [facility] Hemoglobin 14.0 14.0 - 18.0 g/dl [facility] Hematocrit 42.3 42.0 - 52.0 % [facility] Mean Corpuscular Volume 91.6 80.0 - 98.0 fL [facility] Mean Corpuscular Hemoglobin 30.3 27.0 - 33.0 pg [facility] Mean Corpuscular HGB Conc 33.1 31.0 - 36.0 g/dl [facility] Red Cell Distribution Width 13.2 11.0 - 16.0 % [facility] Platelet Count 247 160 - 400 X10*3/uL [facility] Mean Platelet Volume 10.3 9.4 - 12.4 [facility] NRBC Pct Auto 0.0 0.0 - 0.2 /100WBC [facility] NRBC Abs Auto 0.000 0.0 - 0.012 X10*3/uL [facility] 02/28/2023 10:4 1 AM EST 02/28/2023 10:41 AM EST us Generic External Data Provider LAB BLOOD ORDERAB LES Final Result Performing Organization Address City/State/[facility] Co de Phone Number [facility] [address] [place] [phone] documented in this encounter Visit Diagnoses Not on filedocumented in this encounter Care Teams Wax Ball Knock Out Worker Relationship Specialty Start Date End Date Jeffrey Johansen MD [address] [place] [phone] PCP - General Internal Medicine 03/26/17 documented as of this encounter
--- OUTSIDE RECORDS SUMMARY | 2024-10-31 08:45 | XMS_ITS | Encounter Summary ---
Author Organization [employer] Address 75 [facility] 7 [place] [address] Care Team Providers Care Vice President Of Academic Affairs Name Role Phone Jeffrey Johansen MD Primary Care Provider [phone] Reason for Visit * Reason Onset Date Comments ER Follow-up 07/18/2023 Encounter Details Date Type Department Care Team ([facility] st Contact Info) Description 07/18/[address] [facility] CHC MED & PEDS [address] [place], [place] [phone] Jeffrey Johansen MD [address] [place] [address] ER Follow-up Social History Tobacco Use Types [...] message below. Son states pt [place] [facility] [place] for dizziness and JAMISON. Pt had a full workup including imaging and was told everything returned WNL. Pt's pulse kept dipping into the 40's and at one point went down into the 30's. Pt son states [facility] informed him that it may be the amiodarone that is causing his pulse to dip and causing the pt's dizziness. [facility] informed son to contact blocker and polisher for f/u. Son states he is still [...] on : Date: 07/17/23 Discharged 07/18/23 Hospital[place] [facility] Seen for: dizziness and headache Patient advised will forward to team nurse for follow up documented in this encounter Plan of Treatment Not on file documented as of this encounter Visit Diagnoses Not on filedocumented in this encounter Care Teams Vice President Of Academic Affairs Relationship Specialty Start Date End Date Jeffrey Johansen MD [address] [place] [phone] PCP - General Internal Medicine 03/26/17 documented as of this encounter
--- OUTSIDE RECORDS SUMMARY | 2024-10-31 08:45 | XMS_ITS | Encounter Summary ---
Author Organization [employer] Address 75 [facility] 7 [place] [address] Care Team Providers Care Cone Baker Machine Name Role Phone Jeffrey Johansen MD Primary Care Provider [phone] Encounter Details Date Type Department Care Team (Latest Contact Info) Description 07/15/2020 Abstract [facility] CONVERSIONS Dental, Provider, DDS Social History Tobacco [...] on filedocumented in this encounter Care Teams Cone Baker Machine Relationship Specialty Start Date End Date Jeffrey Johansen MD [address] [place] [address] PCP - General Internal Medicine 03/26/17 documented as of this encounter
== END 2024-10-31 08:43 | disposition home or self-care (01) ==
LOC: HO.CT 08:42
PROVIDERS: PCP Internal Medicine; Visit Provider Internal Medicine
DX: G44.219 Episodic tension-type headache, not intractable (principal)
CPT/HCPCS: 70450

== ENCOUNTER → 2024-10-31 08:44 | Outpatient (BNV) | payer MEDICARE, SELFPAY | PROVIDERS: PCP Internal Medicine; Visit Provider Radiology Diagnostic Radiology | DX: R51.9 Headache, unspecified (principal) | CPT/HCPCS: 70450 ==

== ENCOUNTER 2024-12-07 10:15 | Outpatient (AMB) | payer MEDICARE, SELFPAY ==
--- NOTE | 2024-12-07 10:25 | MHC.OFFVIS ---
Vital Signs 12/07/24 10:26 Height 5 ft 9 in Weight 143 lb 4.807 oz BMI 21.2 BP 110/74 Blood Pressure Location Lt brachial Position Sitting Pulse 60 Intake Visit Reasons: 3 mth/pacer check Intake Note: 3 month follow-up St del check c/o head aches ? meds High Reach Operator Required: Yes High Reach Operator Services: High Reach Operator Offered & Declined Information Interpreted: non-clinical & clinical First Beater: First Beater Present Accompanied by: Son Allergies aspirin Allergy (Unknown, Verified 10/27/24 10:34) nausea and vomiting, GI upset furosemide (From Lasix) Allergy (Verified 10/27/24 10:34) rash meloxicam Allergy (Verified 10/27/24 10:34) Abdominal Pain dronedarone (From Multaq) Adverse Reaction (Verified 10/27/24 10:34) leg swelling Medication List - Last Reconciled 12/07/24 by Jimy Willson MD acetaminophen (Tylenol Extra Strength) 1,000 mg orally two times a day. PRN; amlodipine 2.5 mg PO DAILY atorvastatin 20 mg PO DAILY lisinopril 30 mg PO DAILY rivaroxaban (Xarelto) 20 mg PO DAILY HPI Comments Details: Cleopatra comes for follow-up. He complains of constant headache on a daily basis. He denies any neurologic symptoms otherwise with no visual changes. Denies any dental issues. He thinks this is related to his medications. Blood pressure is normally in 125-130 range systolic. Heart rate is stable. Denies any prolonged palpitation irregular heartbeat. No bleeding issues or neurologic events. No heart failure symptoms of orthopnea, PND, leg edema. No exertional chest pain. Recent echocardiogram showed normal LV ejection fraction with grade 2 diastolic dysfunction with severe left atrial enlargement with mild aortic regurgitation. [facility] Medical History Pulmonary nodule 1 cm or greater in diameter Asbestos-induced pleural plaque Pacemaker Persistent atrial fibrillation Hyperplastic polyp of large intestine Adenomatous colon polyp Internal hemorrhoid Paroxysmal atrial fibrillation History of cardioversion HTN (hypertension) Surgical History Hx of colonoscopy Family History Father Stroke Mother No problems noted. Social History Are you a primary aged or disabled carer to a significant other at home: No Do you presently have visiting nurse or other home services: No Alcohol intake: current Alcohol intake frequency: 0-2 drinks per day Alcohol type: wine and hard liquor Patient Tobacco Use Status: Former Tobacco user Tobacco use type: Cigarette Review of Systems Const Denies chills, Denies fatigue, Denies fever(s), Denies frequent falls, Denies weakness, Denies weight gain and Denies weight loss ENT Denies dizziness Card Denies chest pain, Denies leg edema, Denies lightheadedness, Denies palpitations, Denies dyspnea, Denies dyspnea on exertion, Denies orthopnea and Denies other (loss of consciousness) Resp Denies cough, Denies dyspnea and Denies dyspnea on exertion GI Denies hematochezia and Denies change in stool character Musc Denies abnormal gait, Denies muscle weakness, Denies numbness, Denies radiating pain into limb and Denies tingling Neuro Denies abnormal gait, Denies dizziness, Denies frequent falls, Denies numbness, Denies tingling and Denies weakness Endo Denies fatigue and Denies palpitations Physical Exam Vital Signs: Last Vital Signs Pulse 60 12/07/24 10:26 BP 110/74 12/07/24 10:26 BMI result Body Mass Index 21.2 Const General: cooperative, healthy appearing, comfortable and no acute distress Orientation/consciousness: patient oriented x3 Neck Neck: Yes normal visual inspection Resp Effort & Inspection: normal respiratory effort Auscultation: clear to auscultation bilaterally, no rales, no rhonchi and no wheezes Cardio Rate: regular rate Rhythm: regular rhythm Heart sounds: S1 normal heart sound present, S2 normal heart sound present, no gallops, no murmurs and no rubs Neuro General: patient oriented x3 Extrem General: Yes normal to inspection, No no pedal edema and No calf tenderness Psych Appearance: grossly normal Mental Status: mental status grossly normal Speech and movement: Normal speech and movement present Office Procedures Cardiac Device Check Cardiac Device Check Details: Dual-chamber Saint Del pacemaker in place. Programmed in DDDR at 70 beats per minute. Atrial pacing 63% of the time. High rates of ventricular pacing at 38% of time. Two episodes of atrial arrhythmias notice suggestive of atrial tachycardia. Atrial ventricular pacing thresholds adequate and reprogrammed to enhance battery life. Atrial ventricular sensing is adequate. Pacing lead impedance is stable. Battery life is at about 8 years 09169-[id number] Cardiac Device Check, pacemaker dual lead Procedure code (CPT) selection complete Assessment & Plan Assessment & Plan (1) Paroxysmal atrial fibrillation: Code(s): I48.0 - Paroxysmal atrial fibrillation Category: Medical Plan: Paroxysmal atrial fibrillation, currently suppressed after ablation. He is currently off all antiarrhythmic drug therapy. He does have significant left atrial enlargement and having some atrial tachycardia on pacer telemetry. He is likely to have recurrent atrial arrhythmias. However at this point time given his side effects to multiple antiarrhythmic with a hold off on any further antiarrhythmic drug therapy. Avoidance of stimulants was discussed. Continue full oral anticoagulation, currently on Xarelto 20 mg daily. Semi annual renal function test should be pursued. (2) Pacemaker: Comment: Dual-chamber Saint Del pacemaker placed 09/11/[address] Hubbard. Code(s): Z95.0 - Presence of cardiac pacemaker Category: Medical Plan: Cardiac pacemaker in-situ, dual-chamber for sick sinus syndrome. Pacemaker is working well currently. Continue to monitor by pacer telemetry. Will also monitor for atrial arrhythmias. (3) Elevated brain natriuretic peptide (BNP) level: Code(s): R79.89 - Other specified abnormal findings of blood chemistry Category: Medical Plan: Elevated BNP in this elderly gentleman with diastolic dysfunction. No signs or symptoms of heart failure. Has done well with rhythm control approach will continue pursue the same. No indication for diuretic regimen. Contribute to his exertional shortness of breath. Encouraged to maintain activity level as tolerated. (4) HTN (hypertension): Code(s): I10 - Essential (primary) hypertension Category: Medical Qualifiers: Hypertension type: primary hypertension Qualified Code(s): I10 - Essential (primary) hypertension Plan: Hypertension which is adequately control at this point time although he is complaining of constant daily headaches which could be a complication or side effect of amlodipine therapy due to vasodilators action. For now will hold off on amlodipine therapy. Advised to closely monitor blood pressure at home. If there is significant elevation blood pressure advised to restart amlodipine therapy. If his headache improved in his blood pressure remains controlled and will stay off the amlodipine therapy. If his headache does not improve despite off amlodipine therapy consider referral to Neurology. Will follow up in the clinic in 6 months time, sooner PRN. Thank you for allowing me to partake in his care Orders: Orders Basic Metabolic Panel Today I48.0 - Paroxysmal atrial fibrillation Medications: On Hold amlodipine Hold Comment: Doctor's Order 2.5 mg PO DAILY 90 tabs 3RF Coding Level of Care Code Est Pt Level 4 (81576) Complex EM visit Add On G2211 Diagnoses Paroxysmal atrial fibrillation I48.0 Pacemaker Z95.0 Elevated brain natriuretic peptide (BNP) level R79.89 Primary hypertension I10 Hypertension type: primary hypertension CPT Codes Cardiac Device Check - Cardiac Device 2: [id number] Cardiac Device Check, pacemaker dual lead ([id number])
[2024-12-07 10:26] VITALS: BP 110/74; PULSE 60; BMI 21.2
--- OUTSIDE RECORDS SUMMARY | 2024-12-07 12:21 | XMS_ITS | Encounter Summary ---
Author Organization [email or web address] Address [address] [facility] 7 [place] [address] Care Team Providers Care Brick Setter Name Role Phone Jeffrey Johansen MD Primary Care Provider [phone]- [phone] Encounter Details Date Type Department Care Team ([facility] st Contact Info) Description 02/19/2024 Orders Only [facility] CHC MED & PEDS [address] [place], [place] [phone] Jeffrey Johansen MD [address] [place] [address] Social History Tobacco Use Types Packs/Day Years [...] on filedocumented in this encounter Care Teams Brick Setter Relationship Specialty Start Date End Date Jeffrey Johansen MD [address] [place] [address] PCP - General Internal Medicine 03/26/17 documented as of this encounter
--- OUTSIDE RECORDS SUMMARY | 2024-12-07 12:21 | XMS_ITS | Encounter Summary ---
Author Organization [employer] Address [address] [facility] 7t [place] [address] Care Team Providers Care Mems Process Engineer Name Role Phone Jeffrey Johansen MD Primary Care Provider [phone] Encounter Details Date Type Department Care Team ([facility] Contact Info) Description 07/28/2024 Orders Only [facility] [address] [place] [address] ProviderJeff MD Social History Tobacco Use Types [...] on filedocumented in this encounter Care Teams Mems Process Engineer Relationship Specialty Start Date End Date Jeffrey Johansen MD [address] [place] [id number] PCP - General Internal Medicine 03/26/17 documented as of this encounter
--- OUTSIDE RECORDS SUMMARY | 2024-12-07 12:21 | XMS_ITS | Encounter Summary ---
Author Organization [employer] Address [address] [facility] 7t [place] [address] Care Team Providers Care Cnc Mill Programmer Name Role Phone Jeffrey Johansen MD Primary Care Provider [phone] Reason for Visit * Reason Onset Date Comments Dr. Shha referral faxed out 05/22/2024 Encounter Details Date Type Department Care Team ([facility] st Contact Info) Description 05/22/2024 Telephone [facility] ADULT DENTAL [address] [place] [address] Reynoso referral faxed [...] EDT Message for Dr. Shah and front end architect Son of patient called in looking for the phone number for [facility]. Patient was referred back in april, and he didn't have referral on file to reach out to the office. Phone number provided to the patients son for both [place] and [place] offices, fax has also been faxed out to [place] office. However, fax number for [place] was not available. Patient son has been informed that the fax has been sent out. DR documented in this encounter Plan of Treatment Not on file documented as of this encounter Visit Diagnoses Not on filedocumented in this encounter Care Teams Cnc Mill Programmer Relationship Specialty Start Date End Date Jeffrey Johansen MD [address] [place] [address] PCP - General Internal Medicine 03/26/17 documented as of this encounter
--- OUTSIDE RECORDS SUMMARY | 2024-12-07 12:21 | XMS_ITS | Encounter Summary ---
Author Organization [employer] Address [address] [place] [address] 7 [place] [address] Care Team Providers Care Financial Services Counselor Name Role Phone Jeffrey Johansen MD Primary Care Provider [phone]- [phone] Reason for Referral * Consultation (Routine) - Authorized Specialty Diagnoses / Procedures Referred By Ruba dailey Referred To Contact Neurology Diagnoses Chronic tension-type headache, not intractable Jeffrey Johansen MD [address] [place] [address] Phone: tel: fax: Deirdre Strauss MD [address] [place] [address] [place] [address] Phone: tel: fax: Referral ID Status Reason Start Date Expiration Date Visits Requested Visits Authorized [id number] Authorized Specialty Services Required 11/02/2024 11/02/2025 1 1 Encounter Details Date Type Department Care Team (Late st Contact Info) Description 11/02/2024 Orders Only [facility] CHC MED & PEDS [address] [place], [place] [phone] Jeffrey Johansen MD [address] [place], [place] [phone] Chronic tension-type headache, not intractable (Primary Dx) Social History Tobacco Use Types Packs/Day Years [...] as of this encounter Plan of Treatment Scheduled Referrals Name Type Priority Associated Diagnoses Orde r Schedule Referral to Neurology Outpatient Referral Routine Chronic tension-type headache, not intractable Expected: 11/02/2024 (Approximate), Expires: 11/02/2025 documented as of this encounter Visit Diagnoses Diagnosis Chronic tension-type headache, not intractable- Primary Chronic tension type headache documented in this encounter Care Teams Financial Services Counselor Relationship Specialty Start Date End Date Jeffrey Johansen MD [address] [place] [id number] PCP - General Internal Medicine 03/26/17 documented as of this encounter
--- OUTSIDE RECORDS SUMMARY | 2024-12-07 12:21 | XMS_ITS | Encounter Summary ---
Author Organization [employer] Address [address] [facility] 7t [place] [address] Care Team Providers Care Electrophonic Engineer Name Role Phone Jeffrey Johansen MD Primary Care Provider [phone] Encounter Details Date Type Department Care Team ([facility] Contact Info) Description 12/07/2024 Orders Only GENERIC EXTERNAL DATA DEPARTMENT Provider, [...] Procedure Name Priority Date/Time Associated Diagnosis Comments BASIC METABOLIC PANEL Routine 12/07/2024 11:01 AM EDT documented in this encounter Results * (ABNORMAL) Basic Metabolic Panel (12/07/2024 11:01 AM EDT) Sodium 141 135 - 145 mmol/L [facility] Potassium 4.5 3.3 - 5.1 mmol/L [facility] Chloride 106 96 - 108 mmol/L [facility] Carbon Dioxide 28 22 - 29 mmol/L [facility] Anion Gap 12 12 - 20 [facility] Urea Nitrogen (BUN) 25(H) 9 - 16 mg/dL [facility] Creatinine, Serum 0.96 0.5 - 1.4 mg/dL [facility] Estimated Glomerular Filt Rate >60 [facility] Comment:Chronic Kidney Disea se: Estimated GFR < 60 mL/min/1.65f9Wyvaol Kidney Disease: Estimated GFR < 15 mL/min/1.73m2 Glucose 108 60 - 115 mg/dL [facility] Calcium 9.4 8.4 - 10.2 mg/dL [facility] 12/07/2024 11:0 1 AM EDT 12/07/2024 11:07 AM EDT us Generic External Data Provider LAB BLOOD ORDERAB LES Final Result [facility] [address] [place] [address] [phone] documented in this encounter Visit Diagnoses Not on filedocumented in this encounter Care Teams Electrophonic Engineer Relationship Specialty Start Date End Date Jeffrey Johansen MD [address] [place] [id number] PCP - General Internal Medicine 03/26/17 documented as of this encounter
--- OUTSIDE RECORDS SUMMARY | 2024-12-07 12:22 | XMS_ITS | Encounter Summary ---
Author Organization [employer] Address [address] [facility] 7 [place] [address] Care Team Providers Care Emergency Vehicle Dispatcher Name Role Phone Jeffrey Johansen MD Primary Care Provider [phone]- [phone] Encounter Details Date Type Department Care Team ([facility] st Contact Info) Description 06/06/2023 Orders Only [facility] CHC MED & PEDS [address] [place], [place] [phone] Provider, MD Jeff Social History Tobacco Use [...] on filedocumented in this encounter Care Teams Emergency Vehicle Dispatcher Relationship Specialty Start Date End Date Jeffrey Johansen MD [address] [place] [address] PCP - General Internal Medicine 03/26/17 documented as of this encounter
--- OUTSIDE RECORDS SUMMARY | 2024-12-07 12:22 | XMS_ITS | Encounter Summary ---
Author Organization [email or web address] Address [address] [facility] [address] [place] [address] Care Team Providers Care Assisted Living Nursing Director Name Role Phone Jeffrey Johansen MD Primary Care Provider [phone]- [phone] Encounter Details Date Type Department Care Team (Late st Contact Info) Description 08/16/2022 Telephone [facility] CHC ADULT DENTAL [address] [place] [address] Chaitanya Correia DDS [address] [place] [address] Social History Tobacco Use Types Packs/Day Years [...] on filedocumented in this encounter Care Teams Assisted Living Nursing Director Relationship Specialty Start Date End Date Jeffrey Johansen MD [address] [place] [id number] PCP - General Internal Medicine 03/26/17 documented as of this encounter
--- OUTSIDE RECORDS SUMMARY | 2024-12-07 12:22 | XMS_ITS | Clinical Summary ---
Author Organization [employer] Address 75 [facility] 7t [place] [address] Care Team Providers Care Supervisor Powder And Primer Canning Name Role Phone Jeffrey Johansen MD Primary Care Provider [phone]- [phone] Allergies Active Allergy Reactions Criticality Noted Date [...] EVENING WITH A MEAL 90 tablet 2 5 Active flecainide (Tambocor) 150 MG tablet Take 150 mg by mouth 2 times daily. 5 Active lisinopril 30 MG tablet TAKE ONE TABLET EVERY MORNING 30 tablet 3 5 Active LORazepam (Ativan) 1 MG tabletIndicatio ns:Anxiety 1 mg 30 minutes prior to the procedure, may repeat 1 mg 30 minutes later if still anxious 2 tablet 5 Active atorvastatin (Lipitor) 40 MG tablet TAKE ONE TABLET AT BEDTIME 30 tablet 6 5 Active Active Problems Problem Noted Date Diagnosed [...] 07/26/2023 High cholesterol 07/26/2023 Persistent atrial fibrillation (CMS/HCC) 024 Hyperlipemia 09/17/2022 Paroxysmal atrial fibrillation (CMS/HCC) 023 GERD (gastroesophageal reflux disease) 2 Persistent insomnia [...] Encounters Date Type Department Care Team Description 12/07/2024 Orders Only GENERIC EXTERNAL DATA DEPARTMENT Provider, Generic External Data 11/10/2024 Results Follow-Up [facility] [address] [place] [address] Head w/o Contrast 11/02/2024 Orders Only [facility] [address] [place] [address] Jeffrey Johansen MD Chronic tension-type headache, not intractable (Primary Dx) 10/30/2024 Refill [facility] [address] [place] [address] Jeffrey Johansen MD 10/06/2024 Telephone [facility] [address] [place] [phone] Jeffrey Johansen MD 10/03/2024 Refill [facility] [address] [place] [address] Jeffrey Johansen MD 09/30/2024 Orders Only [facility] [address] [place] [address] Jeffrey Johansen MD Episodic tension-type headache, not intractable (Primary Dx); Anxiety 09/28/2024 Telephone [facility] [address] [place] [address] Jeffrey Johansen MD Referral; medical question 09/11/2024 Telephone [facility] [address] [place] [address] Jeffrey Johansen MD Nurse Triage from Last 3 Months Immunizations Immunization Administration [...] 12/18/2021, 05/14/2020, 04/23/2020 Influenza Vaccine (#1) 2024 5, 03/01/2024, 12/13/2022, Additional history exists Dental X-Ray: [...] METABOLIC PANEL Routine 12/07/2024 11:[address] HEAD WO CONTRAST Routine 11/02/2024 1 :03 PM EDT Episodic tension-type headache, not intractable LIPID PANEL, STANDARD Routine 07/02/2024 12:04 PM [...] Relevant to Health Maintenance Results * (ABNORMAL) Basic Metabolic Panel (12/07/2024 11:01 AM EDT) Sodium 141 135 - 145 mmol/L [facility] Potassium 4.5 3.3 - 5.1 mmol/L [facility] Chloride 106 96 - 108 mmol/L [facility] Carbon Dioxide 28 22 - 29 mmol/L [facility] Anion Gap 12 12 - 20 [facility] Urea Nitrogen (BUN) 25(H) 9 - 16 mg/dL [facility] Creatinine, Serum 0.96 0.5 - 1.4 mg/dL [facility] Estimated Glomerular Filt Rate >60 [facility] Comment:Chronic Kidney Disea se: Estimated GFR < 60 mL/min/[id number] Kidney Disease: Estimated GFR < 15 mL/min/1.73m2 Glucose 108 60 - 115 mg/dL [facility] Calcium 9.4 8.4 - 10.2 mg/dL [facility] 12/07/2024 11:0 1 AM EDT 12/07/2024 11:07 AM EDT us Generic External Data Provider LAB BLOOD ORDERAB LES Final Result Performing Organization Address City/State/[facility] Co de Phone Number [facility] [address] [place] [address] [phone] * CT Head w/o Contrast (11/02/2024 1:03 PM EDT) Anatomical Region Laterality Modality Head, Neck Computed Tomogra phy 11/02/2024 1:03 PM EDT Narrative 11/02/2024 1:04 PM EDT [place] [address] CT Scan Report Signed Patient: Lou Kruse MR#: [id number] 3 : 1945 Acct:[id number] Age/Sex: 79 / M ADM Date: 10/31/24 Loc: HO.CT Attending Dr: Jeffrey Johansen MD Ordering Physician: Jeffrey Johansen MD Date of Service: 10/31/24 Procedure(s): CT head/brain wo IV con Accession Number(s): [id number] cc: Jeffrey Johansen MD Report Number: [id number]: Total DLP = 793.00 mGy-cm Reason for Exam: Headache CLINICAL HISTORY: Headache CT head without contrast Comparison: None Findings: No acute hemorrhage, acute major vascular distribution infarct, intracranial mass, midline shift or hydrocephalus. No extra-axial fluid collection. Visualized paranasal sinuses and mastoid air cells normal. Orbits unremarkable. The cranium appears intact. Superficial soft tissue is unremarkable. Impression: 1. No acute intracranial finding. This document has been electronically signed by: Orly Miller MD on 11/02/2024 13:03:27 Dictated By: Orly Miller MD Signed By: <Electronically signed by Orly Miller MD in OV> 11/02/24 1304 DD/ TD/TT: 11/02/241302 Ob Gyn Physician Assistant: Procedure Note Donotuseinterpreter, Image - 11/02/[address] [place] [address] [address] Scan Report Signed Patient: Radhika Kruse#: [id number] 3 : 1945cct:[id number] Age/Sex: 79 / MADM Date: 10/31/24 Loc: HO.CT Attending Dr: Jeffrey Johansen MD Ordering Physician: Jeffrey Johansen MD Date of Service: 10/31/24 Procedure(s): CT head/brain wo IV con Accession Number(s): [id number] cc: Jeffrey Johansen MD Report Number: [id number]: Total DLP = 793.00 mGy-cm Reason for Exam: Headache CLINICAL HISTORY: Headache CT head without contrast Comparison: None Findings: No acute hemorrhage, acute major vascular distribution infarct, intracranial mass, midline shift or hydrocephalus. No extra-axial fluid collection. Visualized paranasal sinuses and mastoid air cells normal. Orbits unremarkable. The cranium appears intact. Superficial soft tissue is unremarkable. Impression: 1. No acute intracranial finding. This document has been electronically signed by: Orly Miller MD on 11/02/2024 13:03:27 Dictated By: Orly Miller MD Signed By: <Electronically signed by Orly Miller MD in OV> 11/02/24 1304 DD/ 130 TD/TT: 09/22/25 1303 Ob Gyn Physician Assistant: us Jeffrey Johansen MD IMG CT PROCEDURES Final Res ult * (ABNORMAL) Lipid Panel, Standard (07/02/2024 12:04 PM EDT) Triglycerides 62 <150 mg/dL [facility] Comment:Desirable Triglyceri de: less than 150 mg/dLBorderline High Triglyceride 150-199 mg/dLHigh Triglyceride: 200-499 mg/dLVery High Triglyceride: greater than or equal to 5OO mg/dL Cholesterol 194 <200 mg/dL [facility] Comment:Desirable Cholestero l: less than 200 mg/dLBorderline High Cholesterol: 200-239 mg/dLHigh Cholesterol: greater than 239 mg/dL LDL Cholesterol Calculated 113(H) <100 mg/dL [facility] Comment:Desirable LDL: less than 100 mg/dLNear Optimal/Above Optimal LDL: 110- 129 mg/dLBorderline High LDL: 130-159 mg/dLHigh LDL: 160-189 mg/dLVery High LDL: greater than or equal to 190 mg/dL HDL Cholesterol 69 >40 mg/dL [facility] Comment:Desirable HDL: great er than 40 mg/dL Note: This HDL assay may give artificially low results in patients with liver disease. Blood Venous blood specimen / Unknown 07/02/2024 12:04 PM EDT 07/02/2024 2:06 PM EDT us Jeffrey Johansen MD LAB BLOOD ORDERABLES Final Result [facility] [address] [place] [phone] from Last 3 Months or Most Recently Relevant to Health Maintenance Insurance [facility] DUAL COMPLETE HMO HSN FULL DENTAL - HSN FULL (MEDICAID) Care Teams Supervisor Powder And Primer Canning Relationship Specialty Start Date End Date Jeffrey Johansen MD [address] [place] [phone] PCP - General Internal Medicine 03/26/17
--- OUTSIDE RECORDS SUMMARY | 2024-12-07 12:22 | XMS_ITS | Encounter Summary ---
Author Organization [employer] Address 75 [facility] 7 [place] [address] Care Team Providers Care Head Orthopedic Team Physician Name Role Phone Jeffrey Johansen MD Primary Care Provider [phone] Reason for Visit * Reason Onset Date Comments ER Follow-up 07/18/2023 Encounter Details Date Type Department Care Team ([facility] st Contact Info) Description 07/18/2023 Telephone [facility] [address] [place], [place] [phone] Jeffrey Johansen MD [address] [place] [address] ER Follow-up Social History Tobacco Use Types [...] below. Son states pt discharged from [facility] on 07/18/23 for dizziness and JAMISON. Pt had a full workup including imaging and was told everything returned WNL. Pt's pulse kept dipping into the 40's and at one point went down into the 30's. Pt son states [facility] informed him that it may be the amiodarone that is causing his pulse to dip and causing the pt's dizziness. [facility] informed son to contact [employer] sewer for f/u. Son states he is still [...] : Date: 07/17/23 Discharged 07/18/23 Hospital: [facility] Seen for: dizziness and headache Patient advised will forward to team nurse for follow up documented in this encounter Plan of Treatment Not on file documented as of this encounter Visit Diagnoses Not on filedocumented in this encounter Care Teams Head Orthopedic Team Physician Relationship Specialty Start Date End Date Jeffrey Johansen MD [address] [place] [phone] PCP - General Internal Medicine 03/26/17 documented as of this encounter
--- OUTSIDE RECORDS SUMMARY | 2024-12-07 12:22 | XMS_ITS | Encounter Summary ---
Author Organization [employer] Address 75 [facility] 7 [place] [address] Care Team Providers Care Laundry Washer Name Role Phone Jeffrey Johansen MD Primary Care Provider [phone] Encounter Details Date Type Department Care Team (Latest Contact Info) Description 10/27/2018 Abstract [facility] CON[facility]S Dental, Provider, DDS Social History [...] on filedocumented in this encounter Care Teams Laundry Washer Relationship Specialty Start Date End Date Jeffrey Johansen MD [address] [place] [address] PCP - General Internal Medicine 03/26/17 documented as of this encounter
--- OUTSIDE RECORDS SUMMARY | 2024-12-07 12:22 | XMS_ITS | Encounter Summary ---
Author Organization [employer] Address [address] [facility] 7 [place] [address] Care Team Providers Care Greeting Card Maker Name Role Phone Jeffrey Johansen MD Primary Care Provider [phone] Encounter Details Date Type Department Care Team (Latest Contact Info) Description 07/15/2020 Abstract [facility] CONVERSION[facility] Dental, Provider, DDS Social History [...] on filedocumented in this encounter Care Teams Greeting Card Maker Relationship Specialty Start Date End Date Jeffrey Johansen MD [address] [place] [address] PCP - General Internal Medicine 03/26/17 documented as of this encounter
--- OUTSIDE RECORDS SUMMARY | 2024-12-07 12:22 | XMS_ITS | Encounter Summary ---
Author Organization [email or web address] Address [address] [facility] 7t [place] [address] Care Team Providers Care Chip Separator Name Role Phone Jeffrey Johansen MD Primary Care Provider [phone] Encounter Details Date Type Department Care Team ([facility] st Contact Info) Description 10/12/2022 Orders Only [facility] [address] [place], [place] [phone] Jeffrey Johansen MD [address] [place], [place] [phone] Social History Tobacco Use Types Packs/Day Years [...] EST) Sodium 140 135 - 145 mmol/L [facility] Potassium 4.3 3.3 - 5.1 mmol/L [facility] Chloride 104 96 - 108 mmol/L [facility] Carbon Dioxide 30(H) 22 - 29 mmol/L [facility] Anion Gap 10(L) 12 - 20 [facility] Urea Nitrogen (BUN) 21(H) 9 - 16 mg/dL [facility] Creatinine, Serum 1.06 0.5 - 1.4 mg/dL [facility] Estimated Glomerular Filt Rate >60 [facility] Comment:NOTE: For -Am erican individuals, multiply the result by 1.210.Chronic Kidney Disease: Estimated GFR < 60 mL/min/[id number] Kidney Disease: Estimated GFR < 15 mL/min/1.73m2 Glucose 97 60 - 115 mg/dL [facility] Calcium 9.7 8.4 - 10.2 mg/dL [facility] 02/28/2023 10:4 1 AM EST 02/28/2023 10:41 AM EST us Generic External Data Provider LAB BLOOD ORDERAB LES Final Result Performing Organization Address City/[facility]/ZIP Co de Phone Number [facility] [address] [place] [phone] * B Type Natriuretic Peptide (BNP) (02/28/2023 10:41 AM EST) B Type Natriuretic Peptide 78 <100 pg/mL [facility] Comment:For those patients w ho are being treated with Natrecor(nesiritide, recombinant BNP), BNP testing should beperformed at least two hours post treatment in order toensure that only endogenous levels of BNP are detected. 02/28/2023 10:4 1 AM EST 02/28/2023 10:41 AM EST us Generic External Data Provider LAB BLOOD ORDERAB LES Final Result Performing Organization Address [facility]/ZIP Co de Phone Number [facility] [address] [place] [phone] * CBC (02/28/2023 10:41 AM EST) White Blood Count 6.8 4.8 - 10.8 X10*3/uL [facility] Red Blood Count 4.62 4.60 - 5.80 X10*6/uL [facility] Hemoglobin 14.0 14.0 - 18.0 g/dl [facility] Hematocrit 42.3 42.0 - 52.0 % [facility] Mean Corpuscular Volume 91.6 80.0 - 98.0 fL [facility] Mean Corpuscular Hemoglobin 30.3 27.0 - 33.0 pg [facility] Mean Corpuscular HGB Conc 33.1 31.0 - 36.0 g/dl [facility] Red Cell Distribution Width 13.2 11.0 - 16.0 % [facility] Platelet Count 247 160 - 400 X10*3/uL [facility] Mean Platelet Volume 10.3 9.4 - 12.4 [facility] NRBC Pct Auto 0.0 0.0 - 0.2 /100WBC [facility] NRBC Abs Auto 0.000 0.0 - 0.012 X10*3/uL [facility] 02/28/2023 10:4 1 AM EST 02/28/2023 10:41 AM EST us Generic External Data Provider LAB BLOOD ORDERAB LES Final Result Performing Organization Address City/State/[facility] Co de Phone Number [facility] [address] [place] [phone] documented in this encounter Visit Diagnoses Not on filedocumented in this encounter Care Teams Chip Separator Relationship Specialty Start Date End Date Jeffrey Johansen MD [address] [place] [phone] PCP - General Internal Medicine 03/26/17 documented as of this encounter
--- OUTSIDE RECORDS SUMMARY | 2024-12-07 12:22 | XMS_ITS | Encounter Summary ---
Author Organization [employer] Address 75 [facility] 7t [place] [address] Care Team Providers Care Trailer Mechanic Name Role Phone Jeffrey Johansen MD Primary Care Provider [phone] Encounter Details Date Type Department Care Team ([facility] st Contact Info) Description 10/06/2024 Telephone [facility] [address] [place] [address] Jeffrey Johansen MD [address] [place], [place] [phone] Social History Tobacco Use Types Packs/Day Years [...] on filedocumented in this encounter Care Teams Trailer Mechanic Relationship Specialty Start Date End Date Jeffrey Johansen MD [address] [place] [address] PCP - General Internal Medicine 03/26/17 documented as of this encounter
== END 2024-12-07 10:49 | disposition home or self-care (01) ==
LOC: HO.HCS 10:16
PROVIDERS: PCP Internal Medicine; Visit Provider Internal Medicine Cardiovascular Disease
DX: I48.0 Paroxysmal atrial fibrillation (principal); Z95.0 Presence of cardiac pacemaker; R79.89 Other specified abnormal findings of blood chemistry; I10 Essential (primary) hypertension
CPT/HCPCS: 93280; 99214; G2211

== ENCOUNTER 2024-12-07 10:15 | Outpatient (REF) | payer MEDICARE, SELFPAY ==
[2024-12-07 12:00] LABS: Anion Gap 12 (12-20); Blood Urea Nitrogen 25 mg/dL (9-16); Calcium 9.4 mg/dL (8.4-10.2); Carbon Dioxide 28 mmol/L (22-29); Chloride 106 mmol/L (96-108); Estimated Glomerular Filt Rate > 60; Potassium 4.5 mmol/L (3.3-5.1); Sodium 141 mmol/L (135-145)
--- OUTSIDE RECORDS SUMMARY | 2024-12-07 13:44 | XMS_ITS | Clinical Summary ---
Author Organization [facility] Address [address] [place] [address] Care Team Providers Care Ice Guard Tester Name Role Phone Gonzalez Wilkerson Primary Care Provider [phone] Source Comments PLEASE NOTE, if this patient [...] Drug Screen 02/12/2024 05/22/19 17, 05/21/2016, 02/22/2015 [id number] (1 - season) 2024 Imm-Influenza (#1) 2024 12/12/2016, 12/31/2014 Imm-DTaP/Tdap/Td (2 - Td or Tdap) 05/21/2026 017 Insurance MEDICARE - [place] [facility] SAFETY NET Care Teams Ice Guard Tester Relationship Specialty Start Date End Date Gonzalez Wilkerson PA [address] [place] [phone] PCP - General Internal Medicine 08/06/16
== END 2024-12-07 10:16 | disposition home or self-care (01) ==
LOC: HO.LAB 10:15
PROVIDERS: PCP Internal Medicine; Visit Provider Internal Medicine Cardiovascular Disease
DX: Z45.018 Encounter for adjustment and management of other part of cardiac pacemaker (principal); I48.0 Paroxysmal atrial fibrillation; R51.9 Headache, unspecified; R79.89 Other specified abnormal findings of blood chemistry; I49.5 Sick sinus syndrome; I10 Essential (primary) hypertension; Z79.899 Other long term (current) drug therapy; Z79.01 Long term (current) use of anticoagulants
CPT/HCPCS: 36415; 80048; 93280; 99212

== ENCOUNTER 2025-01-02 07:57 | Outpatient (REF) | payer MEDICARE, SELFPAY ==
--- NOTE | ~2025-01-02 | CT_ITS ---
CLINICAL HISTORY: R91.1 - Solitary pulmonary nodule Exam: Nonenhanced CT chest with multiplanar reformats. Comparison: 07/27/2024 Findings: Lungs are free of focal consolidation. No pulmonary parenchymal nodules or lesions are appreciated. Airways are patent. No pneumothorax. No emphysematous disease. Previously noted right-sided pleural plaques, some of which are partially calcified, are re-identified. These appear unchanged compared with the prior exam, measuring up to 12 mm maximal transverse thickness involving medial aspect of the right lower clint thorax (measured on 3; 361). Additional scattered smaller right-sided pleural plaques are stable as well, including pleural plaque overlying the right hemidiaphragm measuring up to 6 mm craniocaudad thickness (measured on 4; 70). No new or enlarging pleural plaques or pleural lesions appreciated. No pleural or pericardial effusions. No new mediastinal or hilar masses or adenopathy. Images below the diaphragms reveal no acute abnormalities. Osseous structures reveal no new destructive osseous lesions. Impression: 1. Similar-appearing right-sided pleural plaques measuring up to 12 mm maximal thickness. Consider documentation of 2 year stability, with follow-up chest CT in approximately July of 2026. Plan: Consider follow-up chest CT in July of 2026. Fleischner 2017 Guidelines were utilized to develop follow up recommendations for this patient. The full article can be viewed at: https://goo.gl/emmULK Follow up strategies in solid nodules vary depending on patient risk assessment, with patient's classified as high or low risk. Low risk is associated with young age, smaller nodule size, regular margins, and location in an area other than the upper lobe. High risk factors include older age, heavy smoking, emphysema, carcinogen exposure, larger nodule size, irregular or spiculated margins, and upper lobe location. Nodule size and morphology are the dominant factors. Follow up of subsolid nodules (including ground glass and part solid opacities) is different when compared to solid nodules based on risk of malignancy and a longer doubling time in this group. Therefore when follow up is recommended, it is for a longer interval. Also in this group, recommendations may vary depending on a solitary lesion versus multiplicity of lesions. A calculator of estimated risk is available at: https://goo.gl/Luis ##PFU# This document has been electronically signed by: Rene John MD on 01/04/2025 15:58:44
--- OUTSIDE RECORDS SUMMARY | 2025-01-02 07:59 | XMS_ITS | Encounter Summary ---
Author Organization [employer] Address [address] [facility] [address] 7[address] [place] [address] Care Team Providers Care Geoscience Professor Name Role Phone Jeffrey Johansen MD Primary Care Provider [phone] Encounter Details Date Type Department Care Team (Late st Contact Info) Description 08/16/2022 Telephone [facility] ADULT D[facility]AL [address] [place] [address] Chaitanya Correia DDS [address] [place] [address] Social History Tobacco Use Types Packs/Day Years [...] on filedocumented in this encounter Care Teams Geoscience Professor Relationship Specialty Start Date End Date Jeffrey Johansen MD [address] [place] [phone] PCP - General Internal Medicine 03/26/17 documented as of this encounter
--- OUTSIDE RECORDS SUMMARY | 2025-01-02 07:59 | XMS_ITS | Encounter Summary ---
Author Organization [email or web address] Address 75 [facility] 7t [place] [address] Care Team Providers Care Hha Name Role Phone Jeffrey Johansen MD Primary Care Provider [phone] Encounter Details Date Type Department Care Team ([facility] st Contact Info) Description 10/06/2024 Telephone [facility] [address] [place] [address] Jeffrey Johansen MD [address] [place], [place] [phone] Social History Tobacco Use Types Packs/Day Years [...] on filedocumented in this encounter Care Teams Hha Relationship Specialty Start Date End Date Jeffrey Johansen MD [address] [place] [phone] PCP - General Internal Medicine 03/26/17 documented as of this encounter
--- OUTSIDE RECORDS SUMMARY | 2025-01-02 07:59 | XMS_ITS | Encounter Summary ---
Author Organization [employer] Address 75 [facility] 7 [place] [address] Care Team Providers Care International Marketing Specialist Name Role Phone Jeffrey Johansen MD Primary Care Provider [phone] Encounter Details Date Type Department Care Team ([facility] st Contact Info) Description 06/06/2023 Orders Only [facility] MED & PEDS [address] [place], [place] [phone] Provider, MD Jeff Social History Tobacco Use [...] on filedocumented in this encounter Care Teams International Marketing Specialist Relationship Specialty Start Date End Date Jeffrey Johansen MD [address] [place] [address] PCP - General Internal Medicine 03/26/17 documented as of this encounter
--- OUTSIDE RECORDS SUMMARY | 2025-01-02 07:59 | XMS_ITS | Encounter Summary ---
Author Organization [employer] Address 75 [facility] 7t [place] [address] Care Team Providers Care Hot Roll Laminator Name Role Phone Jeffrey Johansen MD Primary Care Provider [phone] Reason for Visit * Reason Onset Date Comments Dr. Shah referral faxed out 05/22/2024 Encounter Details Date Type Department Care Team ([facility] st Contact Info) Description 05/22/2024 Telephone [facility] [address] [place] [address] Reynoso referral faxed [...] looking for the phone number for [facility] Dental. Patient was referred back in april, and he didn't have referral on file to reach out to the office. Phone number provided to the patients son for both [place] and [place] offices, fax has also been faxed out to [place] office. However, fax number for [place] was not available. Patient son has been informed that the fax has been sent out. DR documented in this encounter Plan of Treatment Not on file documented as of this encounter Visit Diagnoses Not on filedocumented in this encounter Care Teams Hot Roll Laminator Relationship Specialty Start Date End Date Jeffrey Johansen MD [address] [place] [address] PCP - General Internal Medicine 03/26/17 documented as of this encounter
--- OUTSIDE RECORDS SUMMARY | 2025-01-02 07:59 | XMS_ITS | Clinical Summary ---
Author Organization [employer] Address [address] [facility] 7t [place] [address] Care Team Providers Care Stenciler Name Role Phone Jeffrey Johansen MD Primary Care Provider +1- [phone] Allergies Active Allergy Reactions Criticality Noted Date [...] Encounters Date Type Department Care Team Description 12/17/2024 Telephone [facility] ADULT DENTAL [address] [place] [address] Gladys Saba DDS release from dental office 12/07/2024 Orders Only GENERIC EXTERNAL DATA DEPARTMENT Provider, Generic External Data 11/10/2024 Results Follow-Up [facility] MED & PEDS [address] [place] [address] Head w/o Contrast 11/02/2024 Orders Only [facility] MED [facility] PED[facility] [address] [place] [address] Jeffrey Johansen MD Chronic tension-type headache, not intractable (Primary Dx) 10/30/2024 Refill [facility] [address] [place] [address] Jeffrey Johansen MD 10/06/2024 Telephone [facility] MEDICINE [address] [place], [place] [phone] Jeffrey Johansen MD 10/03/2024 Refill [facility] MEDICINE [address] [place], [place] [phone] Jeffrey Johansen MD from Last 3 Months Immunizations Immunization Administration [...] this topic Meningococcal Vaccine Aged Out No ojlie karissa eligible based on patient's age to [...] EDT) Sodium 141 135 - 145 mmol/L [facility] Potassium 4.5 3.3 - 5.1 mmol/L [facility] Chloride 106 96 - 108 mmol/L [facility] Carbon Dioxide 28 22 - 29 mmol/L [facility] Anion Gap 12 12 - 20 [facility] Urea Nitrogen (BUN) 25(H) 9 - 16 mg/dL [facility] Creatinine, Serum 0.96 0.5 - 1.4 mg/dL [facility] Estimated Glomerular Filt Rate >60 [facility] Comment:Chronic Kidney Disea se: Estimated GFR < 60 mL/min/1.33o9Tkshxy Kidney Disease: Estimated GFR < 15 mL/min/1.73m2 Glucose 108 60 - 115 mg/dL [facility] Calcium 9.4 8.4 - 10.2 mg/dL [facility] 12/07/2024 11:0 1 AM EDT 12/07/2024 11:07 AM EDT us Generic External Data Provider LAB BLOOD ORDERAB LES Final Result Performing Organization Address City/State/[facility] Co de Phone Number [facility] [address] [place] [phone] * CT Head w/o Contrast (11/02/2024 1:03 PM EDT) Anatomical Region Laterality Modality Head, Neck Computed Tomogra phy 11/02/2024 1:03 PM EDT Narrative 11/02/2024 1:04 PM EDT [place] [address] [address] Scan Report Signed Patient: Lou Kruse MR#: [id number] 3 : 1945 Acct:[id number] Age/Sex: 79 / M ADM Date: 10/31/24 Loc: HO.CT Attending Dr: Jeffrey Johansen MD Ordering Physician: Jeffrey Johansen MD Date of Service: 10/31/24 Procedure(s): CT head/brain wo IV con Accession Number(s): [id number] cc: Jeffrey Johansen MD Report Number: [id number]: Total DLP = 793.00 mGy-cm Reason for [...] in OV> 11/02/24 1304 DD/ 130 TD/TT: 11/02/241302 Flatwork Feeder: Procedure Note Donotfredericter, Image - 11/02/[address] [place] [address] [address] Scan Report Signed Patient: Radhika Kruse#: [id number] 3 : 1945cct:[id number] Age/Sex: 79 / MADM Date: 10/31/24 Loc: HO.CT Attending Dr: Jeffrey Johansen MD Ordering Physician: Jeffrey Johansen MD Date of Service: 10/31/24 Procedure(s): CT head/brain wo IV con Accession Number(s): [id number] cc: Jeffrey Johansen MD Report Number: [id number]: Total DLP = 793.00 mGy-cm Reason for [...] Miller MD in OV> 11/02/24 1304 DD/ 02 TD/TT: 11/02/241302 Flatwork Feeder: us Jeffrey Johansen MD IMG CT PROCEDURES Final Res ult * (ABNORMAL) Lipid Panel, Standard (07/02/2024 12:04 PM EDT) Triglycerides 62 <150 mg/dL [facility] Comment:Desirable Triglyceri de: less than 150 mg/dLBorderline High Triglyceride 150-199 mg/dLHigh Triglyceride: 200-499 mg/dLVery High Triglyceride: greater than or equal to 5OO mg/dL Cholesterol 194 <200 mg/dL [facility] Comment:Desirable Cholestero l: less than 200 mg/dLBorderline High Cholesterol: 200-239 mg/dLHigh Cholesterol: greater than 239 mg/dL LDL Cholesterol Calculated 113(H) <100 mg/dL [facility] Comment:Desirable LDL: less than 100 mg/dLNear Optimal/Above Optimal LDL: 110- 129 mg/dLBorderline High LDL: 130-159 mg/dLHigh LDL: 160-189 mg/dLVery High LDL: greater than or equal to 190 mg/dL HDL Cholesterol 69 >40 mg/dL [facility] Comment:Desirable HDL: great er than 40 mg/dL Note: This HDL assay may give artificially low results in patients with liver disease. Blood Venous blood specimen / Unknown 07/02/2024 12:04 PM EDT 07/02/2024 2:06 PM EDT us Jeffrey Johansen MD LAB BLOOD ORDERABLES Final Result [facility] [address] [place], [place] [phone] from Last 3 Months or Most Recently Relevant to Health Maintenance Insurance [facility] DUAL COMPLETE HMO [facility] FULL DENTAL - HSN FULL (MEDICAID) Care Teams Stenciler Relationship Specialty Start Date End Date Jeffrey Johansen MD [address] [place] [phone] PCP - General Internal Medicine 03/26/17
--- OUTSIDE RECORDS SUMMARY | 2025-01-02 07:59 | XMS_ITS | Encounter Summary ---
Author Organization [employer] Address [address] [place] [address] 7 [place] [address] Care Team Providers Care Freelance Art Director Name Role Phone Jeffrey Johansen MD Primary Care Provider [phone]- [phone] Reason for Referral * Consultation (Routine) - Closed Specialty Diagnoses / Procedures Referred By Ruba dailey Referred To Contact Neurology Diagnoses Chronic tension-type headache, not intractable Jeffrey Johansen MD [address] [place] [address] Phone: tel: fax: Deirdre Strauss MD [address] [place] [address] [place] [address] Phone: tel: fax: Referral ID Status Reason Start Date Expiration Date V isits Requested Visits Authorized [id number] Closed Specialty Services Required 11/02/2024 11/02/2025 1 1 Encounter Details Date Type Department Care Team (Late st Contact Info) Description 11/02/2024 Orders Only [facility] MED & PEDS [address] [place], [place] [phone] Jeffrey Johansen MD [address] [place], [place] [phone] Chronic tension-type headache, not intractable (Primary Dx) [...] headache documented in this encounter Care Teams Freelance Art Director Relationship Specialty Start Date End Date Jeffrey Johansen MD [address] [place] [phone] PCP - General Internal Medicine 03/26/17 documented as of this encounter
--- OUTSIDE RECORDS SUMMARY | 2025-01-02 07:59 | XMS_ITS | Encounter Summary ---
Author Organization [employer] Address 75 [facility] 7 [place] [address] Care Team Providers Care Program Admin Name Role Phone Jeffrey Johansen MD Primary Care Provider [phone]- [phone] Encounter Details Date Type Department Care Team ([facility] st Contact Info) Description 02/19/2024 Orders Only [facility] MED & PEDS [address] [place], [place] [phone] Jeffrey Johansen MD [address] [place] [address] Social History Tobacco Use Types Packs/Day Years [...] on filedocumented in this encounter Care Teams Program Admin Relationship Specialty Start Date End Date Jeffrey Johansen MD [address] [place] [address] PCP - General Internal Medicine 03/26/17 documented as of this encounter
--- OUTSIDE RECORDS SUMMARY | 2025-01-02 07:59 | XMS_ITS | Encounter Summary ---
Author Organization [employer] Address [address] [facility] 7 [place] [address] Care Team Providers Care Machine Crater Name Role Phone Jeffrey Johansen MD Primary Care Provider [phone] Encounter Details Date Type Department Care Team (Latest Contact Info) Description 10/27/2018 Abstract [facility] CONVERSIONS Dental, Provider, DDS Social [...] on filedocumented in this encounter Care Teams Machine Crater Relationship Specialty Start Date End Date Jeffrey Johansen MD [address] [place] [address] PCP - General Internal Medicine 03/26/17 documented as of this encounter
--- OUTSIDE RECORDS SUMMARY | 2025-01-02 07:59 | XMS_ITS | Encounter Summary ---
Author Organization [employer] Address 75 [facility] 7t [place] [address] Care Team Providers Care Data Keyer Name Role Phone Jeffrey Johansen MD Primary Care Provider [phone] Reason for Visit * Reason Onset Date Comments release from dental office 12/17/2024 Encounter Details Date Type Department Care Team ([facility] st Contact Info) Description 12/17/2024 Telephone [facility] ADULT DENTAL [address] [place] [address] Gladys Saba DDS [address] [place] [address] release from dental office Social History Tobacco Use Types Packs/Day Years [...] t he electric, gas, oil or water [employer] threatened to shut off services in your [...] * Telephone Encounter - Blanca Agrawal - 12/17/2024 12:24 PM EST Son of patient calling in to follow up on a release that was sent in by [facility] dental in [place] back in August 11 and again on August 20. They are looking for xrays on treatment rendered along with referral that was given to patient. Son is asking for follow up on the state or the release. I do not seeanything scanned in media concerning release for patient. It was sent both email and also fax. Son states that he has not had much luck in hearing back from office and is looking to continue treatment for his dad. He'd like a follow up call that it has been taken care of. I can reach out the to [facility] update as well. Phone number for [facility] dental where patient is going is [phone]. personal support worker is Brittney. KENNEDY documented in this encounter Plan of Treatment Not on file documented as of this encounter Visit Diagnoses Not on filedocumented in this encounter Care Teams Data Keyer Relationship Specialty Start Date End Date Jeffrey Johansen MD [address] [place] [phone] PCP - General Internal Medicine 03/26/17 documented as of this encounter
--- OUTSIDE RECORDS SUMMARY | 2025-01-02 07:59 | XMS_ITS | Encounter Summary ---
Author Organization [employer] Address 75 [facility] 7 [place] [address] Care Team Providers Care Parts Sales Manager Name Role Phone Jeffrey Johansen MD Primary Care Provider [phone]- [phone] Reason for Visit * Reason Onset Date Comments ER Follow-up 07/18/2023 Encounter Details Date Type Department Care Team ([facility] st Contact Info) Description 07/18/2023 Telephone [facility] CHC MED & PEDS [address] [place], [place] [phone] Jeffrey Johansen MD [address] [place] [address] ER Follow-up Social History Tobacco Use Types [...] message below. Son states pt discharged from [facility] on 07/18/23 for dizziness and JAMISON. Pt had a full workup including imaging and was told everything returned WNL. Pt's pulse kept dipping into the 40's and at one point went down into the 30's. Pt son states [facility] informed him that it may be the amiodarone that is causing his pulse to dip and causing the pt's dizziness. [facility] informed son to contact street engineer for f/u. Son states he is [...] on : Date: 07/17/23 Discharged 07/18/23 Hospital: [facility] Seen for: dizziness and headache Patient advised will forward to team nurse for follow up documented in this encounter Plan of Treatment Not on file documented as of this encounter Visit Diagnoses Not on filedocumented in this encounter Care Teams Parts Sales Manager Relationship Specialty Start Date End Date Jeffrey Johansen MD [address] [place] [phone] PCP - General Internal Medicine 03/26/17 documented as of this encounter
--- OUTSIDE RECORDS SUMMARY | 2025-01-02 07:59 | XMS_ITS | Encounter Summary ---
Author Organization [employer] Address 75 [facility] 7t [place] [address] Care Team Providers Care Sampler First Name Role Phone Jeffrey Johansen MD Primary Care Provider [phone]- [phone] Encounter Details Date Type Department Care Team ([facility] st Contact Info) Description 10/12/2022 Orders Only [facility] CHC MED & PEDS [address] [place], [place] [phone] Jeffrey Johansen MD [address] [place], [place] [phone] Social History Tobacco Use Types Packs/Day Years [...] EST) Sodium 140 135 - 145 mmol/L [facility] Potassium 4.3 3.3 - 5.1 mmol/L [facility] Chloride 104 96 - 108 mmol/L [facility] Carbon Dioxide 30(H) 22 - 29 mmol/L [facility] Anion Gap 10(L) 12 - 20 [facility] Urea Nitrogen (BUN) 21(H) 9 - 16 mg/dL [facility] Creatinine, Serum 1.06 0.5 - 1.4 mg/dL [facility] Estimated Glomerular Filt Rate >60 [facility] Comment:NOTE: For -Am erican individuals, multiply the result by 1.210.Chronic Kidney Disease: Estimated GFR < 60 mL/min/1.44j0Uigkrj Kidney Disease: Estimated GFR < 15 mL/min/1.73m2 Glucose 97 60 - 115 mg/dL [facility] Calcium 9.7 8.4 - 10.2 mg/dL [facility] 02/28/2023 10:4 1 AM EST 02/28/2023 10:41 AM EST us Generic External Data Provider LAB BLOOD ORDERAB LES Final Result Performing Organization Address City/[facility]/ZIP Co de Phone Number [facility] [address] [place] [phone] * B Type Natriuretic Peptide (BNP) (02/28/2023 10:41 AM EST) B Type Natriuretic Peptide 78 <100 pg/mL [facility] Comment:For those patients w ho are being treated with Natrecor(nesiritide, recombinant BNP), BNP testing should beperformed at least two hours post treatment in order toensure that only endogenous levels of BNP are detected. 02/28/2023 10:4 1 AM EST 02/28/2023 10:41 AM EST us Generic External Data Provider LAB BLOOD ORDERAB LES Final Result Performing Organization Address [facility]/ZIP Co de Phone Number [facility] [address] [place] [phone] * CBC (02/28/2023 10:41 AM EST) White Blood Count 6.8 4.8 - 10.8 X10*3/uL [facility] Red Blood Count 4.62 4.60 - 5.80 X10*6/uL [facility] Hemoglobin 14.0 14.0 - 18.0 g/dl [facility] Hematocrit 42.3 42.0 - 52.0 % [facility] Mean Corpuscular Volume 91.6 80.0 - 98.0 fL [facility] Mean Corpuscular Hemoglobin 30.3 27.0 - 33.0 pg [facility] Mean Corpuscular HGB Conc 33.1 31.0 - 36.0 g/dl [facility] Red Cell Distribution Width 13.2 11.0 - 16.0 % [facility] Platelet Count 247 160 - 400 X10*3/uL [facility] Mean Platelet Volume 10.3 9.4 - 12.4 [facility] NRBC Pct Auto 0.0 0.0 - 0.2 /100WBC [facility] NRBC Abs Auto 0.000 0.0 - 0.012 X10*3/uL [facility] 02/28/2023 10:4 1 AM EST 02/28/2023 10:41 AM EST us Generic External Data Provider LAB BLOOD ORDERAB LES Final Result Performing Organization Address City/State/[facility] Co de Phone Number [facility] [address] [place] [phone] documented in this encounter Visit Diagnoses Not on filedocumented in this encounter Care Teams Sampler First Relationship Specialty Start Date End Date Jeffrey Johansen MD [address] [place] [phone] PCP - General Internal Medicine 03/26/17 documented as of this encounter
--- OUTSIDE RECORDS SUMMARY | 2025-01-02 07:59 | XMS_ITS | Encounter Summary ---
Author Organization [employer] Address 75 [facility] 7t [place] [address] Care Team Providers Care Junior Copywriter Name Role Phone Jeffrey Johansen MD Primary Care Provider [phone] Encounter Details Date Type Department Care Team ([facility] Contact Info) Description 07/28/2024 Orders Only [facility] [address] [place] [address] ProviderJeff MD Social History Tobacco Use Types [...] on filedocumented in this encounter Care Teams Junior Copywriter Relationship Specialty Start Date End Date Jeffrey Johansen MD [address] [place] [address] PCP - General Internal Medicine 03/26/17 documented as of this encounter
--- OUTSIDE RECORDS SUMMARY | 2025-01-02 07:59 | XMS_ITS | Encounter Summary ---
Author Organization [employer] Address [address] [facility] 7 [place] [address] Care Team Providers Care System Administration Manager Name Role Phone Jeffrey Johansen MD Primary Care Provider [phone] [phone] Encounter Details Date Type Department Care Team (Latest Contact Info) Description 07/15/2020 Abstract [facility] CONVERSIONS Dental, Provider, DDS Social [...] on filedocumented in this encounter Care Teams System Administration Manager Relationship Specialty Start Date End Date Jeffrey Johansen MD [address] [place] [address] PCP - General Internal Medicine 03/26/17 documented as of this encounter
== END 2025-01-02 07:58 | disposition home or self-care (01) ==
LOC: HO.CT 07:57
PROVIDERS: PCP Internal Medicine; Visit Provider Hospitalist
DX: J92.0 Pleural plaque with presence of asbestos (principal); R91.1 Solitary pulmonary nodule
CPT/HCPCS: 71250

== ENCOUNTER → 2025-01-02 08:03 | Outpatient (BNV) | payer MEDICARE, SELFPAY | PROVIDERS: PCP Internal Medicine; Visit Provider Radiology Diagnostic Radiology | DX: R91.1 Solitary pulmonary nodule (principal) | CPT/HCPCS: 71250 ==

== ENCOUNTER 2025-01-05 07:56 | Outpatient (AMB) | payer MEDICARE, SELFPAY ==
--- OUTSIDE RECORDS SUMMARY | 2025-01-05 08:06 | XMS_ITS | Encounter Summary ---
Author Organization [employer] Address [address] [place] [address] 7 [place] [address] Care Team Providers Care Cupola Tapper Helper Name Role Phone Jeffrey Johansen MD Primary Care Provider [phone]- [phone] Reason for Referral * Consultation (Routine) - Closed Specialty Diagnoses / Procedures Referred By Ruba dailey Referred To Contact Neurology Diagnoses Chronic tension-type headache, not intractable Jeffrey Johansen MD [address] [place] [address] Phone: tel: fax: Deirdre Strauss MD [address] [place] [address] [place] [address] Phone: tel: fax: Referral ID Status Reason Start Date Expiration Date V isits Requested Visits Authorized [id number] Closed Specialty Services Required 11/02/2024 11/02/2025 1 1 Encounter Details Date Type Department Care Team (Late st Contact Info) Description 11/02/2024 Orders Only [facility] CH[facility] MED & PEDS [address] [place], [place] [phone] Jeffrey Johansen MD [address] [place], [place] [phone] Chronic tension-type headache, not intractable (Primary Dx) [...] headache documented in this encounter Care Teams Cupola Tapper Helper Relationship Specialty Start Date End Date Jeffrey Johansen MD [address] [place] [phone] PCP - General Internal Medicine 03/26/17 documented as of this encounter
--- OUTSIDE RECORDS SUMMARY | 2025-01-05 08:06 | XMS_ITS | Encounter Summary ---
Author Organization [employer] Address 75 [facility] 7 [place] [address] Care Team Providers Care Lining Repairer Name Role Phone Jeffrey Johansen MD Primary Care Provider [phone]- [phone] Reason for Visit * Reason Onset Date Comments ER Follow-up 07/18/2023 Encounter Details Date Type Department Care Team ([facility] st Contact Info) Description 07/18/2023 Telephone [facility] CHC MED & PEDS [address] [place], [place] [phone] Jeffrey Johansen MD [address] [place] [address] ER Follow-up Social History Tobacco Use Types [...] message below. Son states pt discharged from [facility] on 07/18/23 for dizziness and JAMISON. Pt had a full workup including imaging and was told everything returned WNL. Pt's pulse kept dipping into the 40's and at one point went down into the 30's. Pt son states [facility] informed him that it may be the amiodarone that is causing his pulse to dip and causing the pt's dizziness. [facility] informed son to contact fraud representative for f/u. Son states he is still [...] on : Date: 07/17/23 Discharged 07/18/23 Hospital: [facility] Seen for: dizziness and headache Patient advised will forward to team nurse for follow up documented in this encounter Plan of Treatment Not on file documented as of this encounter Visit Diagnoses Not on filedocumented in this encounter Care Teams Lining Repairer Relationship Specialty Start Date End Date Jeffrey Johansen MD [address] [place] [address] PCP - General Internal Medicine 03/26/17 documented as of this encounter
--- OUTSIDE RECORDS SUMMARY | 2025-01-05 08:06 | XMS_ITS | Encounter Summary ---
Author Organization [employer] Address 75 [facility] 7 [place] [address] Care Team Providers Care Elevator Operator Name Role Phone Jeffrey Johansen MD Primary Care Provider [phone] Reason for Visit * Reason Onset Date Comments Dr. Shah referral faxed out 05/22/2024 Encounter Details Date Type Department Care Team ([facility] st Contact Info) Description 05/22/2024 Telephone [facility] ADULT DENTAL [address] [place] [address] Reynoso referral faxed [...] Message for Dr. Shah and front office clerk Son of patient called in looking for the phone number for [facility] Dental. Patient was referred back in april, and he didn't have referral on file to reach out to the office. Phone number provided to the patients son for both [place] and [place] [facility], fax has also been faxed out to [place] [facility]. However, fax number for [facility] was not available. Patient son has been informed that the fax has been sent out. DR documented in this encounter Plan of Treatment Not on file documented as of this encounter Visit Diagnoses Not on filedocumented in this encounter Care Teams Elevator Operator Relationship Specialty Start Date End Date Jeffrey Johansen MD [address] [place] [address] PCP - General Internal Medicine 03/26/17 documented as of this encounter
--- OUTSIDE RECORDS SUMMARY | 2025-01-05 08:06 | XMS_ITS | Encounter Summary ---
Author Organization [employer] Address 75 [facility] 7t [place] [address] Care Team Providers Care Health Information Technologist Name Role Phone Jeffrey Johansen MD Primary Care Provider [phone] Encounter Details Date Type Department Care Team ([facility] Contact Info) Description 07/28/2024 Orders Only [facility] [address] [place] [address] ProviderJeff MD Social History Tobacco Use Types [...] on filedocumented in this encounter Care Teams Health Information Technologist Relationship Specialty Start Date End Date Jeffrey Johansen MD [address] [place] [address] PCP - General Internal Medicine 03/26/17 documented as of this encounter
--- OUTSIDE RECORDS SUMMARY | 2025-01-05 08:06 | XMS_ITS | Encounter Summary ---
Author Organization [employer] Address 75 [facility] 7t [place] [address] Care Team Providers Care Lot Worker Name Role Phone Jeffrey Johansen MD Primary Care Provider [phone] [phone] Encounter Details Date Type Department Care Team ([facility] st Contact Info) Description 10/06/2024 Telephone [facility] MEDICINE [address] [place] [address] Jeffrey Johansen MD [address] [place], [place] [phone] Social History Tobacco Use Types Packs/Day Years [...] on filedocumented in this encounter Care Teams Lot Worker Relationship Specialty Start Date End Date Jeffrey Johansen MD [address] [place] [phone] PCP - General Internal Medicine 03/26/17 documented as of this encounter
--- OUTSIDE RECORDS SUMMARY | 2025-01-05 08:06 | XMS_ITS | Encounter Summary ---
Author Organization [employer] Address 75 [facility] 7t [place] [address] Care Team Providers Care Upper Leather Cutter Name Role Phone Jeffrey Johansen MD Primary Care Provider [phone] Reason for Visit * Reason Onset Date Comments release from dental office 12/17/2024 Encounter Details Date Type Department Care Team ([facility] st Contact Info) Description 12/17/2024 Telephone [facility] ADULT DENTAL [address] [place] [address] Gladys Saba DDS [address] [place] [address] release from dental office Social History Tobacco [...] t he electric, gas, oil or water [employer] threatened to shut off services in your [...] a release that was sent in by [facility] dental in [place] back in August 11 and again on [...] of. I can reach out the to [facility] update as well. Phone number for [facility] dental where patient is going is [phone]. warehouse person is Brittney. KENNEDY documented in this encounter Plan of Treatment Not on file documented as of this encounter Visit Diagnoses Not on filedocumented in this encounter Care Teams Upper Leather Cutter Relationship Specialty Start Date End Date Jeffrey Johansen MD [address] [place] [phone] PCP - General Internal Medicine 03/26/17 documented as of this encounter
--- OUTSIDE RECORDS SUMMARY | 2025-01-05 08:06 | XMS_ITS | Encounter Summary ---
Author Organization [employer] Address 75 [facility] 7 [place] [address] Care Team Providers Care Senior Credit Officer Name Role Phone Jeffrey Johansen MD Primary Care Provider [phone] [phone] Encounter Details Date Type Department Care Team (Latest Contact Info) Description 07/15/2020 Abstract [facility] CONVERSIONS Dental, Provider, DDS Social [...] on filedocumented in this encounter Care Teams Senior Credit Officer Relationship Specialty Start Date End Date Jeffrey Johansen MD [address] [place] [address] PCP - General Internal Medicine 03/26/17 documented as of this encounter
--- OUTSIDE RECORDS SUMMARY | 2025-01-05 08:06 | XMS_ITS | Encounter Summary ---
Author Organization [employer] Address [address] [facility] [address] 7t [place] [address] Care Team Providers Care Dairy Hand Name Role Phone Jeffrey Johansen MD Primary Care Provider [phone]- [phone] Encounter Details Date Type Department Care Team (Late st Contact Info) Description 08/16/2022 Telephone [facility] ADULT DENTAL [address] [place] [address] Chaitanya Correia DDS [address] [place] [address] Social History Tobacco Use Types Packs/Day Years [...] on filedocumented in this encounter Care Teams Dairy Hand Relationship Specialty Start Date End Date Jeffrey Johansen MD [address] [place] [address] PCP - General Internal Medicine 03/26/17 documented as of this encounter
--- OUTSIDE RECORDS SUMMARY | 2025-01-05 08:06 | XMS_ITS | Encounter Summary ---
Author Organization [employer] Address [address] [facility] 7 [place] [address] Care Team Providers Care Inspector Machine Parts Name Role Phone Jeffrey Johansen MD Primary Care Provider +1- [phone] Encounter Details Date Type Department Care Team ([facility] st Contact Info) Description 02/19/2024 Orders Only [facility] CHC MED & PEDS [address] [place], [place] [phone] Jeffrey Johansen MD [address] [place] [address] Social History Tobacco Use Types Packs/Day Years [...] on filedocumented in this encounter Care Teams Inspector Machine Parts Relationship Specialty Start Date End Date Jeffrey Johansen MD [address] [place] [address] PCP - General Internal Medicine 03/26/17 documented as of this encounter
--- OUTSIDE RECORDS SUMMARY | 2025-01-05 08:06 | XMS_ITS | Encounter Summary ---
Author Organization [employer] Address 75 [facility] 7t [place] [address] Care Team Providers Care Sales Representative Business Courses Name Role Phone Jeffrey Johansen MD Primary Care Provider [phone]- [phone] Encounter Details Date Type Department Care Team ([facility] st Contact Info) Description 10/12/2022 Orders Only [facility] CHC MED & PEDS [address] [place], [place] [phone] Jeffrey Johansen MD [address] [place], [place] [phone] Social History Tobacco Use Types Packs/Day Years [...] EST) Sodium 140 135 - 145 mmol/L [facility] Potassium 4.3 3.3 - 5.1 mmol/L [facility] Chloride 104 96 - 108 mmol/L [facility] Carbon Dioxide 30(H) 22 - 29 mmol/L [facility] Anion Gap 10(L) 12 - 20 [facility] Urea Nitrogen (BUN) 21(H) 9 - 16 mg/dL [facility] Creatinine, Serum 1.06 0.5 - 1.4 mg/dL [facility] Estimated Glomerular Filt Rate >60 [facility] Comment:NOTE: For -Am erican individuals, multiply the result by 1.210.Chronic Kidney Disease: Estimated GFR < 60 mL/min/1.89c1Ldzfuw Kidney Disease: Estimated GFR < 15 mL/min/1.73m2 Glucose 97 60 - 115 mg/dL [facility] Calcium 9.7 8.4 - 10.2 mg/dL [facility] 02/28/2023 10:4 1 AM EST 02/28/2023 10:41 AM EST us Generic External Data Provider LAB BLOOD ORDERAB LES Final Result Performing Organization Address City/[facility]/ZIP Co de Phone Number [facility] [address] [place] [phone] * B Type Natriuretic Peptide (BNP) (02/28/2023 10:41 AM EST) B Type Natriuretic Peptide 78 <100 pg/mL [facility] Comment:For those patients w ho [...] Address [facility]/ZIP Co de Phone Number [facility] [address] [place] [phone] * CBC (02/28/2023 10:41 AM EST) White Blood Count 6.8 4.8 - 10.8 X10*3/uL [facility] Red Blood Count 4.62 4.60 - 5.80 X10*6/uL [facility] Hemoglobin 14.0 14.0 - 18.0 g/dl [facility] Hematocrit 42.3 42.0 - 52.0 % [facility] Mean Corpuscular Volume 91.6 80.0 - 98.0 fL [facility] Mean Corpuscular Hemoglobin 30.3 27.0 - 33.0 pg [facility] Mean Corpuscular HGB Conc 33.1 31.0 - 36.0 g/dl [facility] Red Cell Distribution Width 13.2 11.0 - 16.0 % [facility] Platelet Count 247 160 - 400 X10*3/uL [facility] Mean Platelet Volume 10.3 9.4 - 12.4 [facility] NRBC Pct Auto 0.0 0.0 - 0.2 /100WBC [facility] NRBC Abs Auto 0.000 0.0 - 0.012 X10*3/uL [facility] 02/28/2023 10:4 1 AM EST 02/28/2023 10:41 AM EST us Generic External Data Provider LAB BLOOD ORDERAB LES Final Result Performing Organization Address City/State/[facility] Co de Phone Number [facility] [address] [place] [phone] documented in this encounter Visit Diagnoses Not on filedocumented in this encounter Care Teams Sales Representative Business Courses Relationship Specialty Start Date End Date Jeffrey Johansen MD [address] [place] [phone] PCP - General Internal Medicine 03/26/17 documented as of this encounter
--- OUTSIDE RECORDS SUMMARY | 2025-01-05 08:06 | XMS_ITS | Encounter Summary ---
Author Organization [employer] Address 75 [facility] 7 [place] [address] Care Team Providers Care Narrative Writer Name Role Phone Jeffrey Johansen MD Primary Care Provider +1 [phone] Encounter Details Date Type Department Care Team (Latest Contact Info) Description 10/27/2018 Abstract [facility] CONVERSIONS Dental, Provider, DDS Social [...] on filedocumented in this encounter Care Teams Narrative Writer Relationship Specialty Start Date End Date Jeffrey Johansen MD [address] [place] [address] PCP - General Internal Medicine 03/26/17 documented as of this encounter
--- OUTSIDE RECORDS SUMMARY | 2025-01-05 08:07 | XMS_ITS | Clinical Summary ---
Author Organization [employer] Address 75 [facility] 7t [place] [address] Care Team Providers Care Bowling Alley Refinisher Name Role Phone Jeffrey Johansen MD Primary Care Provider +1- [phone] Allergies Active Allergy Reactions Criticality Noted Date [...] Type Department Care Team Description 12/17/2024 Telephone [facility] ADULT DENTAL [address] [place], [place] [phone] Gladys Saba DDS release from dental office 12/07/2024 Orders Only GENERIC EXTERNAL DATA DEPARTMENT Provider, Generic External Data 11/10/2024 Results Follow-Up [facility] MED & PEDS [address] [place] [address] Head w/o Contrast 11/02/2024 Orders Only [facility] MED & PEDS [address] [place] [address] Jeffrey Johansen MD Chronic tension-type headache, not intractable (Primary Dx) 10/30/2024 Refill [facility] MED & PEDS [address] [place], [place] [phone] Jeffrey Johansen MD 10/06/2024 Telephone [facility] MEDICINE [address] [place], [place] [phone] Jeffrey Johansen MD from Last 3 Months [...] Priority Date/Time Associated Diagnosis Comments CT CHEST WO CONTRAST Routine 01/04/2025 3:58 PM EST BASIC METABOLIC PANEL Routine 12/07/2024 11:01 AM [...] to Health Maintenance Results * CT Chest w/o Contrast (01/04/2025 3:58 PM EST) Anatomical Region Laterality Modality Body, Chest Computed Tomogra phy 01/04/2025 3:58 PM EST Narrative 01/04/2025 4:00 PM EST [address] [address] [address] Scan Report Signed Patient: Lou Kruse MR#: [id number] 3 : 1945 Acct:[id number] Age/Sex: 79 / M ADM Date: 01/02/25 Loc: HO.CT Attending Dr: Rivas Peres MD Ordering Physician: Rivas Peres MD Date of Service: 01/02/25 Procedure(s): CT chest wo IV con Accession Number(s): [id number] cc: Jeffrey Johansen MD; Rivas Peres MD Report Number: [id number]: Total DLP = 279.00 mGy-cm Reason for Exam: R91.1 - Solitary pulmonary nodule CLINICAL HISTORY: R91.1 - Solitary pulmonary nodule Exam: Nonenhanced CT chest with multiplanar reformats. Comparison: 07/27/2024 Findings: Lungs are free of focal consolidation. No pulmonary parenchymal nodules or lesions are appreciated. Airways are patent. No pneumothorax. No emphysematous disease. Previously noted right-sided pleural plaques, some of which are partially calcified, are re-identified. These appear unchanged compared with the prior exam, measuring up to 12 mm maximal transverse thickness involving medial aspect of the right lower clint thorax (measured on 3; 361). Additional scattered smaller right-sided pleural plaques are stable as well, including pleural plaque overlying the right hemidiaphragm measuring up to 6 mm craniocaudad thickness (measured on 4; 70). No new or enlarging pleural plaques or pleural lesions appreciated. No pleural or pericardial effusions. No new mediastinal or hilar masses or adenopathy. Images below the diaphragms reveal no acute abnormalities. Osseous structures reveal no new destructive osseous lesions. Impression: 1. Similar-appearing right-sided pleural plaques measuring up to 12 mm maximal thickness. Consider documentation of 2 year stability, with follow-up chest CT in approximately July of 2026. Plan: Consider follow-up chest CT in July of 2026. Fleischner 2017 Guidelines were utilized to develop follow up recommendations for this patient. The full article can be viewed at: https://goo.gl/emmDELLAK Follow up strategies in solid nodules vary depending on patient risk assessment, with patient's classified as high or low risk. Low risk is associated with young age, smaller nodule size, regular margins, and location in an area other than the upper lobe. High risk factors include older age, heavy smoking, emphysema, carcinogen exposure, larger nodule size, irregular or spiculated margins, and upper lobe location. Nodule size and morphology are the dominant factors. Follow up of subsolid nodules (including ground glass and part solid opacities) is different when compared to solid nodules based on risk of malignancy and a longer doubling time in this group. Therefore when follow up is recommended, it is for a longer interval. Also in this group, recommendations may vary depending on a solitary lesion versus multiplicity of lesions. A calculator of estimated risk is available at: https://goo.gl/Luis ##PFU# This document has been electronically signed by: Rene John MD on 01/04/2025 15:58:44 Dictated By: Rene John MD Signed By: <Electronically signed by Rene John MD in OV> 01/04/25 1600 DD/ 1558 TD/TT: 01/04/25 1558 Residential Plumber: Procedure Note Donotuseinterpreter, Image - 01/04/[address] [place] [address] [address] Scan Report Signed Patient: Radhika Kruse#: [id number] 3 : 1945cct:[id number] Age/Sex: 79 / MADM Date: 01/02/25 Loc: HO.CT Attending Dr: Rivas Peres MD Ordering Physician: Rivas Peres MD Date of Service: 01/02/25 Procedure(s): CT chest wo IV con Accession Number(s): [id number] cc: Jeffrey Johansen MD; Rivas Peres MD Report Number: [id number]: Total DLP = 279.00 mGy-cm Reason for Exam: R91.1 - Solitary pulmonary nodule CLINICAL HISTORY: R91.1 - Solitary pulmonary nodule Exam: Nonenhanced CT chest with multiplanar reformats. Comparison: 07/27/2024 Findings: Lungs are free of focal consolidation. No pulmonary parenchymal nodules or lesions are appreciated. Airways are patent. No pneumothorax. No emphysematous disease. Previously noted right-sided pleural plaques, some of which are partially calcified, are re-identified. These appear unchanged compared with the prior exam, measuring up to 12 mm maximal transverse thickness involving medial aspect of the right lower clint thorax (measured on 3; 361). Additional scattered smaller right-sided pleural plaques are stable as well, including pleural plaque overlying the right hemidiaphragm measuring up to 6 mm craniocaudad thickness (measured on 4; 70). No new or enlarging pleural plaques or pleural lesions appreciated. No pleural or pericardial effusions. No new mediastinal or hilar masses or adenopathy. Images below the diaphragms reveal no acute abnormalities. Osseous structures reveal no new destructive osseous lesions. Impression: 1. Similar-appearing right-sided pleural plaques measuring up to 12 mm maximal thickness. Consider documentation of 2 year stability, with follow-up chest CT in approximately July of 2026. Plan: Consider follow-up chest CT in July of 2026. Fleischner 2017 Guidelines were utilized to develop follow up recommendations for this patient. The full article can be viewed at: https://goo.gl/emmDELLAK Follow up strategies in solid nodules vary depending on patient risk assessment, with patient's classified as high or low risk. Low risk is associated with young age, smaller nodule size, regular margins, and location in an area other than the upper lobe. High risk factors include older age, heavy smoking, emphysema, carcinogen exposure, larger nodule size, irregular or spiculated margins, and upper lobe location. Nodule size and morphology are the dominant factors. Follow up of subsolid nodules (including ground glass and part solid opacities) is different when compared to solid nodules based on risk of malignancy and a longer doubling time in this group. Therefore when follow up is recommended, it is for a longer interval. Also in this group, recommendations may vary depending on a solitary lesion versus multiplicity of lesions. A calculator of estimated risk is available at: https://goo.gl/JEEJEh ##PFU# This document has been electronically signed by: Rene John MD on 01/04/2025 15:58:44 Dictated By: Rene John MD Signed By: <Electronically signed by Rene John MD in OV> 01/04/25 1600 DD/ 1558 TD/TT: 01/04/25 1558 Residential Plumber: [facility] External Provider IMG CT PROCEDURES Final Result * (ABNORMAL) Basic Metabolic Panel (12/07/2024 11:01 AM EDT) Sodium 141 135 - 145 mmol/L [facility] Potassium 4.5 3.3 - 5.1 mmol/L [facility] Chloride 106 96 - 108 mmol/L [facility] Carbon Dioxide 28 22 - 29 mmol/L [facility] Anion Gap 12 12 - 20 [facility] Urea Nitrogen (BUN) 25(H) 9 - 16 mg/dL [facility] Creatinine, Serum 0.96 0.5 - 1.4 mg/dL [facility] Estimated Glomerular Filt Rate >60 [facility] Comment:Chronic Kidney Disea se: Estimated GFR < 60 mL/min/1.65l5Ofezqw Kidney Disease: Estimated GFR < 15 mL/min/1.73m2 Glucose 108 60 - 115 mg/dL [facility] Calcium 9.4 8.4 - 10.2 mg/dL [facility] 12/07/2024 11:0 1 AM EDT 12/07/2024 11:07 AM EDT us Generic External Data Provider LAB BLOOD ORDERAB LES Final Result [facility] [address] [place] [phone] * CT Head w/o Contrast (11/02/2024 1:03 PM EDT) Anatomical Region Laterality Modality Head, Neck Computed Tomogra phy 11/02/2024 1:03 PM EDT Narrative 11/02/2024 1:04 PM EDT [address] [address] [address] Scan Report Signed Patient: Lou Kruse MR#: [id number] 3 : 1945 Acct:[id number] Age/Sex: 79 / M ADM Date: 10/31/24 Loc: HO.CT Attending Dr: Jeffrey Johansen MD Ordering Physician: Jeffrey Johansen MD Date of Service: 10/31/24 Procedure(s): CT head/brain wo IV con Accession Number(s): [id number] cc: Jeffrey Johansen MD Report Number: [id number]: Total DLP = 793.00 mGy-cm Reason for [...] Miller MD in OV> 11/02/24 1304 DD/ 1303 TD/TT: 11/02/24 130 Residential Plumber: Procedure Note Donotuseinterpreter, Image - 11/02/[address] [place] [address] [address] Scan Report Signed Patient: Radhika Kruse#: [id number] 3 : 1945cct:[id number] Age/Sex: 79 / MADM Date: 10/31/24 Loc: HO.CT Attending Dr: Jeffrey Johansen MD Ordering Physician: Jeffrey Johansen MD Date of Service: 10/31/24 Procedure(s): CT head/brain wo IV con Accession Number(s): [id number] cc: Jeffrey Johansen MD Report Number: [id number]: Total DLP = 793.00 mGy-cm Reason for [...] Miller MD in OV> 11/02/24 1304 DD/ 1303 TD/TT: 11/02/24 1303 Residential Plumber: us Jeffrey Johansen MD IMG CT PROCEDURES Final Res ult * (ABNORMAL) Lipid Panel, Standard (07/02/2024 12:04 PM EDT) Triglycerides 62 <150 mg/dL [facility] Comment:Desirable Triglyceri de: less than 150 mg/dLBorderline High Triglyceride 150-199 mg/dLHigh Triglyceride: 200-499 mg/dLVery High Triglyceride: greater than or equal to 5OO mg/dL Cholesterol 194 <200 mg/dL [facility] Comment:Desirable Cholestero l: less than 200 mg/dLBorderline High Cholesterol: 200-239 mg/dLHigh Cholesterol: greater than 239 mg/dL LDL Cholesterol Calculated 113(H) <100 mg/dL [facility] Comment:Desirable LDL: less than 100 mg/dLNear Optimal/Above Optimal LDL: 110- 129 mg/dLBorderline High LDL: 130-159 mg/dLHigh LDL: 160-189 mg/dLVery High LDL: greater than or equal to 190 mg/dL HDL Cholesterol 69 >40 mg/dL [facility] Comment:Desirable HDL: great er than 40 mg/dL Note: This HDL assay may give artificially low results in patients with liver disease. Blood Venous blood specimen / Unknown 07/02/2024 12:04 PM EDT 07/02/2024 2:06 PM EDT us Jeffrey Johansen MD LAB BLOOD ORDERABLES Final Result [facility] [address] [place] [phone] from Last 3 Months or Most Recently Relevant to Health Maintenance Insurance [facility] DUAL COMPLETE HMO HSN FULL DENTAL - HSN FULL (MEDICAID) Care Teams Bowling Alley Refinisher Relationship Specialty Start Date End Date Jeffrey Johansen MD [address] [place] [phone] PCP - General Internal Medicine 03/26/17
--- OUTSIDE RECORDS SUMMARY | 2025-01-05 08:07 | XMS_ITS | Encounter Summary ---
Author Organization [employer] Address 75 [facility] 7 [place] [address] Care Team Providers Care Front Office Coordinator Name Role Phone Jeffrey Johansen MD Primary Care Provider [phone]- [phone] Encounter Details Date Type Department Care Team ([facility] st Contact Info) Description 06/06/[address] [facility] CHC MED & PEDS [address] [place], [place] [phone] Provider, MD Jeff Social History Tobacco Use [...] on filedocumented in this encounter Care Teams Front Office Coordinator Relationship Specialty Start Date End Date Jeffrey Johansen MD [address] [place] [address] PCP - General Internal Medicine 03/26/17 documented as of this encounter
--- NOTE | 2025-01-05 08:30 | A.OFFVIS_ITS ---
Vital Signs 01/05/25 08:34 Height 5 ft 9 in Weight 145 lb BMI 21.4 BP 140/70 H Blood Pressure Location Rt brachial Position Sitting Respiration 16 Pulse 70 Pulse Source Pulse Oximeter Pulse Oximetry (%) 95 Oxygen Delivery Method Room Air Intake Visit Reasons: tenstion headache Gift Shop Clerk Required: No Accompanied by: Son Allergies aspirin Allergy (Unknown, Verified 01/05/25 08:36) nausea and vomiting, GI upset furosemide (From Lasix) Allergy (Verified 01/05/25 08:36) rash meloxicam Allergy (Verified 01/05/25 08:36) Abdominal Pain dronedarone (From Multaq) Adverse Reaction (Verified 01/05/25 08:36) leg swelling HPI Comments Details: Lou is a 71-year-old male patient with a past medical history of depression, hyperlipidemia, insomnia, HTN, A-fib on xarelto, and cardiac pacemaker. He is here today for headache evaluation. According to the patient today, he began having headaches in his 60s. When his headaches started he was having headaches intermittently. His headaches became more frequent and intense a few years ago when he started to have treatment for his a-fib and cataracts. Currently he is experiencing headaches daily and occuring all day. His headaches are generally mild but can become moderate in intensity. His headaches are not preventing sleep at night but are present upon awakening every morning. His head pain is to the bilateral frontal area and the pain is described as a constant pressure sensation and dull ache. When he has his headaches he has a generalized sensation of illness. He also has some ongoing symptoms of dizziness, right eye, droopy eyelid, light sensitivity, difficulty concentrating, tearing eyes, runny nose, sound sensitivity, fatigue, feelings of being congested that he relates to the headaches as he feels that these symptoms are always present but potentially get worse when headaches get worse. There was also a possible positional component with headaches improving while he is in a laying position. When he awakes in the morning and is still in bed, headaches are not present until he puts his feet on the floor and gets up to walk. Headache characteristics: Time of onset:When he was in his 60s Location:Bifrontal Radiation:No Positional component:Headaches are generally worse with standing Character:Pressure/dull ache Severity:Mild to moderate Duration:constant Frequency:Daily Acute aggravating factors: Activity Acute relieving factors: Rest Associated symptoms:Dizziness, right eye, droopy eyelid, light sensitivity, difficulty concentrating, tearing eyes, runny nose, sound sensitivity, fatigue, feelings of being congested Aura:None Headache triggers:Weather changes/rainy days Other related background information: Sleep: No difficulty with falling asleep but does awaken a couple of times during the night. Stressors: 8/10 and stress level and reports some anxiety Hydration: 16oz water per day Caffeine intake:Coffee in the morning Alcohol intake:Has not drank alcohol in 7 months Substance use:None Tobacco use:None Last eye exam: Last week Last dental visit: Within the last month. Likely grinding and clenching History of head injury:None Past medication trials: Tylenol - Not helpful Prior workup: 10/31/2024 CT head without contrast: No acute intercranial findings [facility] Medical History (Updated 01/05/25 @ 09:43 by Elaina Cardoso CNP) Chronic headache disorder Pulmonary nodule 1 cm or greater in diameter Asbestos-induced pleural plaque Pacemaker Persistent atrial fibrillation Hyperplastic polyp of large intestine Adenomatous colon polyp Internal hemorrhoid Paroxysmal atrial fibrillation History of cardioversion HTN (hypertension) Surgical History Hx of colonoscopy Family History Father Stroke Mother No problems noted. Social History Are you a primary rn home care to a significant other at home: No Do you presently have visiting nurse or other home services: No Alcohol intake: current Alcohol intake frequency: 0-2 drinks per day Alcohol type: wine and hard liquor Patient Tobacco Use Status: Former Tobacco user Tobacco use type: Cigarette Review of Systems Const All systems reviewed & are unremarkable except as noted in HPI and below Physical Exam Vital Signs: Last Vital Signs Pulse 70 01/05/25 08:34 Resp 16 01/05/25 08:34 BP 140/70 H 01/05/25 08:34 Pulse Ox 95 01/05/25 08:34 Oxygen Delivery Method Room Air 01/05/25 08:34 BMI result Body Mass Index 21.4 Const General: cooperative, healthy appearing, comfortable and no acute distress Nutritional Appearance: well nourished Orientation/consciousness: patient oriented x3 Limitations: no limitations HEENT Head: Yes normal to inspection and Yes normocephalic Eyes General: appearance normal, both eyes and all related structures Visual Dueñas: normal visual dueñas by confrontation Alignment and Position: alignment normal Periorbital: periorbital findings normal Eyelids: Yes eyelids normal Conjunctivae: conjunctivae normal Sclerae: sclerae normal Direct Ophthalmoscopy: normal light reflex Back/Spine/Pelvis Other: Bilateral trapezius trigger points L>R. No occipital notch tenderness and no temporal tenderness or occipital notch tenderness. Neuro General: patient oriented x3, tone normal and deep tendon reflexes 2+ bilaterally Cranial nerves: Yes CN's II-XII intact bilaterally and Yes Facial sensation intact/muscles of mastication intact Cognition (Neuro): normal cognition Gait exam (Neuro): Normal gait present Motor exam (neuro): 5/5 motor strength present throughout and no tremor noted Sensory Exam: double simultaneous stimulation for sensation normal Romberg Test: Negative Pupils: Normal pupillary reactivity/response: bilateral Psych Appearance: grossly normal Mental Status: mental status grossly normal Speech and movement: Normal speech and movement present and Clear speech present Affect: normal affect Attitude: cooperative Thought process: Normal thought process present Thought content: Normal thought content present Insight: Good insight present (Psych) Judgement: Good judgement present (Psych) Assessment & Plan Assessment & Plan (1) Chronic daily headache: Code(s): R51.9 - Headache, unspecified Category: Medical Plan Lou is a 71-year-old male patient with a past medical history of depression, hyperlipidemia, insomnia, HTN, A-fib on xarelto, and cardiac pacemaker. He is here today for headache evaluation. Headaches are likely tension-type based on severity, chronicity, and notable trigger points the trapezius muscles on exam. I can not fully exclude the possibility of a low-pressure headache especially given that his headaches significantly improve while he is in the lying position even during today's exam. He does however have a pacemaker and extreme claustrophobia which complicates the ability to perform an MRI. His pacemaker is MR conditional meaning that we can perform an MRI [facility]. He would however like to have an open MRI which is not available at [facility] where he would need to have his MRI locally. I am recommending that we treat as a tension-type headache initially with tizanidine and trigger point injections to see if headaches improve. If headaches do not improve, we will need to proceed with a workup for low-pressure headache including either an MRI (would need to be an open MRI with the tendons of a [facility] personal financial representative) or a CT myelogram. Device Identifier [id number] Version [id number] Epic Application Coordinator [employer] GMD[facility] PT Dual-chamber implantable pacemaker, rate-responsive MRI Safety Label MR Conditional -Increase water intake -Trial of tizanidine 4mg at bedtime -Trigger point injections - book at next available -If headaches persist, consider open MRI with oral Ativan and [facility] personal financial representative or CT myelogram Medications: New tizanidine 4 mg PO BEDTIME PRN 30 tabs 5RF muscle spasticity 30 days Coding Level of Care Code New Pt Level 4 (31945) Diagnoses Chronic daily headache R51.9
[2025-01-05 08:34] VITALS: BP 140/70; PULSE 70; RESP 16; O2SAT 95; BMI 21.4
== END 2025-01-05 09:39 | disposition home or self-care (01) ==
LOC: HO.HSM 07:56
PROVIDERS: PCP Internal Medicine; Visit Provider Nurse Practitioner
DX: R51.9 Headache, unspecified (principal)
CPT/HCPCS: 99204

== ENCOUNTER → 2025-01-05 07:56 | Outpatient (BNVA) | payer MEDICARE, SELFPAY | PROVIDERS: PCP Internal Medicine; Visit Provider Nurse Practitioner | DX: R51.9 Headache, unspecified (principal) | CPT/HCPCS: 99202 ==

== ENCOUNTER → 2025-01-27 14:55 | Outpatient (BNV) | payer MEDICARE, SELFPAY | PROVIDERS: PCP Internal Medicine; Visit Provider Internal Medicine Cardiovascular Disease | DX: Z45.018 Encounter for adjustment and management of other part of cardiac pacemaker (principal) | CPT/HCPCS: 93294 ==

== ENCOUNTER 2025-02-09 09:52 | Outpatient (AMB) | payer MEDICARE, SELFPAY ==
--- NOTE | 2025-02-09 10:03 | A.OFFVIS_ITS ---
Vital Signs 02/09/25 10:10 Height 5 ft 9 in Weight 143 lb BMI 21.1 BP 158/70 H Blood Pressure Location Lt brachial Position Sitting Respiration 16 Pulse 102 H Pulse Source Pulse Oximeter Pulse Oximetry (%) 97 Oxygen Delivery Method Room Air Intake Visit Reasons: Trigger point Business Development Consultant Required: Yes Business Development Consultant Services: Business Development Consultant Offered & Declined Business Development Consultant Name: Daughter Information Interpreted: non-clinical & clinical Accompanied by: Daughter Allergies aspirin Allergy (Unknown, Verified 01/05/25 08:36) nausea and vomiting, GI upset furosemide (From Lasix) Allergy (Verified 01/05/25 08:36) rash meloxicam Allergy (Verified 01/05/25 08:36) Abdominal Pain dronedarone (From Multaq) Adverse Reaction (Verified 01/05/25 08:36) leg swelling HPI Comments Details: Lou is a 71-year-old male patient with a past medical history of depression, hyperlipidemia, insomnia, HTN, A-fib on xarelto, and cardiac pacemaker. He is here today for a follow up visit as well as nerve blocks and trigger point injections. At the time of his last office visit, he reported that he began having headaches in his 60s and they has been occurring intermittently but more frequently has been bothersome and impacting his day-to-day life. He is experiencing daily headaches occurring all day. They were generally mild but could become moderate intensity. He explained the or not impacting his sleep but he would find them to be present upon awakening every morning. He also noted some ongoing dizziness, right eye tripping, light sensitivity, difficulty concentrating I tea ring, runny nose, and sound sensitivity. His exam was significant for bilateral trigger points to the trapezius area worse on the left side. I did have him lie down during our exam and his headaches seemed to resolve somewhat with a laying position. This did raise some concern for possibility of low-pressure headache though due to his pacemaker there was some difficulty in pursuing MRI. I started him on tizanidine in efforts to help control his headaches from a tension standpoint and asked that he come back for trigger point injections. Unfortunately he tells me today that the tizanidine did not benefit him at all. He is open to having his trigger point and occipital nerve blocks today. He does tell me that he has not noticed any significant positional component since our are still going on constantly whether he is in a lying or standing position. Prior to today's procedure we reviewed risks and benefits of the procedure. He is on Xarelto which creates an increased risk for bleeding and complications. He is aware of this. We discussed aftercare including frequent checks of the site for abnormal bleeding on an hourly basis for the 1st 24 hours after the injection. Headache characteristics: Time of onset:When he was in his 60s Location:Bifrontal Radiation:No Positional component:Headaches are generally worse with standing Character:Pressure/dull ache Severity:Mild to moderate Duration:constant Frequency:Daily Acute aggravating factors: Activity Acute relieving factors: Rest Associated symptoms:Dizziness, right eye, droopy eyelid, light sensitivity, difficulty concentrating, tearing eyes, runny nose, sound sensitivity, fatigue, feelings of being congested Aura:None Headache triggers:Weather changes/rainy days Other related background information: Sleep: No difficulty with falling asleep but does awaken a couple of times during the night. Stressors: 8/10 and stress level and reports some anxiety Hydration: 16oz water per day Caffeine intake:Coffee in the morning Alcohol intake:Has not drank alcohol in 7 months Substance use:None Tobacco use:None Last eye exam: Last week Last dental visit: Within the last month. Likely grinding and clenching History of head injury:None Past medication trials: Tylenol - Not helpful Prior workup: 10/31/2024 CT head without contrast: No acute intercranial findings COUNTS INCLUDE [facility] B[facility]S AT [facility] Medical History (Updated 02/09/25 @ 10:15 by Elaina Cardoso CNP) Chronic headache disorder Pulmonary nodule 1 cm or greater in diameter Asbestos-induced pleural plaque Pacemaker Persistent atrial fibrillation Hyperplastic polyp of large intestine Adenomatous colon polyp Internal hemorrhoid Paroxysmal atrial fibrillation History of cardioversion HTN (hypertension) Surgical History Hx of colonoscopy Family History Father Stroke Mother No problems noted. Social History Are you a primary restorative care technician to a significant other at home: No Do you presently have visiting nurse or other home services: No Alcohol intake: current Alcohol intake frequency: 0-2 drinks per day Alcohol type: wine and hard liquor Patient Tobacco Use Status: Former Tobacco user Tobacco use type: Cigarette Review of Systems Const All systems reviewed & are unremarkable except as noted in HPI and below Physical Exam Vital Signs: Last Vital Signs Pulse 102 H 02/09/25 10:10 Resp 16 02/09/25 10:10 BP 158/70 H 02/09/25 10:10 Pulse Ox 97 02/09/25 10:10 Oxygen Delivery Method Room Air 02/09/25 10:10 BMI result Body Mass Index 21.1 Const General: cooperative, healthy appearing, comfortable and no acute distress Nutritional Appearance: well nourished Orientation/consciousness: patient oriented x3 Limitations: no limitations HEENT Head: Yes normal to inspection and Yes normocephalic Eyes General: appearance normal, both eyes and all related structures Visual Udeñas: normal visual dueñas by confrontation Alignment and Position: alignment normal Periorbital: periorbital findings normal Eyelids: Yes eyelids normal Conjunctivae: conjunctivae normal Sclerae: sclerae normal Direct Ophthalmoscopy: normal light reflex Back/Spine/Pelvis Other: Bilateral trapezius trigger points L>R. No occipital notch tenderness and no temporal tenderness or occipital notch tenderness. Neuro General: patient oriented x3, tone normal and deep tendon reflexes 2+ bilaterally Cranial nerves: Yes CN's II-XII intact bilaterally and Yes Facial sensation intact/muscles of mastication intact Cognition (Neuro): normal cognition Gait exam (Neuro): Normal gait present Motor exam (neuro): 5/5 motor strength present throughout and no tremor noted Sensory Exam: double simultaneous stimulation for sensation normal Romberg Test: Negative Pupils: Normal pupillary reactivity/response: bilateral Psych Appearance: grossly normal Mental Status: mental status grossly normal Speech and movement: Normal speech and movement present and Clear speech present Affect: normal affect Attitude: cooperative Thought process: Normal thought process present Thought content: Normal thought content present Insight: Good insight present (Psych) Judgement: Good judgement present (Psych) Office Procedures Nerve Block Details: Bilateral Greater Occipital Nerve block procedure: Laterally: Left Indications: Occipital neuralgia Current allergies and current list of medications were reviewed prior to procedure, verbal consent was obtained, procedure was explained in detail to the patient prior to starting. Time-out was performed prior to procedure. Following universal hygiene protocols, patient's left occipital area was located by drawing a line between the external occipital protuberance and the mastoid process. The greater occipital nerve was located approximately 2/3 along this dragline operator to the occiput, and corresponded with the point of maximum tenderness. Alcohol was applied topically to the skin. A 27 gauge needle (aspirating during insertion) was inserted at a 45 degree angle until just above the periosteum. The providers selected agent (s)/medications (as documented in this note) were injected on the left side (directing needle to center, left and right of painful focus any fanning technique). Pressure with gauze pad was held briefly upon the site of puncture to minimize bleeding and to further spread anesthetic subcutaneously. The patient was monitored for 15 minutes after the procedure and no complications were observed. Post procedure care was reviewed with the patient including application of ice intermittently to the injection sites over the course of the day to reduce inflammation. CPT: 20672-Dkbwdse Occipital Procedure code (CPT) selection complete Nerve Block Details: Bilateral Greater Occipital Nerve block procedure: Laterally: Right Indications: Occipital neuralgia Current allergies and current list of medications were reviewed prior to procedure, verbal consent was obtained, procedure was explained in detail to the patient prior to starting. Time-out was performed prior to procedure. Following universal hygiene protocols, patient's right occipital area was located by drawing a line between the external occipital protuberance and the mastoid process. The greater occipital nerve was located approximately 2/3 along this dragline operator to the occiput, and corresponded with the point of maximum tenderness. Alcohol was applied topically to the skin. A 27 gauge needle (aspirating during insertion) was inserted at a 45 degree angle until just above the periosteum. The providers selected agent (s)/medications (as documented in this note) were injected on the left side (directing needle to center, left and right of painful focus any fanning technique). Pressure with gauze pad was held briefly upon the site of puncture to minimize bleeding and to further spread anesthetic subcutaneously. The patient was monitored for 15 minutes after the procedure and no complications were observed. Post procedure care was reviewed with the patient including application of ice intermittently to the injection sites over the course of the day to reduce inflammation. CPT: 37563-Jedjwuv Occipital Procedure code (CPT) selection complete Therapeutic Injection Therapeutic Injection Details: Trigger point injection procedure: Laterally:Bilateral Indications: Chronic headaches, myofascial pain Following universal hygiene protocol, after explaining the risks and benefits as well as hazards of the procedure to the patient, consent was signed and placed in the chart. Time-out prior to starting the procedure was performed. The areas over the bilateral trapezius muscles were cleansed with alcohol. 1 Sites in each trapezius muscle injected with a 27 gauge 1.5 in needle with myofascial spasm. Patient tolerated the procedure well, localized bleeding was controlled. Patient monitored in the clinic for 15 minutes for complications. Patient was discharged home with instructions to apply ice to the back of their head as needed. 21169-[id number] Point Injection 1 or 2 sites All charges added?: Procedure code (CPT) selection complete Office Meds bupivacaine (PF) 0.25 % (2.5 mg/mL) injection solution Performing Provider: Elaina Cardoso CNP Performing Location: [facility] Administered by: Elaina Cardoso CNP on 02/09/25 10:40 Dose Route Admin Location Dispensed Lot Number Expiration Date [facility] Basket Maker 2 mL Infiltration 10 mL [id number] [employer] Total Dispensed Waste 10 mL 80 % lidocaine (PF) 20 mg/mL (2 %) injection solution Performing Provider: Elaina Cardoso CNP Performing Location: [facility] Documented (not given) by: Elaina Cardoso CNP on 02/09/25 10:40 Reason Not Given: No Longer Necessary Comments: Correct medication on selected but unable to cancel this order. Lidocaine 1% was used. A total of 1 mL was utilized for the procedure from a 2 mL vial. [facility] number: [id number] lidocaine (PF) 10 mg/mL (1 %) injection solution Performing Provider: Elaina Cardoso CNP Performing Location: [facility] Administered by: Elaina Cardoso CNP on 02/09/25 10:43 Dose Route Admin Location Dispensed Lot Number Expiration Date [facility] Basket Maker 1 mL peripheral nerve block 2 mL [id number] [employer] [employer] [employer] [facility] Total Dispensed Waste 2 mL 50 % Comments: Incorrect medication selected. Lidocaine 2% 2 mL solution was used. bupivacaine (PF) 0.25 % (2.5 mg/mL) injection solution Performing Provider: Elaina Cardoso CNP Performing Location: [facility] Administered by: Elaina Cardoso CNP on 02/09/25 10:43 Dose Route Admin Location Dispensed Lot Number Expiration Date [facility] Basket Maker 2 mL Infiltration 10 mL [id number] [employer] Total Dispensed Waste 10 mL 80 % bupivacaine (PF) 0.25 % (2.5 mg/mL) injection solution Performing Provider: Elaina Cardoso CNP Performing Location: [facility] Administered by: Elaina Cardoso CNP on 02/09/25 10:22 Dose Route Admin Location Dispensed Lot Number Expiration Date [facility] Basket Maker 3 mL Infiltration 10 mL [id number] [employer] Total Dispensed Waste 10 mL 70 % Assessment & Plan Assessment & Plan (1) Chronic headache disorder: Code(s): R51.9 - Headache, unspecified; G89.29 - Other chronic pain Category: Medical (2) Muscle pain, myofascial: Code(s): M79.18 - Myalgia, other site Category: Medical Plan Lou is a 71-year-old male patient with a past medical history of depression, hyperlipidemia, insomnia, HTN, A-fib on xarelto, and cardiac pacemaker. He is here today for a follow up visit as well as nerve blocks and trigger point injections. Procedures today were completed with extreme caution given patient's use of Xarelto. There was no abnormal bleeding on exam and extended time given for pressure being held to the side of injections. He had no bruising or bleeding or signs of hematoma. We did review today that he should continue to assess his injection sites at home hourly over the course of the next 24 hours aside from what he is sleeping. If he develops any abnormal bleeding, bruising, or signs of hematoma, he should seek medical attention immediately. I will have him return to the clinic in 2 weeks. If at that time his headaches have improved, I would likely consider moving forward with repeat trigger point injections. We can try omitting the nerve block injections given higher risk for bleeding with that procedure. If headaches have not improved, I will discuss coordination for an MRI with the [facility] for assistance. Orders: Orders AMB Trigger Point Injection Today G89.29 - Other chronic pain, M79.18 - Myalgia, other site, R51.9 - Headache, unspecified AMB Nerve Block Today G89.29 - Other chronic pain, M79.18 - Myalgia, other site, R51.9 - Headache, unspecified AMB Nerve Block Today G89.29 - Other chronic pain, M79.18 - Myalgia, other site, R51.9 - Headache, unspecified Coding Level of Care Code Est Pt Level 3 (22721) Diagnoses Chronic headache disorder R51.9; G89.29 Muscle pain, myofascial M79.18 CPT Codes Nerve Block - CPT: 98122-Kaovrpg Occipital ([id number]) Nerve Block - CPT: 03361-Zcrreoc Occipital ([id number]) Therapeutic Injection - Ther Injection 1: 02339-Uwqnmjp Point Injection 1 or 2 sites ([id number])
[2025-02-09 10:10] VITALS: BP 158/70; PULSE 102; RESP 16; O2SAT 97; BMI 21.1
--- OUTSIDE RECORDS SUMMARY | 2025-02-09 12:51 | XMS_ITS | Encounter Summary ---
Author Organization [employer] Address 75 [facility] 7 [place] [address] Care Team Providers Care Assortment Planner Name Role Phone Jeffrey Johansen MD Primary Care Provider [phone]- [phone] Encounter Details Date Type Department Care Team ([facility] st Contact Info) Description 02/19/2024 Orders Only [facility] CHC MED & PEDS [address] [place], [place] [phone] Jeffrey Johansen MD 505 [place] [address] Social History Tobacco Use Types Packs/Day Years [...] on filedocumented in this encounter Care Teams Assortment Planner Relationship Specialty Start Date End Date Jeffrey Johansen MD [address] [place] [address] PCP - General Internal Medicine 03/26/17 documented as of this encounter
--- OUTSIDE RECORDS SUMMARY | 2025-02-09 12:51 | XMS_ITS | Encounter Summary ---
Author Organization [employer] Address 75 [facility] 7 [place] [address] Care Team Providers Care Asphalt Coater Name Role Phone Jeffrey Johansen MD Primary Care Provider [phone] [phone] Encounter Details Date Type Department Care Team (Latest Contact Info) Description 07/15/2020 Abstract [facility] CONVERSIONS Dental, Provider, DDS Social [...] on filedocumented in this encounter Care Teams Asphalt Coater Relationship Specialty Start Date End Date Jeffrey Johansen MD 505 [place] [address] PCP - General Internal Medicine 03/26/17 documented as of this encounter
--- OUTSIDE RECORDS SUMMARY | 2025-02-09 12:51 | XMS_ITS | Encounter Summary ---
Author Organization [employer] Address 75 [facility] 7 [place] [address] Care Team Providers Care Newspaper Photographer Name Role Phone Jeffrey Johansen MD Primary Care Provider [phone]- [phone] Encounter Details Date Type Department Care Team ([facility] st Contact Info) Description 06/06/2023 Orders Only [facility] CHC MED & PEDS 505 [place], [place] [phone] Provider, MD Jeff Social History Tobacco Use [...] on filedocumented in this encounter Care Teams Newspaper Photographer Relationship Specialty Start Date End Date Jeffrey Johansen MD 505 [place] [address] PCP - General Internal Medicine 03/26/17 documented as of this encounter
--- OUTSIDE RECORDS SUMMARY | 2025-02-09 12:51 | XMS_ITS | Encounter Summary ---
Author Organization [employer] Address 75 [facility] 7t [place] [address] Care Team Providers Care Apple Turner Name Role Phone Jeffrey Johansen MD Primary Care Provider [phone] [phone] Encounter Details Date Type Department Care Team ([facility] st Contact Info) Description 10/06/2024 Telephone [facility] MEDICINE [address] [place] [address] Jeffrey Johansen MD [address] [place], [place] [phone] Social History Tobacco Use Types Packs/Day Years [...] on filedocumented in this encounter Care Teams Apple Turner Relationship Specialty Start Date End Date Jeffrey Johansen MD [address] [place] [address] PCP - General Internal Medicine 03/26/17 documented as of this encounter
--- OUTSIDE RECORDS SUMMARY | 2025-02-09 12:51 | XMS_ITS | Encounter Summary ---
Author Organization [employer] Address 75 [facility] 7 [place] [address] Care Team Providers Care Wire Stitcher Operator Name Role Phone Jeffrey Johansen MD Primary Care Provider [phone]- [phone] Reason for Visit * Reason Onset Date Comments ER Follow-up 07/18/2023 Encounter Details Date Type Department Care Team ([facility] st Contact Info) Description 07/18/2023 Telephone [facility] CHC MED & PEDS 505 [place], [place] [phone] Jeffrey Johansen MD 505 [place] [address] ER Follow-up Social History Tobacco Use Types [...] message below. Son states pt discharged from [facility] on 07/18/23 for dizziness and JAMISON. Pt had a full workup including imaging and was told everything returned WNL. Pt's pulse kept dipping into the 40's and at one point went down into the 30's. Pt son states [facility] informed him that it may be the amiodarone that is causing his pulse to dip and causing the pt's dizziness. [facility] informed son to contact geothermal sheet metal worker for f/u. Son states he is still [...] on : Date: 07/17/23 Discharged 07/18/23 Hospital: [facility] Seen for: dizziness and headache Patient advised will forward to team nurse for follow up documented in this encounter Plan of Treatment Not on file documented as of this encounter Visit Diagnoses Not on filedocumented in this encounter Care Teams Wire Stitcher Operator Relationship Specialty Start Date End Date Jeffrey Johansen MD [address] [place] [address] PCP - General Internal Medicine 03/26/17 documented as of this encounter
--- OUTSIDE RECORDS SUMMARY | 2025-02-09 12:51 | XMS_ITS | Encounter Summary ---
Author Organization [employer] Address 75 [facility] 7t [place] [address] Care Team Providers Care Shop Teacher Name Role Phone Jeffrey Johansen MD Primary Care Provider [phone] Reason for Visit * Reason Onset Date Comments release from dental office 12/17/2024 Encounter Details Date Type Department Care Team ([facility] st Contact Info) Description 12/17/2024 Telephone [facility] ADULT DENTAL [address] [place] [address] Gladys Saba DDS [address] [place] [address] release from dental office Social History Tobacco [...] t he electric, gas, oil or water [employer] threatened to shut off services in your [...] in by [facility] dental in [place] back in August 11 and again on [...] of. I can reach [facility] the [facility] update as well. Phone number for [facility] dental where patient is going is [phone]. hotel supplies salesperson is Brittney. KENNEDY documented in this encounter Plan of Treatment Not on file documented as of this encounter Visit Diagnoses Not on filedocumented in this encounter Care Teams Shop Teacher Relationship Specialty Start Date End Date Jeffrey Johansen MD [address] [place] [address] PCP - General Internal Medicine 03/26/17 documented as of this encounter
--- OUTSIDE RECORDS SUMMARY | 2025-02-09 12:51 | XMS_ITS | Encounter Summary ---
Author Organization [employer] Address 75 [facility] 7t [place] [address] Care Team Providers Care Fish Culturist Name Role Phone Jeffrey Johansen MD Primary Care Provider [phone] Encounter Details Date Type Department Care Team ([facility] Contact Info) Description 07/28/2024 Orders Only [facility] [address] [place] [address] ProviderJeff MD Social History Tobacco Use Types [...] on filedocumented in this encounter Care Teams Fish Culturist Relationship Specialty Start Date End Date Jeffrey Johansen MD [address] [place] [address] PCP - General Internal Medicine 03/26/17 documented as of this encounter
--- OUTSIDE RECORDS SUMMARY | 2025-02-09 12:51 | XMS_ITS | Encounter Summary ---
Author Organization [employer] Address 75 [facility] 7t [place] [address] Care Team Providers Care Carry Out Clerk Name Role Phone Jeffrey Johansen MD Primary Care Provider [phone]- [phone] Encounter Details Date Type Department Care Team ([facility] st Contact Info) Description 10/12/2022 Orders Only [facility] CHC MED & PEDS [address] [place], [place] [phone] Jeffrey Johansen MD 505 [place], [place] [phone] Social History Tobacco Use Types Packs/Day Years [...] EST) Sodium 140 135 - 145 mmol/L [facility] Potassium 4.3 3.3 - 5.1 mmol/L [facility] Chloride 104 96 - 108 mmol/L [facility] Carbon Dioxide 30(H) 22 - 29 mmol/L [facility] Anion Gap 10(L) 12 - 20 [facility] Urea Nitrogen (BUN) 21(H) 9 - 16 mg/dL [facility] Creatinine, Serum 1.06 0.5 - 1.4 mg/dL [facility] Estimated Glomerular Filt Rate >60 [facility] Comment:NOTE: For -Am erican individuals, multiply the result by 1.210.Chronic Kidney Disease: Estimated GFR < 60 mL/min/1.92j3Tmrihj Kidney Disease: Estimated GFR < 15 mL/min/1.73m2 Glucose 97 60 - 115 mg/dL [facility] Calcium 9.7 8.4 - 10.2 mg/dL [facility] 02/28/2023 10:4 1 AM EST 02/28/2023 10:41 AM EST us Generic External Data Provider LAB BLOOD ORDERAB LES Final Result Performing Organization Address City/[facility]/ZIP Co de Phone Number [facility] [address] [place] [phone] * B Type Natriuretic Peptide (BNP) (02/28/2023 10:41 AM EST) B Type Natriuretic Peptide 78 <100 pg/mL [facility] Comment:For those patients w ho are being treated with Natrecor(nesiritide, recombinant BNP), BNP testing should beperformed at least two hours post treatment in order toensure that only endogenous levels of BNP are detected. 02/28/2023 10:4 1 AM EST 02/28/2023 10:41 AM EST us Generic External Data Provider LAB BLOOD ORDERAB LES Final Result Performing Organization Address [facility]/ZIP Co de Phone Number [facility] [address] [place] [phone] * CBC (02/28/2023 10:41 AM EST) White Blood Count 6.8 4.8 - 10.8 X10*3/uL [facility] Red Blood Count 4.62 4.60 - 5.80 X10*6/uL [facility] Hemoglobin 14.0 14.0 - 18.0 g/dl [facility] Hematocrit 42.3 42.0 - 52.0 % [facility] Mean Corpuscular Volume 91.6 80.0 - 98.0 fL [facility] Mean Corpuscular Hemoglobin 30.3 27.0 - 33.0 pg [facility] Mean Corpuscular HGB Conc 33.1 31.0 - 36.0 g/dl [facility] Red Cell Distribution Width 13.2 11.0 - 16.0 % [facility] Platelet Count 247 160 - 400 X10*3/uL [facility] Mean Platelet Volume 10.3 9.4 - 12.4 [facility] NRBC Pct Auto 0.0 0.0 - 0.2 /100WBC [facility] NRBC Abs Auto 0.000 0.0 - 0.012 X10*3/uL [facility] 02/28/2023 10:4 1 AM EST 02/28/2023 10:41 AM EST us Generic External Data Provider LAB BLOOD ORDERAB LES Final Result Performing Organization Address City/State/[facility] Co de Phone Number [facility] [address] [place] [phone] [phone] documented in this encounter Visit Diagnoses Not on filedocumented in this encounter Care Teams Carry Out Clerk Relationship Specialty Start Date End Date Jeffrey Johansen MD [address] [place] [address] PCP - General Internal Medicine 03/26/17 documented as of this encounter
--- OUTSIDE RECORDS SUMMARY | 2025-02-09 12:51 | XMS_ITS | Encounter Summary ---
Author Organization [employer] Address 75 [facility] 7 [place] [address] Care Team Providers Care Director Auto Name Role Phone Jeffrey Johansen MD Primary Care Provider [phone] [phone] Encounter Details Date Type Department Care Team (Latest Contact Info) Description 10/27/2018 Abstract [facility] CONVERSIONS Dental, Provider, DDS Social History Tobacco [...] on filedocumented in this encounter Care Teams Director Auto Relationship Specialty Start Date End Date Jeffrey Johansen MD [address] [place] [address] PCP - General Internal Medicine 03/26/17 documented as of this encounter
--- OUTSIDE RECORDS SUMMARY | 2025-02-09 12:51 | XMS_ITS | Encounter Summary ---
Author Organization [employer] Address [address] [place] [address] 7 [place] [address] Care Team Providers Care Shoe Sticks Repairer Name Role Phone Jeffrey Johansen MD Primary Care Provider [phone]- [phone] Reason for Referral * Consultation (Routine) - Closed Specialty Diagnoses / Procedures Referred By Ruba dailey Referred To Contact Neurology Diagnoses Chronic tension-type headache, not intractable Jeffrey Johansen MD [address] [place] [address] Phone: tel: fax: Deirdre Strauss MD [address] [place] [address] [place] [address] Phone: tel: fax: Referral ID Status Reason Start Date Expiration Date V isits Requested Visits Authorized [id number] Closed Specialty Services Required 11/02/2024 11/02/2025 1 1 Encounter Details Date Type Department Care Team (Late st Contact Info) Description 11/02/2024 Orders Only [facility] CHC MED & PEDS [address] [place], [place] [phone] Jeffrey Johansen MD [address] [place], [place] [phone] Chronic tension-type headache, not intractable (Primary Dx) [...] headache documented in this encounter Care Teams Shoe Sticks Repairer Relationship Specialty Start Date End Date Jeffrey Johansne MD [address] [place] [phone] PCP - General Internal Medicine 03/26/17 documented as of this encounter
--- OUTSIDE RECORDS SUMMARY | 2025-02-09 12:51 | XMS_ITS | Encounter Summary ---
Author Organization [employer] Address [address] [facility] [address] 7t [place] [address] Care Team Providers Care Audio Visual Arts Director Name Role Phone Jeffrey Johansen MD Primary Care Provider [phone]- [phone] Encounter Details Date Type Department Care Team (Late st Contact Info) Description 08/16/2022 Telephone [facility] CHC ADULT DENTAL [address] [place] [address] Chaitanya Correia DDS [address] [place] [address] Social History Tobacco Use Types Packs/Day Years [...] on filedocumented in this encounter Care Teams Audio Visual Arts Director Relationship Specialty Start Date End Date Jeffrey Johansen MD [address] [place] [phone] PCP - General Internal Medicine 03/26/17 documented as of this encounter
--- OUTSIDE RECORDS SUMMARY | 2025-02-09 12:51 | XMS_ITS | Encounter Summary ---
Author Organization [employer] Address 75 [facility] 7t [place] [address] Care Team Providers Care Boat Buffer Plastic Name Role Phone Jeffrey Johansen MD Primary Care Provider [phone] Reason for Visit * Reason Onset Date Comments Dr. Shah referral faxed out 05/22/2024 Encounter Details Date Type Department Care Team ([facility] st Contact Info) Description 05/22/2024 Telephone [facility] ADULT DENTAL [address] [place] [address] Reynoso referral faxed [...] AM EDT Message for Dr. Shah and trouble locator test desk Son of patient called in looking for the phone number for [facility] Dental. Patient was referred back in april, and he didn't have referral on file to reach out to the office. Phone number provided to the patients son for both [place] and [place] offices, fax has also been faxed out to [place] office. However, fax number for [place] was not available. Patient son has been informed that the fax has been sent out. DR documented in this encounter Plan of Treatment Not on file documented as of this encounter Visit Diagnoses Not on filedocumented in this encounter Care Teams Boat Buffer Plastic Relationship Specialty Start Date End Date Jeffrey Johansen MD [address] [place] [address] PCP - General Internal Medicine 03/26/17 documented as of this encounter
--- OUTSIDE RECORDS SUMMARY | 2025-02-09 12:51 | XMS_ITS | Clinical Summary ---
Author Organization [employer] Address 75 [facility] 7t [place] [address] Care Team Providers Care Woven Wood Shade Assembler Name Role Phone Jeffrey Johansen MD Primary Care Provider [phone]- [phone] Allergies Active Allergy Reactions Criticality Noted Date [...] WITH A MEAL 90 tablet 2 5 1:40 PM EST 07/18/19 25 Active flecainide (Tambocor) 150 MG tablet Take 150 mg by mouth 2 times daily. 08/01/19 25 Active LORazepam (Ativan) 1 MG tabletIndicati ons:Anxiety 1 mg 30 minutes prior to the procedure, may repeat 1 mg 30 minutes later if still anxious 2 tablet 10/10/19 25 Active atorvastatin (Lipitor) 40 MG tablet TAKE ONE TABLET AT BEDTIME 30 tablet 6 10/31/19 25 Active lisinopril 30 MG tablet TAKE ONE TABLET EVERY MORNING 30 tablet 3 01/27/20 25 Active lisinopril 30 MG tablet TAKE ONE TABLET EVERY MORNING 30 tablet 3 10/06/19 25 025 Discontinued Active Problems Problem Noted Date Diagnosed Date [...] Encounters Date Type Department Care Team Description 01/26/2025 Refill [facility] MEDICINE [address] [place] [address] Jeffrey Johansen MD 12/17/2024 Telephone [facility] ADULT DENTAL [address] [place], [place] [phone] Gladys Saba DDS release from dental office 12/07/2024 Orders Only GENERIC EXTERNAL DATA DEPARTMENT Provider, Generic External Data 11/10/2024 Results Follow-Up [facility] MED & PEDS [address] [place], [place] [phone] Yaritza Mario RN CT Head w/o Contrast from Last 3 Months Immunizations Immunization Administration [...] METABOLIC PANEL Routine 12/07/2024 11:01 AM EDT LIPID PANEL, STANDARD Routine 07/02/2024 [...] PM EST Narrative 01/04/2025 4:00 PM EST [place] [address] CT Scan Report Signed Patient: Lou Kruse MR#: [id number] 3 : 1945 Acct:[id number] Age/Sex: 79 / M ADM Date: 01/02/25 Loc: HO.CT Attending Dr: Rivas Peres MD Ordering Physician: Rivas Peres MD Date of Service: 01/02/25 Procedure(s): CT chest wo IV con Accession Number(s): [id number] cc: Jeffrey Johansen MD; Rivas Peres MD Report Number: [id number]: Total DLP = 279.00 mGy-cm Reason for [...] The full article can be viewed at: https://goo.gl/[email or web address] Follow up strategies in solid nodules vary [...] 01/04/25 1600 DD/ 1558 TD/TT: 01/04/25 1558 Punchboard Assembler: Procedure Note Donotuseinterpreter, Image - 01/04/[address] [place] [address] [address] Scan Report Signed Patient: Radhika Kruse#: [id number] 3 : 1945cct:[id number] Age/Sex: 79 / MADM Date: 01/02/25 Loc: HO.CT Attending Dr: Rivas Peres MD Ordering Physician: Rivas Peres MD Date of Service: 01/02/25 Procedure(s): CT chest wo IV con Accession Number(s): [id number] cc: Jeffrey Johansen MD; Rivas Peres MD Report Number: [id number]: Total DLP = 279.00 mGy-cm Reason for [...] stability, with follow-up chest CT in approximately Jeaneth of 2027. Plan: Consider follow-up chest CT in July of 2026. Fleischner 2017 Guidelines were utilized to develop follow up recommendations for this patient. The full article can be viewed at: https://goo.gl/[email or web address] Follow up strategies in solid nodules vary [...] 01/04/25 1600 DD/ 1558 TD/TT: 01/04/25 1558 Punchboard Assembler: [facility] External Provider IMG CT PROCEDURES Final Result * (ABNORMAL) Basic Metabolic Panel (12/07/2024 11:01 AM EDT) Sodium 141 135 - 145 mmol/L [facility] Potassium 4.5 3.3 - 5.1 mmol/L [facility] Chloride 106 96 - 108 mmol/L [facility] Carbon Dioxide 28 22 - 29 mmol/L [facility] Anion Gap 12 12 - 20 [facility] Urea Nitrogen (BUN) 25(H) 9 - 16 mg/dL [facility] Creatinine, Serum 0.96 0.5 - 1.4 mg/dL [facility] Estimated Glomerular Filt Rate >60 [facility] Comment:Chronic Kidney Disea se: Estimated GFR < 60 mL/min/1.63d7Pnribv Kidney Disease: Estimated GFR < 15 mL/min/1.73m2 Glucose 108 60 - 115 mg/dL [facility] Calcium 9.4 8.4 - 10.2 mg/dL [facility] 12/07/2024 11:0 1 AM EDT 12/07/2024 11:07 AM EDT us Generic External Data Provider LAB BLOOD ORDERAB LES Final Result [facility] [address] [place] [phone] * (ABNORMAL) Lipid Panel, Standard (07/02/2024 12:04 PM EDT) Triglycerides 62 <150 mg/dL [facility] Comment:Desirable Triglyceri de: less than 150 mg/dLBorderline High Triglyceride 150-199 mg/dLHigh Triglyceride: 200-499 mg/dLVery High Triglyceride: greater than or equal to 5OO mg/dL Cholesterol 194 <200 mg/dL [facility] Comment:Desirable Cholestero l: less than 200 mg/dLBorderline High Cholesterol: 200-239 mg/dLHigh Cholesterol: greater than 239 mg/dL LDL Cholesterol Calculated 113(H) <100 mg/dL [facility] Comment:Desirable LDL: less than 100 mg/dLNear Optimal/Above Optimal LDL: 110- 129 mg/dLBorderline High LDL: 130-159 mg/dLHigh LDL: 160-189 mg/dLVery High LDL: greater than or equal to 190 mg/dL HDL Cholesterol 69 >40 mg/dL [facility] Comment:Desirable HDL: great er than 40 mg/dL Note: This HDL assay may give artificially low results in patients with liver disease. Blood Venous blood specimen / Unknown 07/02/2024 12:04 PM EDT 07/02/2024 2:06 PM EDT us Jeffrey Johansen MD LAB BLOOD ORDERABLES Final Result [facility] [address] [place] [address] [phone] from Last 3 Months or Most Recently Relevant to Health Maintenance Insurance [facility] [place] [address] HSN FULL DENTAL - HSN FULL (MEDICAID) Care Teams Woven Wood Shade Assembler Relationship Specialty Start Date End Date Jeffrey Johansen MD [address] [place] [address] PCP - General Internal Medicine 03/26/17
== END 2025-02-09 11:09 | disposition home or self-care (01) ==
LOC: HO.HSM 09:52
PROVIDERS: PCP Internal Medicine; Visit Provider Nurse Practitioner
DX: R51.9 Headache, unspecified (principal); G89.29 Other chronic pain; M79.18 Myalgia, other site
CPT/HCPCS: 20552; 64405; 99213

== ENCOUNTER → 2025-02-09 09:52 | Outpatient (BNVA) | payer MEDICARE, SELFPAY | PROVIDERS: PCP Internal Medicine; Visit Provider Nurse Practitioner | DX: R51.9 Headache, unspecified (principal); G89.29 Other chronic pain; M79.18 Myalgia, other site | CPT/HCPCS: 20552; 64405; 99212; J0665; J2003 ==